=== PATIENT | male | born 1980 | race Caucasian/White ===

== ENCOUNTER 2018-04-10 05:46 | Emergency (ER) | payer OTHER ==
[~2018-04-10] VITALS: Ht 188 cm; Wt 108.9 kg
[~2018-04-10 05:46] MED LIST: ALBU18HF IH; DULO30CA2 PO; ESCI10TA10 PO; FLUT1DIS3 IH; HYDR1TAB14 PO; MAGN400C PO; OMEP40CA6 PO
[2018-04-10 05:50] VITALS: BP 142/86
--- NOTE | 2018-04-10 05:53 | NUR ---
URINE CLEAN CATCH URINE OBTAINED AND SENT TO LAB
[2018-04-10 06:07] LABS: BILIRUBIN,URINE NEGATIVE (NEGATIVE); UROBILINOGEN,URINE NORMAL (NEGATIVE)
[2018-04-10 06:13] LABS: APPEARANCE,URINE CLEAR (CLEAR); UA COLOR YELLOW (YELLOW)
[2018-04-10] MEDS ORDERED: TORADOL ONE ×2 (06:16→06:18)
[2018-04-10] MEDS ORDERED: TORADOL IM STA (06:16)
--- NOTE | 2018-04-10 06:20 | NUR ---
TORADOL PATIENT RESTING IN BED, EYES OPEN, WATCHING T.V. NO SIGNS OF DISTRESS. RESPIRATIONS EVEN AND NONLABORED. TORADOL ADMINISTERED PER ORDERS. PT OFFERED WARM BLANKET, REFUSED, THOUGH REQUESTED LIGHTS BE OFF IN ROOM.
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
[2018-04-10 06:55] VITALS: BP 100/59
== END 2018-04-10 06:50 | disposition home or self-care (01) ==
LOC: ER 05:46
DX: M54.5 Low back pain (principal); R10.30 Lower abdominal pain, unspecified; J45.909 Unspecified asthma, uncomplicated; Z85.47 Personal history of malignant neoplasm of testis; Z88.0 Allergy status to penicillin; Z88.6 Allergy status to analgesic agent; Z88.8 Allergy status to other drugs, medicaments and biological substances; Z79.899 Other long term (current) drug therapy
CPT/HCPCS: 81002; 96372; 99283; J1885 ×2

== ENCOUNTER 2018-08-10 18:27 | Emergency (ER) | payer OTHER ==
[~2018-08-10] VITALS: Ht 188 cm; Wt 108.9 kg
[2018-08-10 18:50] VITALS: BP 114/71
--- NOTE | 2018-08-10 19:07 | NUR ---
Home Medications Pt does not have current medication list, states takes Symbicort, Albuterol Rescue Inhaler, Lexapro, Metoprolol. Does not recall dosages.
[2018-08-10 19:42] LABS: BILIRUBIN,URINE NEGATIVE (NEGATIVE); UROBILINOGEN,URINE NORMAL (NEGATIVE)
[2018-08-10 19:45] LABS: BASOPHIL % 0.7 % (0.0-0.2); EOSINOPHIL # 0.3 10^3/uL (0.0-0.2); EOSINOPHIL % 4.2 % (0.0-5.0); HEMOGLOBIN 14.9 g/dL (13.9-16.3); LYMPHOCYTES # 1.3 10^3/uL (1.0-4.8); LYMPHOCYTES % 21.7 % (24.0-44.0); MEAN CELL HGB 27.7 pg (26-34); MEAN CELL HGB CONCENTRATION 32.7 g/dL (33-37); MEAN CORP VOLUME 84.6 fL (78-100); MEAN PLATELET VOLUME 10.6 fL (7.8-11.0); MONOCYTES # 0.7 10^3/uL (0.3-0.8); MONOCYTES % 11.7 % (5.0-12.0); NEUTROPHIL # 3.6 10^3/uL (1.8-7.7); NEUTROPHILS % 61.5 % (41.0-85.0); RED CELL DISTRIBUTION WIDTH 15.2 % (11.5-14.5); WHITE BLOOD CELL 5.9 10^3/uL (4.5-11.0)
[2018-08-10 19:50] LABS: APPEARANCE,URINE CLEAR (CLEAR); UA COLOR YELLOW (YELLOW)
--- NOTE | 2018-08-10 20:05 | ER.PDOC ---
General Chief Complaint: Male Stated Complaint: MALE / L TESTICULAR PAIN Time seen by MD: 19:55 Source: patient Exam Limitations: no limitations History of Present Illness Timing/Duration: this morning Severity/Quality: moderate Allergies: Coded Allergies: Penicillins (Verified Allergy, Unknown, 12/14/16) aspirin (Verified Allergy, Unknown, 12/14/16) promethazine HCl (Verified Allergy, Unknown, 12/14/16) Home Meds Reported Medications Escitalopram Oxalate (LEXAPRO) 10 Mg Tablet, 1 TAB PO DAILY, #90 TAB 3 Refills 06/25/14 Albuterol Sulfate (VENTOLIN HFA) 18 Gm Hfa.aer.ad, 18 GM IH Q4 PRN for COUGH 11/23/13 Fluticasone/Salmeterol (ADVAIR 250-50 DISKUS) 1 Each Disk.w.dev, 1 EACH IH DAILY 11/23/13 Past Medical History Medical History: arrhythmia, asthma, cancer, hypertension, other Surgical History: cancer surgery Social History Smoking: non-smoker Alcohol Use: occassionally Drug Use: none Reviewed Nursing Reviewed: Vital Signs, Abn. Noted Review of Systems All Other Systems: Reviewed and Negative Physical Exam General Appearance: No Apparent Distress EENT: eyes nml inspection, nml ENT inspection, pharynx nml Neck: nml inspection, non-tender Cardiovascular/Respiratory: Regular Rate, Rhythm, No M/R/G, Normal Peripheral Pulses, No JVD, Normal Breath Sounds, No Respiratory Distress Abdomen: Normal Bowel Sounds, Non Tender, Soft, No Organomegaly, No Pulsatile Mass Male Genitals: Testicular Tenderness (L), Scrotal Swelling Back: nml inspection Extremities: Normal Range of Motion, Non-Tender, Normal Inspection, No Pedal Edema, No Calf Tenderness, Normal Capillary Refill 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 (08/10/18 19:34) Urinalysis (08/10/18 19:34) Us Scrotal (08/10/18 19:35) Vital Signs Date Time Temp Pulse Resp B/P (MAP) Pulse Ox O2 Delivery O2 Flow Rate FiO2 08/10/18 18:50 98.1 63 18 98.1 08/10/18 18:50 98.1 63 18 114/71 (85) 96 Room Air 98.1 08/10/18 18:50 98.1 63 18 96 Room Air 98.1 07/11/18 16:30 66 Laboratory Tests Test 08/10/18 19:34 08/10/18 19:40 Urine Collection Type VOID Urine Color YELLOW (YELLOW) Urine Appearance CLEAR (CLEAR) Urine Bilirubin NEGATIVE MG/DL (NEGATIVE) Urine Ketones NEGATIVE (NEGATIVE) Urine Specific [place] 1.015 (1.005-1.035) Urine pH 6 (5.0-6.0) Urine Protein NEGATIVE (NEGATIVE) Urine Urobilinogen NORMAL (NEGATIVE) Urine Nitrate NEGATIVE (NEGATAIVE) Urine Leukocyte Esterase NEGATIVE (NEGATIVE) Urine Blood NEGATIVE (NEGATIVE) Urine Glucose 50 (NEGATIVE) H White Blood Count 5.9 10^3/uL (4.5-11.0) Red Blood Count 5.38 10^6/uL (4.50-5.90) Hemoglobin 14.9 g/dL (13.9-16.3) Hematocrit 45.5 % (37.0-53.0) Mean Corpuscular Volume 84.6 fL (78-100) Mean Corpuscular Hemoglobin 27.7 pg (26-34) Mean Corpuscular Hemoglobin Concent 32.7 g/dL (33-37) L Red Cell Distribution Width 15.2 % (11.5-14.5) H Platelet Count 289 10^3/uL (150-400) Mean Platelet Volume 10.6 fL (7.8-11.0) Neutrophils (%) (Auto) 61.5 % (41.0-85.0) Lymphocytes (%) (Auto) 21.7 % (24.0-44.0) L Monocytes (%) (Auto) 11.7 % (5.0-12.0) Neutrophils # (Auto) 3.6 10^3/uL (1.8-7.7) Lymphocytes # (Auto) 1.3 10^3/uL (1.0-4.8) Monocytes # (Auto) 0.7 10^3/uL (0.3-0.8) Absolute Immature Granulocyte (auto 0.01 10^3 u/L (0-2) Eosinophils % 4.2 % (0.0-5.0) Basophils % 0.7 % (0.0-0.2) H Basophils # 0.0 10^3/uL (0.0-0.1) Eosinophil Count 0.3 10^3/uL (0.0-0.2) H Prothrombin Time 12.2 SEC (9.8-11.9) H Prothrombin Time INR (Non-Therap) 1.2 PTT 29.4 SEC (24.67-30.72) Sodium Level 141 mmol/L (132-145) Potassium Level 4.1 mmol/L (3.6-5.2) Chloride Level 104.0 mmol/L (96-109) Carbon Dioxide Level 26.0 mmol/L (20.0-32) Anion Gap 15.1 Blood Urea Nitrogen 15 mg/dL (7-18) Creatinine 0.99 mg/dL (0.59-1.40) Estimated GFR () 101.3 (>/=60) BUN/Creatinine Ratio 15.0 Glucose Level 114 mg/dL (70-110) H Calcium Level 9.1 mg/dL (8.4-10.5) Total Bilirubin 0.6 mg/dL (0.2-1.0) Aspartate Amino Transferase (AST) 30 U/L (0-35) Alanine Aminotransferase (ALT) 71 U/L (12-78) Alkaline Phosphatase 76 U/L (50-136) Total Protein 7.6 g/dL (6.4-8.2) Albumin 4.3 g/dL (3.4-5.0) Globulin 3.3 Amylase Level 49 U/L (25-115) Lipase 89 U/L (114-286) L Percent Immature Gran (Cell Imm) 0.20 % (0.00-0.50) Helicobacter pylori Screen NEGATIVE (NEGATIVE) EKG/XRAY/CT/US Utrasound Comments: varicocele, no torsion Departure Time of Disposition: 21:00 Disposition: 01 HOME, SELF-CARE Impression: Primary Impression: Varicocele Condition: Improved Referrals: IDANIA THORPE FINAL ASSEMBLY INSPECTOR (PCP) PRIMARY CARE PROVIDER Duration or Time Spent with Pa: 1 hr LUIS MIGUEL WALLIS MD Aug 10, 2018 20:05
[2018-08-10 20:09] LABS: CALCIUM 9.1 mg/dL (8.4-10.5)
--- NOTE | 2018-08-10 20:45 | NUR ---
Update Dr. Guerrero in with patient at this time
--- NOTE | 2018-08-10 20:46 | DIREP ---
This report includes an Addendum and supersedes previous reports for this exam. This report includes an Addendum and supersedes previous reports for this exam. PROCEDURE:US TESTICULAR COMPARISON:[facility], US, US TESTICULAR, 07/08/2018, 00:39 AM. INDICATIONS:TESTICULAR PAIN TECHNIQUE:The scrotum was evaluated with izquierdo scale, spectral analysis, and color duplex doppler sonography. FINDINGS: RIGHT TESTICLE: Right testicle surgically absent LEFT TESTICLE: Left testicle measures 5.4 x 4.1 x 2.5 cm, spectral Doppler flow evaluation somewhat suboptimal, diastolic flow suggested on provided images. EPIDIDYMIS:Left epididymis measures 1.4 cm with small epididymal cysts. Incidental note made of varicocele. OTHER:Negative. CONCLUSION: 1. Spectral evaluation somewhat limited, diastolic flow suggested on provided images but appears diminished which may be technical. If there is high clinical concern for portion, urology consultation recommended. 2. Small epididymal cysts. 3. Right testicle surgically absent. This report was called by telephone at 8:45 pm on August 10, [address] Clyde Guerrero. Dictated by: Chirag Khalil M.D. on 08/10/2018 at 08:38 PM NDUM: Additional consideration would be to repeat ultrasound with machine performed on prior exam from July 08, 2018 which would allow more direct comparison. This option was discussed with Dr. Guerrero. Dictated by: Chirag Khalil M.D. on 08/10/2018 at 08:48 PM NDUM: Upon further investigation it is noted that the previous ultrasound was performed at an outside facility accounting for differences in ultrasound platform. Conclusion remains unchanged from original report above. This addendum was discussed with Dr. Guerrero. Dictated by: Chirag Khalil M.D. on 08/10/2018 at 09:00 PM
--- NOTE | 2018-08-10 20:51 | NUR ---
US Gosia Pierce RN on phone with US
--- NOTE | 2018-08-10 20:57 | NUR ---
Dr. Remi Guerrero on phone with Dr. Khalil
[2018-08-10 21:00] VITALS: BP 116/74
--- NOTE | 2018-08-10 21:00 | NUR ---
Tanner uGerrero on phone with Dr. Hart
[2018-08-11 00:23] VITALS: BP 116/74
== END 2018-08-10 21:05 | disposition home or self-care (01) ==
LOC: ER 18:27
DX: I86.1 Scrotal varices (principal); I10 Essential (primary) hypertension; R79.1 Abnormal coagulation profile; J45.909 Unspecified asthma, uncomplicated; Z79.899 Other long term (current) drug therapy; Z88.6 Allergy status to analgesic agent; Z88.0 Allergy status to penicillin
CPT/HCPCS: 36415; 76870; 80053; 81002; 82150; 83690; 85025; 85610; 85730; 86677; 99284

== ENCOUNTER 2018-08-22 09:57 | Emergency (ER) | payer OTHER ==
[~2018-08-22] VITALS: Ht 188 cm; Wt 113.4 kg
[2018-08-22 10:16] VITALS: BP 161/106
--- NOTE | 2018-08-22 10:16 | NUR ---
ARRIVAL PATIENT ARRIVED TO [facility] AMBULATORY, C/O OF HEADACHE FOR THE PAST WEEK, DID GOT TO THE [place] ER ON WEDNESDAY AND SENT HOME, TODAY HEADACHE NO BETTER. CAME TO THE ED FOR SHENG.
[2018-08-22] MEDS ORDERED: STADOL IM STA (10:18)
[2018-08-22] MEDS ORDERED: ZOFRAN ODT SL STA (10:18)
[2018-08-22] MEDS ORDERED: ZOFRAN ODT ONE (10:21)
[2018-08-22] MEDS ORDERED: STADOL ONE (10:22)
--- NOTE | 2018-08-22 10:24 | ER.PDOC ---
General Chief Complaint: Headache Stated Complaint: MIGRAINE Time seen by MD: 10:33 Source: patient Exam Limitations: no limitations History of Present Illness Timing/Duration: 1 week Severity/Quality: moderate Prior Headaches/Recent Trauma: frequent headaches, chronic headaches Associated Symptoms: nausea/vomiting, sensitivity to light Modifying Factors: improves with exposure to light, improves with immobilization, improves with medication, improves with rest Prior symptoms/Treatment: Similar symptoms previous, Recenly Seen, Treated by Doctor Allergies: Coded Allergies: Penicillins (Verified Allergy, Unknown, 12/14/16) aspirin (Verified Allergy, Unknown, 12/14/16) promethazine HCl (Verified Allergy, Unknown, 12/14/16) Home Meds Reported Medications Escitalopram Oxalate (LEXAPRO) 10 Mg Tablet, 1 TAB PO DAILY, #90 TAB 3 Refills 06/25/14 Albuterol Sulfate (VENTOLIN HFA) 18 Gm Hfa.aer.ad, 18 GM IH Q4 PRN for COUGH 11/23/13 Fluticasone/Salmeterol (ADVAIR 250-50 DISKUS) 1 Each Disk.w.dev, 1 EACH IH DAILY 11/23/13 Past Medical History Medical History: cancer, other (migraine) Surgical History: cancer surgery Family History Significant Family History: no pertinent family hx Social History Smoking: non-smoker Alcohol Use: none Drug Use: none Reviewed Nursing Reviewed: Vital Signs, Abn. Noted Review of Systems All Other Systems: Reviewed and Negative Physical Exam General Appearance: No Apparent Distress, WD/WN Head/Eyes: eyes nml inspection, no facial swelling, no nystagmus, PERRL ENT: nml ENT inspection, pharynx nml Neck: nml inspection, Supple Cardiovascular: Normal Peripheral Pulses, Regular Rate, Rhythm, No Edema, No Gallop, No JVD, No Murmur Respiratory: chest non-tender, lungs clear, normal breath sounds, no respiratory distress, no accessory muscle use Gastrointestinal: Normal Bowel Sounds, No Organomegaly, No Pulsatile Mass, Non Tender, Soft Back: Normal Inspection, No CVA Tenderness, No Vertebral Tenderness Extremities: Normal Range of Motion, Non-Tender, Normal Inspection, No Pedal Edema, No Calf Tenderness, Normal Capillary Refill Psychiatric: Alert, Oriented x 3 Cranial Nerves: Normal Hearing, Normal Speech, PERRL Coordination/Gait: Normal Finger to Nose, Normal Gait Motor/Sensory: No Motor Deficit, No Sensory Deficit, No Pronator Drift, Negative Babinski's Sign Skin: Warm/Dry, Normal Color Lymphatic: No Adenopathy Results/Orders Results/Orders Orders - LUIS MIGUEL WALLIS MD Butorphanol Tartrate (Stadol) (08/22/18 10:18) Ondansetron (Zofran Odt) (08/22/18 10:18) Vital Signs Date Time Temp Pulse Resp B/P (MAP) Pulse Ox O2 Delivery O2 Flow Rate FiO2 08/22/18 10:16 98.2 63 18 161/106 (124) 97 Room Air 98.2 08/22/18 10:14 98.2 63 18 97 Room Air 98.2 08/22/18 10:13 98.2 63 18 98.2 08/11/18 00:23 72 Departure Time of Disposition: 11:11 Disposition: 01 HOME, SELF-CARE Impression: Primary Impression: Migraine Condition: Improved Referrals: IDANIA THORPE VICE PRESIDENT BUSINESS & CORPORATE DEVELOPMENT (PCP) PRIMARY CARE PROVIDER Duration or Time Spent with Pa: 1 hr LUIS MIGUEL WALLIS MD Aug 22, 2018 10:24
[2018-08-22 10:33] VITALS: BP_SYST 161; BP_SYST 162; BP_DIAS 106; BP_DIAS 99
[2018-08-22 10:34] VITALS: BP 161/106
== END 2018-08-22 10:41 | disposition home or self-care (01) ==
LOC: ER 09:57
DX: G43.909 Migraine, unspecified, not intractable, without status migrainosus (principal); Z79.899 Other long term (current) drug therapy; Z88.0 Allergy status to penicillin; Z88.6 Allergy status to analgesic agent
CPT/HCPCS: 96372; 99283; Q0162; J0585

== ENCOUNTER 2018-09-02 15:15 | Emergency (ER) | payer OTHER ==
[~2018-09-02] VITALS: Ht 188 cm; Wt 113.4 kg
[2018-09-02 15:32] VITALS: BP 143/66
[2018-09-02] MEDS ORDERED: ZOFRAN ODT SL STA (15:40)
[2018-09-02] MEDS ORDERED: STADOL IM STA (15:40)
--- NOTE | 2018-09-02 15:43 | ER.PDOC ---
General Chief Complaint: Headache Stated Complaint: MIGRAINE Time seen by MD: 16:00 Source: patient Exam Limitations: no limitations History of Present Illness Timing/Duration: 24 hours Severity/Quality: moderate Prior Headaches/Recent Trauma: frequent headaches, chronic headaches Associated Symptoms: nausea/vomiting, sensitivity to light Prior symptoms/Treatment: Similar symptoms previous, Recenly Seen, Treated by Doctor Allergies: Coded Allergies: Penicillins (Verified Allergy, Unknown, 12/14/16) aspirin (Verified Allergy, Unknown, 12/14/16) promethazine HCl (Verified Allergy, Unknown, 12/14/16) Home Meds Reported Medications Escitalopram Oxalate (LEXAPRO) 10 Mg Tablet, 1 TAB PO DAILY, #90 TAB 3 Refills 06/25/14 Albuterol Sulfate (VENTOLIN HFA) 18 Gm Hfa.aer.ad, 18 GM IH Q4 PRN for COUGH 11/23/13 Fluticasone/Salmeterol (ADVAIR 250-50 DISKUS) 1 Each Disk.w.dev, 1 EACH IH DAILY 11/23/13 Past Medical History Medical History: arrhythmia, asthma, cancer Surgical History: cancer surgery Social History Smoking: chew Alcohol Use: none Drug Use: none Reviewed Nursing Reviewed: Vital Signs, Abn. Noted Review of Systems All Other Systems: Reviewed and Negative Physical Exam General Appearance: No Apparent Distress, WD/WN Head/Eyes: eyes nml inspection, no facial swelling, no nystagmus, PERRL ENT: nml ENT inspection, pharynx nml Neck: nml inspection, Supple Cardiovascular: Normal Peripheral Pulses, Regular Rate, Rhythm, No Edema, No Gallop, No JVD, No Murmur Respiratory: chest non-tender, lungs clear, normal breath sounds, no respiratory distress, no accessory muscle use Gastrointestinal: Normal Bowel Sounds, No Organomegaly, No Pulsatile Mass, Non Tender, Soft Back: Normal Inspection, No CVA Tenderness, No Vertebral Tenderness Extremities: Normal Range of Motion, Non-Tender, Normal Inspection, No Pedal Edema, No Calf Tenderness, Normal Capillary Refill Psychiatric: Alert, Oriented x 3 Cranial Nerves: Normal Hearing, Normal Speech, PERRL Coordination/Gait: Normal Finger to Nose, Normal Gait Motor/Sensory: No Motor Deficit, No Sensory Deficit, No Pronator Drift, Negative Babinski's Sign Skin: Warm/Dry, Normal Color Lymphatic: No Adenopathy Results/Orders Results/Orders Vital Signs Date Time Temp Pulse Resp B/P (MAP) Pulse Ox O2 Delivery O2 Flow Rate FiO2 09/02/18 15:32 98.0 71 14 143/66 (91) 98 Room Air 98.0 09/02/18 15:28 98.0 71 14 98 Room Air 98.0 09/02/18 15:28 98.0 71 14 98.0 08/22/18 10:34 63 Course DATE SEEN BY PHYSICIAN: Apr 10, 2018 TIME SEEN BY PROVIDER: 0635 Duration or Total Time Spent w: 1 hr Vitals & review Data Vital Sign - Last 24 Hours 08/22/18 09/02/18 09/02/18 09/02/18 10:34 15:28 15:28 15:32 Temp 98.0 98.0 98.0 98.0 98.0 98.0 Pulse 63 71 71 71 Resp 14 14 14 B/P (MAP) 143/66 (91) Pulse Ox 98 98 O2 Delivery Room Air Room Air Sepsis Infection Criteria Pres: None O2 Sat by Pulse Oximetry: 98 Departure Time of Disposition: 16:00 Disposition: 01 HOME, SELF-CARE Impression: Primary Impression: Migraine Condition: Improved Referrals: IDANIA THORPE COAL PICKER (PCP) PRIMARY CARE PROVIDER Duration or Time Spent with Pa: 30 MIN LUIS MIGUEL WALLIS MD Sep 02, 2018 15:43
[2018-09-02] MEDS ORDERED: ZOFRAN ODT ONE (16:00)
[2018-09-02] MEDS ORDERED: STADOL ONE (16:00)
--- NOTE | 2018-09-02 16:30 | NUR ---
AMA PT LEFT AMA.
== END 2018-09-02 16:30 | disposition home or self-care (01) ==
LOC: ER 15:15
DX: G43.909 Migraine, unspecified, not intractable, without status migrainosus (principal); F17.220 Nicotine dependence, chewing tobacco, uncomplicated; J45.909 Unspecified asthma, uncomplicated; Z79.899 Other long term (current) drug therapy; Z88.0 Allergy status to penicillin; Z88.6 Allergy status to analgesic agent
CPT/HCPCS: 96372; 99283; Q0162; 99284; J0585

== ENCOUNTER 2018-09-03 12:09 | Emergency (ER) | payer OTHER ==
[~2018-09-03] VITALS: Ht 188 cm; Wt 113.4 kg
--- NOTE | 2018-09-03 12:36 | NUR ---
ARRIVAL PT ARRIVED AMBULATORY TO ER 7 C/O MIGRAINE X 3 DAYS. PT STATES WAS SEEN IN [place] ER YESTERDAY AM, THIS ER YESTERDAY AFTERNOON AND [place] ER AGAIN THIS AM FOR SAME COMPLAINT. PT HAS HISTORY OF MIGRAINE. NO ACUTE DISTRESS NOTED. EDP NOTIFIED OF PT ARRIVAL.
[2018-09-03 12:45] VITALS: BP 143/87
--- NOTE | 2018-09-03 13:17 | ER.PDOC ---
General Chief Complaint: Headache Stated Complaint: MIGRAINE Time seen by MD: 13:12 Source: patient Exam Limitations: no limitations History of Present Illness Initial Comments Migraine headache for past few days, seen in the ED yesterday and received Stadol without improvement. Has been to [place] ED twice and here twice since yesterday for same. Nothing seem to be helping he says. Severity/Quality: moderate Prior Headaches/Recent Trauma: frequent headaches, chronic headaches Associated Symptoms: sensitivity to light Prior symptoms/Treatment: Similar symptoms previous, Recenly Seen, Treated by Doctor Allergies: Coded Allergies: Penicillins (Verified Allergy, Unknown, UNK, 09/02/18) aspirin (Verified Allergy, Unknown, 12/14/16) promethazine HCl (Verified Allergy, Unknown, 12/14/16) Home Meds Reported Medications Escitalopram Oxalate (LEXAPRO) 10 Mg Tablet, 1 TAB PO DAILY, #90 TAB 3 Refills 06/25/14 Albuterol Sulfate (VENTOLIN HFA) 18 Gm Hfa.aer.ad, 18 GM IH Q4 PRN for COUGH 11/23/13 Fluticasone/Salmeterol (ADVAIR 250-50 DISKUS) 1 Each Disk.w.dev, 1 EACH IH DAILY 11/23/13 Past Medical History Medical History: asthma Surgical History: other Social History Smoking: non-smoker Alcohol Use: none Drug Use: none Review of Systems Constitutional: no symptoms reported Respiratory: no symptoms reported Cardiovascular: no symptoms reported Gastrointestinal: no symptoms reported Genitourinary: no symptoms reported All Other Systems: Reviewed and Negative Physical Exam General Appearance: No Apparent Distress, WD/WN Head/Eyes: eyes nml inspection, no facial swelling, no nystagmus, PERRL ENT: nml ENT inspection, pharynx nml Neck: nml inspection, Supple Cardiovascular: Normal Peripheral Pulses, Regular Rate, Rhythm, No Edema, No Gallop, No JVD, No Murmur Respiratory: chest non-tender, lungs clear, normal breath sounds, no respiratory distress, no accessory muscle use Gastrointestinal: Normal Bowel Sounds, No Organomegaly, No Pulsatile Mass, Non Tender, Soft Back: Normal Inspection, No CVA Tenderness, No Vertebral Tenderness Extremities: Normal Range of Motion, Non-Tender, Normal Inspection, No Pedal Edema, No Calf Tenderness, Normal Capillary Refill Cranial Nerves: Normal Hearing, Normal Speech, PERRL Motor/Sensory: No Motor Deficit, No Sensory Deficit, No Pronator Drift, Negative Babinski's Sign Results/Orders Results/Orders Vital Signs Date Time Temp Pulse Resp B/P (MAP) Pulse Ox O2 Delivery O2 Flow Rate FiO2 09/03/18 12:45 97.6 77 17 143/87 (105) 98 Room Air 97.6 09/03/18 12:36 97.6 77 17 98 Room Air 97.6 09/03/18 12:36 97.6 77 17 97.6 09/02/18 15:32 71 Progress Progress Patient recently had CT head about 4 Months ago so no need for one at this time. He has a drug seeking behavior and I had a long discussion with him. He will follow up with a Neurologist in [place]. Course DATE SEEN BY PHYSICIAN: Apr 10, 2018 TIME SEEN BY PROVIDER: 0635 Duration or Total Time Spent w: 30 MIN Vitals & review Data Vital Sign - Last 24 Hours 09/02/18 09/03/18 09/03/18 09/03/18 15:32 12:36 12:36 12:45 Temp 97.6 97.6 97.6 97.6 97.6 97.6 Pulse 71 77 77 77 Resp 17 17 17 B/P (MAP) 143/87 (105) Pulse Ox 98 98 O2 Delivery Room Air Room Air Sepsis Infection Criteria Pres: None O2 Sat by Pulse Oximetry: 98 Departure Time of Disposition: 13:16 Disposition: 01 HOME, SELF-CARE Impression: Primary Impression: Migraine Condition: Stable Referrals: IDANIA THORPE IT PROGRAM MANAGER (PCP) PRIMARY CARE PROVIDER Additional Instructions: F/U with a Neurologist in [facility]. 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
[2018-09-03 13:27] VITALS: BP 143/87
== END 2018-09-03 13:21 | disposition home or self-care (01) ==
LOC: ER 12:09
DX: G43.411 Hemiplegic migraine, intractable, with status migrainosus (principal); J45.909 Unspecified asthma, uncomplicated; Z79.899 Other long term (current) drug therapy; Z88.0 Allergy status to penicillin; Z88.6 Allergy status to analgesic agent
CPT/HCPCS: 99281

== ENCOUNTER 2018-09-27 10:48 | Emergency (ER) | payer OTHER ==
[~2018-09-27] VITALS: Ht 188 cm; Wt 113.4 kg
[2018-09-27 11:07] VITALS: BP 127/97
[2018-09-27] MEDS ORDERED: TORADOL IM STA (11:49)
[2018-09-27] MEDS ORDERED: PHENERGAN IM STA (11:49)
[2018-09-27] MEDS ORDERED: TORADOL ONE (11:55)
[2018-09-27] MEDS ORDERED: PHENERGAN ONE (11:55)
--- NOTE | 2018-09-27 12:07 | ER.PDOC ---
General Chief Complaint: Headache Stated Complaint: MIGRAINE Time seen by MD: 12:04 Source: patient Exam Limitations: no limitations History of Present Illness Initial Comments Migraine headache for past few days. He has been to numerous EDs in the past 1 Month for Migraine. Severity/Quality: moderate Prior Headaches/Recent Trauma: frequent headaches, chronic headaches Associated Symptoms: nausea/vomiting, sensitivity to light Prior symptoms/Treatment: Similar symptoms previous, Recenly Seen, Treated by Doctor Allergies: Coded Allergies: Penicillins (Verified Allergy, Unknown, UNK, 09/02/18) aspirin (Verified Allergy, Unknown, 12/14/16) Home Meds Reported Medications Escitalopram Oxalate (LEXAPRO) 10 Mg Tablet, 1 TAB PO DAILY, #90 TAB 3 Refills 06/25/14 Albuterol Sulfate (VENTOLIN HFA) 18 Gm Hfa.aer.ad, 18 GM IH Q4 PRN for COUGH 11/23/13 Fluticasone/Salmeterol (ADVAIR 250-50 DISKUS) 1 Each Disk.w.dev, 1 EACH IH DAILY 11/23/13 Past Medical History Medical History: arrhythmia, asthma Surgical History: other Social History Smoking: chew Alcohol Use: none Drug Use: none Review of Systems Constitutional: no symptoms reported Respiratory: no symptoms reported Cardiovascular: no symptoms reported Gastrointestinal: see HPI Genitourinary: no symptoms reported Musculoskeletal: no symptoms reported All Other Systems: Reviewed and Negative Physical Exam General Appearance: No Apparent Distress, WD/WN Head/Eyes: eyes nml inspection, no facial swelling, no nystagmus, PERRL Neck: nml inspection, Supple Cardiovascular: Normal Peripheral Pulses, Regular Rate, Rhythm, No Edema, No Gallop, No JVD, No Murmur Respiratory: chest non-tender, lungs clear, normal breath sounds, no respiratory distress, no accessory muscle use Gastrointestinal: Normal Bowel Sounds, No Organomegaly, No Pulsatile Mass, Non Tender, Soft Back: Normal Inspection, No CVA Tenderness, No Vertebral Tenderness Extremities: Normal Range of Motion, Non-Tender, Normal Inspection, No Pedal Edema, No Calf Tenderness, Normal Capillary Refill Psychiatric: Alert, Oriented x 3 Cranial Nerves: Normal Hearing, Normal Speech, PERRL Motor/Sensory: No Motor Deficit, No Sensory Deficit, No Pronator Drift, Negative Babinski's Sign Skin: Warm/Dry, Normal Color Results/Orders Results/Orders Orders - BERNABE LEY MD Ketorolac Tromethamine (Toradol) (09/27/18 11:49) Promethazine Hcl (Phenergan) (09/27/18 11:49) Ketorolac Tromethamine (Toradol) (09/27/18 11:55) Promethazine Hcl (Phenergan) (09/27/18 11:55) Vital Signs Date Time Temp Pulse Resp B/P (MAP) Pulse Ox O2 Delivery O2 Flow Rate FiO2 09/27/18 11:07 98.1 82 14 127/97 (107) 97 Room Air 98.1 09/27/18 11:03 98.1 82 14 98.1 09/27/18 11:03 98.1 82 14 97 Room Air 98.1 09/03/18 13:27 77 Departure Time of Disposition: 12:06 Disposition: 01 HOME, SELF-CARE Impression: Primary Impression: Migraine Qualified Codes: G43.911 - Migraine, unspecified, intractable, with status migrainosus Condition: Improved Referrals: IDANIA THORPE REMITTANCE CLERK (PCP) PRIMARY CARE PROVIDER Additional Instructions: F/U with your PCP in 2-3 days Duration or Time Spent with Pa: 30 mins BERNABE LEY MD September 27, 2018 12:07
[2018-09-27 12:20] VITALS: BP 124/83
--- NOTE | 2018-09-27 12:20 | NUR ---
DISMISSAL PT DC'D STABLE, STATES PAIN A 3 ON SCALE.
[2018-09-27 12:26] VITALS: BP 127/97
== END 2018-09-27 12:20 | disposition home or self-care (01) ==
LOC: ER 10:48
DX: G43.909 Migraine, unspecified, not intractable, without status migrainosus (principal); J45.909 Unspecified asthma, uncomplicated; F17.220 Nicotine dependence, chewing tobacco, uncomplicated; Z79.899 Other long term (current) drug therapy; Z88.0 Allergy status to penicillin; Z88.6 Allergy status to analgesic agent
CPT/HCPCS: 96372; 99284; J1885; J2550

== ENCOUNTER 2018-10-31 20:21 | Emergency (ER) | payer OTHER ==
[~2018-10-31] VITALS: Ht 188 cm; Wt 108.9 kg
[2018-10-31 20:44] VITALS: BP 124/92
[2018-10-31] MEDS ORDERED: PHENERGAN IM STA (20:57)
[2018-10-31] MEDS ORDERED: TORADOL IM ONE (21:00)
--- NOTE | 2018-10-31 21:05 | ER.PDOC ---
General Chief Complaint: Headache Stated Complaint: MIGRAINE Time seen by MD: 21:04 Source: patient Exam Limitations: no limitations History of Present Illness Initial Comments Migraine headache for past few days. Severity/Quality: moderate Prior Headaches/Recent Trauma: frequent headaches, chronic headaches Associated Symptoms: nausea/vomiting, sensitivity to light Prior symptoms/Treatment: Similar symptoms previous, Recenly Seen, Treated by Doctor Allergies: Coded Allergies: Penicillins (Verified Allergy, Unknown, UNK, 10/31/18) aspirin (Verified Allergy, Unknown, 10/31/18) Home Meds Reported Medications Escitalopram Oxalate (LEXAPRO) 10 Mg Tablet, 1 TAB PO DAILY, #90 TAB 3 Refills 06/25/14 Albuterol Sulfate (VENTOLIN HFA) 18 Gm Hfa.aer.ad, 18 GM IH Q4 PRN for COUGH 11/23/13 Fluticasone/Salmeterol (ADVAIR 250-50 DISKUS) 1 Each Disk.w.dev, 1 EACH IH DAILY 11/23/13 Past Medical History Medical History: asthma, cancer Surgical History: other Social History Smoking: non-smoker Alcohol Use: none Drug Use: none Review of Systems Constitutional: no symptoms reported Eyes: see HPI Respiratory: no symptoms reported Cardiovascular: no symptoms reported Gastrointestinal: see HPI All Other Systems: Reviewed and Negative Physical Exam General Appearance: No Apparent Distress, WD/WN Head/Eyes: eyes nml inspection, no facial swelling, no nystagmus, PERRL Neck: nml inspection, Supple Cardiovascular: Normal Peripheral Pulses, Regular Rate, Rhythm, No Edema, No Gallop, No JVD, No Murmur Respiratory: chest non-tender, lungs clear, normal breath sounds, no respiratory distress, no accessory muscle use Gastrointestinal: Normal Bowel Sounds, No Organomegaly, No Pulsatile Mass, Non Tender, Soft Back: Normal Inspection, No CVA Tenderness, No Vertebral Tenderness Extremities: Normal Range of Motion, Non-Tender, Normal Inspection, No Pedal Edema, No Calf Tenderness, Normal Capillary Refill Psychiatric: Alert, Oriented x 3 Cranial Nerves: Normal Hearing, Normal Speech, PERRL Motor/Sensory: No Motor Deficit, No Sensory Deficit, No Pronator Drift, Negative Babinski's Sign Skin: Warm/Dry, Normal Color Results/Orders Results/Orders Orders - BERNABE LEY MD Ketorolac Tromethamine (Toradol) (10/31/18 21:00) Promethazine Hcl (Phenergan) (10/31/18 20:57) Vital Signs Date Time Temp Pulse Resp B/P (MAP) Pulse Ox O2 Delivery O2 Flow Rate FiO2 10/31/18 20:44 98.3 81 16 124/92 (103) 97 Room Air 98.3 10/31/18 20:38 98.3 81 16 97 Room Air 98.3 09/27/18 12:26 82 Course DATE SEEN BY PHYSICIAN: Apr 10, 2018 TIME SEEN BY PROVIDER: 0635 Duration or Total Time Spent w: 30 mins Vitals & review Data Vital Sign - Last 24 Hours 09/27/18 10/31/18 10/31/18 12:26 20:38 20:44 Temp 98.3 98.3 98.3 98.3 Pulse 82 81 81 Resp 16 16 B/P (MAP) 124/92 (103) Pulse Ox 97 97 O2 Delivery Room Air Room Air Sepsis Infection Criteria Pres: None O2 Sat by Pulse Oximetry: 97 Departure Time of Disposition: 21:05 Disposition: 01 HOME, SELF-CARE Impression: Primary Impression: Migraine Condition: Improved Referrals: PCP,UNKNOWN (PCP) PRIMARY CARE PROVIDER Additional Instructions: F/U with your PCP. Duration or Time Spent with Pa: 30 mins Problem Qualifiers Primary Impression: Migraine Migraine type: unspecified Status migrainosus presence: with status migrainosus Intractability: intractable Qualified Codes: G43.911 - Migraine, unspecified, intractable, with status migrainosus BERNABE LEY MD Oct 31, 2018 21:05
[2018-10-31] MEDS ORDERED: TORADOL ONE (21:14)
[2018-10-31] MEDS ORDERED: PHENERGAN ONE (21:15)
[2018-10-31 21:40] VITALS: BP 113/73
[2018-10-31 21:49] VITALS: BP 113/73
== END 2018-10-31 21:43 | disposition home or self-care (01) ==
LOC: ER 20:21
DX: G43.911 Migraine, unspecified, intractable, with status migrainosus (principal); J45.909 Unspecified asthma, uncomplicated; Z79.899 Other long term (current) drug therapy; Z88.0 Allergy status to penicillin; Z88.6 Allergy status to analgesic agent
CPT/HCPCS: 96372; 99284; J1885; J2550

== ENCOUNTER 2018-11-15 12:15 | Emergency (ER) | payer OTHER ==
[~2018-11-15] VITALS: Ht 188 cm; Wt 108.9 kg
[2018-11-15] MEDS ORDERED: ZOFRAN ODT SL STA (12:36)
[2018-11-15] MEDS ORDERED: DILAUDID IM STA (12:36)
[2018-11-15 12:37] VITALS: BP 138/101
[2018-11-15] MEDS ORDERED: DILAUDID ONE (12:37)
[2018-11-15] MEDS ORDERED: ZOFRAN ODT ONE (12:37)
[2018-11-15] MEDS ORDERED: PHENERGAN ONE (13:07)
[2018-11-15] MEDS ORDERED: PHENERGAN IM STA (13:07)
--- NOTE | 2018-11-15 13:20 | ER.PDOC ---
General Chief Complaint: Headache Stated Complaint: MIGRAIBE Time seen by MD: 13:22 Source: patient History of Present Illness Timing/Duration: 24 hours Severity/Quality: moderate Prior Headaches/Recent Trauma: frequent headaches, chronic headaches Associated Symptoms: nausea/vomiting, sensitivity to light Modifying Factors: improves with medication, improves with rest Prior symptoms/Treatment: Similar symptoms previous Allergies: Coded Allergies: Penicillins (Verified Allergy, Unknown, UNK, 10/31/18) aspirin (Verified Allergy, Unknown, 10/31/18) Home Meds Reported Medications Escitalopram Oxalate (LEXAPRO) 10 Mg Tablet, 1 TAB PO DAILY, #90 TAB 3 Refills 06/25/14 Albuterol Sulfate (VENTOLIN HFA) 18 Gm Hfa.aer.ad, 18 GM IH Q4 PRN for COUGH 11/23/13 Fluticasone/Salmeterol (ADVAIR 250-50 DISKUS) 1 Each Disk.w.dev, 1 EACH IH DAILY 11/23/13 Past Medical History Medical History: other Surgical History: other Social History Smoking: non-smoker Alcohol Use: none Drug Use: none Reviewed Nursing Reviewed: Vital Signs, Abn. Noted Review of Systems All Other Systems: Reviewed and Negative Physical Exam General Appearance: No Apparent Distress, WD/WN Head/Eyes: eyes nml inspection, no facial swelling, no nystagmus, PERRL ENT: nml ENT inspection, pharynx nml Neck: nml inspection, Supple Cardiovascular: Normal Peripheral Pulses, Regular Rate, Rhythm, No Edema, No Gallop, No JVD, No Murmur Respiratory: chest non-tender, lungs clear, normal breath sounds, no respiratory distress, no accessory muscle use Gastrointestinal: Normal Bowel Sounds, No Organomegaly, No Pulsatile Mass, Non Tender, Soft Back: Normal Inspection, No CVA Tenderness, No Vertebral Tenderness Extremities: Normal Range of Motion, Non-Tender, Normal Inspection, No Pedal Edema, No Calf Tenderness, Normal Capillary Refill Psychiatric: Alert, Oriented x 3 Cranial Nerves: Normal Hearing, Normal Speech, PERRL Coordination/Gait: Normal Finger to Nose, Normal Gait Motor/Sensory: No Motor Deficit, No Sensory Deficit, No Pronator Drift, Negative Babinski's Sign Skin: Warm/Dry, Normal Color Lymphatic: No Adenopathy Results/Orders Results/Orders Orders - LUIS MIGUEL WALLIS MD Hydromorphone Inj (Dilaudid) (11/15/18 12:36) Ondansetron (Zofran Odt) (11/15/18 12:36) Promethazine Hcl (Phenergan) (11/15/18 13:07) Promethazine Hcl (Phenergan) (11/15/18 13:07) Vital Signs Date Time Temp Pulse Resp B/P (MAP) Pulse Ox O2 Delivery O2 Flow Rate FiO2 11/15/18 12:37 98.0 76 18 138/101 (113) 99 Room Air 98.0 11/15/18 12:35 98.0 76 18 98.0 11/15/18 12:35 98.0 76 18 99 Room Air 98.0 10/31/18 21:49 73 Administered Medications Medications (Trade) Dose Ordered Sig/Jennifer Route PRN Reason Start Time Stop Time Status Last Admin Dose Admin Hydromorphone HCl (Dilaudid) 2 mg STAT STAT IM 11/15/18 12:36 11/15/18 12:37 UNV 11/15/18 12:42 2 MG Ondansetron HCl (Zofran Odt) 4 mg STAT STAT SL 11/15/18 12:36 11/15/18 12:37 UNV 11/15/18 12:42 4 MG Promethazine HCl (Phenergan) 25 mg STAT STAT IM 11/15/18 13:07 11/15/18 13:08 DC 11/15/18 13:11 25 MG Departure Time of Disposition: 14:00 Disposition: 01 HOME, SELF-CARE Impression: Primary Impression: Migraine Condition: Stable Referrals: PCP,UNKNOWN (PCP) PRIMARY CARE PROVIDER Duration or Time Spent with Pa: 15 MIN LUIS MIGUEL WALLIS MD Nov 15, 2018 13:20
[2018-11-15 13:30] VITALS: BP 138/101
== END 2018-11-15 13:25 | disposition home or self-care (01) ==
LOC: ER 12:15
DX: G43.909 Migraine, unspecified, not intractable, without status migrainosus (principal); Z79.899 Other long term (current) drug therapy; Z88.0 Allergy status to penicillin; Z88.6 Allergy status to analgesic agent
CPT/HCPCS: 96372; 99284; J1170; J2550; Q0162

== ENCOUNTER 2018-11-18 14:42 | Emergency (ER) | payer OTHER ==
[~2018-11-18] VITALS: Ht 188 cm; Wt 108.9 kg
[2018-11-18 14:58] VITALS: BP 138/91
--- NOTE | 2018-11-18 14:59 | NUR ---
ARRIVAL PATIENT ARRIVED TO ED6 AMBULATORY, C/O OF HEADACHE TODAY, HAS BEEN SEEN IN THE PAST 2 DAYS IN THE ED FOR SAME SYMPTOMS AND WAS GIVEN DILAUDID,ZOFRAN AND PHENERGAN, COMES BACK TO TODAY DUE TO HEADACHE HAS RETURNED.
--- NOTE | 2018-11-18 15:02 | ER.PDOC ---
General Chief Complaint: Headache Stated Complaint: MIGRAINE Time seen by MD: 15:00 Source: patient History of Present Illness Timing/Duration: 24 hours Severity/Quality: moderate Prior Headaches/Recent Trauma: frequent headaches, chronic headaches Associated Symptoms: nausea/vomiting, sensitivity to light Modifying Factors: improves with medication, improves with rest Prior symptoms/Treatment: Similar symptoms previous Allergies: Coded Allergies: Penicillins (Verified Allergy, Unknown, UNK, 10/31/18) aspirin (Verified Allergy, Unknown, 10/31/18) Home Meds Reported Medications Escitalopram Oxalate (LEXAPRO) 10 Mg Tablet, 1 TAB PO DAILY, #90 TAB 3 Refills 06/25/14 Albuterol Sulfate (VENTOLIN HFA) 18 Gm Hfa.aer.ad, 18 GM IH Q4 PRN for COUGH 11/23/13 Fluticasone/Salmeterol (ADVAIR 250-50 DISKUS) 1 Each Disk.w.dev, 1 EACH IH DAILY 11/23/13 Past Medical History Medical History: cancer, other Surgical History: other Social History Smoking: non-smoker Alcohol Use: none Drug Use: none Reviewed Nursing Reviewed: Vital Signs, Abn. Noted Review of Systems All Other Systems: Reviewed and Negative Physical Exam General Appearance: No Apparent Distress, WD/WN Head/Eyes: eyes nml inspection, no facial swelling, no nystagmus, PERRL ENT: nml ENT inspection, pharynx nml Neck: nml inspection, Supple Cardiovascular: Normal Peripheral Pulses, Regular Rate, Rhythm, No Edema, No Gallop, No JVD, No Murmur Respiratory: chest non-tender, lungs clear, normal breath sounds, no respiratory distress, no accessory muscle use Gastrointestinal: Normal Bowel Sounds, No Organomegaly, No Pulsatile Mass, Non Tender, Soft Back: Normal Inspection, No CVA Tenderness, No Vertebral Tenderness Extremities: Normal Range of Motion, Non-Tender, Normal Inspection, No Pedal Edema, No Calf Tenderness, Normal Capillary Refill Psychiatric: Alert, Oriented x 3 Cranial Nerves: Normal Hearing, Normal Speech, PERRL Coordination/Gait: Normal Finger to Nose, Normal Gait Skin: Warm/Dry, Normal Color Lymphatic: No Adenopathy Results/Orders Results/Orders Vital Signs Date Time Temp Pulse Resp B/P (MAP) Pulse Ox O2 Delivery O2 Flow Rate FiO2 11/18/18 14:58 98.0 50 18 138/91 (107) 97 Room Air 98.0 11/18/18 14:57 98.0 50 18 97 Room Air 98.0 11/18/18 14:56 98.0 50 18 98.0 11/15/18 13:30 76 Departure Time of Disposition: 15:22 Disposition: 01 HOME, SELF-CARE Impression: Primary Impression: Headache Condition: Improved Referrals: PCP,UNKNOWN (PCP) PRIMARY CARE PROVIDER Duration or Time Spent with Pa: LUIS MIGUEL Hidalgo MD Nov 18, 2018 15:02
[2018-11-18] MEDS ORDERED: STADOL IM STA (15:20)
[2018-11-18] MEDS ORDERED: ZOFRAN ODT SL STA (15:21)
[2018-11-18] MEDS ORDERED: ZOFRAN ODT ONE (15:27)
[2018-11-18 15:32] VITALS: BP 138/91
== END 2018-11-18 15:50 | disposition home or self-care (01) ==
LOC: ER 14:42
DX: R51 Headache (principal); R11.2 Nausea with vomiting, unspecified; H53.149 Visual discomfort, unspecified; Z79.899 Other long term (current) drug therapy; Z88.0 Allergy status to penicillin; Z88.6 Allergy status to analgesic agent
CPT/HCPCS: 96372; 99283; Q0162; 99282

== ENCOUNTER 2018-11-26 18:43 | Emergency (ER) | payer OTHER ==
[~2018-11-26] VITALS: Ht 188 cm; Wt 108.9 kg
[2018-11-26 18:55] VITALS: BP 109/64
[2018-11-26] MEDS ORDERED: PHENERGAN IM STA (19:05)
[2018-11-26] MEDS ORDERED: TORADOL IM STA (19:05)
[2018-11-26] MEDS ORDERED: TORADOL ONE (19:06)
[2018-11-26] MEDS ORDERED: PHENERGAN ONE (19:06)
--- NOTE | 2018-11-26 19:08 | ER.PDOC ---
General Chief Complaint: Headache Stated Complaint: MIGRAINE Time seen by MD: 19:06 Source: patient Exam Limitations: no limitations History of Present Illness Initial Comments Migraine headache for past few days. Severity/Quality: moderate Prior Headaches/Recent Trauma: frequent headaches, chronic headaches Associated Symptoms: nausea/vomiting, sensitivity to light Prior symptoms/Treatment: Similar symptoms previous, Recenly Seen, Treated by Doctor Allergies: Coded Allergies: Penicillins (Verified Allergy, Unknown, UNK, 10/31/18) aspirin (Verified Allergy, Unknown, 10/31/18) Home Meds Reported Medications Escitalopram Oxalate (LEXAPRO) 10 Mg Tablet, 1 TAB PO DAILY, #90 TAB 3 Refills 06/25/14 Albuterol Sulfate (VENTOLIN HFA) 18 Gm Hfa.aer.ad, 18 GM IH Q4 PRN for COUGH 11/23/13 Fluticasone/Salmeterol (ADVAIR 250-50 DISKUS) 1 Each Disk.w.dev, 1 EACH IH DAILY 11/23/13 Past Medical History Medical History: asthma, other Surgical History: cancer surgery Social History Smoking: non-smoker Alcohol Use: rarely Drug Use: none Review of Systems Constitutional: no symptoms reported Eyes: see HPI Respiratory: no symptoms reported Cardiovascular: no symptoms reported Gastrointestinal: see HPI All Other Systems: Reviewed and Negative Physical Exam General Appearance: No Apparent Distress, WD/WN Neck: nml inspection, Supple Cardiovascular: Normal Peripheral Pulses, Regular Rate, Rhythm, No Edema, No Gallop, No JVD, No Murmur Respiratory: chest non-tender, lungs clear, normal breath sounds, no respiratory distress, no accessory muscle use Gastrointestinal: Normal Bowel Sounds, No Organomegaly, No Pulsatile Mass, Non Tender, Soft Back: Normal Inspection, No CVA Tenderness, No Vertebral Tenderness Extremities: Normal Range of Motion, Non-Tender, Normal Inspection, No Pedal Edema, No Calf Tenderness, Normal Capillary Refill Psychiatric: Alert, Oriented x 3 Cranial Nerves: Normal Hearing, Normal Speech, PERRL Motor/Sensory: No Motor Deficit, No Sensory Deficit, No Pronator Drift, Negative Babinski's Sign Skin: Warm/Dry, Normal Color Results/Orders Results/Orders Orders - BERNABE LEY MD Ketorolac Tromethamine (Toradol) (11/26/18 19:05) Promethazine Hcl (Phenergan) (11/26/18 19:05) Vital Signs Date Time Temp Pulse Resp B/P (MAP) Pulse Ox O2 Delivery O2 Flow Rate FiO2 11/26/18 18:55 97.7 105 18 97.7 11/26/18 18:55 97.7 105 18 98 Room Air 97.7 11/26/18 18:55 97.7 105 18 109/64 (79) 98 Room Air 97.7 11/18/18 15:32 208.4 50 11/18/18 14:58 98.0 Departure Time of Disposition: 19:07 Disposition: 01 HOME, SELF-CARE Impression: Primary Impression: Migraine Qualified Codes: G43.911 - Migraine, unspecified, intractable, with status migrainosus Condition: Stable Referrals: PCP,UNKNOWN (PCP) PRIMARY CARE PROVIDER Additional Instructions: F/U with your PCP and Neurologist Duration or Time Spent with Pa: 20 mins BERNABE LEY MD Nov 26, 2018 19:08
[2018-11-26 19:35] VITALS: BP 119/71
== END 2018-11-26 19:34 | disposition home or self-care (01) ==
LOC: ER 18:43
DX: G43.909 Migraine, unspecified, not intractable, without status migrainosus (principal); J45.909 Unspecified asthma, uncomplicated; Z88.0 Allergy status to penicillin; Z88.6 Allergy status to analgesic agent; Z79.899 Other long term (current) drug therapy; Z98.890 Other specified postprocedural states
CPT/HCPCS: 96372 ×2; 99284; J1885; J2550

== ENCOUNTER 2018-11-27 19:00 | Emergency (ER) | payer OTHER ==
[~2018-11-27] VITALS: Ht 188 cm; Wt 113.4 kg
[2018-11-27 19:20] VITALS: BP 136/81
[2018-11-27] MEDS ORDERED: DECADRON IM STA (19:31)
[2018-11-27] MEDS ORDERED: TORADOL IM STA (19:31)
[2018-11-27] MEDS ORDERED: TORADOL ONE (19:57)
[2018-11-27] MEDS ORDERED: DECADRON ONE (19:57)
--- NOTE | 2018-11-27 20:26 | ER.PDOC ---
General Chief Complaint: Requesting Medical Care Stated Complaint: MIGRAINE Time seen by MD: 20:00 Source: patient Exam Limitations: no limitations History of Present Illness Initial Comments pt has a h/o Chronic migraine and multiple visits to the ER for pain control, pt was here yesterday for the same problem and states the meds did not help . Timing/Duration: 24 hours Severity/Quality: moderate Prior Headaches/Recent Trauma: frequent headaches, chronic headaches Associated Symptoms: dizziness Modifying Factors: improves with exposure to light Prior symptoms/Treatment: Recenly Seen Allergies: Coded Allergies: Penicillins (Verified Allergy, Unknown, UNK, 10/31/18) aspirin (Verified Allergy, Unknown, 10/31/18) Home Meds Reported Medications Escitalopram Oxalate (LEXAPRO) 10 Mg Tablet, 1 TAB PO DAILY, #90 TAB 3 Refills 06/25/14 Albuterol Sulfate (VENTOLIN HFA) 18 Gm Hfa.aer.ad, 18 GM IH Q4 PRN for COUGH 11/23/13 Fluticasone/Salmeterol (ADVAIR 250-50 DISKUS) 1 Each Disk.w.dev, 1 EACH IH DAILY 11/23/13 Past Medical History Medical History: other (Migraines ) Surgical History: cancer surgery Social History Drug Use: none Review of Systems Constitutional: no symptoms reported Eyes: no symptoms reported Respiratory: no symptoms reported Cardiovascular: no symptoms reported Gastrointestinal: no symptoms reported Genitourinary: no symptoms reported Musculoskeletal: no symptoms reported Skin: no symptoms reported Psychiatric/Neurological: see HPI, headache All Other Systems: Reviewed and Negative Physical Exam General Appearance: No Apparent Distress, WD/WN ENT: nml ENT inspection Neck: nml inspection, Supple Cardiovascular: Normal Peripheral Pulses, Regular Rate, Rhythm, No Edema Respiratory: chest non-tender, lungs clear, normal breath sounds, no respiratory distress Gastrointestinal: Normal Bowel Sounds, No Organomegaly, Non Tender Extremities: Normal Range of Motion, Non-Tender, Normal Inspection, No Pedal Edema Psychiatric: Oriented x 3 Cranial Nerves: Normal Hearing, Normal Speech, PERRL Motor/Sensory: No Motor Deficit, No Sensory Deficit Skin: Warm/Dry, Normal Color Lymphatic: No Adenopathy Results/Orders Results/Orders Orders - CALLY BURGOS MD Ketorolac Tromethamine (Toradol) (11/27/18 19:31) Dexamethasone Sod Phosphate (Decadron) (11/27/18 19:31) Ketorolac Tromethamine (Toradol) (11/27/18 19:57) Dexamethasone Sod Phosphate (Decadron) (11/27/18 19:57) Vital Signs Date Time Temp Pulse Resp B/P (MAP) Pulse Ox O2 Delivery O2 Flow Rate FiO2 11/26/18 19:35 207.9 99 11/26/18 18:55 97.7 Administered Medications Medications (Trade) Dose Ordered Sig/Jennifer Route PRN Reason Start Time Stop Time Status Last Admin Dose Admin Dexamethasone Sodium Phosphate (Decadron) 10 mg STAT STAT IM 11/27/18 19:31 11/27/18 19:34 DC 11/27/18 20:06 10 MG Ketorolac Tromethamine (Toradol) 60 mg STAT STAT IM 11/27/18 19:31 11/27/18 19:34 DC 11/27/18 20:06 60 MG Progress Progress pt is stable , advised f/u with neurology Departure Time of Disposition: 20:24 Disposition: 01 HOME, SELF-CARE Impression: Primary Impression: Headache Qualified Codes: G44.89 - Other headache syndrome Condition: Stable Referrals: PCP,UNKNOWN (PCP) PRIMARY CARE PROVIDER Additional Instructions: pt is advised to f/u with Neurology Duration or Time Spent with Pa: 20 mins CALLY BURGOS MD Nov 27, 2018 20:26
[2018-11-27 21:03] VITALS: BP 133/49
== END 2018-11-27 20:45 | disposition home or self-care (01) ==
LOC: ER 19:00
DX: G43.909 Migraine, unspecified, not intractable, without status migrainosus (principal); Z88.0 Allergy status to penicillin; Z88.6 Allergy status to analgesic agent; Z79.899 Other long term (current) drug therapy; Z98.890 Other specified postprocedural states
CPT/HCPCS: 96372 ×2; 99284; J1100; J1885

== ENCOUNTER 2018-12-09 20:00 | Emergency (ER) | payer OTHER ==
[~2018-12-09] VITALS: Ht 188 cm; Wt 99.8 kg
[2018-12-09 20:05] VITALS: BP 141/73
--- NOTE | 2018-12-09 20:15 | NUR ---
Triaged LWBS Patient states that the medication that he took earlier today just kicked in and he is feeling must better and he believes that he will just go home since he is feeling better. Patient is alert oriented and symptoms have improved.
== END 2018-12-09 20:15 | disposition left against medical advice (07) ==
LOC: ER 20:00
DX: G43.909 Migraine, unspecified, not intractable, without status migrainosus (principal); Z53.21 Procedure and treatment not carried out due to patient leaving prior to being seen by health care provider
CPT/HCPCS: 99281

== ENCOUNTER 2018-12-12 20:37 | Emergency (ER) | payer OTHER ==
[~2018-12-12] VITALS: Ht 188 cm; Wt 108.9 kg
[2018-12-12 20:40] VITALS: BP 146/92
[2018-12-12] MEDS ORDERED: TORADOL ONE (20:52)
[2018-12-12] MEDS ORDERED: TORADOL IM STA (20:52)
--- NOTE | 2018-12-12 20:59 | ER.PDOC ---
General Chief Complaint: Requesting Medical Care Stated Complaint: MIGRAINE Time seen by MD: 20:56 Source: patient Exam Limitations: no limitations History of Present Illness Initial Comments Headache for 4 days, seen in the ED recurrently for same. Severity/Quality: moderate Prior Headaches/Recent Trauma: frequent headaches, chronic headaches Associated Symptoms: sensitivity to light Prior symptoms/Treatment: Similar symptoms previous, Recenly Seen, Treated by Doctor Allergies: Coded Allergies: Penicillins (Verified Allergy, Unknown, UNK, 10/31/18) aspirin (Verified Allergy, Unknown, 10/31/18) Home Meds Reported Medications Escitalopram Oxalate (LEXAPRO) 10 Mg Tablet, 1 TAB PO DAILY, #90 TAB 3 Refills 06/25/14 Albuterol Sulfate (VENTOLIN HFA) 18 Gm Hfa.aer.ad, 18 GM IH Q4 PRN for COUGH 11/23/13 Fluticasone/Salmeterol (ADVAIR 250-50 DISKUS) 1 Each Disk.w.dev, 1 EACH IH DAILY 11/23/13 Past Medical History Surgical History: cancer surgery Social History Drug Use: none Review of Systems Constitutional: no symptoms reported Eyes: photophobia Respiratory: no symptoms reported Cardiovascular: no symptoms reported Gastrointestinal: no symptoms reported Genitourinary: no symptoms reported All Other Systems: Reviewed and Negative Physical Exam General Appearance: No Apparent Distress, WD/WN Neck: nml inspection, Supple Cardiovascular: Normal Peripheral Pulses, Regular Rate, Rhythm, No Edema, No Gallop, No JVD, No Murmur Respiratory: chest non-tender, lungs clear, normal breath sounds, no respiratory distress, no accessory muscle use Gastrointestinal: Normal Bowel Sounds, No Organomegaly, No Pulsatile Mass, Non Tender, Soft Back: Normal Inspection, No CVA Tenderness, No Vertebral Tenderness Extremities: Normal Range of Motion, Non-Tender, Normal Inspection, No Pedal Edema, No Calf Tenderness, Normal Capillary Refill Psychiatric: Alert, Oriented x 3 Cranial Nerves: Normal Hearing, Normal Speech, PERRL Motor/Sensory: No Motor Deficit, No Sensory Deficit, No Pronator Drift, Negative Babinski's Sign Skin: Warm/Dry, Normal Color Results/Orders Results/Orders Orders - BERNABE LEY MD Ketorolac Tromethamine (Toradol) (12/12/18 20:52) Ketorolac Tromethamine (Toradol) (12/12/18 20:52) Vital Signs Date Time Temp Pulse Resp B/P (MAP) Pulse Ox O2 Delivery O2 Flow Rate FiO2 12/09/18 20:05 209.3 84 Course Sepsis Screening Results: Posi: POSITIVE SEPSIS RISK DATE SEEN BY PHYSICIAN: Apr 10, 2018 TIME SEEN BY PROVIDER: 0635 Duration or Total Time Spent w: 20 mins Vitals & review Data Vital Sign - Last 24 Hours 12/09/18 20:05 Temp 209.3 Pulse 84 Sepsis Infection Criteria Pres: None Departure Time of Disposition: 20:57 Disposition: 01 HOME, SELF-CARE Impression: Primary Impression: Migraine Condition: Stable Referrals: PCP,UNKNOWN (PCP) PRIMARY CARE PROVIDER Additional Instructions: Toradol F/U with your Neurologist Duration or Time Spent with Pa: 20 mins Problem Qualifiers Primary Impression: Migraine Migraine type: unspecified Status migrainosus presence: with status migrainosus Intractability: intractable Qualified Codes: G43.911 - Migraine, unspecified, intractable, with status migrainosus BERNABE LEY MD Dec 12, 2018 20:59
[2018-12-12 21:39] VITALS: BP 146/92
== END 2018-12-12 21:13 | disposition home or self-care (01) ==
LOC: ER 20:37
DX: G43.911 Migraine, unspecified, intractable, with status migrainosus (principal); Z79.899 Other long term (current) drug therapy; Z88.0 Allergy status to penicillin; Z88.6 Allergy status to analgesic agent
CPT/HCPCS: 96372; 99283; J1885

== ENCOUNTER 2018-12-13 17:54 | Emergency (ER) | payer OTHER ==
[~2018-12-13] VITALS: Ht 188 cm; Wt 108.9 kg
--- NOTE | 2018-12-13 17:59 | ER.PDOC ---
General Chief Complaint: Requesting Medical Care Stated Complaint: MIGRAINE Time seen by MD: 17:59 Source: patient Exam Limitations: no limitations History of Present Illness Initial Comments Migraine since yesterday, seen yesterday, given toradol, no improvement Timing/Duration: 24 hours Severity/Quality: severe Prior Headaches/Recent Trauma: no recent headache/trauma, chronic headaches Associated Symptoms: denies symptoms Allergies: Coded Allergies: Penicillins (Verified Allergy, Unknown, UNK, 10/31/18) aspirin (Verified Allergy, Unknown, 10/31/18) Home Meds Reported Medications Escitalopram Oxalate (LEXAPRO) 10 Mg Tablet, 1 TAB PO DAILY, #90 TAB 3 Refills 06/25/14 Albuterol Sulfate (VENTOLIN HFA) 18 Gm Hfa.aer.ad, 18 GM IH Q4 PRN for COUGH 11/23/13 Fluticasone/Salmeterol (ADVAIR 250-50 DISKUS) 1 Each Disk.w.dev, 1 EACH IH DAILY 11/23/13 Past Medical History Surgical History: cancer surgery Social History Drug Use: none Review of Systems Psychiatric/Neurological: headache All Other Systems: Reviewed and Negative Physical Exam General Appearance: No Apparent Distress, WD/WN Head/Eyes: eyes nml inspection, no facial swelling, no nystagmus, PERRL ENT: nml ENT inspection, pharynx nml Neck: nml inspection, Supple Cardiovascular: Normal Peripheral Pulses, Regular Rate, Rhythm, No Edema, No Gallop, No JVD, No Murmur Respiratory: chest non-tender, lungs clear, normal breath sounds, no respiratory distress, no accessory muscle use Gastrointestinal: Normal Bowel Sounds, No Organomegaly, No Pulsatile Mass, Non Tender, Soft Back: Normal Inspection, No CVA Tenderness, No Vertebral Tenderness Extremities: Normal Range of Motion, Non-Tender, Normal Inspection, No Pedal Edema, No Calf Tenderness, Normal Capillary Refill Psychiatric: Alert, Oriented x 3 Cranial Nerves: Normal Hearing, Normal Speech, PERRL Coordination/Gait: Normal Finger to Nose, Normal Gait Motor/Sensory: No Motor Deficit, No Sensory Deficit, No Pronator Drift, Ne gative Babinski's Sign Results/Orders Results/Orders Orders - DESTINI CHRIS MD Promethazine Hcl (Phenergan) (12/13/18 18:16) Ketorolac Tromethamine (Toradol) (12/13/18 18:30) Vital Signs Date Time Temp Pulse Resp B/P (MAP) Pulse Ox O2 Delivery O2 Flow Rate FiO2 12/12/18 21:39 209.7 73 Course Sepsis Screening Results: Posi: POSITIVE SEPSIS RISK DATE SEEN BY PHYSICIAN: Apr 10, 2018 TIME SEEN BY PROVIDER: 0635 Duration or Total Time Spent w: 20 mins Vitals & review Data Vital Sign - Last 24 Hours 12/12/18 21:39 Temp 209.7 Pulse 73 Current Medications Medications (Trade) Dose Ordered Sig/Jennifer PRN Reason Start Time Stop Time Status Last Admin Promethazine HCl (Phenergan) 25 mg STAT STAT 12/13/18 18:16 12/13/18 18:17 Sepsis Infection Criteria Pres: None Departure Time of Disposition: 18:19 Disposition: 01 HOME, SELF-CARE Impression: Primary Impression: Migraine Condition: Stable Patient Instructions: Migraine Headache, [id number] Referrals: PCP,UNKNOWN (PCP) PRIMARY CARE PROVIDER Duration or Time Spent with Pa: DESTINI HUBER MD Dec 13, 2018 17:59
[2018-12-13 18:13] VITALS: BP 154/89
[2018-12-13] MEDS ORDERED: PHENERGAN IM STA (18:16)
[2018-12-13] MEDS ORDERED: TORADOL ONE (18:29)
[2018-12-13] MEDS ORDERED: PHENERGAN ONE (18:29)
[2018-12-13] MEDS ORDERED: TORADOL IM ONE (18:30)
[2018-12-13 18:40] VITALS: BP 133/94
== END 2018-12-13 18:50 | disposition home or self-care (01) ==
LOC: ER 17:54
DX: G43.909 Migraine, unspecified, not intractable, without status migrainosus (principal); Z79.899 Other long term (current) drug therapy; Z88.0 Allergy status to penicillin; Z88.6 Allergy status to analgesic agent
CPT/HCPCS: 96372; 99284; J1885; J2550

== ENCOUNTER 2018-12-27 10:57 | Emergency (ER) | payer OTHER ==
[~2018-12-27] VITALS: Ht 188 cm; Wt 108.9 kg
[2018-12-27 11:12] VITALS: BP 146/97
[2018-12-27] MEDS ORDERED: TORADOL IM STA (11:41)
[2018-12-27] MEDS ORDERED: PHENERGAN IM STA (11:41)
--- NOTE | 2018-12-27 11:51 | ER.PDOC ---
General Chief Complaint: Headache Stated Complaint: MIGRAINE Time seen by MD: 11:48 Source: patient Exam Limitations: no limitations History of Present Illness Initial Comments Migraine headache for past few days. Severity/Quality: moderate Prior Headaches/Recent Trauma: frequent headaches, chronic headaches Associated Symptoms: nausea/vomiting, sensitivity to light Prior symptoms/Treatment: Similar symptoms previous, Recenly Seen, Treated by Doctor Allergies: Coded Allergies: Penicillins (Verified Allergy, Unknown, UNK, 10/31/18) aspirin (Verified Allergy, Unknown, 10/31/18) Home Meds Reported Medications Escitalopram Oxalate (LEXAPRO) 10 Mg Tablet, 1 TAB PO DAILY, #90 TAB 3 Refills 06/25/14 Albuterol Sulfate (VENTOLIN HFA) 18 Gm Hfa.aer.ad, 18 GM IH Q4 PRN for COUGH 11/23/13 Fluticasone/Salmeterol (ADVAIR 250-50 DISKUS) 1 Each Disk.w.dev, 1 EACH IH DAILY 11/23/13 Past Medical History Medical History: no pertinent history Surgical History: knee Social History Smoking: non-smoker Alcohol Use: none Drug Use: none Review of Systems Constitutional: no symptoms reported Eyes: see HPI Ears, Nose, Mouth, Throat: no symptoms reported Respiratory: no symptoms reported Cardiovascular: no symptoms reported Gastrointestinal: see HPI Musculoskeletal: no symptoms reported All Other Systems: Reviewed and Negative Physical Exam General Appearance: No Apparent Distress, WD/WN Head/Eyes: eyes nml inspection ENT: nml ENT inspection, pharynx nml Neck: nml inspection, Supple Cardiovascular: Normal Peripheral Pulses, Regular Rate, Rhythm, No Edema, No Gallop, No JVD, No Murmur Respiratory: chest non-tender, lungs clear, normal breath sounds, no respiratory distress, no accessory muscle use Gastrointestinal: Normal Bowel Sounds, No Organomegaly, No Pulsatile Mass, Non Tender, Soft Back: Normal Inspection, No CVA Tenderness, No Vertebral Tenderness Extremities: Normal Range of Motion, Non-Tender, Normal Inspection, No Pedal Edema, No Calf Tenderness, Normal Capillary Refill Psychiatric: Alert, Oriented x 3 Cranial Nerves: Normal Hearing, Normal Speech, PERRL Motor/Sensory: No Motor Deficit, No Sensory Deficit, No Pronator Drift Skin: Warm/Dry, Normal Color Results/Orders Results/Orders Orders - BERNABE LEY MD Ketorolac Tromethamine (Toradol) (8/6/19 11:41) Promethazine Hcl (Phenergan) (12/27/18 11:41) Vital Signs Date Time Temp Pulse Resp B/P (MAP) Pulse Ox O2 Delivery O2 Flow Rate FiO2 12/27/18 11:12 97.6 76 16 12/27/18 11:12 97.6 76 16 146/97 (113) 98 Room Air 12/27/18 11:12 97.6 76 16 98 Room Air 12/13/18 18:40 208.9 80 Departure Time of Disposition: 11:50 Disposition: 01 HOME, SELF-CARE Impression: Primary Impression: Migraine Qualified Codes: G43.911 - Migraine, unspecified, intractable, with status migrainosus Condition: Improved Referrals: PCP,UNKNOWN (PCP) PRIMARY CARE PROVIDER Additional Instructions: F/U with a Neurologist. Duration or Time Spent with Pa: 30 mins BERNABE LEY MD Dec 27, 2018 11:51
[2018-12-27] MEDS ORDERED: TORADOL ONE (11:58)
[2018-12-27] MEDS ORDERED: PHENERGAN ONE (11:58)
== END 2018-12-27 12:25 | disposition home or self-care (01) ==
LOC: ER 10:57
DX: G43.909 Migraine, unspecified, not intractable, without status migrainosus (principal); Z98.890 Other specified postprocedural states; Z79.899 Other long term (current) drug therapy; Z88.0 Allergy status to penicillin; Z88.6 Allergy status to analgesic agent
CPT/HCPCS: 96372 ×2; 99284; J1885; J2550

== ENCOUNTER 2019-01-06 21:25 | Emergency (ER) | payer OTHER ==
[~2019-01-06] VITALS: Ht 188 cm; Wt 108.9 kg
[2019-01-06 21:30] VITALS: BP 151/99
--- NOTE | 2019-01-06 21:37 | NUR ---
LWBS After patient was triaged, patient states that he is feeling better. Patient states that he is going to go home and take some tylenol because he is feeling so much better all of the sudden. Patient is ambulatory at discharge. Patient is in stable condtion
[2019-01-06 21:52] VITALS: BP 151/99
== END 2019-01-06 21:37 | disposition left against medical advice (07) ==
LOC: ER 21:25
DX: G43.909 Migraine, unspecified, not intractable, without status migrainosus (principal); Z53.21 Procedure and treatment not carried out due to patient leaving prior to being seen by health care provider
CPT/HCPCS: 99281

== ENCOUNTER 2019-01-08 12:41 | Emergency (ER) | payer OTHER ==
[~2019-01-08] VITALS: Ht 188 cm; Wt 108.9 kg
[2019-01-08 12:58] VITALS: BP 151/84
[2019-01-08] MEDS ORDERED: TORADOL IM STA (13:17)
[2019-01-08] MEDS ORDERED: PHENERGAN IM STA (13:17)
--- NOTE | 2019-01-08 13:20 | ER.PDOC ---
General Chief Complaint: Headache Stated Complaint: MIGRANIE Time seen by MD: 13:18 Source: patient Exam Limitations: no limitations History of Present Illness Initial Comments Migraine headache for 3 days. Severity/Quality: moderate Prior Headaches/Recent Trauma: frequent headaches, chronic headaches Associated Symptoms: nausea/vomiting, sensitivity to light Prior symptoms/Treatment: Similar symptoms previous, Recenly Seen, Treated by Doctor Allergies: Coded Allergies: Penicillins (Verified Allergy, Unknown, UNK, 10/31/18) aspirin (Verified Allergy, Unknown, 10/31/18) Home Meds Reported Medications Escitalopram Oxalate (LEXAPRO) 10 Mg Tablet, 1 TAB PO DAILY, #90 TAB 3 Refills 06/25/14 Albuterol Sulfate (VENTOLIN HFA) 18 Gm Hfa.aer.ad, 18 GM IH Q4 PRN for COUGH 11/23/13 Fluticasone/Salmeterol (ADVAIR 250-50 DISKUS) 1 Each Disk.w.dev, 1 EACH IH DAILY 11/23/13 Past Medical History Medical History: asthma Surgical History: other Social History Smoking: cigarettes Alcohol Use: rarely Drug Use: none Review of Systems Constitutional: no symptoms reported Eyes: see HPI Respiratory: no symptoms reported Cardiovascular: no symptoms reported Gastrointestinal: see HPI All Other Systems: Reviewed and Negative Physical Exam General Appearance: No Apparent Distress, WD/WN ENT: nml ENT inspection, pharynx nml Neck: nml inspection, Supple Cardiovascular: Normal Peripheral Pulses, Regular Rate, Rhythm, No Edema, No Gallop, No JVD, No Murmur Respiratory: chest non-tender, lungs clear, normal breath sounds, no respir atory distress, no accessory muscle use Gastrointestinal: Normal Bowel Sounds, No Organomegaly, No Pulsatile Mass, Non Tender, Soft Back: Normal Inspection, No CVA Tenderness, No Vertebral Tenderness Extremities: Normal Range of Motion, Non-Tender, Normal Inspection, No Pedal Edema, No Calf Tenderness, Normal Capillary Refill Psychiatric: Alert, Oriented x 3 Cranial Nerves: Normal Hearing, Normal Speech, PERRL Motor/Sensory: No Motor Deficit, No Sensory Deficit, No Pronator Drift, Negative Babinski's Sign Results/Orders Results/Orders Orders - BERNABE LEY MD Ketorolac Tromethamine (Toradol) (01/08/19 13:17) Promethazine Hcl (Phenergan) (01/08/19 13:17) Vital Signs Date Time Temp Pulse Resp B/P (MAP) Pulse Ox O2 Delivery O2 Flow Rate FiO2 01/08/19 12:58 97.9 91 20 151/84 (106) 93 01/08/19 12:54 97.9 91 20 01/08/19 12:54 97.9 91 20 93 Room Air 01/06/19 21:52 175.8 98 Course Sepsis Screening Results: Posi: POSITIVE SEPSIS RISK DATE SEEN BY PHYSICIAN: Apr 10, 2018 TIME SEEN BY PROVIDER: 0635 Duration or Total Time Spent w: 30 mins Vitals & review Data Vital Sign - Last 24 Hours 01/06/19 01/08/19 01/08/19 01/08/19 21:52 12:54 12:54 12:58 Temp 175.8 97.9 97.9 97.9 Pulse 98 91 91 91 Resp 20 20 20 B/P (MAP) 151/84 (106) Pulse Ox 93 93 O2 Delivery Room Air Sepsis Infection Criteria Pres: None O2 Sat by Pulse Oximetry: 93 Departure Time of Disposition: 13:19 Disposition: 01 HOME, SELF-CARE Impression: Primary Impression: Migraine Condition: Improved Referrals: PCP,UNKNOWN (PCP) PRIMARY CARE PROVIDER Additional Instructions: F/U with your PCP Duration or Time Spent with Pa: 20 mins Problem Qualifiers Primary Impression: Migraine Migraine type: unspecified Status migrainosus presence: with status migrainosus Intractability: intractable Qualified Codes: G43.911 - Migraine, unspecified, intractable, with status migrainosus BERNABE LEY MD Jan 08, 2019 13:20
[2019-01-08] MEDS ORDERED: PHENERGAN ONE (13:23)
[2019-01-08] MEDS ORDERED: TORADOL ONE (13:23)
--- NOTE | 2019-01-08 13:43 | NUR ---
DISMISSAL PT DISCHARGED IN STABLE CONDITION.
[2019-01-08 14:22] VITALS: BP 151/84
== END 2019-01-08 13:43 | disposition home or self-care (01) ==
LOC: ER 12:41
DX: G43.911 Migraine, unspecified, intractable, with status migrainosus (principal); F17.210 Nicotine dependence, cigarettes, uncomplicated; J45.909 Unspecified asthma, uncomplicated; Z79.899 Other long term (current) drug therapy; Z88.0 Allergy status to penicillin; Z88.6 Allergy status to analgesic agent
CPT/HCPCS: 96372; 99284; J1885; J2550

== ENCOUNTER 2019-01-23 15:12 | Emergency (ER) | payer OTHER ==
[~2019-01-23] VITALS: Ht 188 cm; Wt 108.9 kg
[2019-01-23] MEDS ORDERED: TORADOL IM STA (15:27)
[2019-01-23] MEDS ORDERED: PHENERGAN IM STA (15:27)
[2019-01-23 15:29] VITALS: BP 134/89
--- NOTE | 2019-01-23 15:30 | ER.PDOC ---
General Chief Complaint: Requesting Medical Care Stated Complaint: HEADACHE Time seen by MD: 15:29 Source: patient Exam Limitations: no limitations History of Present Illness Initial Comments Headache for 2 days. Severity/Quality: moderate Prior Headaches/Recent Trauma: frequent headaches, chronic headaches Associated Symptoms: nausea/vomiting, sensitivity to light Prior symptoms/Treatment: Similar symptoms previous, Recenly Seen, Treated by Doctor Allergies: Coded Allergies: Penicillins (Verified Allergy, Unknown, UNK, 10/31/18) aspirin (Verified Allergy, Unknown, 10/31/18) Home Meds Reported Medications Escitalopram Oxalate (LEXAPRO) 10 Mg Tablet, 1 TAB PO DAILY, #90 TAB 3 Refills 06/25/14 Albuterol Sulfate (VENTOLIN HFA) 18 Gm Hfa.aer.ad, 18 GM IH Q4 PRN for COUGH 11/23/13 Fluticasone/Salmeterol (ADVAIR 250-50 DISKUS) 1 Each Disk.w.dev, 1 EACH IH DAILY 11/23/13 Past Medical History Surgical History: other Social History Drug Use: none Review of Systems Constitutional: no symptoms reported Eyes: see HPI Respiratory: no symptoms reported Cardiovascular: no symptoms reported Gastrointestinal: see HPI All Other Systems: Reviewed and Negative Physical Exam General Appearance: No Apparent Distress, WD/WN ENT: nml ENT inspection, pharynx nml Neck: nml inspection, Supple Cardiovascular: Normal Peripheral Pulses, Regular Rate, Rhythm, No Edema, No Gallop, No JVD, No Murmur Respiratory: chest non-tender, lungs clear, normal breath sounds, no re spiratory distress, no accessory muscle use Gastrointestinal: Normal Bowel Sounds, No Organomegaly, No Pulsatile Mass, Non Tender, Soft Back: Normal Inspection, No CVA Tenderness, No Vertebral Tenderness Extremities: Normal Range of Motion, Non-Tender, Normal Inspection, No Pedal Edema, No Calf Tenderness, Normal Capillary Refill Psychiatric: Alert, Oriented x 3 Cranial Nerves: Normal Hearing, Normal Speech, PERRL Motor/Sensory: No Motor Deficit, No Sensory Deficit, No Pronator Drift, Negative Babinski's Sign Skin: Warm/Dry, Normal Color Results/Orders Results/Orders Vital Signs Date Time Temp Pulse Resp B/P (MAP) Pulse Ox O2 Delivery O2 Flow Rate FiO2 01/08/19 14:22 91 Course Sepsis Screening Results: Posi: POSITIVE SEPSIS RISK DATE SEEN BY PHYSICIAN: Apr 10, 2018 TIME SEEN BY PROVIDER: 0635 Duration or Total Time Spent w: 20 mins Vitals & review Data Vital Sign - Last 24 Hours 01/08/19 14:22 Pulse 91 Sepsis Infection Criteria Pres: None Departure Time of Disposition: 15:30 Disposition: 01 HOME, SELF-CARE Impression: Primary Impression: Migraine Condition: Stable Referrals: PCP,UNKNOWN (PCP) PRIMARY CARE PROVIDER Additional Instructions: F/U with your PCP Duration or Time Spent with Pa: 20 mins Problem Qualifiers Primary Impression: Migraine Migraine type: unspecified Status migrainosus presence: with status migrainosus Intractability: intractable Qualified Codes: G43.911 - Migraine, unspecified, intractable, with status migrainosus BERNABE LEY MD Jan 23, 2019 15:30
--- NOTE | 2019-01-23 15:30 | NUR ---
ARRIVAL PT ARRIVED TO ED C/O HEADACHE THAT IS SIMILAR TO OTHERS. PT HAS HX OF HEADACHES. PT ALERT, ORIENTED, AMBULATED TO ROOM INDEPENDENTLY UPON ARRIVAL. CONNECTED TO BEDSIDE MONITORING.
[2019-01-23] MEDS ORDERED: TORADOL ONE (15:31)
[2019-01-23] MEDS ORDERED: PHENERGAN ONE (15:31)
[2019-01-23 15:49] VITALS: BP 134/89
== END 2019-01-23 15:45 | disposition home or self-care (01) ==
LOC: ER 15:12
DX: G43.911 Migraine, unspecified, intractable, with status migrainosus (principal); Z88.6 Allergy status to analgesic agent; Z88.0 Allergy status to penicillin; Z79.899 Other long term (current) drug therapy
CPT/HCPCS: 96372 ×2; 99284; J1885; J2550

== ENCOUNTER 2019-02-01 06:59 | Emergency (ER) | payer OTHER ==
[~2019-02-01] VITALS: Ht 188 cm; Wt 108.9 kg
[~2019-02-01 06:59] MED LIST changes: -HYDR1TAB14 PO; +HYDR1TAB15 PO
[2019-02-01 07:12] VITALS: BP 161/107
--- NOTE | 2019-02-01 07:13 | NUR ---
ARRIVAL PATIENT ARRIVED TO ED4 AMBULATORY, C/O OF HEADACHE SINCE YESTERDAY, DOES HAVE A HISTORY OF MIGRAINES, DID TAKE TYLENOL AND MOTRIN WITH NO RELIEF. CAME TO THE ED FOR EVAL.
--- NOTE | 2019-02-01 07:23 | ER.PDOC ---
General Chief Complaint: Headache Stated Complaint: KAHLIL Time seen by MD: 07:14 Source: patient History of Present Illness Initial Comments Pt c/o migraine ARTEAGA, frontal, similar to numerous other episodes. Prior Headaches/Recent Trauma: frequent headaches, chronic headaches Associated Symptoms: sensitivity to light Modifying Factors: improves with exposure to light Prior symptoms/Treatment: Similar symptoms previous Allergies: Coded Allergies: Penicillins (Verified Allergy, Unknown, UNK, 10/31/18) aspirin (Verified Allergy, Unknown, 10/31/18) Home Meds Reported Medications Escitalopram Oxalate (LEXAPRO) 10 Mg Tablet, 1 TAB PO DAILY, #90 TAB 3 Refills 06/25/14 Albuterol Sulfate (VENTOLIN HFA) 18 Gm Hfa.aer.ad, 18 GM IH Q4 PRN for COUGH 11/23/13 Fluticasone/Salmeterol (ADVAIR 250-50 DISKUS) 1 Each Disk.w.dev, 1 EACH IH DAILY 11/23/13 Past Medical History Medical History: cancer, other Surgical History: other Family History Significant Family History: no pertinent family hx Social History Smoking: non-smoker Alcohol Use: none Drug Use: none Review of Systems Constitutional: no symptoms reported Eyes: photophobia Ears, Nose, Mouth, Throat: no symptoms reported Respiratory: no symptoms reported Cardiovascular: no symptoms reported Gastrointestinal: no symptoms reported Genitourinary: no symptoms reported Musculoskeletal: no symptoms reported Skin: no symptoms reported All Other Systems: Reviewed and Negative Physical Exam General Appearance: No Apparent Distress Head/Eyes: no facial swelling, no nystagmus, PERRL ENT: nml ENT inspection, pharynx nml Neck: nml inspection, Supple Cardiovascular: Normal Peripheral Pulses, Regular Rate, Rhythm, No Edema, No Gallop, No JVD, No Murmur Respiratory: chest non-tender, lungs clear, normal breath sounds, no respirat ory distress, no accessory muscle use Gastrointestinal: Normal Bowel Sounds, No Organomegaly, No Pulsatile Mass, Non Tender, Soft Back: Normal Inspection, No CVA Tenderness, No Vertebral Tenderness Extremities: Normal Range of Motion, Non-Tender, Normal Inspection, No Pedal Edema, No Calf Tenderness, Normal Capillary Refill Psychiatric: Alert, Oriented x 3 Cranial Nerves: Normal Hearing, Normal Speech, PERRL Motor/Sensory: No Motor Deficit, No Sensory Deficit Skin: Warm/Dry, Normal Color Lymphatic: No Adenopathy Results/Orders Results/Orders Vital Signs Date Time Temp Pulse Resp B/P (MAP) Pulse Ox O2 Delivery O2 Flow Rate FiO2 02/01/19 07:12 97.8 76 18 02/01/19 07:12 97.8 76 18 161/107 (125) 97 Room Air 02/01/19 07:09 97.8 76 18 97 Room Air 01/23/19 15:49 91 Progress Progress Pt with numerous visits for similar complaints, nml neuro exam, does not appear significantly uncomfortable. Given Toradol, will d/c home Course Sepsis Screening Results: Posi: POSITIVE SEPSIS RISK DATE SEEN BY PHYSICIAN: Apr 10, 2018 TIME SEEN BY PROVIDER: 0635 Duration or Total Time Spent w: 20 mins Vitals & review Data Vital Sign - Last 24 Hours 01/23/19 02/01/19 02/01/19 02/01/19 15:49 07:09 07:12 07:12 Temp 97.8 97.8 97.8 Pulse 91 76 76 76 Resp 18 18 18 B/P (MAP) 161/107 (125) Pulse Ox 97 97 O2 Delivery Room Air Room Air Sepsis Infection Criteria Pres: None O2 Sat by Pulse Oximetry: 97 Departure Time of Disposition: 07:25 Disposition: 01 HOME, SELF-CARE Impression: Primary Impression: Migraine Condition: Stable Referrals: PCP,UNKNOWN (PCP) PRIMARY CARE PROVIDER Duration or Time Spent with Pa: 10 Problem Qualifiers Primary Impression: Migraine Migraine type: without aura Status migrainosus presence: without status migrainosus Intractability: not intractable Qualified Codes: G43.009 - Migraine without aura, not intractable, without status migrainosus TESSIE BRADFORD DO Feb 01, 2019 07:23
[2019-02-01] MEDS ORDERED: TORADOL ONE (07:35)
[2019-02-01] MEDS: TORADOL IM ONE (07:38)
== END 2019-02-01 08:10 | disposition home or self-care (01) ==
LOC: ER 06:59
DX: G43.009 Migraine without aura, not intractable, without status migrainosus (principal); Z79.899 Other long term (current) drug therapy; Z88.0 Allergy status to penicillin; Z88.6 Allergy status to analgesic agent
CPT/HCPCS: 96372; 99283; J1885

== ENCOUNTER 2019-02-04 17:56 | Emergency (ER) | payer OTHER ==
[~2019-02-04] VITALS: Ht 188 cm; Wt 108.9 kg
[2019-02-04 18:15] VITALS: BP 146/96
--- NOTE | 2019-02-04 19:13 | ER.PDOC ---
General Chief Complaint: Toothache Stated Complaint: TOOTHACHE Time seen by MD: 19:10 Source: patient Exam Limitations: no limitations History of Present Illness Initial Comments Toothache for 2 weeks Timing/Duration: gradual Associated Symptoms: toothache Severity: moderate Prior symptoms/Treatment: Similar symptoms previous, Recenly Seen, Treated by Doctor Allergies: Coded Allergies: Penicillins (Verified Allergy, Unknown, UNK, 10/31/18) aspirin (Verified Allergy, Unknown, 10/31/18) Home Meds Reported Medications Escitalopram Oxalate (LEXAPRO) 10 Mg Tablet, 1 TAB PO DAILY, #90 TAB 3 Refills 06/25/14 Albuterol Sulfate (VENTOLIN HFA) 18 Gm Hfa.aer.ad, 18 GM IH Q4 PRN for COUGH 11/23/13 Fluticasone/Salmeterol (ADVAIR 250-50 DISKUS) 1 Each Disk.w.dev, 1 EACH IH DAILY 11/23/13 Past Medical History Medical History: asthma, cancer Surgical History: other Social History Smoking: non-smoker Alcohol Use: none Drug Use: none Constitutional: no symptoms reported Mouth: see HPI Throat: no symptoms reported Respiratory: no symptoms reported Cardiovascular: no symptoms reported Gastrointestinal: no symptoms reported All Other Systems: Reviewed and Negative Physical Exam General Appearance: alert, no distress Mouth: dental tenderness Throat: pharynx nml, voice nml, no airway problems Ears/Nose: nml inspection Respiratory: no resp. distress, lungs clear CVS: reg. rate & rhythm, heart sounds nml Abdomen: non-tender, no organomegaly Extremities: non-tender, ROM nml Skin Exam: Normal Color, Warm/Dry NEURO/PSYCH: oriented X3, mood/effect nml Results/Orders Results/Orders Vital Signs Date Time Temp Pulse Resp B/P (MAP) Pulse Ox O2 Delivery O2 Flow Rate FiO2 02/04/19 18:15 98.2 84 17 02/04/19 18:15 98.2 84 17 146/96 (113) 98 Room Air 02/04/19 18:06 98.2 84 17 98 Room Air 02/01/19 07:12 76 Departure Time of Disposition: 19:11 Disposition: 01 HOME, SELF-CARE Impression: Primary Impression: Pain, dental Condition: Stable Referrals: PCP,UNKNOWN (PCP) PRIMARY CARE PROVIDER Additional Instructions: Amoxil Ibuprofen F/U with your Dentist next week Duration or Time Spent with Pa: 20 mins BERNABE LEY MD Feb 04, 2019 19:13
== END 2019-02-04 19:22 | disposition home or self-care (01) ==
LOC: ER 17:56
DX: K08.89 Other specified disorders of teeth and supporting structures (principal); J45.909 Unspecified asthma, uncomplicated; Z85.9 Personal history of malignant neoplasm, unspecified; Z79.899 Other long term (current) drug therapy; Z88.0 Allergy status to penicillin; Z88.6 Allergy status to analgesic agent
CPT/HCPCS: 99283

== ENCOUNTER 2019-02-14 16:04 | Emergency (ER) | payer OTHER ==
[~2019-02-14] VITALS: Ht 188 cm; Wt 108.9 kg
[2019-02-14 16:04] VITALS: BP 113/60
--- NOTE | 2019-02-14 16:04 | NUR ---
ARRIVAL PT TO ED7, BSM ON, REPORT GIVEN TO EDP. RT NOTIFIED FOR STAT EKG.
[2019-02-14] MEDS ORDERED: NS 1000ML 1,000 ML ONE (16:18)
[2019-02-14] MEDS ORDERED: ADENOSCAN IV ONE (16:19)
[2019-02-14] MEDS ORDERED: LOPRESSER ONE (16:32)
[2019-02-14] MEDS ORDERED: ADENOSCAN IV STA (16:36)
[2019-02-14] MEDS ORDERED: NS 1000ML 1,000 ML IV STA (16:36)
--- NOTE | 2019-02-14 16:36 | NUR ---
ADENOSINE ONCE IV LINE ESTABLISHED, DEFIBRILLATOR PADS ON, 6MG ADENOSINE GIVEN FOLLOWED BY PUSH, SINUS TACHYCARDIA NOTED ON EKG. PT TOLERATED PROCEDURE WELL.
--- NOTE | 2019-02-14 16:39 | PCM.EKG ---
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
--- NOTE | 2019-02-14 16:41 | ER.PDOC ---
General Chief Complaint: Requesting Medical Care Stated Complaint: GENERAL Time seen by MD: 16:40 Source: patient Exam Limitations: no limitations History of Present Illness Initial Comments Palpitations Timing/Duration: 1-3 hours Quality: fast Activities at Onset: activity/exertion Associated Symptoms: dizziness Prior symptoms/Treatment: Similar symptoms previous Allergies: Coded Allergies: Penicillins (Verified Allergy, Unknown, UNK, 10/31/18) aspirin (Verified Allergy, Unknown, 10/31/18) Home Meds Reported Medications Escitalopram Oxalate (LEXAPRO) 10 Mg Tablet, 1 TAB PO DAILY, #90 TAB 3 Refills 06/25/14 Albuterol Sulfate (VENTOLIN HFA) 18 Gm Hfa.aer.ad, 18 GM IH Q4 PRN for COUGH 11/23/13 Fluticasone/Salmeterol (ADVAIR 250-50 DISKUS) 1 Each Disk.w.dev, 1 EACH IH DAILY 11/23/13 Past Medical History Medical History: asthma, cancer Surgical History: other Social History Drug Use: none Constitutional: no symptoms reported Respiratory: no symptoms reported Cardiovascular: see HPI Gastrointestinal: no symptoms reported Genitourinary: no symptoms reported All Other Systems: Reviewed and Negative Physical Exam General Appearance: No Apparent Distress, WD/WN Neck: Non-Tender, Full Range of Motion, Supple, Normal Inspection Respiratory: chest non-tender, lungs clear, normal breath sounds, no respiratory distress, no accessory muscle use Cardiovascular: Normal Peripheral Pulses, Regular Rate, Rhythm, No Edema, No Gallop, No JVD, No Murmur, Tachycardia Gastrointestinal: Normal Bowel Sounds, No Organomegaly, No Pulsatile Mass, Non Tender, Soft Extremities: Normal Range of Motion, Non-Tender, Normal Inspection, No Pedal Edema, No Calf Tenderness, Normal Capillary Refill 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 as Tested, No Motor/Sensory Deficits, Alert, Normal Mood/Affect, Oriented x 3 Skin: Normal Color, Warm/Dry Results/Orders Results/Orders Orders - BERNABE LEY MD 0.9 % Sodium Chloride (Ns 1000ml) (02/14/19 16:18) Adenosine (Adenoscan) (02/14/19 16:19) Metoprolol Tartrate (Lopresser) (02/14/19 16:32) Cbc With Auto Diff (02/14/19 16:36) Comprehensive Metabolic Panel (02/14/19 16:36) Troponin I (02/14/19 16:36) Xr Chest 1v (02/14/19 16:36) Ekg-Routine (02/14/19 16:36) Ekg-Routine (02/14/19 16:36) Adenosine (Adenoscan) (02/14/19 16:36) 0.9 % Sodium Chloride (Ns 1000ml) (02/14/19 16:36) Progress Progress Patient feeling better and symptoms resolved. EKG/XRAY/CT/US EKG Comments: SVT XRAY: chest (No active disease) EKG Comments: Sinus tachycardia Departure Time of Disposition: 17:44 Disposition: 01 HOME, SELF-CARE Impression: Primary Impression: SVT (supraventricular tachycardia) Condition: Improved Referrals: PCP,UNKNOWN (PCP) PRIMARY CARE PROVIDER Additional Instructions: Metoprolol F/U with your Stem Processing Machine Operator in 1-2 days F/U with your PCP tomorrow Duration or Time Spent with Pa: 60 mins Critical Care Note Total Time (mins): 60 BERNABE LEY MD Feb 14, 2019 16:41
--- NOTE | 2019-02-14 16:45 | PCM.EKG ---
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
[2019-02-14 17:00] VITALS: BP 124/71
[2019-02-14 17:01] LABS: BASOPHIL % 0.6 % (0.0-0.2); EOSINOPHIL # 0.4 10^3/uL (0.0-0.2); EOSINOPHIL % 7.7 % (0.0-5.0); HEMOGLOBIN 14.7 g/dL (13.9-16.3); LYMPHOCYTES # 0.8 10^3/uL (1.0-4.8); LYMPHOCYTES % 17.2 % (24.0-44.0); MEAN CELL HGB 29.4 pg (26-34); MEAN CELL HGB CONCENTRATION 33.3 g/dL (33-37); MEAN CORP VOLUME 88.4 fL (78-100); MEAN PLATELET VOLUME 10.2 fL (7.8-11.0); MONOCYTES # 0.6 10^3/uL (0.3-0.8); MONOCYTES % 12.8 % (5.0-12.0); NEUTROPHILS % 61.7 % (41.0-85.0); RED CELL DISTRIBUTION WIDTH 13.8 % (11.5-14.5); WHITE BLOOD CELL 4.8 10^3/uL (4.5-11.0)
[2019-02-14 17:22] LABS: ALANINE AMINOTRANSFERASE(ML) 51 U/L (12-78); ALKALINE PHOSPHATASE 69 U/L (50-136); ASPARTATE AMINO TRANSFERASE 28 U/L (0-35); CALCIUM 8.5 mg/dL (8.4-10.5); CARBON DIOXIDE 19.9 mmol/L (20.0-32); GLUCOSE 116 mg/dL (70-110)
--- NOTE | 2019-02-14 17:23 | DIREP ---
PROCEDURE:CHEST 1 VIEW COMPARISON:[facility], CR, XRAY CHEST SINGLE VW, 10/04/2016, 07:44 PM. [facility], CR, XRAY CHEST 2 VWS, 07/29/2016, 02:07 PM. INDICATIONS:SVT FINDINGS: LUNGS/PLEURA:No confluent pulmonary infiltrate. No effusions. No pneumothorax. VASCULATURE:Unremarkable pulmonary vasculature. CARDIAC:No cardiac silhouette abnormality or cardiomegaly. MEDIASTINUM:No visible mass or adenopathy. BONES:No fracture or visible bony lesion. OTHER:Negative. CONCLUSION: 1. Unremarkable chest radiograph. Dictated by: Soco Anderson MD on 02/14/2019 at 05:21 PM
[2019-02-14 18:00] VITALS: BP 115/40
[2019-02-14 18:05] VITALS: BP 113/60
[2019-02-14 18:10] VITALS: BP 113/60
[2019-02-14] MEDS ORDERED: LOPRESSER IVP STA (18:27)
== END 2019-02-14 18:20 | disposition home or self-care (01) ==
LOC: ER 16:04
DX: I47.1 Supraventricular tachycardia (principal); J45.909 Unspecified asthma, uncomplicated; Z79.899 Other long term (current) drug therapy; Z88.0 Allergy status to penicillin; Z88.6 Allergy status to analgesic agent
CPT/HCPCS: 36415; 71045; 80053; 84484; 85025; 93005 ×2; 96361; 96374; 99291; J0153; J3490; J7030; 99285

== ENCOUNTER 2019-02-27 12:17 | Emergency (ER) | payer OTHER ==
[~2019-02-27] VITALS: Ht 188 cm; Wt 113.4 kg
[~2019-02-27 12:17] MED LIST changes: +OMEP40CA41 PO; -OMEP40CA6 PO
[2019-02-27 12:30] VITALS: BP 141/105
[2019-02-27] MEDS ORDERED: ZOFRAN ODT ONE (13:52)
[2019-02-27] MEDS: ZOFRAN ODT SL STA (13:56)
[2019-02-27] MEDS: STADOL IM STA (13:56)
[2019-02-27 14:04] VITALS: BP 158/107
--- NOTE | 2019-02-27 14:04 | ER.PDOC ---
General Chief Complaint: Head Injury Stated Complaint: MIGRAINE Time seen by MD: 14:00 Exam Limitations: no limitations History of Present Illness Timing/Duration: 24 hours Severity/Quality: moderate Prior Headaches/Recent Trauma: frequent headaches, chronic headaches Associated Symptoms: nausea/vomiting Modifying Factors: improves with medication, improves with noise Prior symptoms/Treatment: Similar symptoms previous Allergies: Coded Allergies: Penicillins (Verified Allergy, Unknown, UNK, 10/31/18) aspirin (Verified Allergy, Unknown, 10/31/18) Home Meds Reported Medications Escitalopram Oxalate (LEXAPRO) 10 Mg Tablet, 1 TAB PO DAILY, #90 TAB 3 Refills 06/25/14 Albuterol Sulfate (VENTOLIN HFA) 18 Gm Hfa.aer.ad, 18 GM IH Q4 PRN for COUGH 11/23/13 Fluticasone/Salmeterol (ADVAIR 250-50 DISKUS) 1 Each Disk.w.dev, 1 EACH IH DAILY 11/23/13 Past Medical History Medical History: arrhythmia Surgical History: other Social History Smoking: non-smoker Alcohol Use: none Drug Use: none Reviewed Nursing Reviewed: Vital Signs, Abn. Noted Review of Systems All Other Systems: Reviewed and Negative Physical Exam General Appearance: No Apparent Distress, WD/WN Head/Eyes: eyes nml inspection, no facial swelling, no nystagmus, PERRL ENT: nml ENT inspection, pharynx nml Neck: nml inspection, Supple Cardiovascular: Normal Peripheral Pulses, Regular Rate, Rhythm, No Edema, No Gallop, No JVD, No Murmur Respiratory: chest non-tender, lungs clear, normal breath sounds, no respiratory distress, no accessory muscle use Gastrointestinal: Normal Bowel Sounds, No Organomegaly, No Pulsatile Mass, Non Tender, Soft Back: Normal Inspection, No CVA Tenderness, No Vertebral Tenderness Extremities: Normal Range of Motion, Non-Tender, Normal Inspection, No Pedal Edema, No Calf Tenderness, Normal Capillary Refill Psychiatric: Alert, Oriented x 3 Cranial Nerves: Normal Hearing, Normal Speech, PERRL Coordination/Gait: Normal Finger to Nose, Normal Gait Motor/Sensory: No Motor Deficit, No Sensory Deficit, No Pronator Drift, Negative Babinski's Sign Skin: Warm/Dry, Normal Color Lymphatic: No Adenopathy Results/Orders Results/Orders Orders - LUIS MIGUEL WALLIS MD Butorphanol Tartrate (Stadol) (02/27/19 13:13) Ondansetron (Zofran Odt) (02/27/19 13:13) Ondansetron (Zofran Odt) (02/27/19 13:52) Vital Signs Date Time Temp Pulse Resp B/P (MAP) Pulse Ox O2 Delivery O2 Flow Rate FiO2 02/27/19 12:30 98.3 90 18 141/105 (117) 98 Room Air 02/27/19 12:30 98.3 90 18 02/27/19 12:30 98.3 90 18 98 Room Air Administered Medications Medications (Trade) Dose Ordered Sig/Jennifer Route PRN Reason Start Time Stop Time Status Last Admin Dose Admin Butorphanol Tartrate (Stadol) 2 mg STAT STAT IM 02/27/19 13:13 02/27/19 13:15 DC 02/27/19 13:56 2 MG Ondansetron HCl (Zofran Odt) 4 mg STAT STAT SL 02/27/19 13:13 02/27/19 13:15 DC 02/27/19 13:56 4 MG Course Sepsis Screening Results: Posi: POSITIVE SEPSIS RISK DATE SEEN BY PHYSICIAN: Apr 10, 2018 TIME SEEN BY PROVIDER: 0635 Duration or Total Time Spent w: 60 mins Vitals & review Data Vital Sign - Last 24 Hours 02/27/19 02/27/19 02/27/19 12:30 12:30 12:30 Temp 98.3 98.3 98.3 Pulse 90 90 90 Resp 18 18 18 B/P (MAP) 141/105 (117) Pulse Ox 98 98 O2 Delivery Room Air Room Air Sepsis Infection Criteria Pres: None O2 Sat by Pulse Oximetry: 98 Departure Time of Disposition: 14:22 Disposition: 01 HOME, SELF-CARE Impression: Primary Impression: Migraine Condition: Improved Patient Instructions: Migraine Headache, [id number] Referrals: PCP,UNKNOWN (PCP) PRIMARY CARE PROVIDER Additional Instructions: IN ER YOU WERE SEEN BY DR WALLIS: STADOL, ZOFRAN AT HOME: FOLLOW UP WITH PCP WITHIN 2-3 DAYS Duration or Time Spent with Pa: 15 MIN LUIS MIGUEL WALLIS MD Feb 27, 2019 14:04
== END 2019-02-27 14:14 | disposition home or self-care (01) ==
LOC: ER 12:17
DX: G43.909 Migraine, unspecified, not intractable, without status migrainosus (principal); Z79.899 Other long term (current) drug therapy; Z88.0 Allergy status to penicillin; Z88.6 Allergy status to analgesic agent
CPT/HCPCS: 96372; 99283; Q0162

== ENCOUNTER 2019-03-04 19:54 | Emergency (ER) | payer OTHER ==
[~2019-03-04] VITALS: Ht 188 cm; Wt 113.4 kg
[2019-03-04 20:48] VITALS: BP 163/95
--- NOTE | 2019-03-04 20:48 | NUR ---
ARRIVAL PATIENT PRESENTS WITH COMPLAINTS OF A MIGRAINE SINCE WEDNESDAY. ALSO REPORTS NAUSEA, SENSITIVITY TO LIGHT. STATES THAT HE HAS BEEN TAKING TYLENOL, IBUPROFEN, EXCEDRIN, BENADRYL AND FIORICET. LAST TOOK IBUPROFEN 800MG AT 5PM. STATES THAT PAIN IS 10/10 AT THIS TIME. AMBULATORY WITH STEADY GAIT. PERRLA. NO SIGNS OF DISTRESS NOTED. VSS. MICHELLE MD NOTIFIED.
[2019-03-04 21:30] VITALS: BP 159/93
[2019-03-04] MEDS ORDERED: PHENERGAN IM STA (22:25)
[2019-03-04 22:30] VITALS: BP 153/89
[2019-03-04] MEDS ORDERED: TORADOL IM ONE (22:30)
[2019-03-04] MEDS ORDERED: PHENERGAN ONE (22:38)
[2019-03-04] MEDS ORDERED: TORADOL ONE (22:38)
--- NOTE | 2019-03-04 22:40 | ER.PDOC ---
General Chief Complaint: Headache Stated Complaint: MIGRAINE Time seen by MD: 20:33 Source: patient Exam Limitations: no limitations History of Present Illness Timing/Duration: other (2 days) Prior Headaches/Recent Trauma: frequent headaches, chronic headaches Associated Symptoms: typical of prior aura Modifying Factors: improves with medication Prior symptoms/Treatment: Similar symptoms previous Allergies: Coded Allergies: Penicillins (Verified Allergy, Unknown, UNK, 10/31/18) aspirin (Verified Allergy, Unknown, 10/31/18) Home Meds Reported Medications Escitalopram Oxalate (LEXAPRO) 10 Mg Tablet, 1 TAB PO DAILY, #90 TAB 3 Refills 06/25/14 Albuterol Sulfate (VENTOLIN HFA) 18 Gm Hfa.aer.ad, 18 GM IH Q4 PRN for COUGH 11/23/13 Fluticasone/Salmeterol (ADVAIR 250-50 DISKUS) 1 Each Disk.w.dev, 1 EACH IH DAILY 11/23/13 Past Medical History Medical History: arrhythmia, asthma, cancer, other (Migraines) Surgical History: other LMP (females 10-50): N/A Not applicalbe Family History Significant Family History: no pertinent family hx Social History Smoking: non-smoker Alcohol Use: none Drug Use: none Reviewed Nursing Reviewed: Vital Signs, Abn. Noted, Nursing Assessment Review of Systems Constitutional: no symptoms reported Eyes: no symptoms reported, other (headache) Ears, Nose, Mouth, Throat: mouth pain Respiratory: no symptoms reported Cardiovascular: no symptoms reported Gastrointestinal: no symptoms reported Genitourinary: no symptoms reported Musculoskeletal: no symptoms reported Skin: no symptoms reported Psychiatric/Neurological: no symptoms reported All Other Systems: Reviewed and Negative Physical Exam General Appearance: No Apparent Distress, WD/WN Head/Eyes: eyes nml inspection, no facial swelling, PERRL ENT: nml ENT inspection, pharynx nml Neck: nml inspection, Supple Cardiovascular: Normal Peripheral Pulses, Regular Rate, Rhythm, No Edema Respiratory: chest non-tender, lungs clear, normal breath sounds, no respiratory distress Gastrointestinal: Normal Bowel Sounds, Non Tender Back: Normal Inspection Extremities: Normal Range of Motion, Non-Tender, Normal Inspection, No Pedal Edema Psychiatric: Alert, Oriented x 3 Cranial Nerves: Normal Hearing, Normal Speech, PERRL Coordination/Gait: Normal Gait Motor/Sensory: No Motor Deficit, No Sensory Deficit Skin: Warm/Dry, Normal Color Results/Orders Results/Orders Orders - IVETH MARTINEZ MD Ketorolac Tromethamine (Toradol) (03/04/19 22:30) Promethazine Hcl (Phenergan) (03/04/19 22:25) Vital Signs Date Time Temp Pulse Resp B/P (MAP) Pulse Ox O2 Delivery O2 Flow Rate FiO2 03/04/19 20:48 98.4 74 18 03/04/19 20:48 98.4 74 18 97 Room Air 03/04/19 20:48 98.4 74 18 163/95 (117) 97 Room Air Course Sepsis Screening Results: Posi: POSITIVE SEPSIS RISK DATE SEEN BY PHYSICIAN: Apr 10, 2018 TIME SEEN BY PROVIDER: 0635 Duration or Total Time Spent w: 15 MIN Vitals & review Data Vital Sign - Last 24 Hours 03/04/19 03/04/19 03/04/19 20:48 20:48 20:48 Temp 98.4 98.4 98.4 Pulse 74 74 74 Resp 18 18 18 B/P (MAP) 163/95 (117) Pulse Ox 97 97 O2 Delivery Room Air Room Air Current Medications Medications (Trade) Dose Ordered Sig/Jennifer PRN Reason Start Time Stop Time Status Last Admin Promethazine HCl (Phenergan) 25 mg STAT STAT 03/04/19 22:25 03/04/19 22:26 Sepsis Infection Criteria Pres: None O2 Sat by Pulse Oximetry: 97 Departure Time of Disposition: 22:40 Disposition: 01 HOME, SELF-CARE Impression: Primary Impression: Migraine Condition: Stable Referrals: PCP,UNKNOWN (PCP) PRIMARY CARE PROVIDER Additional Instructions: Patient having typical chronic migraine. No neuro deficits. Patient IM antiemetic and IM NSAID with improvement of symptoms. F/U with PCP consider Neurology referral outpatient. Return to care for worsening/concerning symptoms. Duration or Time Spent with Pa: 20 minutes Problem Qualifiers Primary Impression: Migraine Migraine type: with aura Status migrainosus presence: without status migrainosus Intractability: not intractable Qualified Codes: G43.109 - Migraine with aura, not intractable, without status migrainosus IVETH MARTINEZ MD Mar 04, 2019 22:40
== END 2019-03-04 23:00 | disposition home or self-care (01) ==
LOC: ER 19:54
DX: G43.109 Migraine with aura, not intractable, without status migrainosus (principal); J45.909 Unspecified asthma, uncomplicated; Z88.0 Allergy status to penicillin; Z88.6 Allergy status to analgesic agent; Z79.899 Other long term (current) drug therapy
CPT/HCPCS: 96372; 99284; J1885; J2550

== ENCOUNTER 2019-03-13 13:08 | Emergency (ER) | payer OTHER ==
[~2019-03-13] VITALS: Ht 188 cm; Wt 108.9 kg
[2019-03-13 13:33] VITALS: BP 141/88
[2019-03-13] MEDS ORDERED: STADOL IM STA (14:08)
[2019-03-13] MEDS ORDERED: PHENERGAN IM STA (14:08)
--- NOTE | 2019-03-13 14:12 | ER.PDOC ---
General Chief Complaint: Headache Stated Complaint: MIGRAINE Time seen by MD: 14:00 Source: patient Exam Limitations: no limitations History of Present Illness Timing/Duration: 24 hours Severity/Quality: moderate Prior Headaches/Recent Trauma: frequent headaches, chronic headaches Modifying Factors: improves with medication Prior symptoms/Treatment: Similar symptoms previous, Recenly Seen, Treated by Doctor Allergies: Coded Allergies: Penicillins (Verified Allergy, Unknown, UNK, 10/31/18) aspirin (Verified Allergy, Unknown, 10/31/18) Home Meds Reported Medications Escitalopram Oxalate (LEXAPRO) 10 Mg Tablet, 1 TAB PO DAILY, #90 TAB 3 Refills 06/25/14 Albuterol Sulfate (VENTOLIN HFA) 18 Gm Hfa.aer.ad, 18 GM IH Q4 PRN for COUGH 11/23/13 Fluticasone/Salmeterol (ADVAIR 250-50 DISKUS) 1 Each Disk.w.dev, 1 EACH IH DAILY 11/23/13 Past Medical History Medical History: arrhythmia, asthma, cancer, other Surgical History: other Social History Smoking: non-smoker Alcohol Use: occassionally Drug Use: none Reviewed Nursing Reviewed: Vital Signs, Abn. Noted Review of Systems All Other Systems: Reviewed and Negative Physical Exam General Appearance: No Apparent Distress, WD/WN Head/Eyes: eyes nml inspection, no facial swelling, no nystagmus, PERRL ENT: nml ENT inspection, pharynx nml Neck: nml inspection, Supple Cardiovascular: Normal Peripheral Pulses, Regular Rate, Rhythm, No Edema, No Gallop, No JVD, No Murmur Respiratory: chest non-tender, lungs clear, normal breath sounds, no respiratory distress, no accessory muscle use Gastrointestinal: Normal Bowel Sounds, No Organomegaly, No Pulsatile Mass, Non Tender, Soft Back: Normal Inspection, No CVA Tenderness, No Vertebral Tenderness Extremities: Normal Range of Motion, Non-Tender, Normal Inspection, No Pedal Edema, No Calf Tenderness, Normal Capillary Refill Psychiatric: Alert, Oriented x 3 Cranial Nerves: Normal Hearing, Normal Speech, PERRL Coordination/Gait: Normal Finger to Nose, Normal Gait Motor/Sensory: No Motor Deficit, No Sensory Deficit, No Pronator Drift, Negative Babinski's Sign Skin: Warm/Dry, Normal Color Lymphatic: No Adenopathy Results/Orders Results/Orders Vital Signs Date Time Temp Pulse Resp B/P (MAP) Pulse Ox O2 Delivery O2 Flow Rate FiO2 03/13/19 13:33 97.9 79 16 141/88 (105) 97 Room Air 03/13/19 13:33 97.9 79 16 03/13/19 13:24 97.9 79 16 97 Room Air Course Sepsis Screening Results: Posi: POSITIVE SEPSIS RISK DATE SEEN BY PHYSICIAN: Apr 10, 2018 TIME SEEN BY PROVIDER: 0635 Duration or Total Time Spent w: 20 minutes Vitals & review Data Vital Sign - Last 24 Hours 03/13/19 03/13/19 03/13/19 13:24 13:33 13:33 Temp 97.9 97.9 97.9 Pulse 79 79 79 Resp 16 16 16 B/P (MAP) 141/88 (105) Pulse Ox 97 97 O2 Delivery Room Air Room Air Sepsis Infection Criteria Pres: None O2 Sat by Pulse Oximetry: 97 Departure Time of Disposition: 14:22 Disposition: 01 HOME, SELF-CARE Impression: Primary Impression: Migraine Condition: Improved Referrals: PCP,UNKNOWN (PCP) PRIMARY CARE PROVIDER Duration or Time Spent with Pa: 20 MIN LUIS MIGUEL WALLIS MD Mar 13, 2019 14:12
[2019-03-13] MEDS ORDERED: PHENERGAN ONE (14:24)
== END 2019-03-13 14:46 | disposition home or self-care (01) ==
LOC: ER 13:08
DX: G43.909 Migraine, unspecified, not intractable, without status migrainosus (principal); J45.909 Unspecified asthma, uncomplicated; Z79.899 Other long term (current) drug therapy; Z88.0 Allergy status to penicillin; Z88.6 Allergy status to analgesic agent
CPT/HCPCS: 96372; 99284; J2550

== ENCOUNTER 2019-03-19 01:00 | Emergency (ER) | payer OTHER ==
[~2019-03-19] VITALS: Ht 188 cm; Wt 108.9 kg
[2019-03-19 01:08] VITALS: BP 172/83
--- NOTE | 2019-03-19 01:11 | ER.PDOC ---
General Chief Complaint: Requesting Medical Care Stated Complaint: MIGRAINE Time seen by MD: 01:11 Source: patient Exam Limitations: no limitations History of Present Illness Initial Comments 38 Y/O MALE PATIENT TO ED WITH TYPICAL MIGRAINE ARTEAGA, SAME ARTEAGA PAST, NOT WORSE ARTEAGA OF LIFE, NO FEVER, REQUESTS PHENERGAN AND STADOL, INITIALLY REFUSED ANY OTHER TREATMENT, STATES COMPAZINE, REGLAN, TORADOL, AND IMITREX DOES NOT WORK. NO OTHER COMPLAINTS. Timing/Duration: 24 hours Severity/Quality: moderate Prior Headaches/Recent Trauma: frequent headaches, chronic headaches Associated Symptoms: denies symptoms Allergies: Coded Allergies: Penicillins (Verified Allergy, Unknown, UNK, 10/31/18) aspirin (Verified Allergy, Unknown, 10/31/18) Home Meds Reported Medications Escitalopram Oxalate (LEXAPRO) 10 Mg Tablet, 1 TAB PO DAILY, #90 TAB 3 Refills 06/25/14 Albuterol Sulfate (VENTOLIN HFA) 18 Gm Hfa.aer.ad, 18 GM IH Q4 PRN for COUGH 11/23/13 Fluticasone/Salmeterol (ADVAIR 250-50 DISKUS) 1 Each Disk.w.dev, 1 EACH IH DAILY 11/23/13 Past Medical History Medical History: arrhythmia, asthma, cancer Surgical History: other Family History Significant Family History: no pertinent family hx Social History Alcohol Use: none Drug Use: none Reviewed Nursing Reviewed: Vital Signs, Abn. Noted, Nursing Assessment Review of Systems Constitutional: no symptoms reported Eyes: no symptoms reported Ears, Nose, Mouth, Throat: no symptoms reported Respiratory: no symptoms reported Cardiovascular: no symptoms reported Gastrointestinal: no symptoms reported Genitourinary: no symptoms reported Musculoskeletal: no symptoms reported Skin: no symptoms reported Psychiatric/Neurological: headache Physical Exam General Appearance: WD/WN, Mild Distress Head/Eyes: eyes nml inspection, no facial swelling, no nystagmus, PERRL ENT: nml ENT inspection, pharynx nml Neck: nml inspection, Supple Cardiovascular: Normal Peripheral Pulses, Regular Rate, Rhythm, No Edema, No Gallop, No JVD, No Murmur Respiratory: chest non-tender, lungs clear, normal breath sounds, no respiratory distress, no accessory muscle use Back: Normal Inspection, No CVA Tenderness, No Vertebral Tenderness Extremities: Normal Range of Motion, Non-Tender, Normal Inspection, No Pedal Edema, No Calf Tenderness, Normal Capillary Refill Psychiatric: Alert, Oriented x 3 Cranial Nerves: Normal Hearing, Normal Speech, PERRL Coordination/Gait: Normal Finger to Nose, Normal Gait Motor/Sensory: No Motor Deficit, No Sensory Deficit, No Pronator Drift, Negative Babinski's Sign Skin: Warm/Dry, Normal Color Lymphatic: No Adenopathy Comments NON FOCAL EXAM, NO RASH, NO HX OF INSECT EXP. Results/Orders Results/Orders Orders - PHILIP KOTHARI DO Ketorolac Tromethamine (Toradol) (03/19/19 01:30) Promethazine Hcl (Phenergan) (03/19/19 01:19) Vital Signs Date Time Temp Pulse Resp B/P (MAP) Pulse Ox O2 Delivery O2 Flow Rate FiO2 03/19/19 01:47 97.9 75 16 147/98 (114) 97 Room Air 03/19/19 01:08 97.9 75 16 97 Room Air 03/19/19 01:08 97.9 79 16 172/83 (112) 97 Room Air 03/19/19 01:08 97.9 79 16 Administered Medications Medications (Trade) Dose Ordered Sig/Jennifer Route PRN Reason Start Time Stop Time Status Last Admin Dose Admin Ketorolac Tromethamine (Toradol) 60 mg STAT ONCE IM 03/19/19 01:30 03/19/19 01:31 DC 03/19/19 01:33 60 MG Promethazine HCl (Phenergan) 25 mg STAT STAT IM 03/19/19 01:19 03/19/19 01:22 DC 03/19/19 01:33 25 MG Progress Progress DIFF DX IN DETAIL, STRESSED TO PATIENT NEEDS FOLLOW UP WITH NEUROLOGIST HE IS SUPPOSED TO SEE., REVIEWED CHART PATIENT SEEN MULTIPLE TIMES, SEEN 9,03/04/19, 03/13/19--FOR ARTEAGA'S. AT 0140 ARTEAGA MIN BETTER--WANTS TO GO HOME. Course Sepsis Screening Results: Posi: POSITIVE SEPSIS RISK DATE SEEN BY PHYSICIAN: Apr 10, 2018 TIME SEEN BY PROVIDER: 0635 Duration or Total Time Spent w: 20 MIN Vitals & review Data Vital Sign - Last 24 Hours 03/19/19 03/19/19 03/19/19 03/19/19 01:08 01:08 01:08 01:47 Temp 97.9 97.9 97.9 97.9 Pulse 79 79 75 75 Resp 16 16 16 16 B/P (MAP) 172/83 (112) 147/98 (114) Pulse Ox 97 97 97 O2 Delivery Room Air Room Air Room Air Sepsis Infection Criteria Pres: None Departure Time of Disposition: 01:36 Disposition: 01 HOME, SELF-CARE Impression: Primary Impression: Migraine Additional Impression: Headache Condition: Stable Patient Instructions: Migraine Headache Referrals: PCP,UNKNOWN (PCP) PRIMARY CARE PROVIDER Additional Instructions: TO ED NEEDED, FOLLOW UP WITH YOUR DR'S FOR FURTHER CARE, DRINK PLENTY FLUIDS. Duration or Time Spent with Pa: 10 MIN Problem Qualifiers PHILIP KOTHARI DO Mar 19, 2019 01:11
[2019-03-19] MEDS ORDERED: PHENERGAN IM STA (01:19)
[2019-03-19] MEDS ORDERED: PHENERGAN ONE (01:20)
[2019-03-19] MEDS ORDERED: TORADOL ONE (01:20)
[2019-03-19] MEDS ORDERED: TORADOL IM ONE (01:30)
[2019-03-19 01:47] VITALS: BP 147/98
== END 2019-03-19 01:47 | disposition home or self-care (01) ==
LOC: ER 01:00
DX: G43.909 Migraine, unspecified, not intractable, without status migrainosus (principal); J45.909 Unspecified asthma, uncomplicated; Z79.899 Other long term (current) drug therapy; Z88.0 Allergy status to penicillin; Z88.6 Allergy status to analgesic agent
CPT/HCPCS: 96372; 99284; J1885; J2550

== ENCOUNTER 2019-04-06 13:17 | Emergency (ER) | payer OTHER ==
[~2019-04-06] VITALS: Ht 188 cm; Wt 108.9 kg
[2019-04-06 14:22] VITALS: BP 150/100
[2019-04-06] MEDS ORDERED: PHENERGAN IM STA (14:33)
[2019-04-06] MEDS ORDERED: STADOL IM STA (14:33)
[2019-04-06] MEDS ORDERED: PHENERGAN ONE (14:45)
[2019-04-06 15:40] VITALS: BP 134/75
--- NOTE | 2019-04-06 15:52 | ER.PDOC ---
General Chief Complaint: Headache Stated Complaint: RICHELLE Time seen by MD: 16:00 Source: patient Exam Limitations: no limitations History of Present Illness Timing/Duration: 24 hours Severity/Quality: moderate Prior Headaches/Recent Trauma: frequent headaches, chronic headaches Associated Symptoms: sensitivity to light Modifying Factors: improves with medication Prior symptoms/Treatment: Similar symptoms previous, Recenly Seen Allergies: Coded Allergies: Penicillins (Verified Allergy, Unknown, UNK, 10/31/18) aspirin (Verified Allergy, Unknown, 10/31/18) Home Meds Reported Medications Escitalopram Oxalate (LEXAPRO) 10 Mg Tablet, 1 TAB PO DAILY, #90 TAB 3 Refills 06/25/14 Albuterol Sulfate (VENTOLIN HFA) 18 Gm Hfa.aer.ad, 18 GM IH Q4 PRN for COUGH 11/23/13 Fluticasone/Salmeterol (ADVAIR 250-50 DISKUS) 1 Each Disk.w.dev, 1 EACH IH DAILY 11/23/13 Past Medical History Medical History: arrhythmia, asthma Surgical History: no surgical history Social History Smoking: non-smoker Alcohol Use: none Drug Use: none Reviewed Nursing Reviewed: Vital Signs, Abn. Noted Review of Systems All Other Systems: Reviewed and Negative Physical Exam General Appearance: No Apparent Distress, WD/WN Head/Eyes: eyes nml inspection, no facial swelling, no nystagmus, PERRL ENT: nml ENT inspection, pharynx nml Neck: nml inspection, Supple Cardiovascular: Normal Peripheral Pulses, Regular Rate, Rhythm, No Edema, No Gallop, No JVD, No Murmur Respiratory: chest non-tender, lungs clear, normal breath sounds, no respiratory distress, no accessory muscle use Gastrointestinal: Normal Bowel Sounds, No Organomegaly, No Pulsatile Mass, Non Tender, Soft Back: Normal Inspection, No CVA Tenderness, No Vertebral Tenderness Extremities: Normal Range of Motion, Non-Tender, Normal Inspection, No Pedal Edema, No Calf Tenderness, Normal Capillary Refill Psychiatric: Alert, Oriented x 3 Cranial Nerves: Normal Hearing, Normal Speech, PERRL Coordination/Gait: Normal Finger to Nose, Normal Gait Motor/Sensory: No Motor Deficit, No Sensory Deficit, No Pronator Drift, Negative Babinski's Sign Skin: Warm/Dry, Normal Color Lymphatic: No Adenopathy Results/Orders Results/Orders Orders - LUIS MIGUEL WALLIS MD Butorphanol Tartrate (Stadol) (04/06/19 14:33) Promethazine Hcl (Phenergan) (04/06/19 14:33) Promethazine Hcl (Phenergan) (04/06/19 14:45) Vital Signs Date Time Temp Pulse Resp B/P (MAP) Pulse Ox O2 Delivery O2 Flow Rate FiO2 04/06/19 15:40 77 18 134/75 (94) 97 Room Air 04/06/19 14:22 97.9 72 17 97 Room Air 04/06/19 14:22 97.9 72 17 04/06/19 14:22 97.9 72 17 150/100 (117) 97 Room Air Administered Medications Medications (Trade) Dose Ordered Sig/Jennifer Route PRN Reason Start Time Stop Time Status Last Admin Dose Admin Butorphanol Tartrate (Stadol) 2 mg STAT STAT IM 04/06/19 14:33 04/06/19 14:35 DC 04/06/19 14:52 2 MG Promethazine HCl (Phenergan) 25 mg STAT STAT IM 04/06/19 14:33 04/06/19 14:35 DC 04/06/19 14:52 25 MG Course Sepsis Screening Results: Posi: POSITIVE SEPSIS RISK DATE SEEN BY PHYSICIAN: Apr 10, 2018 TIME SEEN BY PROVIDER: 0635 Duration or Total Time Spent w: 10 MIN Vitals & review Data Vital Sign - Last 24 Hours 04/06/19 04/06/19 04/06/19 04/06/19 14:22 14:22 14:22 15:40 Temp 97.9 97.9 97.9 Pulse 72 72 72 77 Resp 17 17 17 18 B/P (MAP) 150/100 (117) 134/75 (94) Pulse Ox 97 97 97 O2 Delivery Room Air Room Air Room Air Sepsis Infection Criteria Pres: None O2 Sat by Pulse Oximetry: 97 Departure Time of Disposition: 16:11 Disposition: 01 HOME, SELF-CARE Impression: Primary Impression: Migraine Condition: Improved Referrals: PCP,UNKNOWN (PCP) PRIMARY CARE PROVIDER Additional Instructions: IN ED: EXAM BY DR. NASSAR AND BARBARA IM. AT HOME: ACTIVITY TOLERATED. FOLLOW UP WITH PRIMARY CARE DOCTOR IN 2-3 DAYS. RETURN TO ED IF SYMPTOMS WORSEN. Duration or Time Spent with Pa: 20 M LUIS MIGUEL WALLIS MD Apr 06, 2019 15:52
== END 2019-04-06 16:00 | disposition home or self-care (01) ==
LOC: ER 13:17
DX: G43.909 Migraine, unspecified, not intractable, without status migrainosus (principal); J45.909 Unspecified asthma, uncomplicated; Z79.899 Other long term (current) drug therapy; Z88.0 Allergy status to penicillin; Z88.6 Allergy status to analgesic agent
CPT/HCPCS: 96372 ×2; 99284; J2550; 99283; J0585

== ENCOUNTER 2019-04-11 03:08 | Emergency (ER) | payer OTHER ==
[~2019-04-11] VITALS: Ht 188 cm; Wt 108.9 kg
[2019-04-11 03:23] VITALS: BP 147/95
[2019-04-11] MEDS ORDERED: TORADOL ONE (03:31)
[2019-04-11] MEDS ORDERED: CLEOCIN ONE (03:32)
--- NOTE | 2019-04-11 03:43 | ER.PDOC ---
General Chief Complaint: Toothache Stated Complaint: TOOTHACHE Time seen by MD: 03:22 Source: patient Exam Limitations: no limitations History of Present Illness Initial Comments 38 YO MALE PRESENTS WITH RIGHT UPPER TOOTHACHE X 3 DAYS. MODERATELY SEVERE PAIN. THE AFFECTED AREA IS THE RIGHT UPPER JAW, POSTERIOR AREA. ASSOCIATED SUBJECTIVE FEVER. NO TRAUMA, SORE THROAT, EAR PAIN. HE HAS HAD DENTAL CARIES/ ABSCESS. HE TOOK TYLENOL AND ALEVE WITH LITTLE RELIEF. HE HAS HAD TOOTH EXTRACTION A MONTH AGO. Timing/Duration: abrupt, other (3 DAYS AGO) Associated Symptoms: fever/chills, toothache Severity: moderate Prior symptoms/Treatment: Similar symptoms previous Allergies: Coded Allergies: Penicillins (Verified Allergy, Unknown, UNK, 10/31/18) aspirin (Verified Allergy, Unknown, 10/31/18) Home Meds Reported Medications Escitalopram Oxalate (LEXAPRO) 10 Mg Tablet, 1 TAB PO DAILY, #90 TAB 3 Refills 06/25/14 Albuterol Sulfate (VENTOLIN HFA) 18 Gm Hfa.aer.ad, 18 GM IH Q4 PRN for COUGH 11/23/13 Fluticasone/Salmeterol (ADVAIR 250-50 DISKUS) 1 Each Disk.w.dev, 1 EACH IH DAILY 11/23/13 Past Medical History Medical History: asthma, cancer, other (SVT) Surgical History: no surgical history Family History Significant Family History: no pertinent family hx Social History Drug Use: none Reviewed Nursing Reviewed: Vital Signs, Abn. Noted Constitutional: see HPI Eyes: see HPI Ears: see HPI Nose: see HPI Mouth: see HPI Throat: see HPI Respiratory: see HPI Cardiovascular: see HPI Gastrointestinal: see HPI Musculoskeletal: see HPI Skin: see HPI Neurological: see HPI Physical Exam General Appearance: alert, mild distress Head/Neck: swelling (RIGHT UPPER MOLAR GUM), pain on palpation (RIGHT UPPER MOLAR) Eyes: eyes nml inspection Mouth: lips, gums nml, no drooling Throat: pharynx nml Ears/Nose: nml inspection Respiratory: no resp. distress CVS: reg. rate & rhythm Skin Exam: Normal Color NEURO/PSYCH: oriented X3 Results/Orders Results/Orders Orders - GORDON BEYER MD Ketorolac Tromethamine (Toradol) (04/11/19 03:31) Clindamycin Hcl (Cleocin) (04/11/19 03:32) Vital Signs Date Time Temp Pulse Resp B/P (MAP) Pulse Ox O2 Delivery O2 Flow Rate FiO2 04/11/19 03:23 97.7 94 16 Room Air 04/11/19 03:23 97.7 94 Progress Progress WILL COMMENCE ANTIBIOTICS AND ANALGESIC FOR DENTAL ABSCESS. FOLLOW UP WITH YOUR DENTIST Departure Time of Disposition: 03:47 Disposition: 01 HOME, SELF-CARE Impression: Primary Impression: Dental abscess Additional Impression: Toothache Condition: Stable Referrals: DENTIST OTHER FOLLOW UP WITH YOUR DENTIST IN 1-2 DAYS FOR FURTHER EVALUATION AND TREATMENT JERI WEST (PCP) PRIMARY CARE PROVIDER Additional Instructions: RETURN TO THE ER IF YOUR CONDITION WORSEN Comments CLINDAMYCIN, NAPROSYN, TYLENOL Duration or Time Spent with Pa: 20 MIN Return to Work/School Can a patient return to work?: No (RETURN TO WORK 04/12/2019) GORDON BEYER MD Apr 11, 2019 03:43
== END 2019-04-11 04:00 | disposition home or self-care (01) ==
LOC: ER 03:08
DX: K04.7 Periapical abscess without sinus (principal); J45.909 Unspecified asthma, uncomplicated; Z88.1 Allergy status to other antibiotic agents; Z88.0 Allergy status to penicillin; Z88.6 Allergy status to analgesic agent
CPT/HCPCS: 99281; J1885

== ENCOUNTER 2019-04-11 11:46 | Emergency (ER) | payer OTHER ==
[~2019-04-11] VITALS: Ht 188 cm; Wt 108.9 kg
[2019-04-11 12:32] VITALS: BP 133/96
[2019-04-11 13:13] VITALS: BP 133/96
[2019-04-11] MEDS ORDERED: TORADOL ONE (13:25)
[2019-04-11] MEDS: TORADOL IM STA (13:40)
--- NOTE | 2019-04-11 13:45 | ER.PDOC ---
General Chief Complaint: Toothache Stated Complaint: TOOTHACHE Time seen by MD: 13:40 Source: patient Exam Limitations: no limitations History of Present Illness Initial Comments Toothache for 4 days. Seen in the ED last night for same and given a prescription for Clindamycin. He returns requesting for pain medication. Timing/Duration: gradual Associated Symptoms: toothache, jaw pain (R) Severity: moderate Prior symptoms/Treatment: Similar symptoms previous, Recenly Seen, Treated by Doctor Allergies: Coded Allergies: Penicillins (Verified Allergy, Unknown, UNK, 10/31/18) aspirin (Verified Allergy, Unknown, 10/31/18) Home Meds Reported Medications Escitalopram Oxalate (LEXAPRO) 10 Mg Tablet, 1 TAB PO DAILY, #90 TAB 3 Refills 06/25/14 Albuterol Sulfate (VENTOLIN HFA) 18 Gm Hfa.aer.ad, 18 GM IH Q4 PRN for COUGH 11/23/13 Fluticasone/Salmeterol (ADVAIR 250-50 DISKUS) 1 Each Disk.w.dev, 1 EACH IH DAILY 11/23/13 Past Medical History Medical History: arrhythmia, asthma, cancer Surgical History: cancer surgery Social History Smoking: non-smoker Alcohol Use: none Drug Use: none Constitutional: no symptoms reported Mouth: see HPI Throat: no symptoms reported Respiratory: no symptoms reported Cardiovascular: no symptoms reported Gastrointestinal: no symptoms reported All Other Systems: Reviewed and Negative Physical Exam General Appearance: alert, no distress Eyes: eyes nml inspection, PERRL, no nystagmus Mouth: dental tenderness (right upper molar), widespread dental decay Throat: pharynx nml, voice nml, no airway problems Respiratory: no resp. distress, lungs clear CVS: reg. rate & rhythm, heart sounds nml Abdomen: non-tender, no organomegaly Extremities: non-tender, ROM nml Skin Exam: Normal Color, Warm/Dry NEURO/PSYCH: oriented X3, mood/effect nml Results/Orders Results/Orders Orders - BERNABE LEY MD Ketorolac Tromethamine (Toradol) (04/11/19 13:15) Ketorolac Tromethamine (Toradol) (04/11/19 13:25) Vital Signs Date Time Temp Pulse Resp B/P (MAP) Pulse Ox O2 Delivery O2 Flow Rate FiO2 04/11/19 13:13 98.1 74 16 133/96 (108) 96 Room Air 04/11/19 12:32 98.1 74 16 96 Room Air 04/11/19 12:32 98.1 74 16 Departure Time of Disposition: 13:42 Disposition: 01 HOME, SELF-CARE Impression: Primary Impression: Dental infection Condition: Stable Referrals: JERI WEST (PCP) PRIMARY CARE PROVIDER Additional Instructions: Continue Clindamycin as prescribed Diclofenac F/U with your Dentist in 1-2 days Return to ED if worsening symptoms or concerns. Duration or Time Spent with Pa: 20 mins AV,BERNABE Blevins MD Apr 11, 2019 13:45
== END 2019-04-11 13:55 | disposition home or self-care (01) ==
LOC: ER 11:46
DX: K04.7 Periapical abscess without sinus (principal); J45.909 Unspecified asthma, uncomplicated; Z88.0 Allergy status to penicillin; Z88.6 Allergy status to analgesic agent
CPT/HCPCS: 96372; 99283; J1885

== ENCOUNTER 2019-04-12 05:46 | Emergency (ER) | payer OTHER ==
[~2019-04-12] VITALS: Ht 188 cm; Wt 108.9 kg
[2019-04-12] MEDS ORDERED: ASPIRIN ONE (05:52)
[2019-04-12] MEDS: NITROSTAT SL PRN ×2 (05:55→06:12)
[2019-04-12 05:57] VITALS: BP 135/93
--- NOTE | 2019-04-12 06:05 | PCM.EKG ---
[facility] Test Date: 2019-04-12 Test Time: 05:52:06 Pat Name: NAWAF MARTINEZ Department: Room: Gender: M Skirt Maker: [email or web address] : 1980 Requested By: GORDON BEYER Order Number: [id number] Reading MD: Measurements Intervals [place] Rate: 74 P: 18 PA: 180 QRS: 61 QRSD: 93 T: 74 QT: 411 QTc: 456 Interpretive Statements Sinus rhythm Abnormal R-wave progression, early transition Baseline wander in lead(s) V2,V3 Compared to ECG 02/14/2019 16:36:13 Sinus tachycardia no longer present ST (T wave) deviation no longer present Please click the below link to view image of tracing.
[2019-04-12 06:12] LABS: BASOPHIL % 0.7 % (0.0-0.2); EOSINOPHIL # 0.6 10^3/uL (0.0-0.2); EOSINOPHIL % 14.4 % (0.0-5.0); HEMOGLOBIN 14.2 g/dL (13.9-16.3); LYMPHOCYTES % 22.3 % (24.0-44.0); MEAN CELL HGB 28.1 pg (26-34); MEAN CELL HGB CONCENTRATION 32.1 g/dL (33-37); MEAN CORP VOLUME 87.4 fL (78-100); MEAN PLATELET VOLUME 10.6 fL (7.8-11.0); MONOCYTES # 0.5 10^3/uL (0.3-0.8); MONOCYTES % 12.3 % (5.0-12.0); NEUTROPHIL # 2.2 10^3/uL (1.8-7.7); NEUTROPHILS % 50.1 % (41.0-85.0); RED CELL DISTRIBUTION WIDTH 13.1 % (11.5-14.5); WHITE BLOOD CELL 4.3 10^3/uL (4.5-11.0)
[2019-04-12 06:13] VITALS: BP 124/86
--- NOTE | 2019-04-12 06:14 | ER.PDOC ---
General Chief Complaint: Chest Pain-Cardiac Nature Stated Complaint: CHEST PAIN Time seen by MD: 05:55 Source: patient Exam Limitations: no limitations History of Present Illness Initial Comments 38 YO MALE PRESENTS WITH SUDDEN DULL/SHARP SUBSTERNAL PAIN X 1 HR AGO PRIOR TO ARRIVAL. THE PAIN RADIATES TO LEFT ARM. SEVERE, 9/10, MADE WORSE BY MOVEMENT. HE HAS NOT TAKEN ANY MEDICATION FOR THE PAIN. ASSOCIATED SHORTNESS OF BREATH. NO NAUSEA, FEVER, COUGH OR DIAPHORESIS. HE DENIES ILLICIT DRUG USE. Severity/Quality: severe Radiation: arms (LEFT) Activities at Onset: rest Prior CP/Workup: No Prior Cardiac Workup Modifying Factors: movement Nitro Today/Relief: No Nitro Taken Today Aspirin Today: No Aspirin Today Associated Symptoms: shortness of breath Allergies: Coded Allergies: Penicillins (Verified Allergy, Unknown, UNK, 10/31/18) aspirin (Verified Allergy, Unknown, 10/31/18) Home Meds Reported Medications Escitalopram Oxalate (LEXAPRO) 10 Mg Tablet, 1 TAB PO DAILY, #90 TAB 3 Refills 06/25/14 Albuterol Sulfate (VENTOLIN HFA) 18 Gm Hfa.aer.ad, 18 GM IH Q4 PRN for COUGH 11/23/13 Fluticasone/Salmeterol (ADVAIR 250-50 DISKUS) 1 Each Disk.w.dev, 1 EACH IH DAILY 11/23/13 Past Medical History Medical History: arrhythmia (SVT), asthma Surgical History: cancer surgery Family History Significant Family History: hypertension (DAD) Social History Smoking: non-smoker Alcohol Use: none Drug Use: none Reviewed Nursing Reviewed: Vital Signs, Abn. Noted Constitutional: see HPI EENTM: see HPI Respiratory: see HPI Cardiovascular: see HPI Gastrointestinal: see HPI Genitourinary: see HPI Musculoskeletal: see HPI Skin: see HPI Psychiatric/Neurological: see HPI Hematologic/Lymphatic: see HPI Physical Exam General Appearance: Anxious, Mild Distress HEENT: PERRL/EOMI, Normal ENT Inspection Neck: Supple Respiratory: lungs clear, normal breath sounds, no respiratory distress, other (TENDER LOWER STERNUM) Cardiovascular: Normal Peripheral Pulses, Regular Rate, Rhythm, No Edema, JVD Gastrointestinal: Normal Bowel Sounds, No Organomegaly, Non Tender, Soft Extremities: Normal Range of Motion, Normal Inspection, No Pedal Edema Neurologic/Psychiatric: Alert, Normal Mood/Affect, Oriented x 3 Skin: Normal Color, Warm/Dry Results/Orders Results/Orders Orders - GORDON BEYER MD Aspirin (Aspirin) (04/12/19 05:52) Cbc With Auto Diff (04/12/19 06:01) Comprehensive Metabolic Panel (04/12/19 06:01) Creatine Kinase (04/12/19 06:01) Creatine Kinase Mb (04/12/19 06:01) Troponin I (04/12/19 06:01) PT (04/12/19 06:01) D-Dimer (04/12/19 06:01) Xr Chest 1v (04/12/19 06:01) Ekg-Routine (04/12/19 06:01) Nitroglycerin (Nitrostat) (04/12/19 06:30) Saline Lock (04/12/19 06:01) Cardiac Monitoring (04/12/19 06:04) Vital Signs Date Time Temp Pulse Resp B/P (MAP) Pulse Ox O2 Delivery O2 Flow Rate FiO2 04/12/19 05:57 98.6 04/12/19 05:57 98.6 76 12 95 Room Air Progress Progress 0700- TRANSITION CARE TO DR. WALLIS. ANTICIPATE DISCHARGE PENDING IMAGING. normal heart cath 21 year ago EKG/XRAY/CT/US EKG: NSR (74 BEATS/MIN), no ST T wave changes Departure Time of Disposition: 08:33 Disposition: 01 HOME, SELF-CARE Impression: Primary Impression: Chest pain Condition: Improved Referrals: JERI WEST (PCP) PRIMARY CARE PROVIDER Duration or Time Spent with Pa: 20 m GORDON BEYER MD Apr 12, 2019 06:14 LUIS MIGUEL WALLIS MD Apr 12, 2019 07:18
[2019-04-12 06:23] VITALS: BP 118/69
[2019-04-12 06:36] LABS: ALANINE AMINOTRANSFERASE(ML) 61 U/L (12-78); ALKALINE PHOSPHATASE 90 U/L (50-136); ASPARTATE AMINO TRANSFERASE 33 U/L (0-35); CALCIUM 8.9 mg/dL (8.4-10.5); CARBON DIOXIDE 27.5 mmol/L (20.0-32); GLUCOSE 148 mg/dL (70-110)
[2019-04-12] MEDS ORDERED: MORPHINE SULFATE IV STA (06:52)
--- NOTE | 2019-04-12 07:08 | DIREP ---
PROCEDURE:CHEST 1 VIEW COMPARISON:[facility], CR, XRAY CHEST SINGLE VW, 02/14/2019, 04:49 PM. INDICATIONS:chest pain FINDINGS: LUNGS/PLEURA:Faint linear densities are noted in the left lung base consistent with subsegmental atelectasis. No confluent alveolar opacity is seen. VASCULATURE:Normal. Unremarkable pulmonary vasculature. CARDIAC:Normal. No cardiac silhouette abnormality or cardiomegaly. MEDIASTINUM:Normal. No visible mass or adenopathy. BONES:Normal. No fracture or visible bony lesion. OTHER:Negative. CONCLUSION: 1. Minimal subsegmental atelectasis in the left lung base. Dictated by: Sarbjit Curtis M.D. on 04/12/2019 at 07:06 AM
[2019-04-12] MEDS ORDERED: TORADOL IV STA (07:09)
[2019-04-12] MEDS ORDERED: PREDNISONE PO STA (07:09)
[2019-04-12] MEDS ORDERED: PREDNISONE ONE (07:17)
[2019-04-12] MEDS ORDERED: TORADOL ONE (07:17)
[2019-04-12 07:27] VITALS: BP 128/69
[2019-04-12] MEDS ORDERED: DUO 0.5-3(2.5) MG/3 ML IH ONE (08:05)
[2019-04-12] MEDS ORDERED: DECADRON ONE (08:05)
[2019-04-12 08:24] VITALS: BP 130/83
[2019-04-16 11:13] LABS: OPIATES Negative (Cutoff=200)
== END 2019-04-12 08:45 | disposition home or self-care (01) ==
LOC: ER 05:46
DX: R07.2 Precordial pain (principal); R06.02 Shortness of breath; J45.909 Unspecified asthma, uncomplicated; I10 Essential (primary) hypertension; Z88.0 Allergy status to penicillin; Z88.6 Allergy status to analgesic agent; Z79.899 Other long term (current) drug therapy
CPT/HCPCS: 36415; 71045; 80053; 80307; 82550 ×2; 82553 ×2; 84484 ×2; 85025; 85379; 85610; 93005; 96374; 99285; J1100; J1885; J7512; J7620

== ENCOUNTER 2019-04-15 15:25 | Emergency (ER) | payer OTHER ==
[~2019-04-15] VITALS: Ht 188 cm; Wt 113.4 kg
[2019-04-15 15:46] VITALS: BP 155/103
[2019-04-15 15:54] VITALS: BP 155/103
[2019-04-15] MEDS ORDERED: STADOL IM STA (16:01)
[2019-04-15] MEDS ORDERED: PHENERGAN IM STA (16:01)
--- NOTE | 2019-04-15 16:02 | ER.PDOC ---
General Chief Complaint: Headache Stated Complaint: MIGRAINE Time seen by MD: 15:55 Source: patient Exam Limitations: no limitations History of Present Illness Timing/Duration: 24 hours Severity/Quality: severe Prior Headaches/Recent Trauma: frequent headaches, chronic headaches Associated Symptoms: sensitivity to light Modifying Factors: improves with exposure to light Prior symptoms/Treatment: Similar symptoms previous, Recenly Seen Allergies: Coded Allergies: Penicillins (Verified Allergy, Unknown, UNK, 10/31/18) aspirin (Verified Allergy, Unknown, 10/31/18) Home Meds Reported Medications Escitalopram Oxalate (LEXAPRO) 10 Mg Tablet, 1 TAB PO DAILY, #90 TAB 3 Refills 06/25/14 Albuterol Sulfate (VENTOLIN HFA) 18 Gm Hfa.aer.ad, 18 GM IH Q4 PRN for COUGH 11/23/13 Fluticasone/Salmeterol (ADVAIR 250-50 DISKUS) 1 Each Disk.w.dev, 1 EACH IH DAILY 11/23/13 Past Medical History Medical History: arrhythmia, cancer, other (chronic, recurrent migraine headaches) Surgical History: cancer surgery Social History Smoking: non-smoker Alcohol Use: none Drug Use: none Review of Systems Constitutional: no symptoms reported Eyes: photophobia Ears, Nose, Mouth, Throat: no symptoms reported Respiratory: no symptoms reported Cardiovascular: no symptoms reported Gastrointestinal: no symptoms reported Musculoskeletal: no symptoms reported Skin: no symptoms reported Physical Exam General Appearance: No Apparent Distress Head/Eyes: eyes nml inspection, PERRL ENT: nml ENT inspection Neck: nml inspection, Supple Cardiovascular: Regular Rate, Rhythm, No Edema, No Murmur Respiratory: lungs clear, normal breath sounds, no respiratory distress, no accessory muscle use Extremities: Non-Tender, Normal Inspection Motor/Sensory: No Motor Deficit Skin: Warm/Dry, Normal Color Results/Orders Results/Orders Vital Signs Date Time Temp Pulse Resp B/P (MAP) Pulse Ox O2 Delivery O2 Flow Rate FiO2 04/15/19 15:46 98.0 104 16 04/15/19 15:46 97.8 104 16 98 Room Air Course Sepsis Screening Results: Posi: POSITIVE SEPSIS RISK DATE SEEN BY PHYSICIAN: Apr 10, 2018 TIME SEEN BY PROVIDER: 0635 Duration or Total Time Spent w: 20 m Vitals & review Data Vital Sign - Last 24 Hours 04/15/19 04/15/19 15:46 15:46 Temp 97.8 98.0 Pulse 104 104 Resp 16 16 Pulse Ox 98 O2 Delivery Room Air Sepsis Infection Criteria Pres: None O2 Sat by Pulse Oximetry: 98 Departure Time of Disposition: 16:05 Disposition: 01 HOME, SELF-CARE Impression: Primary Impression: Migraine Condition: Stable Patient Instructions: Migraine Headache Referrals: JERI WEST (PCP) PRIMARY CARE PROVIDER Additional Instructions: Return to ER if you develop fever >101.4, severe/worsening/changing headache, visual change or for any other concerns. Duration or Time Spent with Pa: 15 minutes Return to Work/School Can a patient return to work?: Yes Problem Qualifiers Primary Impression: Migraine Migraine type: without aura Status migrainosus presence: without status migrainosus Intractability: not intractable Qualified Codes: G43.009 - Migraine without aura, not intractable, without status migrainosus GLADYS BLEVINS DO Apr 15, 2019 16:02
[2019-04-15] MEDS ORDERED: PHENERGAN ONE (16:18)
== END 2019-04-15 16:32 | disposition home or self-care (01) ==
LOC: ER 15:25
DX: G43.009 Migraine without aura, not intractable, without status migrainosus (principal); Z79.899 Other long term (current) drug therapy; Z88.0 Allergy status to penicillin; Z88.6 Allergy status to analgesic agent
CPT/HCPCS: 96372; 99284; J2550; J0585

== ENCOUNTER 2019-04-16 01:38 | Emergency (ER) | payer OTHER ==
[~2019-04-16] VITALS: Ht 188 cm; Wt 113.4 kg
[2019-04-16 01:45] VITALS: BP 132/93
--- NOTE | 2019-04-16 01:45 | NUR ---
ARRIVAL PATIENT PRESENTS WITH COMPLAINTS OF MIGRAINE SINCE YESTERDAY. PATIENT REPORTS THAT HE WAS HERE YESTERDAY AFTERNOON FOR SAME COMPLAINT; GIVEN STADOL AND PHENERGAN AND STILL HAS MIGRAINE. VSS. MD AV NOTIFIED.
[2019-04-16] MEDS ORDERED: PHENERGAN ONE (02:13)
[2019-04-16] MEDS ORDERED: TORADOL ONE (02:13)
[2019-04-16] MEDS ORDERED: TORADOL IM STA (02:16)
[2019-04-16] MEDS ORDERED: PHENERGAN IM STA (02:16)
--- NOTE | 2019-04-16 02:17 | ER.PDOC ---
General Chief Complaint: Headache Stated Complaint: MIGRAINE Time seen by MD: 02:17 Source: patient Exam Limitations: no limitations History of Present Illness Initial Comments Migraine headache since yesterday. He was seen yesterday and treated in the ED. He returns because he is not feeling better. Severity/Quality: moderate Prior Headaches/Recent Trauma: frequent headaches, chronic headaches Associated Symptoms: nausea/vomiting, sensitivity to light Prior symptoms/Treatment: Similar symptoms previous, Recenly Seen, Treated by Doctor Allergies: Coded Allergies: Penicillins (Verified Allergy, Unknown, UNK, 10/31/18) aspirin (Verified Allergy, Unknown, 10/31/18) Home Meds Reported Medications Escitalopram Oxalate (LEXAPRO) 10 Mg Tablet, 1 TAB PO DAILY, #90 TAB 3 Refills 06/25/14 Albuterol Sulfate (VENTOLIN HFA) 18 Gm Hfa.aer.ad, 18 GM IH Q4 PRN for COUGH 11/23/13 Fluticasone/Salmeterol (ADVAIR 250-50 DISKUS) 1 Each Disk.w.dev, 1 EACH IH DAILY 11/23/13 Past Medical History Medical History: asthma Surgical History: cancer surgery LMP (females 10-50): N/A Not applicalbe Social History Smoking: non-smoker Alcohol Use: none Drug Use: none Review of Systems Constitutional: no symptoms reported Eyes: see HPI Respiratory: no symptoms reported Cardiovascular: no symptoms reported Gastrointestinal: see HPI All Other Systems: Reviewed and Negative Physical Exam General Appearance: No Apparent Distress, WD/WN Neck: nml inspection, Supple Cardiovascular: Normal Peripheral Pulses, Regular Rate, Rhythm, No Edema, No Gallop, No JVD, No Murmur Respiratory: chest non-tender, lungs clear, normal breath sounds, no respiratory distress, no accessory muscle use Gastrointestinal: Normal Bowel Sounds, No Organomegaly, No Pulsatile Mass, Non Tender, Soft Back: Normal Inspection, No CVA Tenderness, No Vertebral Tenderness Extremities: Normal Range of Motion, Non-Tender, Normal Inspection, No Pedal Edema, No Calf Tenderness, Normal Capillary Refill Psychiatric: Alert, Oriented x 3 Cranial Nerves: Normal Hearing, Normal Speech, PERRL Motor/Sensory: No Motor Deficit, No Sensory Deficit, No Pronator Drift, Negative Babinski's Sign Skin: Warm/Dry, Normal Color Results/Orders Results/Orders Orders - BERNABE LEY MD Ketorolac Tromethamine (Toradol) (04/16/19 02:13) Promethazine Hcl (Phenergan) (04/16/19 02:13) Ketorolac Tromethamine (Toradol) (04/16/19 02:16) Promethazine Hcl (Phenergan) (04/16/19 02:16) Ct Head Wo Contrast (04/16/19 02:18) Vital Signs Date Time Temp Pulse Resp B/P (MAP) Pulse Ox O2 Delivery O2 Flow Rate FiO2 04/16/19 01:45 97.9 85 18 04/16/19 01:45 97.9 85 18 97 Room Air 04/16/19 01:45 97.9 85 18 132/93 (106) 97 Room Air Administered Medications Medications (Trade) Dose Ordered Sig/Jennifer Route PRN Reason Start Time Stop Time Status Last Admin Dose Admin Ketorolac Tromethamine (Toradol) 60 mg STAT STAT IM 04/16/19 02:16 04/16/19 02:17 DC 04/16/19 02:19 60 MG Promethazine HCl (Phenergan) 25 mg STAT STAT IM 04/16/19 02:16 04/16/19 02:17 DC 04/16/19 02:19 25 MG EKG/XRAY/CT/US CT Comments: Nothing acute intracranially Course Sepsis Screening Results: Posi: POSITIVE SEPSIS RISK DATE SEEN BY PHYSICIAN: Apr 10, 2018 TIME SEEN BY PROVIDER: 0635 Duration or Total Time Spent w: 15 minutes Vitals & review Data Vital Sign - Last 24 Hours 04/16/19 04/16/19 04/16/19 01:45 01:45 01:45 Temp 97.9 97.9 97.9 Pulse 85 85 85 Resp 18 18 18 B/P (MAP) 132/93 (106) Pulse Ox 97 97 O2 Delivery Room Air Room Air Sepsis Infection Criteria Pres: None O2 Sat by Pulse Oximetry: 97 Departure Time of Disposition: 03:00 Disposition: 01 HOME, SELF-CARE Impression: Primary Impression: Migraine Condition: Stable Referrals: JERI WEST (PCP) PRIMARY CARE PROVIDER Additional Instructions: F/U with your PCP tomorrow F/U with Neurologist this week Return to ED if worsening or concerns Duration or Time Spent with Pa: 30 mins Problem Qualifiers Primary Impression: Migraine Migraine type: unspecified Status migrainosus presence: with status migrainosus Intractability: intractable Qualified Codes: G43.911 - Migraine, unspecified, intractable, with status migrainosus BERNABE LEY MD Apr 16, 2019 02:17
--- NOTE | 2019-04-16 02:57 | DIREP ---
PROCEDURE:CT HEAD OR BRAIN W/O CONTRAST COMPARISON:[facility], CT, CT HEAD BRAIN W/O CONTRAST, 05/04/2018, 07:01 AM. INDICATIONS:Headache TECHNIQUE:CT images were created without intravenous contrast. FINDINGS: VENTRICLES:The ventricles are normal in size and configuration. CEREBRUM:Normal cerebral morphology with appropriate izquierdo white matter differentiation. CEREBELLUM:Negative. BRAINSTEM:Negative. BASAL CISTERNS:Negative. HEMORRHAGE:No MASS LESION:No ACUTE INFARCT:No SKULL:Normal. SINUSES:Normal. OTHER:None CONCLUSION:No acute intracranial process demonstrated. No significant interval change Dictated by: Sarah Donis M.D. on 04/16/2019 at 02:55 AM
== END 2019-04-16 03:07 | disposition home or self-care (01) ==
LOC: ER 01:38
DX: G43.911 Migraine, unspecified, intractable, with status migrainosus (principal); J45.909 Unspecified asthma, uncomplicated; Z79.1 Long term (current) use of non-steroidal anti-inflammatories (NSAID); Z79.899 Other long term (current) drug therapy; Z88.0 Allergy status to penicillin; Z88.6 Allergy status to analgesic agent
CPT/HCPCS: 70450; 96372; 99284; J1885; J2550

== ENCOUNTER 2019-04-17 02:16 | Emergency (ER) | payer OTHER ==
[~2019-04-17] VITALS: Ht 188 cm; Wt 113.4 kg
[2019-04-17 02:28] VITALS: BP 148/96
[2019-04-17] MEDS ORDERED: TORADOL ONE (02:40)
--- NOTE | 2019-04-17 02:45 | ER.PDOC ---
General Chief Complaint: Headache Stated Complaint: MIGRAINE Time seen by MD: 02:34 Source: patient Exam Limitations: no limitations History of Present Illness Timing/Duration: 1 week (ongoing headache x 5 days), constant Severity/Quality: severe Prior Headaches/Recent Trauma: frequent headaches (seen here multiple times this weekend for same) Associated Symptoms: sensitivity to light Prior symptoms/Treatment: Similar symptoms previous, Recenly Seen, Treated by Doctor (see by me (given Stadol and phenergan) + Dr. Cleveland (toradol and phenergan) and Iza Lynch this weekend) Allergies: Coded Allergies: Penicillins (Verified Allergy, Unknown, UNK, 10/31/18) aspirin (Verified Allergy, Unknown, 10/31/18) Home Meds Reported Medications Escitalopram Oxalate (LEXAPRO) 10 Mg Tablet, 1 TAB PO DAILY, #90 TAB 3 Refills 06/25/14 Albuterol Sulfate (VENTOLIN HFA) 18 Gm Hfa.aer.ad, 18 GM IH Q4 PRN for COUGH 11/23/13 Fluticasone/Salmeterol (ADVAIR 250-50 DISKUS) 1 Each Disk.w.dev, 1 EACH IH DAILY 11/23/13 Past Medical History Medical History: GERD, other (chronic migraine headaches) Surgical History: cancer surgery Family History Significant Family History: no pertinent family hx Social History Smoking: non-smoker Alcohol Use: none Drug Use: none Review of Systems Constitutional: no symptoms reported Eyes: photophobia Ears, Nose, Mouth, Throat: no symptoms reported Respiratory: no symptoms reported Cardiovascular: no symptoms reported Gastrointestinal: no symptoms reported Musculoskeletal: no symptoms reported Skin: no symptoms reported Physical Exam General Appearance: No Apparent Distress (sitting in well-lighted room in no apparent distress) Head/Eyes: eyes nml inspection, no facial swelling, no nystagmus, PERRL ENT: nml ENT inspection, pharynx nml Neck: nml inspection, Supple (no nuchal rigidity) Cardiovascular: Normal Peripheral Pulses, Regular Rate, Rhythm Respiratory: chest non-tender, lungs clear, normal breath sounds, no respiratory distress, no accessory muscle use Gastrointestinal: Normal Bowel Sounds Back: Normal Inspection, No CVA Tenderness, No Vertebral Tenderness Extremities: Normal Range of Motion, Non-Tender, Normal Inspection Psychiatric: Alert, Oriented x 3 Cranial Nerves: Normal Hearing, Normal Speech, PERRL Motor/Sensory: No Motor Deficit Skin: Warm/Dry Results/Orders Results/Orders Vital Signs Date Time Temp Pulse Resp B/P (MAP) Pulse Ox O2 Delivery O2 Flow Rate FiO2 04/17/19 02:28 97.9 106 16 95 Room Air Progress Progress When patient saw Dr. Cleveland, he was instructed to f/u with neurology--that the ER is not the appropriate place for treatment of chronic recurrent headaches. Patient states he tried to see a neurologist via ER in [place] but was unable to do so. I informed patient the most we would be able to offer him would be Toradol and he must use internet/phone book to make an appointment with a neurologist--that he would not be able to see a neurologist through the ER. Course Sepsis Screening Results: Posi: POSITIVE SEPSIS RISK DATE SEEN BY PHYSICIAN: Apr 10, 2018 TIME SEEN BY PROVIDER: 0635 Duration or Total Time Spent w: 30 mins Vitals & review Data Vital Sign - Last 24 Hours 04/17/19 02:28 Temp 97.9 Pulse 106 Resp 16 Pulse Ox 95 O2 Delivery Room Air Sepsis Infection Criteria Pres: None O2 Sat by Pulse Oximetry: 96 Departure Time of Disposition: 02:45 Disposition: 01 HOME, SELF-CARE Impression: Primary Impression: Migraine Condition: Stable Patient Instructions: Migraine Headache Referrals: JERI WEST (PCP) PRIMARY CARE PROVIDER Additional Instructions: You must see a neurologist for care of migraine headaches. Find one via the internet and make an appointment. Return to ER if you develop fever, visual change, or other concerns. Duration or Time Spent with Pa: 15 minutes Return to Work/School Can a patient return to work?: Yes Problem Qualifiers Primary Impression: Migraine Migraine type: without aura Status migrainosus presence: without status migrainosus Intractability: not intractable Qualified Codes: G43.009 - Migraine without aura, not intractable, without status migrainosus GLADYS BLEVINS DO Apr 17, 2019 02:45
[2019-04-17 02:55] VITALS: BP 132/90
[2019-04-17] MEDS ORDERED: TORADOL IM ONE (03:00)
== END 2019-04-17 02:55 | disposition home or self-care (01) ==
LOC: ER 02:16
DX: G43.009 Migraine without aura, not intractable, without status migrainosus (principal); K21.9 Gastro-esophageal reflux disease without esophagitis; Z79.899 Other long term (current) drug therapy; Z88.0 Allergy status to penicillin; Z88.6 Allergy status to analgesic agent
CPT/HCPCS: 96372; 99283; J1885

== ENCOUNTER 2019-04-25 12:33 | Emergency (ER) | payer OTHER ==
[~2019-04-25] VITALS: Ht 188 cm; Wt 108.9 kg
[2019-04-25] MEDS ORDERED: HALDOL IM STA (13:04)
[2019-04-25] MEDS ORDERED: BENADRYL IM STA (13:04)
--- NOTE | 2019-04-25 13:11 | ER.PDOC ---
General Chief Complaint: Requesting Medical Care Stated Complaint: HEADACHE Time seen by MD: 13:07 Source: patient Exam Limitations: no limitations History of Present Illness Initial Comments Pt c/o migraine ARTEAGA x 5 days, gets multiple migraines each month, has been seen multiple times for similar condition. ARTEAGA not any different from prior ARTEAGA's. Severity/Quality: moderate Prior Headaches/Recent Trauma: frequent headaches, chronic headaches Associated Symptoms: sensitivity to light Modifying Factors: worse with exposure to light, worse with noise Prior symptoms/Treatment: Similar symptoms previous, Recenly Seen Allergies: Coded Allergies: Penicillins (Verified Allergy, Unknown, UNK, 10/31/18) aspirin (Verified Allergy, Unknown, 10/31/18) Home Meds Reported Medications Escitalopram Oxalate (LEXAPRO) 10 Mg Tablet, 1 TAB PO DAILY, #90 TAB 3 Refills 06/25/14 Albuterol Sulfate (VENTOLIN HFA) 18 Gm Hfa.aer.ad, 18 GM IH Q4 PRN for COUGH 11/23/13 Fluticasone/Salmeterol (ADVAIR 250-50 DISKUS) 1 Each Disk.w.dev, 1 EACH IH DAILY 11/23/13 Past Medical History Medical History: GERD, other Surgical History: cancer surgery Social History Drug Use: none Review of Systems Constitutional: no symptoms reported; denies chills, denies diaphoresis, denies fever Eyes: other (photophobia) Ears, Nose, Mouth, Throat: no symptoms reported Respiratory: no symptoms reported Cardiovascular: no symptoms reported Gastrointestinal: no symptoms reported Genitourinary: no symptoms reported Musculoskeletal: no symptoms reported Psychiatric/Neurological: see HPI; denies anxiety, denies depressed; headache; denies numbness, denies pre-existing deficit, denies seizure, denies tingling, denies weakness All Other Systems: Reviewed and Negative Physical Exam General Appearance: Other (sunglasses in place, uncomfortable) Head/Eyes: no facial swelling, no nystagmus, PERRL ENT: nml ENT inspection Neck: nml inspection Cardiovascular: Normal Peripheral Pulses Respiratory: chest non-tender, lungs clear, normal breath sounds, no respiratory distress, no accessory muscle use Gastrointestinal: Normal Bowel Sounds, No Organomegaly, No Pulsatile Mass, Non Tender, Soft Back: Normal Inspection, No CVA Tenderness, No Vertebral Tenderness Extremities: Normal Range of Motion, Non-Tender, Normal Inspection, No Pedal Edema, No Calf Tenderness, Normal Capillary Refill Psychiatric: Alert, Oriented x 3 Cranial Nerves: Normal Hearing, Normal Speech, PERRL Motor/Sensory: No Motor Deficit, No Sensory Deficit Skin: Warm/Dry Lymphatic: No Adenopathy Comments photophobia b/l, mild Results/Orders Results/Orders Orders - TESSIE BRADFORD DO Haloperidol Lactate (Haldol) (04/25/19 13:04) Diphenhydramine Hcl (Benadryl) (04/25/19 13:04) Ketorolac Tromethamine (Toradol) (04/25/19 13:30) Course Sepsis Screening Results: Posi: POSITIVE SEPSIS RISK DATE SEEN BY PHYSICIAN: Apr 10, 2018 TIME SEEN BY PROVIDER: 0635 Duration or Total Time Spent w: 15 minutes Vitals & review Data Current Medications Medications (Trade) Dose Ordered Sig/Jennifer PRN Reason Start Time Stop Time Status Last Admin Diphenhydramine HCl (Benadryl) 50 mg STAT STAT 04/25/19 13:04 04/25/19 13:05 Haloperidol Lactate (Haldol) 5 mg STAT STAT 04/25/19 13:04 04/25/19 13:05 Sepsis Infection Criteria Pres: None Departure Time of Disposition: 13:10 Disposition: 01 HOME, SELF-CARE Impression: Primary Impression: Migraine Condition: Stable Referrals: JERI WEST (PCP) PRIMARY CARE PROVIDER Duration or Time Spent with Pa: 15 Problem Qualifiers Primary Impression: Migraine Migraine type: unspecified Status migrainosus presence: with status migrainosus Intractability: not intractable Qualified Codes: G43.901 - Migraine, unspecified, not intractable, with status migrainosus TESSIE BRADFORD DO Apr 25, 2019 13:11
[2019-04-25 13:15] VITALS: BP 119/77
[2019-04-25] MEDS ORDERED: BENADRYL ONE (13:26)
[2019-04-25] MEDS ORDERED: TORADOL ONE (13:26)
[2019-04-25] MEDS ORDERED: HALDOL ONE (13:27)
[2019-04-25] MEDS ORDERED: TORADOL IM ONE (13:30)
[2019-04-25 13:35] VITALS: BP 117/77
== END 2019-04-25 13:50 | disposition home or self-care (01) ==
LOC: ER 12:33
DX: G43.901 Migraine, unspecified, not intractable, with status migrainosus (principal); K21.9 Gastro-esophageal reflux disease without esophagitis; Z79.899 Other long term (current) drug therapy; Z88.0 Allergy status to penicillin; Z88.6 Allergy status to analgesic agent
CPT/HCPCS: 96372 ×2; 99284; J1200; J1885; J1630

== ENCOUNTER 2019-05-10 16:48 | Emergency (ER) | payer OTHER, SELFPAY ==
[~2019-05-10] VITALS: Ht 188 cm; Wt 108.9 kg
[2019-05-10 17:28] VITALS: BP 143/96
--- NOTE | 2019-05-10 17:32 | NUR ---
ARRIVAL PT ARRIVED TO FAST PAST AMBULATORY WITH C/O MIGRAINE. PT STATES LONG HISTORY OF MIGRAINES. PT HAS TRIED ALL HOME RX AND OTC MEDICATIONS WITH NO RELIEF.
--- NOTE | 2019-05-10 17:46 | ER.PDOC ---
General Chief Complaint: Headache Stated Complaint: MIRGRAINE Time seen by MD: 17:39 Source: patient History of Present Illness Initial Comments Migraine ARTEAGA started 4 days ago. He has taken Excedin Migraine, Fioracet, Tylenol #3, IBP, Aleve and tried ice and hot shower without relief. He reports some blurred vision in the left eye on the first day of the headache, none today. He has had some nausea, denies any vomiting. He is under the care of Dr. West for PCP, does not see a NEURO for financial reasons. Today he has taken 800mg of IBP about 4 hours ago without relief. He was seen 3.5 week ago in the ER for the same complaints and a CT of the head was completed and normal, he reports today that his s/s are the same and declines another CT of the head. Prior Headaches/Recent Trauma: no recent headache/trauma Allergies: Coded Allergies: Penicillins (Verified Allergy, Unknown, UNK, 10/31/18) aspirin (Verified Allergy, Unknown, 10/31/18) Home Meds Reported Medications Escitalopram Oxalate (LEXAPRO) 10 Mg Tablet, 1 TAB PO DAILY, #90 TAB 3 Refills 06/25/14 Albuterol Sulfate (VENTOLIN HFA) 18 Gm Hfa.aer.ad, 18 GM IH Q4 PRN for COUGH 11/23/13 Fluticasone/Salmeterol (ADVAIR 250-50 DISKUS) 1 Each Disk.w.dev, 1 EACH IH DAILY 11/23/13 Past Medical History Medical History: asthma, cardiac problems (SVT about 3 months ago-managed by Cardio in [place]) Surgical History: cancer surgery (testicular), other (W chest) Family History Significant Family History: asthma, hypertension Social History Smoking: non-smoker Alcohol Use: none Drug Use: none Reviewed Nursing Reviewed: Vital Signs, Abn. Noted, Nursing Assessment Review of Systems Constitutional: denies chills, denies fever, denies malaise, denies weakness Eyes: blurred vision (first few days of headache) Ears, Nose, Mouth, Throat: denies ear pain Respiratory: denies cough, denies shortness of breath Cardiovascular: denies chest pain, denies palpitations Gastrointestinal: denies abdominal pain Musculoskeletal: denies back pain, denies neck pain All Other Systems: Reviewed and Negative Physical Exam General Appearance: No Apparent Distress (Sitting comfortable in a chair playing on phone during exam, no appearant photophobia) Head/Eyes: PERRL (mild photophobi on exam) ENT: nml ENT inspection Neck: nml inspection, Supple Cardiovascular: Normal Peripheral Pulses, Regular Rate, Rhythm, No Edema, No Gallop, No JVD, No Murmur Respiratory: chest non-tender, lungs clear, normal breath sounds, no respiratory distress, no accessory muscle use Back: Normal Inspection, No Vertebral Tenderness Extremities: Normal Range of Motion, Non-Tender, Normal Inspection, No Pedal Edema, No Calf Tenderness, Normal Capillary Refill Psychiatric: Alert, Oriented x 3 Cranial Nerves: Normal Hearing, Normal Speech Motor/Sensory: No Motor Deficit, No Sensory Deficit Skin: Warm/Dry, Normal Color Results/Orders Results/Orders Orders - SULEMAN ALBERTS NP Ketorolac Tromethamine (Toradol) (05/10/19 18:30) Promethazine Hcl (Phenergan) (05/10/19 18:30) Vital Signs Date Time Temp Pulse Resp B/P (MAP) Pulse Ox O2 Delivery O2 Flow Rate FiO2 05/10/19 17:28 98.1 85 16 05/10/19 17:28 98.1 85 16 143/96 (112) 97 Room Air 05/10/19 17:23 98.1 85 16 97 Course Sepsis Screening Results: Posi: POSITIVE SEPSIS RISK DATE SEEN BY PHYSICIAN: Apr 10, 2018 TIME SEEN BY PROVIDER: 0635 Duration or Total Time Spent w: 60 Vitals & review Data Vital Sign - Last 24 Hours 05/10/19 05/10/19 05/10/19 17:23 17:28 17:28 Temp 98.1 98.1 98.1 Pulse 85 85 85 Resp 16 16 16 B/P (MAP) 143/96 (112) Pulse Ox 97 97 O2 Delivery Room Air Sepsis Infection Criteria Pres: None O2 Sat by Pulse Oximetry: 97 Departure Time of Disposition: 18:09 Disposition: 01 HOME, SELF-CARE Impression: Primary Impression: Headache Condition: Stable Patient Instructions: General Headache Without Cause Referrals: JERI WEST (PCP) PRIMARY CARE PROVIDER Additional Instructions: Follow up with PCP and/or NEURO as soon as possible. Duration or Time Spent with Pa: 30 Return to Work/School Can a patient return to work?: Yes (After 8 hours due to injections) SULEMAN ALBERTS NP May 10, 2019 17:46
[2019-05-10] MEDS ORDERED: PHENERGAN IM ONE (18:30)
[2019-05-10] MEDS ORDERED: TORADOL IM ONE (18:30)
== END 2019-05-10 18:32 | disposition home or self-care (01) ==
LOC: ER 16:48
DX: G43.909 Migraine, unspecified, not intractable, without status migrainosus (principal); J45.909 Unspecified asthma, uncomplicated; Z79.899 Other long term (current) drug therapy; Z82.49 Family history of ischemic heart disease and other diseases of the circulatory system; Z88.6 Allergy status to analgesic agent; Z88.0 Allergy status to penicillin
CPT/HCPCS: 96372; 99284

== ENCOUNTER 2019-05-16 21:33 | Emergency (ER) | payer SELFPAY ==
[~2019-05-16] VITALS: Ht 188 cm; Wt 108.9 kg
[2019-05-16 22:21] VITALS: BP 143/102
[2019-05-16] MEDS ORDERED: PHENERGAN IM STA (22:33)
[2019-05-16] MEDS ORDERED: BENADRYL IM STA (22:33)
--- NOTE | 2019-05-16 22:42 | ER.PDOC ---
General Chief Complaint: Requesting Medical Care Stated Complaint: MIGRAINE Time seen by MD: 22:35 Source: patient Exam Limitations: no limitations History of Present Illness Initial Comments migraine headache similar to prior headaches x 3 days; unrelieved with fioricet and benadryl Severity/Quality: severe Prior Headaches/Recent Trauma: no recent headache/trauma, frequent headaches, chronic headaches Associated Symptoms: nausea/vomiting (nausea without emesis) Allergies: Coded Allergies: Penicillins (Verified Allergy, Unknown, UNK, 10/31/18) aspirin (Verified Allergy, Unknown, 10/31/18) Home Meds Reported Medications Escitalopram Oxalate (LEXAPRO) 10 Mg Tablet, 1 TAB PO DAILY, #90 TAB 3 Refills 06/25/14 Albuterol Sulfate (VENTOLIN HFA) 18 Gm Hfa.aer.ad, 18 GM IH Q4 PRN for COUGH 11/23/13 Fluticasone/Salmeterol (ADVAIR 250-50 DISKUS) 1 Each Disk.w.dev, 1 EACH IH DAILY 11/23/13 Past Medical History Medical History: asthma, cardiac problems, other (chronic migraine headaches) Surgical History: cancer surgery, other Social History Drug Use: none Review of Systems Constitutional: no symptoms reported Eyes: photophobia Ears, Nose, Mouth, Throat: no symptoms reported Respiratory: no symptoms reported Cardiovascular: no symptoms reported Gastrointestinal: nausea Musculoskeletal: no symptoms reported Skin: no symptoms reported Physical Exam General Appearance: No Apparent Distress, WD/WN Head/Eyes: eyes nml inspection, no facial swelling, no nystagmus, PERRL ENT: nml ENT inspection, pharynx nml Neck: nml inspection, Supple Cardiovascular: Normal Peripheral Pulses, Regular Rate, Rhythm Respiratory: chest non-tender, lungs clear, normal breath sounds, no respiratory distress Gastrointestinal: Normal Bowel Sounds Psychiatric: Alert, Oriented x 3 Cranial Nerves: Normal Hearing, Normal Speech, PERRL Motor/Sensory: No Motor Deficit Skin: Warm/Dry, Normal Color Lymphatic: No Adenopathy Results/Orders Results/Orders Orders - GLADYS BLEVINS DO Promethazine Hcl (Phenergan) (05/16/19 22:33) Diphenhydramine Hcl (Benadryl) (05/16/19 22:33) Ketorolac Tromethamine (Toradol) (12/24/19 23:00) Progress Progress given toradol, benadryl and phenergan IM; patient stated toradol normally does not work to which I explained narcotics are no longer an option here to treat his chronic recurrent migraine headaches Course Sepsis Screening Results: Posi: POSITIVE SEPSIS RISK DATE SEEN BY PHYSICIAN: Apr 10, 2018 TIME SEEN BY PROVIDER: 0635 Duration or Total Time Spent w: 30 Sepsis Infection Criteria Pres: None Departure Time of Disposition: 22:40 Disposition: 01 HOME, SELF-CARE Impression: Primary Impression: Migraine Condition: Stable Patient Instructions: Migraine Headache Referrals: JERI WEST (PCP) PRIMARY CARE PROVIDER Additional Instructions: Follow up with your physician. If you develop fever >101 with headache, return to ER Duration or Time Spent with Pa: 15 minutes Return to Work/School Can a patient return to work?: Yes Problem Qualifiers Primary Impression: Migraine Migraine type: without aura Status migrainosus presence: without status migrainosus Intractability: not intractable Qualified Codes: G43.009 - Migraine without aura, not intractable, without status migrainosus GLADYS BLEVINS DO May 16, 2019 22:42
[2019-05-16] MEDS ORDERED: BENADRYL ONE (22:54)
[2019-05-16] MEDS ORDERED: TORADOL ONE (22:54)
[2019-05-16] MEDS ORDERED: PHENERGAN ONE (22:54)
[2019-05-16] MEDS ORDERED: TORADOL IM ONE (23:00)
== END 2019-05-16 23:17 | disposition home or self-care (01) ==
LOC: ER 21:33
DX: G43.009 Migraine without aura, not intractable, without status migrainosus (principal); J45.909 Unspecified asthma, uncomplicated; Z79.899 Other long term (current) drug therapy; Z88.0 Allergy status to penicillin; Z88.6 Allergy status to analgesic agent
CPT/HCPCS: 96372; 99284; J1200; J1885; J2550

== ENCOUNTER 2019-05-25 12:21 | Emergency (ER) | payer SELFPAY ==
[~2019-05-25] VITALS: Ht 188 cm; Wt 108.9 kg
[2019-05-25 13:26] VITALS: BP 141/96
[2019-05-25 13:29] VITALS: BP 142/94
[2019-05-25] MEDS ORDERED: PHENERGAN IM STA (13:52)
[2019-05-25] MEDS ORDERED: BENADRYL IM STA (13:52)
[2019-05-25] MEDS ORDERED: TORADOL IM STA (13:52)
[2019-05-25] MEDS ORDERED: BENADRYL ONE (14:02)
--- NOTE | 2019-05-25 14:11 | ER.PDOC ---
General Chief Complaint: Headache Stated Complaint: MIGRAINE Time seen by MD: 14:08 Source: patient Exam Limitations: no limitations History of Present Illness Timing/Duration: 24 hours Severity/Quality: moderate Prior Headaches/Recent Trauma: no recent headache/trauma, chronic headaches Associated Symptoms: denies symptoms Modifying Factors: improves with exposure to light, improves with rest, improves with noise Allergies: Coded Allergies: Penicillins (Verified Allergy, Unknown, UNK, 10/31/18) aspirin (Verified Allergy, Unknown, 10/31/18) Home Meds Reported Medications Escitalopram Oxalate (LEXAPRO) 10 Mg Tablet, 1 TAB PO DAILY, #90 TAB 3 Refills 06/25/14 Albuterol Sulfate (VENTOLIN HFA) 18 Gm Hfa.aer.ad, 18 GM IH Q4 PRN for COUGH 11/23/13 Fluticasone/Salmeterol (ADVAIR 250-50 DISKUS) 1 Each Disk.w.dev, 1 EACH IH DAILY 11/23/13 Past Medical History Medical History: asthma, cardiac problems, other Surgical History: cancer surgery, other Social History Alcohol Use: none Drug Use: none Review of Systems Constitutional: no symptoms reported Eyes: photophobia Ears, Nose, Mouth, Throat: no symptoms reported Respiratory: no symptoms reported Cardiovascular: no symptoms reported Physical Exam General Appearance: No Apparent Distress Head/Eyes: PERRL ENT: nml ENT inspection Neck: nml inspection Cardiovascular: Normal Peripheral Pulses Respiratory: lungs clear Gastrointestinal: Normal Bowel Sounds Extremities: Normal Range of Motion Psychiatric: Alert Motor/Sensory: No Motor Deficit Results/Orders Results/Orders Orders - LORENA ALSTON Diphenhydramine Hcl (Benadryl) (05/25/19 13:52) Ketorolac Tromethamine (Toradol) (05/25/19 13:52) Promethazine Hcl (Phenergan) (05/25/19 13:52) Diphenhydramine Hcl (Benadryl) (05/25/19 14:02) Vital Signs Date Time Temp Pulse Resp B/P (MAP) Pulse Ox O2 Delivery O2 Flow Rate FiO2 05/25/19 13:29 98.6 85 18 05/25/19 13:26 98.6 85 18 141/96 (111) Room Air 05/25/19 12:30 98.6 85 18 Administered Medications Medications (Trade) Dose Ordered Sig/Jennifer Route PRN Reason Start Time Stop Time Status Last Admin Dose Admin Diphenhydramine HCl (Benadryl) 50 mg STAT STAT IM 05/25/19 13:52 05/25/19 13:55 DC 05/25/19 14:13 50 MG Ketorolac Tromethamine (Toradol) 60 mg OT STAT IM 05/25/19 13:52 05/25/19 13:55 DC 05/25/19 14:14 60 MG Promethazine HCl (Phenergan) 50 mg STAT STAT IM 05/25/19 13:52 05/25/19 13:55 DC 05/25/19 14:12 50 MG Course Sepsis Screening Results: Posi: POSITIVE SEPSIS RISK DATE SEEN BY PHYSICIAN: Apr 10, 2018 TIME SEEN BY PROVIDER: 0635 Duration or Total Time Spent w: 15 minutes Vitals & review Data Vital Sign - Last 24 Hours 05/25/19 05/25/19 05/25/19 12:30 13:26 13:29 Temp 98.6 98.6 98.6 Pulse 85 85 85 Resp 18 18 18 B/P (MAP) 141/96 (111) O2 Delivery Room Air Sepsis Infection Criteria Pres: None Departure Time of Disposition: 14:42 Disposition: 01 HOME, SELF-CARE Impression: Primary Impression: Migraine Condition: Stable Patient Instructions: Migraine Headache Referrals: JERI WEST (PCP) PRIMARY CARE PROVIDER Additional Instructions: Please return to ER if not doing any better or symptoms worsen. Duration or Time Spent with Pa: 20 Minutes LORENA ALSTON May 25, 2019 14:11
== END 2019-05-25 14:46 | disposition home or self-care (01) ==
LOC: ER 12:21
DX: G43.909 Migraine, unspecified, not intractable, without status migrainosus (principal); J45.909 Unspecified asthma, uncomplicated; Z79.1 Long term (current) use of non-steroidal anti-inflammatories (NSAID); Z88.0 Allergy status to penicillin; Z79.899 Other long term (current) drug therapy; Z88.6 Allergy status to analgesic agent
CPT/HCPCS: 96372; 99284; J1200

== ENCOUNTER 2019-05-31 18:52 | Emergency (ER) | payer SELFPAY ==
--- NOTE | 2019-05-31 18:52 | NUR ---
CODE STROKE CODE STROKE CALLED AT THIS TIME
[2019-05-31 19:06] VITALS: BP 151/85
[2019-05-31] MEDS ORDERED: PHENERGAN IV STA (19:18)
[2019-05-31] MEDS ORDERED: TORADOL IV STA (19:18)
[2019-05-31] MEDS ORDERED: ATIVAN IV STA (19:18)
--- NOTE | 2019-05-31 19:23 | ER.PDOC ---
General Chief Complaint: Requesting Medical Care Stated Complaint: STROKE Time seen by MD: 21:10 Source: patient Exam Limitations: no limitations History of Present Illness Initial Comments Pt c/o headache onset 24 hrs ago. Describes as biparietal, assoc with nausea and confusion. Pt states "I've been out of it all day" but is able to answer questions about prior events of the day. EMS reported mild RUE weakness but pt demonstrates no evidence of that upon arrival. Timing/Duration: 24 hours Severity/Quality: moderate Prior Headaches/Recent Trauma: frequent headaches, chronic headaches Associated Symptoms: confusion, nausea/vomiting, sensitivity to light Modifying Factors: worse with exposure to light, worse with movement, worse with noise Prior symptoms/Treatment: Similar symptoms previous; No Recenly Seen, No Treated by Doctor, No Recently Hospitalized Allergies: Coded Allergies: Penicillins (Verified Allergy, Unknown, UNK, 10/31/18) aspirin (Verified Allergy, Unknown, 10/31/18) Home Meds Reported Medications Escitalopram Oxalate (LEXAPRO) 10 Mg Tablet, 1 TAB PO DAILY, #90 TAB 3 Refills 06/25/14 Albuterol Sulfate (VENTOLIN HFA) 18 Gm Hfa.aer.ad, 18 GM IH Q4 PRN for COUGH 11/23/13 Fluticasone/Salmeterol (ADVAIR 250-50 DISKUS) 1 Each Disk.w.dev, 1 EACH IH DAILY 11/23/13 Past Medical History Medical History: asthma, other (Recurrent headaches, multiple ER visits for same) Surgical History: other Social History Drug Use: none Review of Systems Constitutional: no symptoms reported Eyes: photophobia Ears, Nose, Mouth, Throat: no symptoms reported Respiratory: no symptoms reported Cardiovascular: no symptoms reported Gastrointestinal: nausea Genitourinary: no symptoms reported Musculoskeletal: no symptoms reported Skin: no symptoms reported Psychiatric/Neurological: see HPI, headache Physical Exam General Appearance: No Apparent Distress, WD/WN Head/Eyes: eyes nml inspection, no facial swelling, no nystagmus, PERRL ENT: nml ENT inspection, pharynx nml Neck: nml inspection, Supple Cardiovascular: Normal Peripheral Pulses, Regular Rate, Rhythm, No Edema, No Gallop, No JVD, No Murmur Respiratory: chest non-tender, lungs clear, normal breath sounds, no respiratory distress, no accessory muscle use Gastrointestinal: Normal Bowel Sounds, No Organomegaly, No Pulsatile Mass, Non Tender, Soft Back: Normal Inspection, No CVA Tenderness, No Vertebral Tenderness Extremities: Normal Range of Motion, Non-Tender, Normal Inspection, No Pedal Edema, No Calf Tenderness, Normal Capillary Refill Psychiatric: Alert, Oriented x 3 Cranial Nerves: Normal Hearing, Normal Speech, PERRL Coordination/Gait: Normal Finger to Nose, Normal Gait Motor/Sensory: No Motor Deficit, No Sensory Deficit, No Pronator Drift, Negative Babinski's Sign Skin: Warm/Dry, Normal Color Lymphatic: No Adenopathy Results/Orders Results/Orders Orders - KENIA WHALEN MD Ct Head Wo Contrast (05/31/19 18:57) Saline Lock (05/31/19 19:18) Ketorolac Tromethamine (Toradol) (05/31/19 19:18) Promethazine Hcl (Phenergan) (05/31/19 19:18) Lorazepam (Ativan) (05/31/19 19:18) Ketorolac Tromethamine (Toradol) (05/31/19 19:31) Vital Signs Date Time Temp Pulse Resp B/P (MAP) Pulse Ox O2 Delivery O2 Flow Rate FiO2 05/31/19 20:08 89 17 136/66 (89) 97 Room Air 05/31/19 19:06 98.0 82 17 151/85 (107) 98 Room Air 05/31/19 19:06 98.0 82 17 98 05/31/19 19:06 98.0 82 17 Administered Medications Medications (Trade) Dose Ordered Sig/Jennifer Route PRN Reason Start Time Stop Time Status Last Admin Dose Admin Ketorolac Tromethamine (Toradol) 30 mg NOCTE STAT IV 05/31/19 19:18 05/31/19 19:19 UNV 05/31/19 19:38 30 MG Lorazepam (Ativan) 1 mg STAT STAT IV 05/31/19 19:18 05/31/19 19:19 UNV 05/31/19 19:38 1 MG Promethazine HCl (Phenergan) 25 mg STAT STAT IV 05/31/19 19:18 05/31/19 19:19 UNV 05/31/19 19:38 25 MG Course Sepsis Screening Results: Posi: POSITIVE SEPSIS RISK DATE SEEN BY PHYSICIAN: Apr 10, 2018 TIME SEEN BY PROVIDER: 0635 Duration or Total Time Spent w: 20 Minutes Vitals & review Data Vital Sign - Last 24 Hours 05/31/19 05/31/19 05/31/19 05/31/19 19:06 19:06 19:06 20:08 Temp 98.0 98.0 98.0 Pulse 82 82 82 89 Resp 17 17 17 17 B/P (MAP) 151/85 (107) 136/66 (89) Pulse Ox 98 98 97 O2 Delivery Room Air Room Air Current Medications Medications (Trade) Dose Ordered Sig/Jennifer PRN Reason Start Time Stop Time Status Last Admin Ketorolac Tromethamine (Toradol) 30 mg NOCTE STAT 05/31/19 19:18 05/31/19 19:19 UNV 05/31/19 19:38 Lorazepam (Ativan) 1 mg STAT STAT 05/31/19 19:18 05/31/19 19:19 UNV 05/31/19 19:38 Promethazine HCl (Phenergan) 25 mg STAT STAT 05/31/19 19:18 05/31/19 19:19 UNV 05/31/19 19:38 Vital Sign - Last 24 Hours 05/31/19 05/31/19 05/31/19 19:06 19:06 19:06 Temp 98.0 98.0 98.0 Pulse 82 82 82 Resp 17 17 17 B/P (MAP) 151/85 (107) Pulse Ox 98 98 O2 Delivery Room Air Current Medications Medications (Trade) Dose Ordered Sig/Jennifer PRN Reason Start Time Stop Time Status Last Admin Ketorolac Tromethamine (Toradol) 30 mg NOCTE STAT 05/31/19 19:18 05/31/19 19:19 UNV 05/31/19 19:38 Lorazepam (Ativan) 1 mg STAT STAT 05/31/19 19:18 05/31/19 19:19 UNV 05/31/19 19:38 Promethazine HCl (Phenergan) 25 mg STAT STAT 05/31/19 19:18 05/31/19 19:19 UNV 05/31/19 19:38 Sepsis Infection Criteria Pres: None Departure Time of Disposition: 21:00 Disposition: 01 HOME, SELF-CARE Impression: Primary Impression: Headache Condition: Stable Referrals: JERI WEST (PCP) PRIMARY CARE PROVIDER Duration or Time Spent with Pa: 20 Problem Qualifiers Primary Impression: Headache Headache type: tension-type Headache chronicity pattern: acute headache Intractability: not intractable Qualified Codes: G44.209 - Tension-type headache, unspecified, not intractable KENIA WHALEN MD May 31, 2019 19:23
[2019-05-31] MEDS ORDERED: TORADOL ONE (19:31)
[2019-05-31] MEDS ORDERED: PHENERGAN ONE (19:31)
[2019-05-31] MEDS ORDERED: ATIVAN ONE (19:32)
[2019-05-31 20:08] VITALS: BP 136/66
[2019-05-31 21:05] VITALS: BP 148/98
--- NOTE | 2019-06-01 09:09 | DIREP ---
PROCEDURE: CT HEAD OR BRAIN W/O CONTRAST COMPARISON: [facility], CT, CT HEAD BRAIN W/O CONTRAST, 04/16/2019, 02:29 AM. INDICATIONS: HEADACHE AND RIGHT ARM NUMBNESS TECHNIQUE: CT images were created without intravenous contrast. FINDINGS: VENTRICLES: The ventricles are normal in size and configuration. CEREBRUM: Normal cerebral morphology with appropriate izquierdo white matter differentiation. CEREBELLUM: Negative. BRAINSTEM: Negative. BASAL CISTERNS: Negative. HEMORRHAGE: No MASS LESION: No ACUTE INFARCT: No SKULL: Normal. SINUSES: Normal. OTHER: None CONCLUSION: No acute intracranial process. Consider MRI follow-up if clinical symptoms persist. Dictated by: Jl Rios DO on 05/31/2019 at 07:11 PM [facility]Andrew
== END 2019-05-31 21:15 | disposition home or self-care (01) ==
LOC: ER 18:52 → EDBD 18:52 → ER 21:15
DX: R51 Headache (principal); R11.2 Nausea with vomiting, unspecified; R41.0 Disorientation, unspecified; J45.909 Unspecified asthma, uncomplicated; Z88.6 Allergy status to analgesic agent; Z88.0 Allergy status to penicillin; Z79.899 Other long term (current) drug therapy
CPT/HCPCS: 70450; 96374; 96375; 99284; J1885; J2060; J2550

== ENCOUNTER 2019-06-01 04:21 | Emergency (ER) | payer SELFPAY ==
[~2019-06-01] VITALS: Ht 188 cm; Wt 108.9 kg
[2019-06-01 04:44] VITALS: BP 149/100
[2019-06-01] MEDS ORDERED: TORADOL ONE (04:47)
[2019-06-01] MEDS ORDERED: PHENERGAN ONE (04:47)
[2019-06-01] MEDS ORDERED: PHENERGAN IM STA (04:47)
[2019-06-01] MEDS ORDERED: TORADOL IM STA (04:47)
--- NOTE | 2019-06-01 04:49 | ER.PDOC ---
General Chief Complaint: Headache Stated Complaint: MIGRAINE Time seen by MD: 04:35 Source: patient Exam Limitations: no limitations History of Present Illness Initial Comments Pt eval earlier today for headache. Returns stating that his headache has returned. Pt has been seen approx 40 times in past 1 year at this ER, primarily for headaches. Neg CT earlier today. Timing/Duration: 1-3 hours Severity/Quality: severe Prior Headaches/Recent Trauma: frequent headaches, chronic headaches Associated Symptoms: denies symptoms Modifying Factors: worse with exposure to light; improves with medication; worse with noise, worse with position Prior symptoms/Treatment: Similar symptoms previous, Recenly Seen, Treated by Doctor Allergies: Coded Allergies: Penicillins (Verified Allergy, Unknown, UNK, 10/31/18) aspirin (Verified Allergy, Unknown, 10/31/18) Home Meds Reported Medications Escitalopram Oxalate (LEXAPRO) 10 Mg Tablet, 1 TAB PO DAILY, #90 TAB 3 Refills 06/25/14 Albuterol Sulfate (VENTOLIN HFA) 18 Gm Hfa.aer.ad, 18 GM IH Q4 PRN for COUGH 11/23/13 Fluticasone/Salmeterol (ADVAIR 250-50 DISKUS) 1 Each Disk.w.dev, 1 EACH IH DAILY 11/23/13 Past Medical History Medical History: asthma, other (Chronic recurrent headaches) Surgical History: no surgical history Social History Drug Use: none Review of Systems Constitutional: no symptoms reported Eyes: no symptoms reported Ears, Nose, Mouth, Throat: no symptoms reported Respiratory: no symptoms reported Cardiovascular: no symptoms reported Gastrointestinal: no symptoms reported Genitourinary: no symptoms reported Musculoskeletal: no symptoms reported Skin: no symptoms reported Psychiatric/Neurological: headache Physical Exam General Appearance: No Apparent Distress, WD/WN Head/Eyes: eyes nml inspection, no facial swelling, no nystagmus, PERRL ENT: nml ENT inspection, pharynx nml Neck: nml inspection, Supple Cardiovascular: Normal Peripheral Pulses, Regular Rate, Rhythm, No Edema, No Gallop, No JVD, No Murmur Respiratory: chest non-tender, lungs clear, normal breath sounds, no respiratory distress, no accessory muscle use Gastrointestinal: Normal Bowel Sounds, No Organomegaly, No Pulsatile Mass, Non Tender, Soft Back: Normal Inspection, No CVA Tenderness, No Vertebral Tenderness Extremities: Normal Range of Motion, Non-Tender, Normal Inspection, No Pedal Edema, No Calf Tenderness, Normal Capillary Refill Psychiatric: Alert, Oriented x 3 Cranial Nerves: Normal Hearing, Normal Speech, PERRL Coordination/Gait: Normal Finger to Nose, Normal Gait Motor/Sensory: No Motor Deficit, No Sensory Deficit, No Pronator Drift, Negative Babinski's Sign Skin: Warm/Dry, Normal Color Lymphatic: No Adenopathy Course Sepsis Screening Results: Posi: POSITIVE SEPSIS RISK DATE SEEN BY PHYSICIAN: Apr 10, 2018 TIME SEEN BY PROVIDER: 0635 Duration or Total Time Spent w: 20 Sepsis Infection Criteria Pres: None Departure Time of Disposition: 04:50 Disposition: 01 HOME, SELF-CARE Impression: Primary Impression: Headache Condition: Stable Referrals: JERI WEST (PCP) PRIMARY CARE PROVIDER Duration or Time Spent with Pa: 10 Problem Qualifiers Primary Impression: Headache Headache type: tension-type Headache chronicity pattern: acute headache Intractability: not intractable Qualified Codes: G44.209 - Tension-type headache, unspecified, not intractable KENIA WHALEN MD Jun 01, 2019 04:49
== END 2019-06-01 05:20 | disposition home or self-care (01) ==
LOC: ER 04:21
DX: R51 Headache (principal); J45.909 Unspecified asthma, uncomplicated; Z79.899 Other long term (current) drug therapy; Z88.0 Allergy status to penicillin; Z88.6 Allergy status to analgesic agent
CPT/HCPCS: 96372; 99284; J1885; J2550

== ENCOUNTER 2019-06-03 23:52 | Emergency (ER) | payer SELFPAY ==
[~2019-06-03] VITALS: Ht 188 cm; Wt 108.9 kg
[2019-06-03 23:52] VITALS: BP 149/97
--- NOTE | 2019-06-04 00:07 | PCM.EKG ---
[facility] Test Date: 2019-06-03 Test Time: 23:55:46 Pat Name: NAWAF MARTINEZ Department: Room: Gender: M Serologist: KRUNAL : 1980 Requested By: BERNABE LEY Order Number: [id number] Reading MD: Measurements Intervals [place] Rate: 85 P: 70 ND: 162 QRS: 41 QRSD: 97 T: 58 QT: 421 QTc: 501 Interpretive Statements Sinus rhythm Abnormal R-wave progression, early transition Prolonged QT interval Compared to ECG 04/12/2019 05:52:06 Prolonged QT interval now present Please click the below link to view image of tracing.
[2019-06-04 00:12] LABS: BASOPHIL % 0.6 % (0.0-0.2); EOSINOPHIL # 0.5 10^3/uL (0.0-0.2); EOSINOPHIL % 10.3 % (0.0-5.0); LYMPHOCYTES % 21.4 % (24.0-44.0); MEAN CORP HGB 27.1 pg (26-34); MONOCYTES # 0.5 10^3/uL (0.3-0.8); MONOCYTES % 10.5 % (5.0-12.0); NEUTROPHIL # 2.8 10^3/uL (1.8-7.7); RED CELL DISTRIBUTION WIDTH 14.1 % (11.5-14.5)
[2019-06-04] MEDS ORDERED: TORADOL IM STA (00:12)
--- NOTE | 2019-06-04 00:18 | ER.PDOC ---
General Chief Complaint: Requesting Medical Care Stated Complaint: CHEST PAIN Time seen by MD: 00:14 Source: patient Exam Limitations: no limitations History of Present Illness Initial Comments Chest pain that started 2 hours ago worse with movement. Pain is located to lower chest and does not radiate. No cough or SOB. Severity/Quality: moderate Radiation: no radiation Activities at Onset: none Nitro Today/Relief: No Nitro Taken Today Aspirin Today: No Aspirin Today Associated Symptoms: denies symptoms Allergies: Coded Allergies: Penicillins (Verified Allergy, Unknown, UNK, 10/31/18) aspirin (Verified Allergy, Unknown, 10/31/18) Home Meds Reported Medications Escitalopram Oxalate (LEXAPRO) 10 Mg Tablet, 1 TAB PO DAILY, #90 TAB 3 Refills 06/25/14 Albuterol Sulfate (VENTOLIN HFA) 18 Gm Hfa.aer.ad, 18 GM IH Q4 PRN for COUGH 11/23/13 Fluticasone/Salmeterol (ADVAIR 250-50 DISKUS) 1 Each Disk.w.dev, 1 EACH IH DAILY 11/23/13 Past Medical History Medical History: asthma, other Surgical History: no surgical history Social History Drug Use: none Constitutional: no symptoms reported EENTM: no symptoms reported Respiratory: no symptoms reported Cardiovascular: see HPI Gastrointestinal: no symptoms reported Genitourinary: no symptoms reported All Other Systems: Reviewed and Negative Physical Exam General Appearance: No Apparent Distress, WD/WN Neck: Non-Tender, Full Range of Motion, Supple, Normal Inspection Respiratory: chest non-tender, lungs clear, normal breath sounds, no respiratory distress, no accessory muscle use Cardiovascular: Normal Peripheral Pulses, Regular Rate, Rhythm, No Edema, No Gallop, No JVD, No Murmur Gastrointestinal: Normal Bowel Sounds, No Organomegaly, No Pulsatile Mass, Non Tender, Soft Extremities: Normal Range of Motion, Non-Tender, Normal Inspection, No Pedal Edema, No Calf Tenderness, Normal Capillary Refill Neurologic/Psychiatric: 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 NML as Tested, No Motor/Sensory Deficits, Alert, Normal Mood/Affect, Oriented x 3 Skin: Normal Color, Warm/Dry Results/Orders Results/Orders Orders - BERNABE LEY MD Cbc With Auto Diff (06/04/19 00:02) Comprehensive Metabolic Panel (06/04/19 00:02) Creatine Kinase (06/04/19 00:02) Creatine Kinase Mb (06/04/19 00:02) Troponin I (06/04/19 00:02) Probnp B-Type Chief Hydroelectric Station Operator (06/04/19 00:02) D-Dimer (06/04/19 00:02) Xr Chest 1v (06/04/19 00:02) Ekg-Routine (06/04/19 00:02) Ketorolac Tromethamine (Toradol) (06/04/19 00:12) Vital Signs Date Time Temp Pulse Resp B/P (MAP) Pulse Ox O2 Delivery O2 Flow Rate FiO2 06/03/19 23:52 98.6 52 16 06/03/19 23:52 98.6 52 16 97 06/03/19 23:52 98.6 52 16 149/97 (114) 97 Room Air Administered Medications Medications (Trade) Dose Ordered Sig/Jennifer Route PRN Reason Start Time Stop Time Status Last Admin Dose Admin Ketorolac Tromethamine (Toradol) 60 mg STAT STAT IM 06/04/19 00:12 06/04/19 00:13 UNV 06/04/19 01:05 60 MG Laboratory Tests Test 06/04/19 00:08 White Blood Count 4.9 10^3/uL (4.5-11.0) Red Blood Count 5.01 10^6/uL (4.50-5.90) Hemoglobin 13.6 g/dL (13.9-16.3) L Hematocrit 42.0 % (37.0-53.0) Mean Corpuscular Volume 83.8 fL (78-100) Mean Corpuscular Hemoglobin 27.1 pg (26-34) Mean Corpuscular Hemoglobin Concent 32.4 g/dL (33-37) L Red Cell Distribution Width 14.1 % (11.5-14.5) Platelet Count 268 10^3/uL (150-400) Mean Platelet Volume 10.3 fL (7.8-11.0) Neutrophils (%) (Auto) 57.0 % (41.0-85.0) Lymphocytes (%) (Auto) 21.4 % (24.0-44.0) L Monocytes (%) (Auto) 10.5 % (5.0-12.0) Neutrophils # (Auto) 2.8 10^3/uL (1.8-7.7) Lymphocytes # (Auto) 1.0 10^3/uL (1.0-4.8) Monocytes # (Auto) 0.5 10^3/uL (0.3-0.8) Absolute Immature Granulocyte (auto 0.01 10^3 u/L (0-2) Absolute Eosinophils (auto) 0.5 10^3/uL (0.0-0.2) H Immature Granulocytes % 0.20 % (0.00-0.50) Eosinophils % 10.3 % (0.0-5.0) H Basophils % 0.6 % (0.0-0.2) H Basophils # 0.0 10^3/uL (0.0-0.1) D-Dimer 0.19 mg/L (0.19-0.49) Sodium Level 142 mmol/L (132-145) Potassium Level 4.1 mmol/L (3.6-5.2) Chloride Level 106.0 mmol/L (96-109) Carbon Dioxide Level 27.8 mmol/L (20.0-32) Anion Gap 12.3 Blood Urea Nitrogen 11 mg/dL (7-18) Creatinine 1.00 mg/dL (0.59-1.40) Estimated GFR () 100.1 (>/=60) Est GFR (CKD-EPI)(Non-Afr Iraqi) 82.8 (>/=60) BUN/Creatinine Ratio 11.0 Glucose Level 150 mg/dL (70-110) H Calcium Level 9.0 mg/dL (8.4-10.5) Total Bilirubin 0.3 mg/dL (0.2-1.0) Aspartate Amino Transferase (AST) 38 U/L (0-35) H Alanine Aminotransferase (ALT) 73 U/L (12-78) Alkaline Phosphatase 85 U/L (50-136) Total Creatine Kinase 158 U/L (39-308) Creatine Kinase MB 1.0 ng/mL (0.5-3.6) Troponin I < 0.02 ng/mL (0.00-0.05) Pro-B-Type Natriuretic Peptide 28 pg/mL (0-125) Total Protein 6.8 g/dL (6.4-8.2) Albumin 3.9 g/dL (3.4-5.0) Globulin 2.9 Progress Progress Patient refused to wait for a second set of cardiac enzymes, he signed and left against medical advice. He understands that leaving against medical advice may result in worsening condition, cardiopulmonary arrest and . EKG/XRAY/CT/US EKG: NSR Course Sepsis Screening Results: Posi: POSITIVE SEPSIS RISK DATE SEEN BY PHYSICIAN: Apr 10, 2018 TIME SEEN BY PROVIDER: 0635 Duration or Total Time Spent w: 10 Vitals & review Data Vital Sign - Last 24 Hours 06/03/19 06/03/19 06/03/19 23:52 23:52 23:52 Temp 98.6 98.6 98.6 Pulse 52 52 52 Resp 16 16 16 B/P (MAP) 149/97 (114) Pulse Ox 97 97 O2 Delivery Room Air Laboratory Tests Test 06/04/19 00:08 White Blood Count 4.9 10^3/uL Red Blood Count 5.01 10^6/uL Hemoglobin 13.6 g/dL Hematocrit 42.0 % Mean Corpuscular Volume 83.8 fL Mean Corpuscular Hemoglobin 27.1 pg Mean Corpuscular Hemoglobin Concent 32.4 g/dL Red Cell Distribution Width 14.1 % Platelet Count 268 10^3/uL Mean Platelet Volume 10.3 fL Neutrophils (%) (Auto) 57.0 % Lymphocytes (%) (Auto) 21.4 % Monocytes (%) (Auto) 10.5 % Neutrophils # (Auto) 2.8 10^3/uL Lymphocytes # (Auto) 1.0 10^3/uL Monocytes # (Auto) 0.5 10^3/uL Absolute Immature Granulocyte (auto 0.01 10^3 u/L Absolute Eosinophils (auto) 0.5 10^3/uL Immature Granulocytes % 0.20 % Eosinophils % 10.3 % Basophils % 0.6 % Basophils # 0.0 10^3/uL D-Dimer 0.19 mg/L Sodium Level 142 mmol/L Potassium Level 4.1 mmol/L Chloride Level 106.0 mmol/L Carbon Dioxide Level 27.8 mmol/L Anion Gap 12.3 Blood Urea Nitrogen 11 mg/dL Creatinine 1.00 mg/dL Estimated GFR () 100.1 Est GFR (CKD-EPI)(Non-Afr Iraqi) 82.8 BUN/Creatinine Ratio 11.0 Glucose Level 150 mg/dL Calcium Level 9.0 mg/dL Total Bilirubin 0.3 mg/dL Aspartate Amino Transf (AST/SGOT) 38 U/L Alanine Aminotransferase (ALT/SGPT) 73 U/L Alkaline Phosphatase 85 U/L Total Creatine Kinase 158 U/L Creatine Kinase MB 1.0 ng/mL Troponin I < 0.02 ng/mL Pro-B-Type Natriuretic Peptide 28 pg/mL Total Protein 6.8 g/dL Albumin 3.9 g/dL Globulin 2.9 Current Medications Medications (Trade) Dose Ordered Sig/Jennifer PRN Reason Start Time Stop Time Status Last Admin Ketorolac Tromethamine (Toradol) 60 mg STAT STAT 06/04/19 00:12 06/04/19 00:13 UNV 06/04/19 01:05 Sepsis Infection Criteria Pres: None Departure Time of Disposition: 02:21 Disposition: 09 ADMITTED INPATIENT Impression: Primary Impression: Chest pain Condition: Against Medical Advice Referrals: JERI WSET (PCP) PRIMARY CARE PROVIDER Comments Patient told to return to ED if pain gets worse. Duration or Time Spent with Pa: 45 min Problem Qualifiers Primary Impression: Chest pain Chest pain type: unspecified Qualified Codes: R07.9 - Chest pain, unspecified BERNABE LEY MD Jun 04, 2019 00:18
--- NOTE | 2019-06-04 00:25 | DIREP ---
PROCEDURE:CHEST 1 VIEW COMPARISON:[facility], CR, XRAY CHEST SINGLE VW, 04/12/2019, 06:46 AM. INDICATIONS:Chest pain FINDINGS: LUNGS/PLEURA:Lungs are clear of focal consolidation. No evidence of pleural effusion. VASCULATURE:Unremarkable pulmonary vasculature. CARDIAC:No cardiac silhouette abnormality or cardiomegaly. JUSTICE/MEDIASTINUM:No visible mass or adenopathy. BONES:No acute fracture. OTHER:No additional findings. CONCLUSION: 1. No acute cardiopulmonary changes. Dictated by: Jethro Hinds M.D. on 06/04/2019 at 00:23 AM
[2019-06-04 00:43] LABS: ALANINE AMINOTRANSFERASE(ML) 73 U/L (12-78); ALKALINE PHOSPHATASE 85 U/L (50-136); ASPARTATE AMINO TRANSFERASE 38 U/L (0-35); CARBON DIOXIDE 27.8 mmol/L (20.0-32)
[2019-06-04] MEDS ORDERED: TORADOL ONE (01:01)
[2019-06-04 01:26] LABS: GLUCOSE 150 mg/dL (70-110)
--- NOTE | 2019-06-04 02:17 | NUR ---
PT DOES NOT WANT TO STAY TO REPEAT TROPONIN. PT WISHES TO LEAVE AMA. BENEFITS AND RISKS EXPLAINED TO PT
== END 2019-06-04 02:19 | disposition left against medical advice (07) ==
LOC: ER 23:52
DX: R07.89 Other chest pain (principal); J45.909 Unspecified asthma, uncomplicated; Z79.1 Long term (current) use of non-steroidal anti-inflammatories (NSAID); Z88.0 Allergy status to penicillin; Z79.899 Other long term (current) drug therapy; Z88.6 Allergy status to analgesic agent
CPT/HCPCS: 36415; 71045; 80053; 82550; 82553; 83880; 84484; 85025; 85379; 93005; 96372; 99285; J1885

== ENCOUNTER 2019-06-10 12:30 | Emergency (ER) | payer SELFPAY ==
--- NOTE | 2019-06-10 12:43 | NUR ---
PT LEFT WITHOUT BEING SEEN BY NURSE OR MD.
== END 2019-06-10 13:05 | disposition left against medical advice (07) ==
LOC: ER 13:04
DX: R51 Headache (principal); Z53.21 Procedure and treatment not carried out due to patient leaving prior to being seen by health care provider

== ENCOUNTER 2019-06-11 16:56 | Emergency (ER) | payer SELFPAY ==
[~2019-06-11] VITALS: Ht 188 cm; Wt 108.9 kg
--- NOTE | 2019-06-11 17:17 | NUR ---
PT REFUSED TO BE SEEN IN [facility]. MARY PERES TALKED WITH PT. HE INSISTED TO GO TO THE ER. PT PLACED IN ER 5. HE STATES "OVER THERE ([facility]) THEY DON'T HAVE THE ACCESS TO THE MEDICINES TO TREAT MY HEADACHE, THE WAY THEY DO OVER HERE (ER). AND PLUS I LIKE DR WALLIS BETTER."
[2019-06-11 17:19] VITALS: BP 131/98
[2019-06-11] MEDS ORDERED: STADOL IM STA (18:13)
[2019-06-11] MEDS ORDERED: PHENERGAN IM STA (18:13)
[2019-06-11] MEDS ORDERED: PHENERGAN ONE (18:23)
--- NOTE | 2019-06-11 18:34 | ER.PDOC ---
General Chief Complaint: Headache Stated Complaint: MIGRAINE Time seen by MD: 18:33 Source: patient Exam Limitations: no limitations History of Present Illness Timing/Duration: 1 week Severity/Quality: moderate Prior Headaches/Recent Trauma: no recent headache/trauma, frequent headaches, chronic headaches Associated Symptoms: sensitivity to light Prior symptoms/Treatment: Similar symptoms previous, Recenly Seen, Treated by Doctor Allergies: Coded Allergies: Penicillins (Verified Allergy, Unknown, UNK, 10/31/18) aspirin (Verified Allergy, Unknown, 10/31/18) Home Meds Reported Medications Escitalopram Oxalate (LEXAPRO) 10 Mg Tablet, 1 TAB PO DAILY, #90 TAB 3 Refills 06/25/14 Albuterol Sulfate (VENTOLIN HFA) 18 Gm Hfa.aer.ad, 18 GM IH Q4 PRN for COUGH 11/23/13 Fluticasone/Salmeterol (ADVAIR 250-50 DISKUS) 1 Each Disk.w.dev, 1 EACH IH DAILY 11/23/13 Past Medical History Medical History: arrhythmia, asthma, cancer, hypertension Surgical History: no surgical history Social History Alcohol Use: occassionally Drug Use: none Reviewed Nursing Reviewed: Vital Signs, Abn. Noted Review of Systems All Other Systems: Reviewed and Negative Physical Exam General Appearance: No Apparent Distress, WD/WN Head/Eyes: eyes nml inspection, no facial swelling, no nystagmus, PERRL ENT: nml ENT inspection, pharynx nml Neck: nml inspection, Supple Cardiovascular: Normal Peripheral Pulses, Regular Rate, Rhythm, No Edema, No Gallop, No JVD, No Murmur Respiratory: chest non-tender, lungs clear, normal breath sounds, no respiratory distress, no accessory muscle use Gastrointestinal: Normal Bowel Sounds, No Organomegaly, No Pulsatile Mass, Non Tender, Soft Extremities: Normal Range of Motion, Non-Tender, Normal Inspection, No Pedal Edema, No Calf Tenderness, Normal Capillary Refill Psychiatric: Alert, Oriented x 3 Cranial Nerves: Normal Hearing, Normal Speech, PERRL Coordination/Gait: Normal Finger to Nose, Normal Gait Motor/Sensory: No Motor Deficit, No Sensory Deficit, No Pronator Drift, Negative Babinski's Sign Skin: Warm/Dry, Normal Color Lymphatic: No Adenopathy Results/Orders Results/Orders Orders - LUIS MIGUEL WALLIS MD Butorphanol Tartrate (Stadol) (06/11/19 18:13) Promethazine Hcl (Phenergan) (06/11/19 18:13) Vital Signs Date Time Temp Pulse Resp B/P (MAP) Pulse Ox O2 Delivery O2 Flow Rate FiO2 06/11/19 17:19 97.9 86 20 131/98 (109) 97 Room Air 06/11/19 17:04 97.9 86 20 97 Administered Medications Medications (Trade) Dose Ordered Sig/Jennifer Route PRN Reason Start Time Stop Time Status Last Admin Dose Admin Butorphanol Tartrate (Stadol) 2 mg STAT STAT IM 06/11/19 18:13 06/11/19 18:15 DC 06/11/19 18:29 2 MG Promethazine HCl (Phenergan) 25 mg STAT STAT IM 06/11/19 18:13 06/11/19 18:15 DC 06/11/19 18:30 25 MG Course Sepsis Screening Results: Posi: POSITIVE SEPSIS RISK DATE SEEN BY PHYSICIAN: Apr 10, 2018 TIME SEEN BY PROVIDER: 0635 Duration or Total Time Spent w: 45 min Vitals & review Data Vital Sign - Last 24 Hours 06/11/19 06/11/19 17:04 17:19 Temp 97.9 97.9 Pulse 86 86 Resp 20 20 B/P (MAP) 131/98 (109) Pulse Ox 97 97 O2 Delivery Room Air Sepsis Infection Criteria Pres: None O2 Sat by Pulse Oximetry: 97 Departure Time of Disposition: 19:00 Disposition: 01 HOME, SELF-CARE Impression: Primary Impression: Migraine Condition: Improved Referrals: JERI WEST (PCP) PRIMARY CARE PROVIDER Duration or Time Spent with Pa: 20 LUIS MIGUEL Dickey MD Jun 11, 2019 18:34
[2019-06-11 18:39] VITALS: BP 142/92
== END 2019-06-11 18:38 | disposition home or self-care (01) ==
LOC: ER 16:56
DX: G43.909 Migraine, unspecified, not intractable, without status migrainosus (principal); I10 Essential (primary) hypertension; J45.909 Unspecified asthma, uncomplicated; Z79.899 Other long term (current) drug therapy; Z88.0 Allergy status to penicillin; Z88.6 Allergy status to analgesic agent
CPT/HCPCS: 96372; 99284; J2550; J0585

== ENCOUNTER 2019-06-13 07:47 | Emergency (ER) | payer SELFPAY ==
[~2019-06-13] VITALS: Ht 188 cm; Wt 108.9 kg
[2019-06-13 08:06] VITALS: BP 141/58
[2019-06-13] MEDS ORDERED: PHENERGAN PO STA (08:11)
[2019-06-13] MEDS ORDERED: TORADOL IM STA (08:11)
--- NOTE | 2019-06-13 08:21 | ER.PDOC ---
General Chief Complaint: Requesting Medical Care Stated Complaint: MIGRAINE Time seen by MD: 08:17 Source: patient Exam Limitations: no limitations History of Present Illness Initial Comments Migraine headache for 3 days, seen here 3 days ago for same. Patient has chronic migraine with frequent visits to the ED. Severity/Quality: moderate Prior Headaches/Recent Trauma: frequent headaches, chronic headaches Associated Symptoms: nausea/vomiting, sensitivity to light Prior symptoms/Treatment: Similar symptoms previous, Recenly Seen, Treated by Doctor Allergies: Coded Allergies: Penicillins (Verified Allergy, Unknown, UNK, 10/31/18) aspirin (Verified Allergy, Unknown, 10/31/18) Home Meds Reported Medications Escitalopram Oxalate (LEXAPRO) 10 Mg Tablet, 1 TAB PO DAILY, #90 TAB 3 Refills 06/25/14 Albuterol Sulfate (VENTOLIN HFA) 18 Gm Hfa.aer.ad, 18 GM IH Q4 PRN for COUGH 11/23/13 Fluticasone/Salmeterol (ADVAIR 250-50 DISKUS) 1 Each Disk.w.dev, 1 EACH IH DAILY 11/23/13 Past Medical History Medical History: arrhythmia, asthma, other Surgical History: no surgical history Social History Alcohol Use: none Drug Use: none Review of Systems Constitutional: no symptoms reported Eyes: see HPI Respiratory: no symptoms reported Cardiovascular: no symptoms reported Gastrointestinal: no symptoms reported Musculoskeletal: no symptoms reported All Other Systems: Reviewed and Negative Physical Exam General Appearance: No Apparent Distress, WD/WN ENT: nml ENT inspection Neck: nml inspection, Supple Cardiovascular: Normal Peripheral Pulses, Regular Rate, Rhythm, No Edema, No Gallop, No JVD, No Murmur Respiratory: chest non-tender, lungs clear, normal breath sounds, no respiratory distress, no accessory muscle use Gastrointestinal: Normal Bowel Sounds, No Organomegaly, No Pulsatile Mass, Non Tender, Soft Back: Normal Inspection, No CVA Tenderness, No Vertebral Tenderness Extremities: Normal Range of Motion, Non-Tender, Normal Inspection, No Pedal Edema, No Calf Tenderness, Normal Capillary Refill Psychiatric: Alert, Oriented x 3 Cranial Nerves: Normal Hearing, Normal Speech Motor/Sensory: No Motor Deficit, No Sensory Deficit, No Pronator Drift Skin: Warm/Dry, Normal Color Results/Orders Results/Orders Orders - BERNABE LEY MD Ketorolac Tromethamine (Toradol) (06/13/19 08:11) Promethazine Hcl (Phenergan) (06/13/19 08:11) Vital Signs Date Time Temp Pulse Resp B/P (MAP) Pulse Ox O2 Delivery O2 Flow Rate FiO2 06/13/19 08:06 97.7 104 16 95 06/13/19 08:06 97.7 104 16 141/58 (85) 95 Room Air Course Sepsis Screening Results: Posi: POSITIVE SEPSIS RISK Duration or Total Time Spent w: 20 m Vitals & review Data Vital Sign - Last 24 Hours 06/13/19 06/13/19 08:06 08:06 Temp 97.7 97.7 Pulse 104 104 Resp 16 16 B/P (MAP) 141/58 (85) Pulse Ox 95 95 O2 Delivery Room Air Sepsis Infection Criteria Pres: None O2 Sat by Pulse Oximetry: 95 Departure Time of Disposition: 08:19 Disposition: 01 HOME, SELF-CARE Impression: Primary Impression: Migraine Condition: Improved Referrals: JERI WEST (PCP) PRIMARY CARE PROVIDER Additional Instructions: Fioricet F/U with your PCP in 1-2 days Return to ED if worsening symptoms or concerns. Duration or Time Spent with Pa: 20 mins Problem Qualifiers Primary Impression: Migraine Migraine type: unspecified Status migrainosus presence: with status migrainosus Intractability: intractable Qualified Codes: G43.911 - Migraine, unspecified, intractable, with status migrainosus BERNABE LEY MD Jun 13, 2019 08:20
[2019-06-13] MEDS ORDERED: PHENERGAN ONE (08:25)
[2019-06-13] MEDS ORDERED: TORADOL ONE (08:25)
== END 2019-06-13 08:34 | disposition home or self-care (01) ==
LOC: ER 07:47
DX: G43.909 Migraine, unspecified, not intractable, without status migrainosus (principal); R11.2 Nausea with vomiting, unspecified; Z88.0 Allergy status to penicillin; Z88.6 Allergy status to analgesic agent
CPT/HCPCS: 96372; 99283; J1885

== ENCOUNTER 2019-06-20 16:51 | Emergency (ER) | payer SELFPAY ==
[~2019-06-20] VITALS: Ht 188 cm; Wt 113.4 kg
[2019-06-20 17:06] VITALS: BP 131/88
[2019-06-20 17:07] VITALS: BP 131/88
--- NOTE | 2019-06-20 17:20 | NUR ---
UPDATE: PT PLACED IN RM 5 FROM [facility] D/T COMLAINTS OF CHEST PAIN. RESPIRATORY NOTIFIED OF EKG ORDER.
[2019-06-20] MEDS ORDERED: MYLANTA PO STA (17:45)
[2019-06-20] MEDS ORDERED: TORADOL IM STA (17:45)
[2019-06-20] MEDS ORDERED: PHENERGAN IM STA (17:45)
[2019-06-20] MEDS ORDERED: LIDOCAINE VISCOUS MM STA (17:45)
--- NOTE | 2019-06-20 17:50 | NUR ---
UPDATE PATIENT REPORTS THAT HIS PAIN IN HIS CHEST IS MORE EPIGASTRIC PAIN. HE TOLD DR. LEY THIS. HE REQUESTS TO LEAVE A BUT IS WILLING TO TAKE THE MEDICATIONS FOR MIGRAINE AND INDIGESTION.
[2019-06-20] MEDS ORDERED: MYLANTA ONE (17:57)
[2019-06-20] MEDS ORDERED: TORADOL ONE (17:57)
[2019-06-20] MEDS ORDERED: LIDOCAINE VISCOUS ONE (17:57)
[2019-06-20] MEDS ORDERED: PHENERGAN ONE (17:57)
--- NOTE | 2019-06-20 17:58 | ER.PDOC ---
General Chief Complaint: Headache Stated Complaint: CHILLS,MIRGRAINE Time seen by MD: 17:48 Source: patient Exam Limitations: no limitations History of Present Illness Initial Comments Patient complaining of Migraine headache and chills since this morning. No fever, cough or bodyaches. [place] [facility] and [place], he told the VIRTUAL RECRUITER that he was having heart burn so he was brought here for chest pain. He denies chest pain to me but rather complaining of epigastric pain and heart burn. No nausea, vomiting or diarrhea and pain does not radiate. Severity/Quality: moderate Prior Headaches/Recent Trauma: frequent headaches, chronic headaches Associated Symptoms: nausea/vomiting, sensitivity to light Prior symptoms/Treatment: Similar symptoms previous, Recenly Seen, Treated by Doctor Allergies: Coded Allergies: Penicillins (Verified Allergy, Unknown, UNK, 10/31/18) aspirin (Verified Allergy, Unknown, 10/31/18) Home Meds Reported Medications Escitalopram Oxalate (LEXAPRO) 10 Mg Tablet, 1 TAB PO DAILY, #90 TAB 3 Refills 06/25/14 Albuterol Sulfate (VENTOLIN HFA) 18 Gm Hfa.aer.ad, 18 GM IH Q4 PRN for COUGH 11/23/13 Fluticasone/Salmeterol (ADVAIR 250-50 DISKUS) 1 Each Disk.w.dev, 1 EACH IH DAILY 11/23/13 Past Medical History Medical History: asthma, other Surgical History: no surgical history Social History Alcohol Use: none Drug Use: none Review of Systems Constitutional: chills Eyes: see HPI Respiratory: no symptoms reported Cardiovascular: no symptoms reported Gastrointestinal: see HPI All Other Systems: Reviewed and Negative Physical Exam General Appearance: No Apparent Distress, WD/WN ENT: nml ENT inspection, pharynx nml Neck: nml inspection, Supple Cardiovascular: Normal Peripheral Pulses, Regular Rate, Rhythm, No Edema, No Gallop, No JVD, No Murmur Respiratory: chest non-tender, lungs clear, normal breath sounds, no respiratory distress, no accessory muscle use Gastrointestinal: Normal Bowel Sounds, No Organomegaly, No Pulsatile Mass, Tenderness (epigastric area) Extremities: Normal Range of Motion, Non-Tender, Normal Inspection, No Pedal Edema, No Calf Tenderness, Normal Capillary Refill Psychiatric: Alert, Oriented x 3 Cranial Nerves: Normal Hearing, Normal Speech, PERRL Motor/Sensory: No Motor Deficit, No Sensory Deficit, No Pronator Drift, Negative Babinski's Sign Skin: Warm/Dry, Normal Color Results/Orders Results/Orders Orders - BERNABE LEY MD Ketorolac Tromethamine (Toradol) (06/20/19 17:45) Promethazine Hcl (Phenergan) (06/20/19 17:45) Mag Hydrox/Aluminum Hyd/Simeth (Mylanta) (06/20/19 17:45) Lidocaine Hcl (Lidocaine Viscous) (06/20/19 17:45) Vital Signs Date Time Temp Pulse Resp B/P (MAP) Pulse Ox O2 Delivery O2 Flow Rate FiO2 06/20/19 17:07 99.3 86 20 06/20/19 17:06 99.3 86 20 131/88 (102) 97 06/20/19 16:57 99.3 86 20 97 Progress Progress I was going to order labs and CT abdomen/pelvis but patient refused. He told me he wanted medications only. He signed and left against medical advice. He understands that leaving against medical advise may result in worsening condition and . He also knows that he can always return to ED at any time he is feeling worse. EKG/XRAY/CT/US EKG: NSR Course Sepsis Screening Results: Posi: POSITIVE SEPSIS RISK Duration or Total Time Spent w: 20 mins Vitals & review Data Vital Sign - Last 24 Hours 06/20/19 06/20/19 06/20/19 16:57 17:06 17:07 Temp 99.3 99.3 99.3 Pulse 86 86 86 Resp 20 20 20 B/P (MAP) 131/88 (102) Pulse Ox 97 97 Sepsis Infection Criteria Pres: None O2 Sat by Pulse Oximetry: 97 Departure Time of Disposition: 17:58 Disposition: 07 AGAINST MEDICAL ADVICE Impression: Primary Impression: Migraine Additional Impression: Abdominal pain Condition: Against Medical Advice Referrals: JERI WEST (PCP) PRIMARY CARE PROVIDER Duration or Time Spent with Pa: 20 mins Problem Qualifiers Primary Impression: Migraine Migraine type: unspecified Status migrainosus presence: with status migrainosus Intractability: intractable Qualified Codes: G43.911 - Migraine, unspecified, intractable, with status migrainosus Additional Impression: Abdominal pain Abdominal location: epigastric Qualified Codes: R10.13 - Epigastric pain AV,BERNABE Blevins MD Jun 20, 2019 17:58
--- NOTE | 2019-06-20 19:21 | PCM.EKG ---
[facility] Test Date: 2019-06-20 Test Time: 17:30:15 Pat Name: NAWAF MARTINEZ Department: Room: Gender: M Grouter Helper: : [id number] Requested By: BERNABE LEY Order Number: [id number] Reading MD: Bernabe LEY Measurements Intervals [place] Rate: 97 P: 21 NE: 167 QRS: 27 QRSD: 100 T: 53 QT: 373 QTc: 474 Interpretive Statements Sinus rhythm Abnormal R-wave progression, early transition Compared to ECG 06/03/2019 23:55:46 Prolonged QT interval no longer present Electronically Signed On 06-23-2019 9:37:47 [employer]ILL [employer]UTTER by Bernabe LEY Please click the below link to view image of tracing.
== END 2019-06-20 17:43 | disposition left against medical advice (07) ==
LOC: ER 16:51
DX: G43.911 Migraine, unspecified, intractable, with status migrainosus (principal); J45.909 Unspecified asthma, uncomplicated; Z79.899 Other long term (current) drug therapy; Z88.0 Allergy status to penicillin; Z88.6 Allergy status to analgesic agent
CPT/HCPCS: 93005; 96372; 99284; J1885; J2550; J3490

== ENCOUNTER 2019-06-22 08:09 | Emergency (ER) | payer SELFPAY ==
[~2019-06-22] VITALS: Ht 188 cm; Wt 113.4 kg
[2019-06-22 08:21] VITALS: BP 141/85
[2019-06-22 08:26] VITALS: BP 141/85
[2019-06-22] MEDS ORDERED: BENADRYL ONE (08:40)
[2019-06-22] MEDS ORDERED: TORADOL ONE (08:40)
[2019-06-22] MEDS ORDERED: COMPAZINE ONE (08:40)
--- NOTE | 2019-06-22 08:43 | ER.PDOC ---
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 headache is throbbing and right sided, no neck stiffness or fever, similar to previous migraines. Severity/Quality: moderate Associated Symptoms: denies symptoms Allergies: Coded Allergies: Penicillins (Verified Allergy, Unknown, UNK, 10/31/18) aspirin (Verified Allergy, Unknown, 10/31/18) Home Meds Reported Medications Escitalopram Oxalate (LEXAPRO) 10 Mg Tablet, 1 TAB PO DAILY, #90 TAB 3 Refills 06/25/14 Albuterol Sulfate (VENTOLIN HFA) 18 Gm Hfa.aer.ad, 18 GM IH Q4 PRN for COUGH 11/23/13 Fluticasone/Salmeterol (ADVAIR 250-50 DISKUS) 1 Each Disk.w.dev, 1 EACH IH DAILY 11/23/13 Past Medical History Medical History: arrhythmia, cancer, other Surgical History: no surgical history Social History Alcohol Use: occassionally Drug Use: none Review of Systems Constitutional: denies chills, denies fever Eyes: denies blindness Ears, Nose, Mouth, Throat: denies ear pain, denies nose pain, denies nose discharge Respiratory: denies cough, denies shortness of breath Cardiovascular: denies chest pain Gastrointestinal: denies abdominal pain, denies vomiting Genitourinary: denies pain Musculoskeletal: denies neck pain Skin: denies rash Psychiatric/Neurological: headache; denies numbness, denies paresthesia Physical Exam General Appearance: No Apparent Distress Head/Eyes: eyes nml inspection, no facial swelling, no nystagmus, PERRL ENT: nml ENT inspection Neck: nml inspection Cardiovascular: Regular Rate, Rhythm Respiratory: chest non-tender, lungs clear, normal breath sounds Gastrointestinal: Normal Bowel Sounds Back: Normal Inspection Extremities: Normal Range of Motion, Non-Tender, Normal Inspection Psychiatric: Alert, Oriented x 3 Cranial Nerves: Normal Hearing, Normal Speech, PERRL Coordination/Gait: Normal Finger to Nose Motor/Sensory: No Motor Deficit, No Sensory Deficit, No Pronator Drift Skin: Warm/Dry Lymphatic: No Adenopathy Comments non toxic no meningismus, funduscopic grossly negative. Results/Orders Results/Orders Orders - DALIA MARRERO MD Ketorolac Tromethamine (Toradol) (06/22/19 09:00) Diphenhydramine Hcl (Benadryl) (06/22/19 08:36) Prochlorperazine Edisylate (Compazine) (06/22/19 08:36) Ketorolac Tromethamine (Toradol) (06/22/19 08:40) Vital Signs Date Time Temp Pulse Resp B/P (MAP) Pulse Ox O2 Delivery O2 Flow Rate FiO2 06/22/19 08:26 97.6 83 16 141/85 (103) 96 Room Air 06/22/19 08:21 97.6 83 16 96 06/22/19 08:21 97.6 83 16 Progress Progress patient had 130 tylenol number 3 from end of march to early in 4 different prescriptions, so will not write for fioricet for pain, recommend primary care doctor write for any continued prescriptions., Course Sepsis Screening Results: Posi: POSITIVE SEPSIS RISK Duration or Total Time Spent w: 20 mins Vitals & review Data Vital Sign - Last 24 Hours 06/22/19 06/22/19 06/22/19 08:21 08:21 08:26 Temp 97.6 97.6 97.6 Pulse 83 83 83 Resp 16 16 16 B/P (MAP) 141/85 (103) Pulse Ox 96 96 O2 Delivery Room Air Current Medications Medications (Trade) Dose Ordered Sig/Jennifer PRN Reason Start Time Stop Time Status Last Admin Diphenhydramine HCl (Benadryl) 50 mg STAT STAT 06/22/19 08:36 06/22/19 08:37 UNV Prochlorperazine Edisylate (Compazine) 10 mg STAT STAT 06/22/19 08:36 06/22/19 08:37 UNV Sepsis Infection Criteria Pres: None O2 Sat by Pulse Oximetry: 96 Departure Time of Disposition: 09:02 Disposition: 01 HOME, SELF-CARE Impression: Primary Impression: Migraine Condition: Stable Patient Instructions: Migraine Headache Referrals: JREI WEST (PCP) PRIMARY CARE PROVIDER Additional Instructions: return for any worsening symptoms, see your doctor for further treatment and changing of your medication Duration or Time Spent with Pa: 15 DALIA MARRERO MD Jun 22, 2019 08:43
--- NOTE | 2019-06-22 08:56 | NUR ---
STATUS PT HAS CALLED FOR HIS RIDE SO THEY CAN DRIVE UPON DISCHARGE. AWAITING ARRIVAL BEFORE MEDS GIVEN.
[2019-06-22] MEDS: BENADRYL IM STA (09:27)
[2019-06-22] MEDS: COMPAZINE IM STA (09:27)
[2019-06-22] MEDS: TORADOL IM ONE (09:28)
[2019-06-22 09:31] VITALS: BP 136/91
== END 2019-06-22 09:31 | disposition home or self-care (01) ==
LOC: ER 08:09
DX: G43.909 Migraine, unspecified, not intractable, without status migrainosus (principal); Z88.0 Allergy status to penicillin; Z88.6 Allergy status to analgesic agent; Z79.899 Other long term (current) drug therapy
CPT/HCPCS: 96372; 99284; J0780; J1200; J1885

== ENCOUNTER 2019-06-26 04:20 | Emergency (ER) | payer SELFPAY ==
[~2019-06-26] VITALS: Ht 188 cm; Wt 113.4 kg
[2019-06-26 04:39] VITALS: BP 162/105
[2019-06-26] MEDS ORDERED: LIDOCAINE 1% VIAL ONE (04:44)
[2019-06-26] MEDS ORDERED: DECADRON ONE (04:44)
[2019-06-26] MEDS ORDERED: SENSORCAINE 0.5% VIAL ONE (04:44)
--- NOTE | 2019-06-26 04:46 | ER.PDOC ---
General Chief Complaint: Headache Stated Complaint: MIGRAINE Time seen by MD: 04:35 Source: patient Exam Limitations: no limitations History of Present Illness Initial Comments Pt c/o 2 days severe occipital headache, unable to sleep, mild nausea. Hx "migraines" but describes tension headaches. States this headache different in location and character. Occipital region tender to any pressure. Timing/Duration: other Severity/Quality: severe Prior Headaches/Recent Trauma: frequent headaches Associated Symptoms: nausea/vomiting Modifying Factors: improves with movement, improves with other (pressure to occipital) Prior symptoms/Treatment: Similar symptoms previous; No Recenly Seen, No Rigoberto ated by Doctor, No Recently Hospitalized Allergies: Coded Allergies: Penicillins (Verified Allergy, Unknown, UNK, 10/31/18) aspirin (Verified Allergy, Unknown, 10/31/18) Home Meds Reported Medications Escitalopram Oxalate (LEXAPRO) 10 Mg Tablet, 1 TAB PO DAILY, #90 TAB 3 Refills 06/25/14 Albuterol Sulfate (VENTOLIN HFA) 18 Gm Hfa.aer.ad, 18 GM IH Q4 PRN for COUGH 11/23/13 Fluticasone/Salmeterol (ADVAIR 250-50 DISKUS) 1 Each Disk.w.dev, 1 EACH IH DAILY 11/23/13 Past Medical History Medical History: arrhythmia, cancer, other (Recurrent headaches) Surgical History: no surgical history Social History Drug Use: none Review of Systems Constitutional: no symptoms reported Eyes: no symptoms reported Ears, Nose, Mouth, Throat: no symptoms reported Respiratory: no symptoms reported Cardiovascular: no symptoms reported Gastrointestinal: no symptoms reported Genitourinary: no symptoms reported Musculoskeletal: no symptoms reported Skin: no symptoms reported Psychiatric/Neurological: headache Physical Exam General Appearance: No Apparent Distress, WD/WN Head/Eyes: eyes nml inspection, no facial swelling, no nystagmus, PERRL ENT: nml ENT inspection, pharynx nml Neck: nml inspection, Supple Cardiovascular: Normal Peripheral Pulses, Regular Rate, Rhythm, No Edema, No Gallop, No JVD, No Murmur Respiratory: chest non-tender, lungs clear, normal breath sounds, no respiratory distress, no accessory muscle use Gastrointestinal: Normal Bowel Sounds, No Organomegaly, No Pulsatile Mass, Non Tender, Soft Back: Normal Inspection, No CVA Tenderness, No Vertebral Tenderness Extremities: Normal Range of Motion, Non-Tender, Normal Inspection, No Pedal Edema, No Calf Tenderness, Normal Capillary Refill Psychiatric: Alert, Oriented x 3 Cranial Nerves: Normal Hearing, Normal Speech, PERRL Coordination/Gait: Normal Finger to Nose, Normal Gait Motor/Sensory: No Motor Deficit, No Sensory Deficit, No Pronator Drift, Neg ative Babinski's Sign Skin: Warm/Dry, Normal Color Lymphatic: No Adenopathy Comments tender to palpation B occipital tuberosities with skin sensitivity extending toward parietal scalp Additional Procedures Progress Regional anesthesia: 1% lidocaine, 0.5% Marcaine, Decadron 10 mg injected B occipital grooves. Headache relieved. Results/Orders Results/Orders Orders - KENIA WHALEN MD Lidocaine Hcl (Lidocaine 1% Vial) (06/26/19 04:44) Bupivacaine Hcl/Pf (Sensorcaine 0.5% Via (06/26/19 04:44) Dexamethasone Sodium Phosphate (Decadron (06/26/19 04:44) Vital Signs Date Time Temp Pulse Resp B/P (MAP) Pulse Ox O2 Delivery O2 Flow Rate FiO2 06/26/19 04:47 98.0 82 20 162/105 (124) 97 06/26/19 04:39 98.0 82 20 97 06/26/19 04:39 98.0 82 20 Course Sepsis Screening Results: Posi: POSITIVE SEPSIS RISK Duration or Total Time Spent w: 15 Vitals & review Data Vital Sign - Last 24 Hours 06/26/19 06/26/19 06/26/19 04:39 04:39 04:47 Temp 98.0 98.0 98.0 Pulse 82 82 82 Resp 20 20 20 B/P (MAP) 162/105 (124) Pulse Ox 97 97 Sepsis Infection Criteria Pres: None Departure Time of Disposition: 05:01 Disposition: 01 HOME, SELF-CARE Impression: Primary Impression: Occipital neuralgia Condition: Stable Referrals: JERI WEST (PCP) PRIMARY CARE PROVIDER Duration or Time Spent with Pa: 15 Problem Qualifiers Primary Impression: Occipital neuralgia Laterality: bilateral Qualified Codes: M54.81 - Occipital neuralgia KENIA WHALEN MD Jun 26, 2019 04:46
[2019-06-26 04:47] VITALS: BP 162/105
== END 2019-06-26 05:18 | disposition home or self-care (01) ==
LOC: ER 04:20
DX: M54.81 Occipital neuralgia (principal); G43.909 Migraine, unspecified, not intractable, without status migrainosus; Z88.0 Allergy status to penicillin; Z88.6 Allergy status to analgesic agent; Z79.899 Other long term (current) drug therapy
CPT/HCPCS: 64405; 99284; J1100; J2001; J3490

== ENCOUNTER 2019-06-27 08:31 | Emergency (ER) | payer SELFPAY ==
[~2019-06-27] VITALS: Ht 188 cm; Wt 113.4 kg
[2019-06-27 08:42] VITALS: BP 153/104
[2019-06-27] MEDS ORDERED: TORADOL ONE (08:51)
[2019-06-27] MEDS ORDERED: PHENERGAN ONE (08:51)
[2019-06-27] MEDS ORDERED: PHENERGAN IM STA (08:55)
[2019-06-27] MEDS ORDERED: TORADOL IM STA (08:55)
--- NOTE | 2019-06-27 09:02 | ER.PDOC ---
General Chief Complaint: Headache Stated Complaint: MIGRAINE Time seen by MD: 08:56 Source: patient Exam Limitations: no limitations History of Present Illness Initial Comments Migraine headache since yesterday, he was seen here for same yesterday. He is a frequent flyer to the ED for same complaint. He has been here about 10 ot 11 times within the last 1 Month. Severity/Quality: moderate Prior Headaches/Recent Trauma: frequent headaches, chronic headaches Associated Symptoms: nausea/vomiting, sensitivity to light Prior symptoms/Treatment: Similar symptoms previous, Recenly Seen, Treated by Doctor Allergies: Coded Allergies: Penicillins (Verified Allergy, Unknown, UNK, 10/31/18) aspirin (Verified Allergy, Unknown, 10/31/18) Home Meds Reported Medications Escitalopram Oxalate (LEXAPRO) 10 Mg Tablet, 1 TAB PO DAILY, #90 TAB 3 Refills 06/25/14 Albuterol Sulfate (VENTOLIN HFA) 18 Gm Hfa.aer.ad, 18 GM IH Q4 PRN for COUGH 11/23/13 Fluticasone/Salmeterol (ADVAIR 250-50 DISKUS) 1 Each Disk.w.dev, 1 EACH IH DAILY 11/23/13 Past Medical History Medical History: hypertension Surgical History: cancer surgery Social History Alcohol Use: none Drug Use: none Review of Systems Constitutional: no symptoms reported Eyes: see HPI Respiratory: no symptoms reported Cardiovascular: no symptoms reported Gastrointestinal: see HPI Genitourinary: no symptoms reported All Other Systems: Reviewed and Negative Physical Exam General Appearance: No Apparent Distress, WD/WN Neck: nml inspection, Supple Cardiovascular: Normal Peripheral Pulses, Regular Rate, Rhythm, No Edema, No Gallop, No JVD, No Murmur Respiratory: chest non-tender, lungs clear, normal breath sounds, no respiratory distress, no accessory muscle use Gastrointestinal: Normal Bowel Sounds, No Organomegaly, No Pulsatile Mass, Non Tender, Soft Back: Normal Inspection, No CVA Tenderness, No Vertebral Tenderness Extremities: Normal Range of Motion, Non-Tender, Normal Inspection, No Pedal Edema, No Calf Tenderness, Normal Capillary Refill Psychiatric: Alert, Oriented x 3 Motor/Sensory: No Motor Deficit, No Sensory Deficit, No Pronator Drift, Negative Babinski's Sign Skin: Warm/Dry, Normal Color Results/Orders Results/Orders Orders - BERNABE LEY MD Ketorolac Tromethamine (Toradol) (06/27/19 08:51) Promethazine Hcl (Phenergan) (06/27/19 08:51) Ketorolac Tromethamine (Toradol) (06/27/19 08:55) Promethazine Hcl (Phenergan) (06/27/19 08:55) Vital Signs Date Time Temp Pulse Resp B/P (MAP) Pulse Ox O2 Delivery O2 Flow Rate FiO2 06/27/19 08:42 97.4 84 18 99 06/27/19 08:42 97.4 84 18 153/104 (120) 99 Room Air Course Sepsis Screening Results: Posi: POSITIVE SEPSIS RISK Duration or Total Time Spent w: 15 Vitals & review Data Vital Sign - Last 24 Hours 06/27/19 06/27/19 08:42 08:42 Temp 97.4 97.4 Pulse 84 84 Resp 18 18 B/P (MAP) 153/104 (120) Pulse Ox 99 99 O2 Delivery Room Air Sepsis Infection Criteria Pres: None O2 Sat by Pulse Oximetry: 99 Departure Time of Disposition: 09:00 Disposition: 01 HOME, SELF-CARE Impression: Primary Impression: Migraine Condition: Improved Referrals: JERI WEST (PCP) PRIMARY CARE PROVIDER Additional Instructions: F/U with your PCP in i-2 days Return to ED if worsening symptoms or concerns. Duration or Time Spent with Pa: 10 mins Problem Qualifiers Primary Impression: Migraine Migraine type: unspecified Status migrainosus presence: with status migrainosus Intractability: intractable Qualified Codes: G43.911 - Migraine, unspecified, intractable, with status migrainosus BERNABE LEY MD Jun 27, 2019 09:02
== END 2019-06-27 09:07 | disposition home or self-care (01) ==
LOC: ER 08:31
DX: G43.911 Migraine, unspecified, intractable, with status migrainosus (principal); R11.2 Nausea with vomiting, unspecified; I10 Essential (primary) hypertension; Z88.0 Allergy status to penicillin; Z88.6 Allergy status to analgesic agent; Z79.899 Other long term (current) drug therapy
CPT/HCPCS: 96372 ×2; 99284; J1885; J2550

== ENCOUNTER 2019-07-09 20:04 | Emergency (ER) | payer SELFPAY ==
[~2019-07-09] VITALS: Ht 188 cm; Wt 108.9 kg
[2019-07-09 20:31] VITALS: BP 132/99
[2019-07-09 20:38] VITALS: BP 132/99
== END 2019-07-09 20:40 | disposition left against medical advice (07) ==
LOC: ER 20:04
DX: G43.909 Migraine, unspecified, not intractable, without status migrainosus (principal); Z53.21 Procedure and treatment not carried out due to patient leaving prior to being seen by health care provider
CPT/HCPCS: 99281

== ENCOUNTER 2019-07-10 20:01 | Emergency (ER) | payer OTHER, SELFPAY ==
[~2019-07-10] VITALS: Ht 185.4 cm; Wt 113.4 kg
--- NOTE | 2019-07-10 20:20 | ER.PDOC ---
General Chief Complaint: Requesting Medical Care Stated Complaint: POSS OVER DOSE Time seen by MD: 20:13 Source: patient Exam Limitations: clinical condition History of Present Illness Initial Comments girlfriend states his speech was garbled when she spoke with him shortly after 6pm; when she got to his home she found 6 ten mg valium missing from the bottle and unknown amitriptyline 100 mg also missing; patient states he was trying to get rid of his ongoing/chronic headache--not trying to kill himself Intent: Accidental (trying to treat pain, not trying to end his life) Severity: moderate Allergies: Coded Allergies: Penicillins (Verified Allergy, Unknown, UNK, 10/31/18) aspirin (Verified Allergy, Unknown, 10/31/18) Home Meds Reported Medications Escitalopram Oxalate (LEXAPRO) 10 Mg Tablet, 1 TAB PO DAILY, #90 TAB 3 Refills 06/25/14 Albuterol Sulfate (VENTOLIN HFA) 18 Gm Hfa.aer.ad, 18 GM IH Q4 PRN for COUGH 11/23/13 Fluticasone/Salmeterol (ADVAIR 250-50 DISKUS) 1 Each Disk.w.dev, 1 EACH IH DAILY 11/23/13 Past Medical History Medical History: hypertension Surgical History: hysterectomy Social History Drug Use: none Review of Systems Constitutional: no symptoms reported EENTM: no symptoms reported Respiratory: no symptoms reported Cardiovascular: no symptoms reported Gastrointestinal: no symptoms reported Genitourinary: no symptoms reported Musculoskeletal: no symptoms reported Skin: no symptoms reported Psychiatric/Neurological: see HPI Physical Exam General Appearance: Alert, Mild distress EENT: No nystagmus, PERRLA, EOM's intact, Pharynx nml, NML gag reflex, Head atraumatic Respiratory: lungs clear, normal breath sounds, no respiratory distress, no accessory muscle use Cardiovascular: Regular Rate, Rhythm Gastrointestinal: Normal Bowel Sounds, Non Tender Extremities: Normal Range of Motion, No Evidence of Trauma, No Edema Neurological/Psychiatric: Alert, Normal Mood/Affect, Calm, Oriented x 3, Other (speech is garbled and slurred) Appearance/Memory/Insight: Appropriate Appearance, No Memory Impairment Behavior/Eye Contact/Speech: Cooperative, Good Eye Contact Skin: Normal Color, Warm/Dry Results/Orders Results/Orders Orders - GLADYS BLEVINS DO Cbc With Auto Diff (07/10/19 20:24) Comprehensive Metabolic Panel (07/10/19 20:24) Creatine Kinase (07/10/19 20:24) Creatine Kinase Mb (07/10/19 20:24) Troponin I (07/10/19 20:24) Urinalysis (07/10/19 20:24) Salicylate(Ml) (07/10/19 20:24) Acetaminophen(Ml) (07/10/19 20:24) Alcohol(Ml) (07/10/19 20:24) Ekg-Routine (07/10/19 20:24) Charcoal/Sorbitol Solution (Actidose 50 (07/10/19 20:27) Drug Scrn Med W Confirmation (07/10/19 20:24) Saline Lock (07/10/19 20:24) Ketorolac Tromethamine (Toradol) (07/10/19 20:24) 0.9 % Sodium Chloride (Ns 1000ml) (07/10/19 20:24) Ketorolac Tromethamine (Toradol) (07/10/19 20:39) Activated Charcoal (Actidose-Aqua) (07/10/19 20:39) Opiate Confirmation Ur (07/10/19 20:45) Vital Signs Date Time Temp Pulse Resp B/P (MAP) Pulse Ox O2 Delivery O2 Flow Rate FiO2 07/10/19 21:09 98.6 92 22 134/73 (93) 94 Room Air 07/10/19 21:07 98.6 92 22 07/10/19 20:23 98.6 92 22 94 Administered Medications Medications (Trade) Dose Ordered Sig/Jennifer Route PRN Reason Start Time Stop Time Status Last Admin Dose Admin Charcoal/Sorbitol (Actidose 50 Gm Liquid) 100 gm STAT ONCE PO 07/10/19 20:27 07/10/19 20:28 UNV 07/10/19 20:45 100 GM Ketorolac Tromethamine (Toradol) 30 mg STAT STAT IV 07/10/19 20:24 07/10/19 20:25 UNV 07/10/19 20:55 30 MG Sodium Chloride 1,000 ml @ 0 mls/hr Q0M STAT IV 07/10/19 20:24 07/10/19 20:25 UNV 07/10/19 20:55 1,200 MLS/HR Laboratory Tests Test 07/10/19 20:34 07/10/19 20:45 White Blood Count 4.2 10^3/uL (4.5-11.0) L Red Blood Count 5.02 10^6/uL (4.50-5.90) Hemoglobin 13.4 g/dL (13.9-16.3) L Hematocrit 41.8 % (37.0-53.0) Mean Corpuscular Volume 83.3 fL (78-100) Mean Corpuscular Hemoglobin 26.7 pg (26-34) Mean Corpuscular Hemoglobin Concent 32.1 g/dL (33-36.5) L Red Cell Distribution Width 14.6 % (11.5-14.5) H Platelet Count 310 10^3/uL (150-400) Mean Platelet Volume 9.8 fL (7.8-11.0) Neutrophils (%) (Auto) 57.5 % (41.0-85.0) Lymphocytes (%) (Auto) 22.9 % (24.0-44.0) L Monocytes (%) (Auto) 10.5 % (5.0-12.0) Neutrophils # (Auto) 2.4 10^3/uL (1.8-7.7) Lymphocytes # (Auto) 0.96 10^3/uL1 (1.0-4.8) L Monocytes # (Auto) 0.4 10^3/uL (0.3-0.8) Absolute Immature Granulocyte (auto 0 10^3 u/L (0-2) Absolute Eosinophils (auto) 0.3 10^3/uL (0.0-0.2) H Immature Granulocytes % 0.00 % (0.00-0.50) Eosinophils % 8.1 % (0.0-5.0) H Basophils % 1.0 % (0.0-0.2) H Basophils # 0.0 10^3/uL (0.0-0.1) Sodium Level 140 mmol/L (132-145) Potassium Level 3.9 mmol/L (3.6-5.2) Chloride Level 105.0 mmol/L (96-109) Carbon Dioxide Level 31.4 mmol/L (20.0-32) Anion Gap 7.5 Blood Urea Nitrogen 9 mg/dL (7-18) Creatinine 1.06 mg/dL (0.59-1.40) Estimated GFR () 93.2 (>/=60) Est GFR (CKD-EPI)(Non-Afr Japanese) 77.0 (>/=60) BUN/Creatinine Ratio 8.0 Glucose Level 109 mg/dL (70-110) Calcium Level 9.3 mg/dL (8.4-10.5) Total Bilirubin 0.5 mg/dL (0.2-1.0) Aspartate Amino Transferase (AST) 30 U/L (0-35) Alanine Aminotransferase (ALT) 57 U/L (12-78) Alkaline Phosphatase 86 U/L (50-136) Total Creatine Kinase 52 U/L (39-308) Creatine Kinase MB < 0.5 ng/mL (0.5-3.6) L Troponin I < 0.02 ng/mL (0.00-0.05) Total Protein 7.4 g/dL (6.4-8.2) Albumin 3.8 g/dL (3.4-5.0) Globulin 3.6 Salicylates Level < 2.8 mg/dL (2.8-20.0) L Acetaminophen Level < 2 ug/mL (10-30) L Serum Alcohol < 3 mg/dL (0-50) Urine Collection Type VOID Urine Color YELLOW (YELLOW) Urine Appearance CLEAR (CLEAR) Urine Bilirubin NEGATIVE MG/DL (NEGATIVE) Urine Ketones NEGATIVE (NEGATIVE) Urine Specific Jackson 1.020 (1.005-1.035) Urine pH 6 (5.0-6.0) Urine Protein NEGATIVE (NEGATIVE) Urine Urobilinogen NORMAL (NEGATIVE) Urine Nitrate NEGATIVE (NEGATAIVE) Urine Leukocyte Esterase NEGATIVE (NEGATIVE) Urine Blood NEGATIVE (NEGATIVE) Urine Glucose 50 (NEGATIVE) H Urine Opiates Screen PRESUMPTIVE POSITIVE Urine Methadone Screen NEGATIVE (c/o300ng/mL) Urine Barbiturates Screen NEGATIVE (c/o200ng/mL) Urine Phencyclidine Screen NEGATIVE (c/o 25ng/mL) Ur Amphetamine/Methamphetamine NEGATIVE (kw0271sd/mL) Urine MDMA Screen (Ecstasy) NEGATIVE (c/o300ng/mL) Urine Benzodiazepines Screen PRESUMPTIVE POSITIVE Urine Cocaine Metabolite Screen NEGATIVE (c/o300ng/mL) Ur Tetrahydrocannabinol (THC) Scrn NEGATIVE (c/o 50ng/mL) Progress Progress after 4 hours of observation per poison control, patient is resting quietly with normal vital signs and arouses without difficulty EKG/XRAY/CT/US EKG: NSR, no ST T wave changes Departure Time of Disposition: 00:27 Disposition: 01 HOME, SELF-CARE Impression: Primary Impression: Benzodiazepine overdose Additional Impression: Headache Condition: Improved Referrals: JERI WEST (PCP) PRIMARY CARE PROVIDER Duration or Time Spent with Pa: 30 min Problem Qualifiers Primary Impression: Benzodiazepine overdose Encounter type: initial encounter Injury intent: accidental or unintentional Qualified Codes: T42.4X1A - Poisoning by benzodiazepines, accidental (unintentional), initial encounter Additional Impression: Headache Headache type: unspecified Headache chronicity pattern: chronic headache Intractability: not intractable Qualified Codes: R51 - Headache GLADYS BLEVINS DO Jul 10, 2019 20:20
--- NOTE | 2019-07-10 20:21 | NUR ---
Pt's significant other brings pt in and states he took 6 10 mg diazepam tablets so she brought him in. Asked pt if was trying to kill himself and he stated "no, just trying to get rid of this headache." Pt is slow, speech is slightly garbled.
[2019-07-10 20:23] VITALS: BP 134/73
--- NOTE | 2019-07-10 20:23 | NUR ---
POISON CONTROL TALKED WITH JYOTI FROM [facility] POISON CONTROL, WATCH FOR DROWSINESS, GIVE IV FLUIDS, AND 6 HOUR OBS. SUPPORTIVE CARE. EDP NOTIFIED
[2019-07-10] MEDS ORDERED: TORADOL IV STA (20:24)
[2019-07-10] MEDS ORDERED: NS 1000ML 1,000 ML STA (20:24)
[2019-07-10] MEDS ORDERED: ACTIDOSE 50 GM LIQUID PO ONE (20:27)
--- NOTE | 2019-07-10 20:29 | PCM.EKG ---
[facility] Test Date: 2019-07-10 Test Time: 20:10:00 Pat Name: NAWAF MARTINEZ Department: Room: Gender: M [employer]r: ACACIA : 1980 Requested By: GLADYS BLEVINS Order Number: [id number] Reading MD: Measurements Intervals [place] Rate: 89 P: UT: QRS: -17 QRSD: 96 T: 50 QT: 403 QTc: 491 Interpretive Statements Atrial fibrillation Borderline left axis deviation Abnormal R-wave progression, early transition Borderline prolonged QT interval Compared to ECG 06/20/2019 17:30:15 Sinus rhythm no longer present Please click the below link to view image of tracing.
[2019-07-10] MEDS ORDERED: NS 1000ML 1,000 ML ONE (20:39)
[2019-07-10] MEDS ORDERED: ACTIDOSE-AQUA ONE (20:39)
[2019-07-10] MEDS ORDERED: TORADOL ONE (20:39)
[2019-07-10 20:40] LABS: EOSINOPHIL # 0.3 10^3/uL (0.0-0.2); EOSINOPHIL % 8.1 % (0.0-5.0); LYMPHOCYTES # 0.96 10^3/uL1 (1.0-4.8); LYMPHOCYTES % 22.9 % (24.0-44.0); MEAN CORP HGB 26.7 pg (26-34); MONOCYTES # 0.4 10^3/uL (0.3-0.8); MONOCYTES % 10.5 % (5.0-12.0); NEUTROPHIL # 2.4 10^3/uL (1.8-7.7); NEUTROPHILS % 57.5 % (41.0-85.0); PLATELET COUNT 310 10^3/uL (150-400); RED CELL DISTRIBUTION WIDTH 14.6 % (11.5-14.5)
--- NOTE | 2019-07-10 20:45 | NUR ---
Activated charcoal 50 gm placed in styrofoam cup and pt drank all of it without difficulty. SO @ bedside and assisted pt.
--- NOTE | 2019-07-10 21:05 | NUR ---
#20 gauge IV to right hand x one attempt. NS 1000 ml's started @ 1200 cc/hr. Toradol 30 mg IVP as ordered.
[2019-07-10 21:07] VITALS: BP 134/73
[2019-07-10 21:09] VITALS: BP 134/73
[2019-07-10 21:10] LABS: ALANINE AMINOTRANSFERASE(ML) 57 U/L (12-78); ALKALINE PHOSPHATASE 86 U/L (50-136); ASPARTATE AMINO TRANSFERASE 30 U/L (0-35); CALCIUM 9.3 mg/dL (8.4-10.5); CARBON DIOXIDE 31.4 mmol/L (20.0-32); GLUCOSE 109 mg/dL (70-110)
[2019-07-10 21:25] LABS: APPEARANCE,URINE CLEAR (CLEAR); BILIRUBIN,URINE NEGATIVE (NEGATIVE); UA COLOR YELLOW (YELLOW); UROBILINOGEN,URINE NORMAL (NEGATIVE)
--- NOTE | 2019-07-10 22:00 | NUR ---
Sleeping soundly. SO @ bedside.
--- NOTE | 2019-07-10 22:54 | NUR ---
Pt on phone raising her voice.
--- NOTE | 2019-07-10 23:36 | NUR ---
To bathroom with standby assist of and this RN. Drowsy and wobbly.
[2019-07-13 17:10] LABS: OPIATES Positive (.)
[2019-07-14 07:21] LABS: NORDIAZEPAM POSITIVE; NORDIAZEPAM GC/MS CONF 1308; OH-ALPRAZOLAM NEGATIVE; OXAZEPAM POSITIVE
[2019-07-14 07:22] LABS: CODEINE POSITIVE; CODEINE GC/MS CONF >2000 ng/mL; MORPHINE GC/MS CONF 1186 ng/mL
== END 2019-07-11 00:48 | disposition home or self-care (01) ==
LOC: ER 20:01
DX: T42.4X1A Poisoning by benzodiazepines, accidental (unintentional), initial encounter (principal); R51 Headache; I10 Essential (primary) hypertension; Z79.1 Long term (current) use of non-steroidal anti-inflammatories (NSAID); Z79.899 Other long term (current) drug therapy; Z88.0 Allergy status to penicillin; Z88.6 Allergy status to analgesic agent; Y92.89 Other specified places as the place of occurrence of the external cause
CPT/HCPCS: 36415; 80053; 80299 ×2; 80307; 80320; 80346; 81002; 82550; 82553; 84484; 85025; 93005; 96374; 99284; G0480; J1885; J7030

== ENCOUNTER 2019-07-12 01:12 | Emergency (ER) | payer SELFPAY ==
[~2019-07-12] VITALS: Ht 188 cm; Wt 108.9 kg
[2019-07-12 01:25] VITALS: BP 153/114
[2019-07-12] MEDS ORDERED: BENADRYL ONE (01:33)
[2019-07-12] MEDS ORDERED: TORADOL ONE (01:33)
[2019-07-12] MEDS ORDERED: HALDOL ONE (01:33)
[2019-07-12] MEDS ORDERED: BENADRYL IM STA (01:34)
[2019-07-12] MEDS ORDERED: HALDOL IM STA (01:34)
--- NOTE | 2019-07-12 01:41 | ER.PDOC ---
General Chief Complaint: Headache Stated Complaint: MIGRAINE Time seen by MD: 01:25 Source: patient Exam Limitations: no limitations History of Present Illness Initial Comments Pt c/o migraine ARTEAGA, similar to numerous other times. Started this evening, has cont'd tonight. Not different fromhis other ARTEAGA's in the past. no numbness, weakness, altered thought patterns or confusion, no neck pain or fevers. Severity/Quality: moderate Prior Headaches/Recent Trauma: frequent headaches, chronic headaches Associated Symptoms: denies symptoms Prior symptoms/Treatment: Similar symptoms previous (numerous times) Allergies: Coded Allergies: Penicillins (Verified Allergy, Unknown, UNK, 10/31/18) aspirin (Verified Allergy, Unknown, 10/31/18) Home Meds Reported Medications Escitalopram Oxalate (LEXAPRO) 10 Mg Tablet, 1 TAB PO DAILY, #90 TAB 3 Refills 06/25/14 Albuterol Sulfate (VENTOLIN HFA) 18 Gm Hfa.aer.ad, 18 GM IH Q4 PRN for COUGH 11/23/13 Fluticasone/Salmeterol (ADVAIR 250-50 DISKUS) 1 Each Disk.w.dev, 1 EACH IH DAILY 11/23/13 Past Medical History Medical History: GERD, hypertension Surgical History: no surgical history Social History Alcohol Use: none Drug Use: none Review of Systems Constitutional: no symptoms reported; denies fever, denies malaise, denies weakness Eyes: denies blindness, denies blurred vision; photophobia (b/l); denies vision change Ears, Nose, Mouth, Throat: no symptoms reported Respiratory: no symptoms reported Cardiovascular: no symptoms reported Gastrointestinal: no symptoms reported Musculoskeletal: no symptoms reported Skin: no symptoms reported Psychiatric/Neurological: see HPI, headache; denies numbness, denies pre- existing deficit, denies seizure, denies tingling, denies tremors, denies weakness All Other Systems: Reviewed and Negative Physical Exam General Appearance: No Apparent Distress, WD/WN ENT: nml ENT inspection, pharynx nml Neck: nml inspection, Supple Cardiovascular: Normal Peripheral Pulses, Regular Rate, Rhythm, No Edema, No Gallop, No Murmur Respiratory: chest non-tender, lungs clear, normal breath sounds, no respiratory distress Gastrointestinal: Normal Bowel Sounds Back: No Vertebral Tenderness Extremities: Normal Range of Motion, Normal Inspection, No Pedal Edema Psychiatric: Alert, Oriented x 3 Cranial Nerves: Normal Hearing, Normal Speech, PERRL Coordination/Gait: Normal Gait Motor/Sensory: No Motor Deficit, No Sensory Deficit Skin: Warm/Dry, Normal Color Lymphatic: No Adenopathy Results/Orders Results/Orders Orders - TESSIE BRADFORD DO Haloperidol Lactate (Haldol) (07/12/19 01:34) Diphenhydramine Hcl (Benadryl) (07/12/19 01:34) Ketorolac Tromethamine (Toradol) (07/12/19 02:00) Vital Signs Date Time Temp Pulse Resp B/P (MAP) Pulse Ox O2 Delivery O2 Flow Rate FiO2 07/12/19 01:25 97.9 95 16 07/12/19 01:25 97.9 95 16 95 07/12/19 01:25 97.9 95 16 153/114 (127) 95 Room Air Progress Progress Pt seen here last night fo benzo overdose after leaving ER because he was not given Dilaudid for his pain (per nursing). Will not give narcotics for chronic ARTEAGA's, will d/c home and have him f/u with PMD. Course Sepsis Screening Results: Posi: POSITIVE SEPSIS RISK Duration or Total Time Spent w: 30 min Vitals & review Data Vital Sign - Last 24 Hours 07/12/19 07/12/19 07/12/19 01:25 01:25 01:25 Temp 97.9 97.9 97.9 Pulse 95 95 95 Resp 16 16 16 B/P (MAP) 153/114 (127) Pulse Ox 95 95 O2 Delivery Room Air Sepsis Infection Criteria Pres: None O2 Sat by Pulse Oximetry: 95 Departure Time of Disposition: 01:41 Disposition: 01 HOME, SELF-CARE Impression: Primary Impression: Migraine Condition: Stable Referrals: JERI WEST (PCP) PRIMARY CARE PROVIDER Duration or Time Spent with Pa: 15 Problem Qualifiers Primary Impression: Migraine Migraine type: without aura Status migrainosus presence: without status migrainosus Intractability: not intractable Qualified Codes: G43.009 - Migraine without aura, not intractable, without status migrainosus TESSIE BRADFORD DO Jul 12, 2019 01:41
[2019-07-12 01:55] VITALS: BP 148/87
[2019-07-12] MEDS ORDERED: TORADOL IM ONE (02:00)
== END 2019-07-12 01:55 | disposition home or self-care (01) ==
LOC: ER 01:12
DX: G43.009 Migraine without aura, not intractable, without status migrainosus (principal); I10 Essential (primary) hypertension; K21.9 Gastro-esophageal reflux disease without esophagitis; Z79.899 Other long term (current) drug therapy; Z88.0 Allergy status to penicillin; Z88.6 Allergy status to analgesic agent
CPT/HCPCS: 96372; 99284; J1200; J1885; J1630

== ENCOUNTER 2019-07-17 00:17 | Emergency (ER) | payer SELFPAY ==
[~2019-07-17] VITALS: Ht 188 cm; Wt 113.4 kg
[2019-07-17 00:24] VITALS: BP 149/115
[2019-07-17 00:30] VITALS: BP 149/115
--- NOTE | 2019-07-17 00:32 | ER.PDOC ---
General Chief Complaint: Requesting Medical Care Stated Complaint: MIGRAINE Time seen by MD: 00:26 Source: patient Exam Limitations: no limitations History of Present Illness Initial Comments pt c/o headache c/w his "usual" headache, onset 1 week ago Timing/Duration: constant Severity/Quality: severe Prior Headaches/Recent Trauma: no recent headache/trauma Associated Symptoms: denies symptoms Prior symptoms/Treatment: Similar symptoms previous (pt has longstanding history of chronic/recurrent migraine headaches) Allergies: Coded Allergies: Penicillins (Verified Allergy, Unknown, UNK, 10/31/18) aspirin (Verified Allergy, Unknown, 10/31/18) Home Meds Reported Medications Escitalopram Oxalate (LEXAPRO) 10 Mg Tablet, 1 TAB PO DAILY, #90 TAB 3 Refills 06/25/14 Albuterol Sulfate (VENTOLIN HFA) 18 Gm Hfa.aer.ad, 18 GM IH Q4 PRN for COUGH 11/23/13 Fluticasone/Salmeterol (ADVAIR 250-50 DISKUS) 1 Each Disk.w.dev, 1 EACH IH DAILY 11/23/13 Past Medical History Medical History: GERD, hypertension, other (chronic migraine headaches) Surgical History: no surgical history Social History Drug Use: none Review of Systems Constitutional: no symptoms reported Eyes: no symptoms reported Ears, Nose, Mouth, Throat: no symptoms reported Respiratory: no symptoms reported Cardiovascular: no symptoms reported Gastrointestinal: no symptoms reported Musculoskeletal: no symptoms reported Skin: no symptoms reported Psychiatric/Neurological: headache Physical Exam General Appearance: No Apparent Distress (patient exhibits no evidence of di stress), WD/WN Head/Eyes: eyes nml inspection, no facial swelling, no nystagmus, PERRL Neck: nml inspection, Supple Cardiovascular: Regular Rate, Rhythm, No Murmur Respiratory: lungs clear, normal breath sounds, no respiratory distress, no accessory muscle use Gastrointestinal: Normal Bowel Sounds Psychiatric: Alert, Oriented x 3 Cranial Nerves: Normal Hearing, Normal Speech, PERRL Motor/Sensory: No Motor Deficit Skin: Warm/Dry, Normal Color Lymphatic: No Adenopathy Course Sepsis Screening Results: Posi: POSITIVE SEPSIS RISK Duration or Total Time Spent w: 15 Sepsis Infection Criteria Pres: None Departure Time of Disposition: 00:36 Disposition: 01 HOME, SELF-CARE Impression: Primary Impression: Migraine Condition: Stable Patient Instructions: Migraine Headache Referrals: JERI WEST (PCP) PRIMARY CARE PROVIDER Additional Instructions: Home to rest in a dark, quiet place. Follow up with your doctor. Return to ER for fever with headache, acute visual change or any other concerns. Duration or Time Spent with Pa: 5 minutes Problem Qualifiers Primary Impression: Migraine Migraine type: chronic without aura Status migrainosus presence: without status migrainosus Intractability: not intractable Qualified Codes: G43.709 - Chronic migraine without aura, not intractable, without status migrainosus GLADYS BLEVINS DO Jul 17, 2019 00:32
[2019-07-17] MEDS ORDERED: BENADRYL IM STA (00:33)
[2019-07-17] MEDS ORDERED: TORADOL IM STA (00:33)
[2019-07-17] MEDS ORDERED: PHENERGAN IM STA (00:33)
[2019-07-17] MEDS ORDERED: PHENERGAN ONE (00:38)
[2019-07-17] MEDS ORDERED: BENADRYL ONE (00:38)
[2019-07-17] MEDS ORDERED: TORADOL ONE (00:38)
[2019-07-17 00:54] VITALS: BP 122/47
--- NOTE | 2019-07-17 01:06 | NUR ---
PT REQUEST TO TALK TO BEFORE BEING DISCHARGED HOME. DR. BLEVINS IN PT ROOM AT THIS TIME.
== END 2019-07-17 01:12 | disposition home or self-care (01) ==
LOC: ER 00:17
DX: G43.709 Chronic migraine without aura, not intractable, without status migrainosus (principal); I10 Essential (primary) hypertension; K21.9 Gastro-esophageal reflux disease without esophagitis; Z79.899 Other long term (current) drug therapy; Z88.0 Allergy status to penicillin; Z88.6 Allergy status to analgesic agent
CPT/HCPCS: 96372; 99284; J1200; J1885; J2550

== ENCOUNTER 2019-07-18 18:59 | Emergency (ER) | payer SELFPAY ==
[~2019-07-18] VITALS: Ht 188 cm; Wt 113.4 kg
[2019-07-18 19:12] VITALS: BP 174/112
[2019-07-18 19:15] VITALS: BP 177/112
[2019-07-18 19:33] VITALS: BP 177/112
[2019-07-18] MEDS ORDERED: PHENERGAN IM STA (19:50)
--- NOTE | 2019-07-18 19:51 | ER.PDOC ---
General Chief Complaint: Headache Stated Complaint: MIGRAINE Time seen by MD: 19:48 Source: patient History of Present Illness Initial Comments Pt states he has had a migraine x 3 days, pt states it is the same migraine he always gets. Pt states he also has nausea and vomiting x 3 today Severity/Quality: moderate, constant, pressure Prior Headaches/Recent Trauma: no recent headache/trauma, frequent headaches Associated Symptoms: nausea/vomiting Allergies: Coded Allergies: Penicillins (Verified Allergy, Unknown, UNK, 10/31/18) aspirin (Verified Allergy, Unknown, 10/31/18) Home Meds Reported Medications Escitalopram Oxalate (LEXAPRO) 10 Mg Tablet, 1 TAB PO DAILY, #90 TAB 3 Refills 06/25/14 Albuterol Sulfate (VENTOLIN HFA) 18 Gm Hfa.aer.ad, 18 GM IH Q4 PRN for COUGH 11/23/13 Fluticasone/Salmeterol (ADVAIR 250-50 DISKUS) 1 Each Disk.w.dev, 1 EACH IH DAILY 11/23/13 Past Medical History Medical History: asthma, cancer, other Surgical History: cancer surgery Social History Smoking: cigarettes Alcohol Use: occassionally Drug Use: none Review of Systems Constitutional: no symptoms reported Eyes: no symptoms reported Ears, Nose, Mouth, Throat: no symptoms reported Respiratory: no symptoms reported Cardiovascular: no symptoms reported Gastrointestinal: see HPI Genitourinary: no symptoms reported Musculoskeletal: no symptoms reported Skin: no symptoms reported Psychiatric/Neurological: see HPI All Other Systems: Reviewed and Negative Physical Exam General Appearance: Mild Distress Head/Eyes: eyes nml inspection, no facial swelling, no nystagmus ENT: nml ENT inspection, pharynx nml Neck: nml inspection, Supple Cardiovascular: Normal Peripheral Pulses, Regular Rate, Rhythm, No Edema, No Gallop, No JVD, No Murmur Respiratory: chest non-tender, lungs clear, normal breath sounds, no respiratory distress, no accessory muscle use Gastrointestinal: Normal Bowel Sounds, No Organomegaly, No Pulsatile Mass, Non Tender Back: Normal Inspection, No CVA Tenderness Extremities: Normal Range of Motion, Non-Tender, Normal Inspection Psychiatric: Alert, Oriented x 3 Cranial Nerves: Normal Hearing, Normal Speech Coordination/Gait: Normal Finger to Nose, Normal Gait Motor/Sensory: No Motor Deficit, No Sensory Deficit Skin: Warm/Dry, Normal Color Results/Orders Results/Orders Orders - TRIMMIER,MARY A RECREATION SUPERINTENDENT Promethazine Hcl (Phenergan) (07/18/19 19:50) Ketorolac Tromethamine (Toradol) (07/18/19 19:55) Vital Signs Date Time Temp Pulse Resp B/P (MAP) Pulse Ox O2 Delivery O2 Flow Rate FiO2 07/18/19 20:04 170/100 (123) 07/18/19 19:33 97.7 88 20 07/18/19 19:15 97.7 88 20 177/112 (133) 96 Room Air 07/18/19 19:12 97.7 88 20 96 Course Sepsis Screening Results: Posi: POSITIVE SEPSIS RISK Duration or Total Time Spent w: 5 minutes Vitals & review Data Vital Sign - Last 24 Hours 07/18/19 07/18/19 07/18/19 07/18/19 19:12 19:15 19:33 20:04 Temp 97.7 97.7 97.7 Pulse 88 88 88 Resp 20 20 20 B/P (MAP) 177/112 (133) 170/100 (123) Pulse Ox 96 96 O2 Delivery Room Air Sepsis Infection Criteria Pres: None O2 Sat by Pulse Oximetry: 96 Departure Time of Disposition: 19:49 Disposition: 01 HOME, SELF-CARE Impression: Primary Impression: Migraine Condition: Stable Patient Instructions: Migraine Headache Referrals: JERI WEST (PCP) PRIMARY CARE PROVIDER Additional Instructions: Return if symptoms worsen. See PCP as needed. Duration or Time Spent with Pa: 15 minutes Return to Work/School Can a patient return to work?: No Can a patient return to school: No Problem Qualifiers Primary Impression: Migraine Migraine type: without aura Status migrainosus presence: with status migrainosus Intractability: intractable Qualified Codes: G43.011 - Migraine without aura, intractable, with status migrainosus MARY MORENO NP Jul 18, 2019 19:51
[2019-07-18] MEDS ORDERED: TORADOL IM STA (19:55)
[2019-07-18 20:04] VITALS: BP 170/100
== END 2019-07-18 20:03 | disposition home or self-care (01) ==
LOC: ER 18:59
DX: G43.011 Migraine without aura, intractable, with status migrainosus (principal); J45.909 Unspecified asthma, uncomplicated; Z88.0 Allergy status to penicillin; Z88.6 Allergy status to analgesic agent; Z79.899 Other long term (current) drug therapy
CPT/HCPCS: 96372; 99284; J1885; J2550

== ENCOUNTER 2019-07-19 10:09 | Emergency (ER) | payer SELFPAY ==
[~2019-07-19] VITALS: Ht 188 cm; Wt 113.4 kg
[2019-07-19 10:17] VITALS: BP 146/102
[2019-07-19 10:32] VITALS: BP 146/102
[2019-07-19] MEDS ORDERED: BENADRYL IM STA (10:39)
[2019-07-19] MEDS ORDERED: PHENERGAN IM STA (10:39)
[2019-07-19] MEDS ORDERED: TORADOL IM STA (10:39)
[2019-07-19] MEDS ORDERED: BENADRYL ONE (10:48)
--- NOTE | 2019-07-19 10:52 | ER.PDOC ---
General Chief Complaint: Headache Stated Complaint: MIGRAINE Time seen by MD: 10:20 Source: patient Exam Limitations: no limitations History of Present Illness Initial Comments Patient is still having migraine symptoms states things given here just don't work as well. He states he is having photophobia with aura that has been pretty intense for the last 3 days. He just wants to get some sleep. Severity/Quality: moderate Prior Headaches/Recent Trauma: no recent headache/trauma, frequent headaches, chronic headaches Associated Symptoms: sensitivity to light Modifying Factors: improves with exposure to light, improves with medication, improves with movement Prior symptoms/Treatment: Similar symptoms previous Allergies: Coded Allergies: Penicillins (Verified Allergy, Unknown, UNK, 10/31/18) aspirin (Verified Allergy, Unknown, 10/31/18) Home Meds Reported Medications Escitalopram Oxalate (LEXAPRO) 10 Mg Tablet, 1 TAB PO DAILY, #90 TAB 3 Refills 06/25/14 Albuterol Sulfate (VENTOLIN HFA) 18 Gm Hfa.aer.ad, 18 GM IH Q4 PRN for COUGH 11/23/13 Fluticasone/Salmeterol (ADVAIR 250-50 DISKUS) 1 Each Disk.w.dev, 1 EACH IH DAILY 11/23/13 Past Medical History Medical History: asthma Surgical History: other Social History Alcohol Use: none Drug Use: none Review of Systems Constitutional: weakness Eyes: photophobia Ears, Nose, Mouth, Throat: no symptoms reported Respiratory: no symptoms reported Cardiovascular: no symptoms reported Gastrointestinal: no symptoms reported Genitourinary: no symptoms reported Musculoskeletal: no symptoms reported Skin: no symptoms reported Psychiatric/Neurological: headache (migraine headache has hx of these) All Other Systems: Reviewed and Negative Physical Exam General Appearance: Mild Distress Head/Eyes: eyes nml inspection, no nystagmus, PERRL ENT: nml ENT inspection, pharynx nml Neck: nml inspection, Supple Cardiovascular: Regular Rate, Rhythm, No Edema, No Gallop, No JVD, No Murmur Respiratory: chest non-tender, lungs clear, normal breath sounds, no respiratory distress, no accessory muscle use Back: Normal Inspection, No CVA Tenderness Extremities: Normal Range of Motion Psychiatric: Alert, Oriented x 3 Cranial Nerves: Normal Hearing, Normal Speech, PERRL Coordination/Gait: Normal Finger to Nose, Normal Gait Skin: Warm/Dry, Normal Color Lymphatic: No Adenopathy Results/Orders Results/Orders Orders - LORENA ALSTON NP Ketorolac Tromethamine (Toradol) (07/19/19 10:39) Promethazine Hcl (Phenergan) (07/19/19 10:39) Diphenhydramine Hcl (Benadryl) (07/19/19 10:39) Diphenhydramine Hcl (Benadryl) (07/19/19 10:48) Vital Signs Date Time Temp Pulse Resp B/P (MAP) Pulse Ox O2 Delivery O2 Flow Rate FiO2 07/19/19 10:32 98.0 72 18 07/19/19 10:32 98.0 72 18 146/102 (117) 96 Room Air 07/19/19 10:17 98.0 72 18 96 Progress Progress Will administer Toradol 60mg, Benadryl 50mg and Compazine 50mg all IM for the Pt here today. Course Sepsis Screening Results: Posi: POSITIVE SEPSIS RISK Duration or Total Time Spent w: 15 minutes Vitals & review Data Vital Sign - Last 24 Hours 07/19/19 07/19/19 07/19/19 10:17 10:32 10:32 Temp 98.0 98.0 98.0 Pulse 72 72 72 Resp 18 18 18 B/P (MAP) 146/102 (117) Pulse Ox 96 96 O2 Delivery Room Air Sepsis Infection Criteria Pres: None O2 Sat by Pulse Oximetry: 96 Departure Time of Disposition: 11:06 Disposition: 01 HOME, SELF-CARE Impression: Primary Impression: Migraine aura, persistent, intractable, with status migrainosus Condition: Stable Patient Instructions: Migraine Headache, [id number] Referrals: JERI WEST (PCP) PRIMARY CARE PROVIDER Additional Instructions: Follow up with your Primary Care Provider in the next 1-2 days If symptoms become worse return to the ER Duration or Time Spent with Pa: 20min LORENA ALSTON NP Jul 19, 2019 10:52
== END 2019-07-19 11:10 | disposition home or self-care (01) ==
LOC: ER 10:09
DX: G43.511 Persistent migraine aura without cerebral infarction, intractable, with status migrainosus (principal); J45.909 Unspecified asthma, uncomplicated; Z79.899 Other long term (current) drug therapy; Z88.0 Allergy status to penicillin; Z88.6 Allergy status to analgesic agent
CPT/HCPCS: 96372; 99284; J1200

== ENCOUNTER 2019-07-20 13:33 | Emergency (ER) | payer SELFPAY ==
[~2019-07-20] VITALS: Ht 188 cm; Wt 113.4 kg
[2019-07-20 13:38] VITALS: BP 163/99
[2019-07-20 13:51] VITALS: BP 163/99
[2019-07-20] MEDS ORDERED: BENADRYL IM STA (14:07)
[2019-07-20] MEDS ORDERED: PHENERGAN IM STA ×3 (14:07→14:25)
[2019-07-20] MEDS ORDERED: BENADRYL ONE (14:20)
--- NOTE | 2019-07-20 14:40 | ER.PDOC ---
General Chief Complaint: Headache Stated Complaint: MIGRAINE Time seen by MD: 13:50 History of Present Illness Initial Comments Patient is in with complaint of migraine headache that is not better since yesterday he rates the pain at a ten. He is requesting Stadol for the pain, he states this has been given to him in the past. Discussed the treatment options with him with his input on what he feels works best. Instructed him to FU with PCP for further evaluation. Timing/Duration: 4-6 hours Severity/Quality: severe Prior Headaches/Recent Trauma: no recent headache/trauma Associated Symptoms: sensitivity to light, typical of prior aura Modifying Factors: improves with medication Allergies: Coded Allergies: Penicillins (Verified Allergy, Unknown, UNK, 10/31/18) aspirin (Verified Allergy, Unknown, 10/31/18) Home Meds Reported Medications Escitalopram Oxalate (LEXAPRO) 10 Mg Tablet, 1 TAB PO DAILY, #90 TAB 3 Refills 06/25/14 Albuterol Sulfate (VENTOLIN HFA) 18 Gm Hfa.aer.ad, 18 GM IH Q4 PRN for COUGH 11/23/13 Fluticasone/Salmeterol (ADVAIR 250-50 DISKUS) 1 Each Disk.w.dev, 1 EACH IH DAILY 11/23/13 Past Medical History Medical History: other Surgical History: other Social History Alcohol Use: none Drug Use: none Review of Systems Constitutional: no symptoms reported Eyes: no symptoms reported Ears, Nose, Mouth, Throat: no symptoms reported Respiratory: no symptoms reported Cardiovascular: no symptoms reported Gastrointestinal: no symptoms reported Genitourinary: no symptoms reported Musculoskeletal: no symptoms reported Skin: no symptoms reported Psychiatric/Neurological: see HPI, headache Physical Exam General Appearance: Mild Distress Head/Eyes: eyes nml inspection, no facial swelling, no nystagmus, PERRL ENT: nml ENT inspection, pharynx nml Neck: nml inspection, Supple Cardiovascular: Normal Peripheral Pulses, Regular Rate, Rhythm, No Edema, No Gallop, No JVD, No Murmur Respiratory: chest non-tender, lungs clear, normal breath sounds, no respiratory distress Gastrointestinal: Normal Bowel Sounds Psychiatric: Alert, Oriented x 3 Cranial Nerves: Normal Hearing, Normal Speech, PERRL Coordination/Gait: Normal Finger to Nose, Normal Gait Motor/Sensory: No Motor Deficit Skin: Warm/Dry, Normal Color Lymphatic: No Adenopathy Results/Orders Results/Orders Orders - LORENA ALSTON NP Diphenhydramine Hcl (Benadryl) (07/20/19 14:07) Diphenhydramine Hcl (Benadryl) (07/20/19 14:20) Promethazine Hcl (Phenergan) (07/20/19 14:25) Vital Signs Date Time Temp Pulse Resp B/P (MAP) Pulse Ox O2 Delivery O2 Flow Rate FiO2 07/20/19 13:51 98.5 90 18 07/20/19 13:51 98.5 90 18 163/99 (120) 98 07/20/19 13:38 98.5 90 18 98 Administered Medications Medications (Trade) Dose Ordered Sig/Jennifer Route PRN Reason Start Time Stop Time Status Last Admin Dose Admin Diphenhydramine HCl (Benadryl) 50 mg STAT STAT IM 07/20/19 14:07 07/20/19 14:11 DC 07/20/19 14:23 50 MG Promethazine HCl (Phenergan) 50 mg STAT STAT IM 07/20/19 14:25 07/20/19 14:27 DC 07/20/19 14:30 50 MG Progress Progress Pt given 50mg Benadryl IM and also Phenergan 50mg IM Course Sepsis Screening Results: Posi: POSITIVE SEPSIS RISK Duration or Total Time Spent w: 20min Vitals & review Data Vital Sign - Last 24 Hours 07/20/19 07/20/19 07/20/19 13:38 13:51 13:51 Temp 98.5 98.5 98.5 Pulse 90 90 90 Resp 18 18 18 B/P (MAP) 163/99 (120) Pulse Ox 98 98 Sepsis Infection Criteria Pres: None O2 Sat by Pulse Oximetry: 98 Departure Time of Disposition: 14:39 Disposition: 01 HOME, SELF-CARE Impression: Primary Impression: Headache Condition: Stable Patient Instructions: General Headache Without Cause, [id number] Referrals: JERI WEST (PCP) PRIMARY CARE PROVIDER Additional Instructions: Continue to alternate Tylenol and Motrin for fever and pain Follow up with your Primary Care Provider in the next 1-2 days If symptoms become worse return to the ER Duration or Time Spent with Pa: 20 min LORENA ALSTON NP Jul 20, 2019 14:40
== END 2019-07-20 14:43 | disposition home or self-care (01) ==
LOC: ER 13:33
DX: R51 Headache (principal); Z88.0 Allergy status to penicillin; Z88.6 Allergy status to analgesic agent; Z79.899 Other long term (current) drug therapy
CPT/HCPCS: 96372; 99284; J1200; J2550

== ENCOUNTER 2019-07-24 05:37 | Emergency (ER) | payer SELFPAY ==
[~2019-07-24] VITALS: Ht 188 cm; Wt 113.4 kg
[2019-07-24 05:42] VITALS: BP 137/114
--- NOTE | 2019-07-24 05:42 | NUR ---
ARRIVAL PATIENT PRESENTS WITH COMPLAINTS OF MIGRAINE FOR THE PAST TWO WEEKS. PATIENT STATES THAT HE WAS HERE 2-3 DAYS AGO FOR SAME AND WAS GIVEN MEDICATION AND PAIN EASED FOR A COUPLE OF HOURS. REPORTS THAT HE TOOK IBUPROFEN 800MG AT 0000. BP 137/114. DO FELICITY NOTIFIED.
[2019-07-24] MEDS ORDERED: TORADOL ONE (06:10)
[2019-07-24] MEDS ORDERED: TORADOL IM STA (06:11)
[2019-07-24 06:15] VITALS: BP 147/107
--- NOTE | 2019-07-24 06:15 | ER.PDOC ---
General Chief Complaint: Requesting Medical Care Stated Complaint: HEADACHE Time seen by MD: 06:08 Source: patient Exam Limitations: no limitations History of Present Illness Initial Comments pt c/o ongoing headache x 2 weeks; he has been seen multiple times without ever being relieved; he has no goat driver present Timing/Duration: constant, other (2 weeks) Severity/Quality: severe, constant Prior Headaches/Recent Trauma: chronic headaches Associated Symptoms: denies symptoms Prior symptoms/Treatment: Similar symptoms previous, Recenly Seen (here, multiple times) Allergies: Coded Allergies: Penicillins (Verified Allergy, Unknown, UNK, 10/31/18) aspirin (Verified Allergy, Unknown, 10/31/18) Home Meds Reported Medications Escitalopram Oxalate (LEXAPRO) 10 Mg Tablet, 1 TAB PO DAILY, #90 TAB 3 Refills 06/25/14 Albuterol Sulfate (VENTOLIN HFA) 18 Gm Hfa.aer.ad, 18 GM IH Q4 PRN for COUGH 11/23/13 Fluticasone/Salmeterol (ADVAIR 250-50 DISKUS) 1 Each Disk.w.dev, 1 EACH IH DAILY 11/23/13 Past Medical History Medical History: hypertension, other Surgical History: no surgical history Social History Alcohol Use: none Drug Use: none Review of Systems Constitutional: no symptoms reported Eyes: no symptoms reported Ears, Nose, Mouth, Throat: no symptoms reported Respiratory: no symptoms reported Cardiovascular: no symptoms reported Gastrointestinal: no symptoms reported Musculoskeletal: no symptoms reported Skin: no symptoms reported Psychiatric/Neurological: headache Physical Exam General Appearance: No Apparent Distress, WD/WN Head/Eyes: eyes nml inspection, no nystagmus, PERRL Neck: nml inspection, Supple Cardiovascular: Regular Rate, Rhythm Respiratory: lungs clear, normal breath sounds, no respiratory distress, no accessory muscle use Gastrointestinal: Normal Bowel Sounds Extremities: No Pedal Edema, No Calf Tenderness Cranial Nerves: Normal Hearing, Normal Speech, PERRL Skin: Warm/Dry, Normal Color Results/Orders Results/Orders Vital Signs Date Time Temp Pulse Resp B/P (MAP) Pulse Ox O2 Delivery O2 Flow Rate FiO2 07/24/19 05:42 97.7 90 18 Progress Progress Patient has no goat driver so we are limited to toradol only. Course Sepsis Screening Results: Posi: POSITIVE SEPSIS RISK Duration or Total Time Spent w: 20 min Vitals & review Data Vital Sign - Last 24 Hours 07/24/19 05:42 Temp 97.7 Pulse 90 Resp 18 Sepsis Infection Criteria Pres: None Departure Time of Disposition: 06:17 Disposition: 01 HOME, SELF-CARE Impression: Primary Impression: Headache Condition: Stable Patient Instructions: General Headache Without Cause Referrals: JERI WEST (PCP) PRIMARY CARE PROVIDER Additional Instructions: Follow up with your PCP for referral to neurologist. Duration or Time Spent with Pa: 5 min Problem Qualifiers Primary Impression: Headache Headache type: unspecified Headache chronicity pattern: chronic headache Intractability: intractable Qualified Codes: R51 - Headache GLADYS BLEVINS DO Jul 24, 2019 06:14
== END 2019-07-24 06:33 | disposition home or self-care (01) ==
LOC: ER 05:37
DX: R51 Headache (principal); I10 Essential (primary) hypertension; Z79.899 Other long term (current) drug therapy; Z88.0 Allergy status to penicillin; Z88.6 Allergy status to analgesic agent
CPT/HCPCS: 96372; 99284; J1885

== ENCOUNTER 2019-07-25 04:22 | Emergency (ER) | payer SELFPAY ==
[~2019-07-25] VITALS: Ht 188 cm; Wt 113.4 kg
[2019-07-25 04:32] VITALS: BP 165/105
--- NOTE | 2019-07-25 04:45 | NUR ---
DISCHARGE PATIENT DIDN'T WANT TO WAIT FOR DISCHARGE PAPERWORK
--- NOTE | 2019-07-25 04:53 | ER.PDOC ---
General Chief Complaint: Headache Stated Complaint: MIGRAINE Time seen by MD: 04:40 Source: patient Exam Limitations: no limitations History of Present Illness Initial Comments Pt c/o recurrent headache for years. States he has migraines. States his PCP is attempting to arrange followup with Neurologist. Pt has been seen in this ER 21 times in the past 2 months. Timing/Duration: other (2 weeks) Severity/Quality: severe Prior Headaches/Recent Trauma: frequent headaches, chronic headaches Associated Symptoms: sensitivity to light Modifying Factors: worse with exposure to light; improves with medication Prior symptoms/Treatment: Similar symptoms previous, Recenly Seen, Treated by Doctor Allergies: Coded Allergies: Penicillins (Verified Allergy, Unknown, UNK, 10/31/18) aspirin (Verified Allergy, Unknown, 10/31/18) Home Meds Reported Medications Escitalopram Oxalate (LEXAPRO) 10 Mg Tablet, 1 TAB PO DAILY, #90 TAB 3 Refills 06/25/14 Albuterol Sulfate (VENTOLIN HFA) 18 Gm Hfa.aer.ad, 18 GM IH Q4 PRN for COUGH 11/23/13 Fluticasone/Salmeterol (ADVAIR 250-50 DISKUS) 1 Each Disk.w.dev, 1 EACH IH DAILY 11/23/13 Past Medical History Medical History: hypertension, other (chronic recurrent headaches) Surgical History: no surgical history Social History Alcohol Use: none Drug Use: none Review of Systems Constitutional: no symptoms reported Eyes: no symptoms reported Ears, Nose, Mouth, Throat: no symptoms reported Respiratory: no symptoms reported Cardiovascular: no symptoms reported Gastrointestinal: no symptoms reported Genitourinary: no symptoms reported Musculoskeletal: no symptoms reported Skin: no symptoms reported Psychiatric/Neurological: headache Physical Exam General Appearance: No Apparent Distress, WD/WN Head/Eyes: eyes nml inspection, no facial swelling, no nystagmus, PERRL ENT: nml ENT inspection, pharynx nml Neck: nml inspection, Supple Cardiovascular: Normal Peripheral Pulses, Regular Rate, Rhythm, No Edema, No Gallop, No JVD, No Murmur Respiratory: chest non-tender, lungs clear, normal breath sounds, no respiratory distress, no accessory muscle use Gastrointestinal: Normal Bowel Sounds, No Organomegaly, No Pulsatile Mass, Non Tender, Soft Back: Normal Inspection, No CVA Tenderness, No Vertebral Tenderness Extremities: Normal Range of Motion, Non-Tender, Normal Inspection, No Pedal Edema, No Calf Tenderness, Normal Capillary Refill Psychiatric: Alert, Oriented x 3 Cranial Nerves: Normal Hearing, Normal Speech, PERRL Coordination/Gait: Normal Finger to Nose, Normal Gait Motor/Sensory: No Motor Deficit, No Sensory Deficit, No Pronator Drift, Negative Babinski's Sign Skin: Warm/Dry, Normal Color Lymphatic: No Adenopathy Results/Orders Results/Orders Vital Signs Date Time Temp Pulse Resp B/P (MAP) Pulse Ox O2 Delivery O2 Flow Rate FiO2 07/25/19 04:32 98.1 93 16 07/25/19 04:32 98.1 93 16 96 07/25/19 04:32 98.1 93 16 165/105 (125) 96 Room Air Progress Progress Explained to patient that his problem is chronic and not life-threatening. He is encouraged to follow up this AM with his PCP and discontinue seeking treatment at the ER several times per week. I will discharge the pt without treatment. Course Sepsis Screening Results: Posi: POSITIVE SEPSIS RISK Duration or Total Time Spent w: 5 min Vitals & review Data Vital Sign - Last 24 Hours 07/25/19 07/25/19 07/25/19 04:32 04:32 04:32 Temp 98.1 98.1 98.1 Pulse 93 93 93 Resp 16 16 16 B/P (MAP) 165/105 (125) Pulse Ox 96 96 O2 Delivery Room Air Sepsis Infection Criteria Pres: None O2 Sat by Pulse Oximetry: 96 Departure Time of Disposition: 04:50 Disposition: 01 HOME, SELF-CARE Impression: Primary Impression: Headache Additional Impression: Malingering Condition: Stable Referrals: JERI WEST (PCP) PRIMARY CARE PROVIDER Duration or Time Spent with Pa: 10 Problem Qualifiers Primary Impression: Headache Headache type: unspecified Headache chronicity pattern: chronic headache Intractability: not intractable Qualified Codes: R51 - Headache KENIA WHALEN MD Jul 25, 2019 04:53
== END 2019-07-25 04:45 | disposition home or self-care (01) ==
LOC: ER 04:22
DX: G43.909 Migraine, unspecified, not intractable, without status migrainosus (principal); I10 Essential (primary) hypertension; Z76.5 Malingerer [conscious simulation]; Z79.899 Other long term (current) drug therapy; Z88.0 Allergy status to penicillin; Z88.6 Allergy status to analgesic agent
CPT/HCPCS: 99281

== ENCOUNTER 2019-08-06 12:35 | Emergency (ER) | payer SELFPAY ==
[~2019-08-06] VITALS: Ht 188 cm; Wt 113.4 kg
[2019-08-06 12:42] VITALS: BP 156/99
--- NOTE | 2019-08-06 12:48 | NUR ---
[facility] PT TRIAGED AND TAKEN TO [facility].
[2019-08-06 12:51] VITALS: BP 156/99
--- NOTE | 2019-08-06 12:55 | ER.PDOC ---
General Chief Complaint: Headache Stated Complaint: HEAD ACHE Time seen by MD: 12:51 Source: patient Exam Limitations: no limitations History of Present Illness Initial Comments Pt states he has the usual migraine x 3 days. Pt states migraine pain is a 10 on a scale of 1-10. Pt states he is trying to follow up his PCP and a neurologist for follow up care for his chronic migraine, mild nausea, no vomiting Severity/Quality: severe, constant, stabbing Prior Headaches/Recent Trauma: chronic headaches Associated Symptoms: nausea/vomiting Allergies: Coded Allergies: Penicillins (Verified Allergy, Unknown, UNK, 10/31/18) aspirin (Verified Allergy, Unknown, 10/31/18) Home Meds Reported Medications Escitalopram Oxalate (LEXAPRO) 10 Mg Tablet, 1 TAB PO DAILY, #90 TAB 3 Refills 06/25/14 Albuterol Sulfate (VENTOLIN HFA) 18 Gm Hfa.aer.ad, 18 GM IH Q4 PRN for COUGH 11/23/13 Fluticasone/Salmeterol (ADVAIR 250-50 DISKUS) 1 Each Disk.w.dev, 1 EACH IH DAILY 11/23/13 Past Medical History Medical History: hypertension, other Surgical History: no surgical history Social History Drug Use: none Review of Systems Constitutional: no symptoms reported Eyes: no symptoms reported Ears, Nose, Mouth, Throat: no symptoms reported Respiratory: no symptoms reported Cardiovascular: no symptoms reported Gastrointestinal: no symptoms reported Genitourinary: no symptoms reported Musculoskeletal: no symptoms reported Skin: no symptoms reported Psychiatric/Neurological: see HPI All Other Systems: Reviewed and Negative Physical Exam General Appearance: Moderate Distress Head/Eyes: no facial swelling, no nystagmus, PERRL ENT: nml ENT inspection, pharynx nml Neck: nml inspection, Supple Cardiovascular: Normal Peripheral Pulses, Regular Rate, Rhythm, No Edema, No Gallop, No JVD, No Murmur Respiratory: chest non-tender, lungs clear, normal breath sounds, no respiratory distress, no accessory muscle use Gastrointestinal: Normal Bowel Sounds, No Organomegaly, No Pulsatile Mass, Non Tender Back: Normal Inspection, No CVA Tenderness Extremities: Normal Range of Motion, Non-Tender, Normal Inspection, No Pedal Edema, No Calf Tenderness, Normal Capillary Refill Psychiatric: Alert, Oriented x 3 Cranial Nerves: Normal Hearing, Normal Speech, PERRL Coordination/Gait: Normal Finger to Nose, Normal Gait, Negative Romberg's Sign Motor/Sensory: No Motor Deficit, No Sensory Deficit, No Pronator Drift Skin: Warm/Dry, Normal Color Lymphatic: No Adenopathy Results/Orders Results/Orders Orders - MARY MORENO NP Promethazine Hcl (Phenergan) (08/06/19 12:56) Ketorolac Tromethamine (Toradol) (08/06/19 12:56) Vital Signs Date Time Temp Pulse Resp B/P (MAP) Pulse Ox O2 Delivery O2 Flow Rate FiO2 08/06/19 12:51 98.0 71 18 08/06/19 12:51 98.0 71 18 156/99 (118) 97 Room Air 08/06/19 12:42 98.0 71 18 97 Course Sepsis Screening Results: Posi: POSITIVE SEPSIS RISK Duration or Total Time Spent w: 10 Vitals & review Data Vital Sign - Last 24 Hours 08/06/19 08/06/19 08/06/19 12:42 12:51 12:51 Temp 98.0 98.0 98.0 Pulse 71 71 71 Resp 18 18 18 B/P (MAP) 156/99 (118) Pulse Ox 97 97 O2 Delivery Room Air Sepsis Infection Criteria Pres: None O2 Sat by Pulse Oximetry: 97 Departure Time of Disposition: 13:30 Disposition: 01 HOME, SELF-CARE Impression: Primary Impression: Migraine Condition: Stable Patient Instructions: Recurrent Migraine Headache Referrals: JERI WEST (PCP) PRIMARY CARE PROVIDER Additional Instructions: Return if symptoms worsen. See PCP as needed, Liz at the bedside is driving the pt home Duration or Time Spent with Pa: 17 minutes Return to Work/School Can a patient return to work?: No Can a patient return to school: No Problem Qualifiers Primary Impression: Migraine Migraine type: without aura Status migrainosus presence: without status migrainosus Intractability: intractable Qualified Codes: G43.019 - He cassia without aura, intractable, without status migrainosus MARY MORENO NP Aug 06, 2019 12:55
[2019-08-06] MEDS ORDERED: PHENERGAN IM STA (12:56)
[2019-08-06] MEDS ORDERED: TORADOL IM STA (12:56)
[2019-08-06 13:20] VITALS: BP 138/98
== END 2019-08-06 13:20 | disposition home or self-care (01) ==
LOC: ER 12:35
DX: G43.019 Migraine without aura, intractable, without status migrainosus (principal); I10 Essential (primary) hypertension; Z79.899 Other long term (current) drug therapy; Z88.0 Allergy status to penicillin; Z88.6 Allergy status to analgesic agent
CPT/HCPCS: 96372; 99284; J1885; J2550

== ENCOUNTER 2019-09-04 14:48 | Emergency (ER) | payer SELFPAY ==
[~2019-09-04] VITALS: Ht 188 cm; Wt 113.4 kg
[2019-09-04 14:57] VITALS: BP 148/115
[2019-09-04] MEDS ORDERED: MAGNESIUM SULFATE 50 ML IV STA (14:59)
[2019-09-04] MEDS ORDERED: BENADRYL IV STA (14:59)
[2019-09-04] MEDS ORDERED: PHENERGAN IV STA (14:59)
[2019-09-04] MEDS ORDERED: PHENERGAN ONE (15:11)
[2019-09-04] MEDS ORDERED: MAGNESIUM SULFATE 50 ML IV ONE (15:11)
[2019-09-04] MEDS ORDERED: BENADRYL ONE (15:11)
[2019-09-04] MEDS ORDERED: NS 100ML 100 ML IV ONE (15:14)
[2019-09-04] MEDS ORDERED: TORADOL IV STA (15:31)
[2019-09-04] MEDS ORDERED: TORADOL ONE (15:33)
--- NOTE | 2019-09-04 15:38 | ER.PDOC ---
General Chief Complaint: Headache Stated Complaint: HEADACHE Time seen by MD: 16:15 Source: patient Exam Limitations: no limitations History of Present Illness Initial Comments Patient states he has had a migraine for several days and is not getting any relief. He has history of migraines. Timing/Duration: 1 week Severity/Quality: moderate Prior Headaches/Recent Trauma: chronic headaches Modifying Factors: improves with exposure to light, improves with medication, improves with movement Allergies: Coded Allergies: Penicillins (Verified Allergy, Unknown, UNK, 10/31/18) aspirin (Verified Allergy, Unknown, 10/31/18) Home Meds Reported Medications Escitalopram Oxalate (LEXAPRO) 10 Mg Tablet, 1 TAB PO DAILY, #90 TAB 3 Refills 06/25/14 Albuterol Sulfate (VENTOLIN HFA) 18 Gm Hfa.aer.ad, 18 GM IH Q4 PRN for COUGH 11/23/13 Fluticasone/Salmeterol (ADVAIR 250-50 DISKUS) 1 Each Disk.w.dev, 1 EACH IH DAILY 11/23/13 Past Medical History Medical History: asthma, cardiac problems Surgical History: other Social History Alcohol Use: none Drug Use: none Review of Systems Constitutional: no symptoms reported Eyes: no symptoms reported Ears, Nose, Mouth, Throat: no symptoms reported Respiratory: no symptoms reported Cardiovascular: no symptoms reported Gastrointestinal: no symptoms reported Genitourinary: no symptoms reported Musculoskeletal: no symptoms reported Skin: no symptoms reported Psychiatric/Neurological: headache Physical Exam General Appearance: WD/WN, Mild Distress Head/Eyes: eyes nml inspection ENT: nml ENT inspection Neck: nml inspection Cardiovascular: Regular Rate, Rhythm, No Edema, No Gallop, No JVD, No Murmur Respiratory: chest non-tender, lungs clear, normal breath sounds, no respiratory distress Gastrointestinal: Normal Bowel Sounds Extremities: Normal Range of Motion Psychiatric: Alert, Oriented x 3 Cranial Nerves: Normal Hearing, Normal Speech, PERRL Motor/Sensory: No Motor Deficit, No Sensory Deficit Skin: Warm/Dry, Normal Color Lymphatic: No Adenopathy Results/Orders Results/Orders Orders - LORENA ALSTON NP Magnesium 2 Gm/Water 50ml (Magnesium Sul (09/04/19 14:59) Diphenhydramine Hcl (Benadryl) (09/04/19 14:59) Promethazine Hcl (Phenergan) (09/04/19 14:59) Ketorolac Tromethamine (Toradol) (09/04/19 15:31) Vital Signs Date Time Temp Pulse Resp B/P (MAP) Pulse Ox O2 Delivery O2 Flow Rate FiO2 09/04/19 14:57 98.2 77 18 148/115 (126) 98 09/04/19 14:57 98.2 77 18 97 Administered Medications Medications (Trade) Dose Ordered Sig/Jennifer Route PRN Reason Start Time Stop Time Status Last Admin Dose Admin Diphenhydramine HCl (Benadryl) 25 mg STAT STAT IV 09/04/19 14:59 09/04/19 15:03 DC 09/04/19 15:28 25 MG Magnesium Sulfate 50 ml @ 50 mls/hr OT STAT IV 09/04/19 14:59 09/04/19 15:58 09/04/19 15:28 50 MLS/HR Promethazine HCl (Phenergan) 25 mg Q6H STAT IV 09/04/19 14:59 09/04/19 15:03 DC 09/04/19 15:29 25 MG Departure Disposition: 01 HOME, SELF-CARE Impression: Primary Impression: Migraine Condition: Stable Patient Instructions: Migraine Headache, [id number] Referrals: JERI WEST (PCP) PRIMARY CARE PROVIDER Additional Instructions: Follow up with your Primary Care Provider in the next 1-2 days May take Tylenol and Ibuprofen as directed for fever and pain Return to the ER with worsening symptoms Duration or Time Spent with Pa: 20 min LORENA ALSTON NP Sep 04, 2019 15:38
== END 2019-09-04 16:00 | disposition home or self-care (01) ==
LOC: ER 14:48
DX: G43.909 Migraine, unspecified, not intractable, without status migrainosus (principal)
CPT/HCPCS: 96365; 96375; 99284; J1200; J1885; J2550; J3475; J7050

== ENCOUNTER 2019-09-06 12:22 | Emergency (ER) | payer SELFPAY ==
[~2019-09-06] VITALS: Ht 188 cm; Wt 113.4 kg
[2019-09-06 12:35] VITALS: BP 146/89
--- NOTE | 2019-09-06 12:35 | NUR ---
Arrival Pt arrived to ED with complaint of migraine headache. Pt was seen on Wednesday for headache and treated for a migraine. Bedside monitor applied, call light in reach
[2019-09-06 12:45] VITALS: BP 146/89
[2019-09-06] MEDS ORDERED: BENADRYL IM STA (12:58)
[2019-09-06] MEDS ORDERED: PHENERGAN IM STA (12:58)
[2019-09-06] MEDS ORDERED: TORADOL IM STA (12:58)
--- NOTE | 2019-09-06 12:58 | ER.PDOC ---
General Chief Complaint: Headache Stated Complaint: HEADACHE Time seen by MD: 12:50 Source: patient History of Present Illness Initial Comments the usual migraine x 3 days, no nausea and vomiting, no vision problems, pt was seen in the ER 3 days ago for the same migraine Timing/Duration: other Severity/Quality: moderate Associated Symptoms: denies symptoms Allergies: Coded Allergies: Penicillins (Verified Allergy, Unknown, UNK, 10/31/18) aspirin (Verified Allergy, Unknown, 10/31/18) Home Meds Reported Medications Escitalopram Oxalate (LEXAPRO) 10 Mg Tablet, 1 TAB PO DAILY, #90 TAB 3 Refills 06/25/14 Albuterol Sulfate (VENTOLIN HFA) 18 Gm Hfa.aer.ad, 18 GM IH Q4 PRN for COUGH 11/23/13 Fluticasone/Salmeterol (ADVAIR 250-50 DISKUS) 1 Each Disk.w.dev, 1 EACH IH DAILY 11/23/13 Past Medical History Medical History: asthma, cardiac problems Surgical History: other Family History Significant Family History: other Social History Smoking: other Alcohol Use: none Drug Use: none Review of Systems Constitutional: no symptoms reported Eyes: no symptoms reported Ears, Nose, Mouth, Throat: no symptoms reported Respiratory: no symptoms reported Cardiovascular: no symptoms reported Gastrointestinal: no symptoms reported Genitourinary: no symptoms reported Musculoskeletal: no symptoms reported Skin: no symptoms reported Psychiatric/Neurological: see HPI All Other Systems: Reviewed and Negative Physical Exam General Appearance: Mild Distress Head/Eyes: no facial swelling ENT: nml ENT inspection, pharynx nml Neck: nml inspection, Supple Cardiovascular: Normal Peripheral Pulses, Regular Rate, Rhythm, No Edema, No Gallop, No JVD, No Murmur Respiratory: chest non-tender, lungs clear, normal breath sounds, no respiratory distress, no accessory muscle use Gastrointestinal: Normal Bowel Sounds, No Organomegaly, No Pulsatile Mass, Non Tender Back: Normal Inspection, No CVA Tenderness Extremities: Normal Range of Motion, Non-Tender, Normal Inspection, No Pedal Edema, No Calf Tenderness, Normal Capillary Refill Psychiatric: Alert, Oriented x 3 Cranial Nerves: Normal Hearing, Normal Speech Coordination/Gait: Normal Finger to Nose, Normal Gait Motor/Sensory: No Motor Deficit, No Sensory Deficit, No Pronator Drift Skin: Warm/Dry, Normal Color Lymphatic: No Adenopathy Comments Pt refused perrla exam Results/Orders Results/Orders Orders - MARY MORENO STRAIGHT KNIFE MACHINE CUTTER Ketorolac Tromethamine (Toradol) (09/06/19 12:58) Promethazine Hcl (Phenergan) (09/06/19 12:58) Diphenhydramine Hcl (Benadryl) (09/06/19 12:58) Diphenhydramine Hcl (Benadryl) (09/06/19 13:02) Ketorolac Tromethamine (Toradol) (09/06/19 13:02) Promethazine Hcl (Phenergan) (09/06/19 13:03) Vital Signs Date Time Temp Pulse Resp B/P (MAP) Pulse Ox O2 Delivery O2 Flow Rate FiO2 09/06/19 12:45 98.8 86 22 146/89 (108) 98 Room Air 09/06/19 12:35 98.8 86 22 98 09/06/19 12:35 98.8 86 22 Administered Medications Medications (Trade) Dose Ordered Sig/Jennifer Route PRN Reason Start Time Stop Time Status Last Admin Dose Admin Diphenhydramine HCl (Benadryl) 25 mg STAT STAT IM 09/06/19 12:58 09/06/19 13:01 DC 09/06/19 13:16 25 MG Ketorolac Tromethamine (Toradol) 60 mg OT STAT IM 09/06/19 12:58 09/06/19 13:01 DC 09/06/19 13:17 60 MG Promethazine HCl (Phenergan) 25 mg STAT STAT IM 09/06/19 12:58 09/06/19 13:01 DC 09/06/19 13:17 25 MG Progress Progress I discussed signs and symptoms, treatment and discharge with Dr Calix today Departure Time of Disposition: 13:25 Disposition: 01 HOME, SELF-CARE Impression: Primary Impression: Migraine Condition: Stable Patient Instructions: Recurrent Migraine Headache, [id number] Referrals: JERI WEST (PCP) PRIMARY CARE PROVIDER Duration or Time Spent with Pa: 16 monutes Return to Work/School Can a patient return to work?: No Can a patient return to school: No Problem Qualifiers Primary Impression: Migraine Migraine type: unspecified Status migrainosus presence: with status fatemeh rainosus Intractability: not intractable Qualified Codes: G43.901 - Migraine, unspecified, not intractable, with status migrainosus MARY MORENO NP Sep 06, 2019 12:58
[2019-09-06] MEDS ORDERED: BENADRYL ONE (13:02)
[2019-09-06] MEDS ORDERED: TORADOL ONE (13:02)
[2019-09-06] MEDS ORDERED: PHENERGAN ONE (13:03)
== END 2019-09-06 13:25 | disposition home or self-care (01) ==
LOC: ER 12:22
DX: G43.901 Migraine, unspecified, not intractable, with status migrainosus (principal); J45.909 Unspecified asthma, uncomplicated; Z79.1 Long term (current) use of non-steroidal anti-inflammatories (NSAID); Z79.899 Other long term (current) drug therapy; Z88.0 Allergy status to penicillin; Z88.6 Allergy status to analgesic agent
CPT/HCPCS: 96372; 99284; J1200; J1885; J2550

== ENCOUNTER 2019-09-11 13:20 | Emergency (ER) | payer SELFPAY ==
[~2019-09-11] VITALS: Ht 188 cm; Wt 113.4 kg
[2019-09-11 13:33] VITALS: BP 134/84
[2019-09-11] MEDS ORDERED: ZOFRAN ODT SL STA (13:34)
[2019-09-11] MEDS ORDERED: TORADOL IM STA (13:34)
--- NOTE | 2019-09-11 13:34 | ER.PDOC ---
General Chief Complaint: Requesting Medical Care Stated Complaint: MIGRAINE Time seen by MD: 13:35 Source: patient Exam Limitations: no limitations History of Present Illness Initial Comments Pt states he is having the usual migraine today with nausea, pt states he ate pop tarts this am Severity/Quality: moderate Prior Headaches/Recent Trauma: no recent headache/trauma, chronic headaches Associated Symptoms: nausea/vomiting Modifying Factors: improves with exposure to light Allergies: Coded Allergies: Penicillins (Verified Allergy, Unknown, UNK, 10/31/18) aspirin (Verified Allergy, Unknown, 10/31/18) Home Meds Reported Medications Escitalopram Oxalate (LEXAPRO) 10 Mg Tablet, 1 TAB PO DAILY, #90 TAB 3 Refills 06/25/14 Albuterol Sulfate (VENTOLIN HFA) 18 Gm Hfa.aer.ad, 18 GM IH Q4 PRN for COUGH 11/23/13 Fluticasone/Salmeterol (ADVAIR 250-50 DISKUS) 1 Each Disk.w.dev, 1 EACH IH DAILY 11/23/13 Past Medical History Medical History: asthma, cardiac problems, other Surgical History: other Social History Drug Use: none Review of Systems Constitutional: no symptoms reported Eyes: no symptoms reported Ears, Nose, Mouth, Throat: no symptoms reported Respiratory: no symptoms reported Cardiovascular: no symptoms reported Gastrointestinal: no symptoms reported Genitourinary: no symptoms reported Musculoskeletal: no symptoms reported Skin: no symptoms reported Psychiatric/Neurological: see HPI All Other Systems: Reviewed and Negative Physical Exam General Appearance: No Apparent Distress Head/Eyes: no facial swelling, no nystagmus ENT: nml ENT inspection, pharynx nml Neck: nml inspection, Supple Cardiovascular: Normal Peripheral Pulses, Regular Rate, Rhythm, No Edema, No Gallop, No JVD, No Murmur Respiratory: chest non-tender, lungs clear, normal breath sounds, no respiratory distress, no accessory muscle use Gastrointestinal: Normal Bowel Sounds, No Organomegaly, Non Tender Back: Normal Inspection, No CVA Tenderness Extremities: Normal Range of Motion, Non-Tender, Normal Inspection, No Pedal Edema, No Calf Tenderness, Normal Capillary Refill Psychiatric: Alert Cranial Nerves: Normal Hearing, Normal Speech, PERRL Coordination/Gait: Normal Finger to Nose, Normal Gait Motor/Sensory: No Motor Deficit, No Sensory Deficit Skin: Warm/Dry, Normal Color Lymphatic: No Adenopathy Results/Orders Results/Orders Orders - MARY MORENO SHEET MANAGER Ketorolac Tromethamine (Toradol) (09/11/19 13:34) Ondansetron (Zofran Odt) (09/11/19 13:34) Ondansetron (Zofran Odt) (09/11/19 13:41) Ketorolac Tromethamine (Toradol) (09/11/19 13:41) Vital Signs Date Time Temp Pulse Resp B/P (MAP) Pulse Ox O2 Delivery O2 Flow Rate FiO2 09/11/19 13:37 98.0 107 20 09/11/19 13:36 98.0 107 20 134/84 (101) Room Air 09/11/19 13:33 98.0 107 20 95 Administered Medications Medications (Trade) Dose Ordered Sig/Jennifer Route PRN Reason Start Time Stop Time Status Last Admin Dose Admin Ketorolac Tromethamine (Toradol) 30 mg OT STAT IM 09/11/19 13:34 09/11/19 13:35 DC 09/11/19 13:44 30 MG Ondansetron HCl (Zofran Odt) 4 mg OT STAT SL 09/11/19 13:34 09/11/19 13:35 DC 09/11/19 13:44 4 MG Departure Time of Disposition: 14:00 Disposition: 01 HOME, SELF-CARE Impression: Primary Impression: Migraine Condition: Stable Patient Instructions: Recurrent Migraine Headache Referrals: JERI WEST (PCP) PRIMARY CARE PROVIDER Additional Instructions: Return if symptoms worsen. See PCP as needed. Duration or Time Spent with Pa: 15 minutes Return to Work/School Can a patient return to work?: No Can a patient return to school: No Problem Qualifiers Primary Impression: Migraine Migraine type: unspecified Status migrainosus presence: without status migrainosus Intractability: not intractable Qualified Codes: G43.909 - Migraine, unspecified, not intractable, without status migrainosus MARY MORENO NP Sep 11, 2019 13:33
[2019-09-11 13:36] VITALS: BP 134/84
[2019-09-11 13:37] VITALS: BP 134/84
[2019-09-11] MEDS ORDERED: ZOFRAN ODT ONE (13:41)
[2019-09-11] MEDS ORDERED: TORADOL ONE (13:41)
== END 2019-09-11 14:00 | disposition home or self-care (01) ==
LOC: ER 13:20
DX: G43.909 Migraine, unspecified, not intractable, without status migrainosus (principal); J45.909 Unspecified asthma, uncomplicated; Z79.1 Long term (current) use of non-steroidal anti-inflammatories (NSAID); Z79.899 Other long term (current) drug therapy; Z88.0 Allergy status to penicillin; Z88.6 Allergy status to analgesic agent
CPT/HCPCS: 96372; 99283; J1885; Q0162

== ENCOUNTER 2019-09-19 20:47 | Emergency (ER) | payer SELFPAY ==
[~2019-09-19] VITALS: Ht 177.8 cm; Wt 81.6 kg
[2019-09-19] MEDS ORDERED: PHENERGAN IM STA (21:20)
[2019-09-19] MEDS ORDERED: BENADRYL IM STA (21:20)
[2019-09-19] MEDS ORDERED: TORADOL IM STA (21:20)
[2019-09-19] MEDS ORDERED: TORADOL ONE (21:23)
[2019-09-19] MEDS ORDERED: BENADRYL ONE (21:24)
[2019-09-19] MEDS ORDERED: PHENERGAN ONE (21:25)
[2019-09-19 21:43] VITALS: BP 156/96
[2019-09-19 21:47] VITALS: BP 156/96
--- NOTE | 2019-09-19 21:48 | ER.PDOC ---
General Chief Complaint: Requesting Medical Care Stated Complaint: MIGRAINE Time seen by MD: 21:40 Source: patient Exam Limitations: no limitations History of Present Illness Initial Comments Patient is in today with migraine headache he is unable to sleep and rates his pain 10 out of 10. No injury patient states he has a history of headache. Prior Headaches/Recent Trauma: no recent headache/trauma, chronic headaches Associated Symptoms: denies symptoms Allergies: Coded Allergies: Penicillins (Verified Allergy, Unknown, UNK, 10/31/18) aspirin (Verified Allergy, Unknown, 10/31/18) Home Meds Reported Medications Escitalopram Oxalate (LEXAPRO) 10 Mg Tablet, 1 TAB PO DAILY, #90 TAB 3 Refills 06/25/14 Albuterol Sulfate (VENTOLIN HFA) 18 Gm Hfa.aer.ad, 18 GM IH Q4 PRN for COUGH 11/23/13 Fluticasone/Salmeterol (ADVAIR 250-50 DISKUS) 1 Each Disk.w.dev, 1 EACH IH DAILY 11/23/13 Past Medical History Medical History: asthma, cardiac problems, other Surgical History: other Social History Drug Use: none Review of Systems Constitutional: no symptoms reported Eyes: photophobia Ears, Nose, Mouth, Throat: no symptoms reported Respiratory: no symptoms reported Cardiovascular: no symptoms reported Gastrointestinal: no symptoms reported Genitourinary: no symptoms reported Musculoskeletal: no symptoms reported Skin: no symptoms reported Psychiatric/Neurological: no symptoms reported Physical Exam General Appearance: Mild Distress Head/Eyes: eyes nml inspection, no facial swelling, no nystagmus, PERRL ENT: nml ENT inspection, pharynx nml Neck: nml inspection, Supple Cardiovascular: Normal Peripheral Pulses, Regular Rate, Rhythm, No Edema, No Gallop, No JVD, No Murmur Respiratory: chest non-tender, lungs clear, normal breath sounds, no respiratory distress, no accessory muscle use Gastrointestinal: Normal Bowel Sounds Back: Normal Inspection, No CVA Tenderness Extremities: Normal Range of Motion, Non-Tender, Normal Inspection, No Pedal Edema Psychiatric: Alert, Oriented x 3 Cranial Nerves: Normal Hearing, Normal Speech, PERRL Coordination/Gait: Normal Finger to Nose, Normal Gait Motor/Sensory: No Motor Deficit, No Sensory Deficit Skin: Warm/Dry, Normal Color Lymphatic: No Adenopathy Results/Orders Results/Orders Orders - LORENA ALSTON NP Ketorolac Tromethamine (Toradol) (09/19/19 21:20) Diphenhydramine Hcl (Benadryl) (09/19/19 21:20) Promethazine Hcl (Phenergan) (09/19/19 21:20) Departure Time of Disposition: 21:47 Disposition: 01 HOME, SELF-CARE Impression: Primary Impression: FH: migraine headache Condition: Stable Patient Instructions: Migraine Headache, [id number] Referrals: JERI WEST (PCP) PRIMARY CARE PROVIDER Additional Instructions: Follow up with your primary care provider in the next 1-2 days. Return to ER if symptoms worsen May use Tylenol for fever and pain as directed Duration or Time Spent with Pa: 20 min LORENA ALSTON NP Sep 19, 2019 21:48
== END 2019-09-19 21:50 | disposition home or self-care (01) ==
LOC: ER 20:47
DX: G43.909 Migraine, unspecified, not intractable, without status migrainosus (principal); H53.149 Visual discomfort, unspecified; Z88.0 Allergy status to penicillin; Z88.6 Allergy status to analgesic agent; Z79.899 Other long term (current) drug therapy
CPT/HCPCS: 99281; J1200; J1885; J2550

== ENCOUNTER 2019-09-22 22:58 | Emergency (ER) | payer SELFPAY ==
[~2019-09-22] VITALS: Ht 188 cm; Wt 113.4 kg
[2019-09-22 23:22] VITALS: BP 156/96
[2019-09-22] MEDS ORDERED: TORADOL ONE (23:43)
[2019-09-22] MEDS ORDERED: PHENERGAN ONE (23:44)
[2019-09-22] MEDS ORDERED: PHENERGAN IM STA (23:46)
--- NOTE | 2019-09-22 23:49 | ER.PDOC ---
General Chief Complaint: Headache Stated Complaint: MIGRAINE Time seen by MD: 23:40 Source: patient Exam Limitations: no limitations History of Present Illness Initial Comments Pt states headache located at caput x 1 week. Has had 26 previous er visits this year for same Timing/Duration: 1 week Severity/Quality: moderate Prior Headaches/Recent Trauma: frequent headaches, chronic headaches Associated Symptoms: denies symptoms Modifying Factors: improves with medication (Tylenol 4) Prior symptoms/Treatment: Similar symptoms previous, Recenly Seen, Treated by Doctor Allergies: Coded Allergies: Penicillins (Verified Allergy, Unknown, UNK, 10/31/18) aspirin (Verified Allergy, Unknown, 10/31/18) Home Meds Reported Medications Escitalopram Oxalate (LEXAPRO) 10 Mg Tablet, 1 TAB PO DAILY, #90 TAB 3 Refills 06/25/14 Albuterol Sulfate (VENTOLIN HFA) 18 Gm Hfa.aer.ad, 18 GM IH Q4 PRN for COUGH 11/23/13 Fluticasone/Salmeterol (ADVAIR 250-50 DISKUS) 1 Each Disk.w.dev, 1 EACH IH DAILY 11/23/13 Past Medical History Medical History: cardiac problems, other (Chronic headaches) Surgical History: no surgical history Social History Alcohol Use: none Drug Use: none Review of Systems Constitutional: no symptoms reported Eyes: no symptoms reported Ears, Nose, Mouth, Throat: no symptoms reported Respiratory: no symptoms reported Cardiovascular: no symptoms reported Gastrointestinal: no symptoms reported Genitourinary: no symptoms reported Musculoskeletal: no symptoms reported Skin: no symptoms reported Psychiatric/Neurological: headache Physical Exam General Appearance: No Apparent Distress, WD/WN Head/Eyes: eyes nml inspection, no facial swelling, no nystagmus, PERRL ENT: nml ENT inspection, pharynx nml Neck: nml inspection, Supple Cardiovascular: Normal Peripheral Pulses, Regular Rate, Rhythm, No Edema, No Gallop, No JVD, No Murmur Respiratory: chest non-tender, lungs clear, normal breath sounds, no respiratory distress, no accessory muscle use Gastrointestinal: Normal Bowel Sounds, No Organomegaly, No Pulsatile Mass, Non Tender, Soft Back: Normal Inspection, No CVA Tenderness, No Vertebral Tenderness Extremities: Normal Range of Motion, Non-Tender, Normal Inspection, No Pedal Edema, No Calf Tenderness, Normal Capillary Refill Psychiatric: Alert, Oriented x 3 Cranial Nerves: Normal Hearing, Normal Speech, PERRL Coordination/Gait: Normal Finger to Nose, Normal Gait Motor/Sensory: No Motor Deficit, No Sensory Deficit, No Pronator Drift, Negat lakeisha Babinski's Sign Skin: Warm/Dry, Normal Color Lymphatic: No Adenopathy Results/Orders Results/Orders Vital Signs Date Time Temp Pulse Resp B/P (MAP) Pulse Ox O2 Delivery O2 Flow Rate FiO2 09/22/19 23:22 98.1 95 16 09/22/19 23:22 98.1 95 16 98 09/22/19 23:22 98.1 95 16 156/96 (116) 98 Room Air Departure Time of Disposition: 23:48 Disposition: 01 HOME, SELF-CARE Impression: Primary Impression: Headache Condition: Stable Referrals: JERI WEST (PCP) PRIMARY CARE PROVIDER Additional Instructions: Follow up PCP Duration or Time Spent with Pa: 10 KENIA WHALEN MD September 22, 2019 23:49
[2019-09-23] MEDS ORDERED: TORADOL IM ONE
== END 2019-09-23 00:05 | disposition home or self-care (01) ==
LOC: ER 22:58
DX: G43.909 Migraine, unspecified, not intractable, without status migrainosus (principal); Z88.0 Allergy status to penicillin; Z88.6 Allergy status to analgesic agent; Z79.899 Other long term (current) drug therapy; Z79.51 Long term (current) use of inhaled steroids
CPT/HCPCS: 96372; 99284; J1885; J2550

== ENCOUNTER 2019-09-29 17:16 | Emergency (ER) | payer SELFPAY ==
[~2019-09-29] VITALS: Ht 188 cm; Wt 113.4 kg
[2019-09-29 17:51] VITALS: BP 132/84
[2019-09-29 17:56] VITALS: BP 132/84
[2019-09-29 18:24] LABS: BILIRUBIN,URINE NEGATIVE (NEGATIVE); UROBILINOGEN,URINE NORMAL (NEGATIVE)
[2019-09-29 18:25] LABS: APPEARANCE,URINE CLEAR (CLEAR); UA COLOR YELLOW (YELLOW)
--- NOTE | 2019-09-29 18:26 | ER.PDOC ---
General Chief Complaint: Male Stated Complaint: MALE Time seen by MD: 18:20 Source: patient Exam Limitations: no limitations History of Present Illness Initial Comments Pt states today he has painful urination x 2 days. Pt denies fever, diarrhea, ABD pain, back pain and or nausea and vomiting, pt denies STD exposure Timing/Duration: other Severity/Quality: mild Associated Symptoms: Dysuria Allergies: Coded Allergies: Penicillins (Verified Allergy, Unknown, UNK, 10/31/18) aspirin (Verified Allergy, Unknown, 10/31/18) Home Meds Reported Medications Escitalopram Oxalate (LEXAPRO) 10 Mg Tablet, 1 TAB PO DAILY, #90 TAB 3 Refills 06/25/14 Albuterol Sulfate (VENTOLIN HFA) 18 Gm Hfa.aer.ad, 18 GM IH Q4 PRN for COUGH 11/23/13 Fluticasone/Salmeterol (ADVAIR 250-50 DISKUS) 1 Each Disk.w.dev, 1 EACH IH DAILY 11/23/13 Past Medical History Medical History: cardiac problems, other Surgical History: no surgical history Social History Drug Use: none Review of Systems Constitutional: no symptoms reported EENTM: no symptoms reported Respiratory: no symptoms reported Cardiovascular: no symptoms reported Gastrointestinal: no symptoms reported Genitourinary: see HPI Musculoskeletal: no symptoms reported Skin: no symptoms reported Psychiatric/Neurological: no symptoms reported Endocrine: no symptoms reported Hematologic/Lymphatic: no symptoms reported All Other Systems: Reviewed and Negative Physical Exam General Appearance: No Apparent Distress, WD/WN EENT: eyes nml inspection, nml ENT inspection, pharynx nml Neck: nml inspection, non-tender Cardiovascular/Respiratory: Regular Rate, Rhythm, No M/R/G, Normal Peripheral Pulses, No JVD, Normal Breath Sounds, No Respiratory Distress Abdomen: Normal Bowel Sounds, Non Tender, Soft, No Organomegaly, No Pulsatile Mass Rectal: Normal Exam Back: nml inspection Extremities: Normal Range of Motion, Non-Tender, Normal Inspection, No Pedal Edema, No Calf Tenderness, Normal Capillary Refill 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 as Tested, No Motor/Sensory Deficits, Alert, Normal Mood/Affect, Oriented x 3 Skin: Normal Color, Warm/Dry Lymphatic: No Adenopathy Results/Orders Results/Orders Orders - MARY MORENO NP Urinalysis (09/29/19 18:19) Vital Signs Date Time Temp Pulse Resp B/P (MAP) Pulse Ox O2 Delivery O2 Flow Rate FiO2 09/29/19 18:45 98.2 96 18 123/87 (99) Room Air 09/29/19 17:56 98.2 96 18 09/29/19 17:56 98.2 96 18 132/84 (100) Room Air 09/29/19 17:51 98.2 96 18 Laboratory Tests Test 09/29/19 17:40 Urine Collection Type VOID Urine Color YELLOW (YELLOW) Urine Appearance CLEAR (CLEAR) Urine Bilirubin NEGATIVE MG/DL (NEGATIVE) Urine Ketones NEGATIVE (NEGATIVE) Urine Specific [place] 1.015 (1.005-1.035) Urine pH 5 (5.0-6.0) Urine Protein NEGATIVE (NEGATIVE) Urine Urobilinogen NORMAL (NEGATIVE) Urine Nitrate NEGATIVE (NEGATAIVE) Urine Leukocyte Esterase NEGATIVE (NEGATIVE) Urine Blood NEGATIVE (NEGATIVE) Urine Glucose NORMAL (NEGATIVE) Departure Time of Disposition: 19:00 Disposition: 01 HOME, SELF-CARE Impression: Primary Impression: Dysuria Condition: Stable Patient Instructions: Dysuria-Brief Referrals: JERI WEST (PCP) PRIMARY CARE PROVIDER Additional Instructions: Return if symptoms worsen. See PCP as needed Duration or Time Spent with Pa: 16 minutes Return to Work/School Can a patient return to work?: Yes Can a patient return to school: Yes MARY MORENO NP September 29, 2019 18:26
[2019-09-29 18:45] VITALS: BP 123/87
== END 2019-09-29 18:45 | disposition home or self-care (01) ==
LOC: ER 17:16
DX: R30.0 Dysuria (principal); R30.9 Painful micturition, unspecified; Z79.51 Long term (current) use of inhaled steroids; Z79.899 Other long term (current) drug therapy; Z88.0 Allergy status to penicillin; Z88.6 Allergy status to analgesic agent
CPT/HCPCS: 81002; 99283

== ENCOUNTER 2019-10-05 18:29 | Emergency (ER) | payer SELFPAY ==
[~2019-10-05] VITALS: Ht 188 cm; Wt 113.4 kg
[2019-10-05 18:41] VITALS: BP 153/102
[2019-10-05] MEDS ORDERED: MOTRIN ONE (19:00)
[2019-10-05] MEDS: MOTRIN PO STA (19:00)
--- NOTE | 2019-10-05 19:10 | NUR ---
DISCHARGE PATIENT DIDN'T WANT TO WAIT FOR DISCHARGE PAPERWORK AND FOLLOWED [facility] OUT OF ED
--- NOTE | 2019-10-05 19:11 | ER.PDOC ---
General Chief Complaint: Headache Stated Complaint: MIGRAINE Time seen by MD: 18:45 Source: patient Exam Limitations: no limitations History of Present Illness Initial Comments Pt states he has the usual migraine today, denies dizziness, denies vision problems, mild nausea x 2 days, pt asked for the ER doctor for treatment today Timing/Duration: other Severity/Quality: moderate Prior Headaches/Recent Trauma: chronic headaches Associated Symptoms: nausea/vomiting Allergies: Coded Allergies: Penicillins (Verified Allergy, Unknown, UNK, 10/31/18) aspirin (Verified Allergy, Unknown, 10/31/18) Home Meds Reported Medications Escitalopram Oxalate (LEXAPRO) 10 Mg Tablet, 1 TAB PO DAILY, #90 TAB 3 Refills 06/25/14 Albuterol Sulfate (VENTOLIN HFA) 18 Gm Hfa.aer.ad, 18 GM IH Q4 PRN for COUGH 11/23/13 Fluticasone/Salmeterol (ADVAIR 250-50 DISKUS) 1 Each Disk.w.dev, 1 EACH IH DAILY 11/23/13 Past Medical History Medical History: asthma, other Surgical History: no surgical history Social History Alcohol Use: none Drug Use: none Review of Systems Constitutional: no symptoms reported Eyes: no symptoms reported Ears, Nose, Mouth, Throat: no symptoms reported Respiratory: no symptoms reported Cardiovascular: no symptoms reported Gastrointestinal: no symptoms reported Genitourinary: no symptoms reported Musculoskeletal: no symptoms reported Skin: no symptoms reported Psychiatric/Neurological: see HPI All Other Systems: Reviewed and Negative Physical Exam General Appearance: No Apparent Distress, WD/WN Head/Eyes: eyes nml inspection, no facial swelling, no nystagmus ENT: nml ENT inspection, pharynx nml Neck: nml inspection, Supple Cardiovascular: Normal Peripheral Pulses, Regular Rate, Rhythm, No Edema, No Gallop, No JVD, No Murmur Respiratory: chest non-tender, lungs clear, normal breath sounds, no respiratory distress, no accessory muscle use Gastrointestinal: Normal Bowel Sounds, No Organomegaly, No Pulsatile Mass, Non Tender Back: Normal Inspection, No CVA Tenderness Extremities: Normal Range of Motion, Non-Tender, Normal Inspection, No Pedal Edema, No Calf Tenderness Psychiatric: Alert, Oriented x 3 Cranial Nerves: Normal Hearing, Normal Speech, PERRL Coordination/Gait: Normal Finger to Nose, Normal Gait Motor/Sensory: No Motor Deficit, No Sensory Deficit, No Pronator Drift Skin: Warm/Dry, Normal Color Lymphatic: No Adenopathy Results/Orders Results/Orders Orders - MARY MORENO NP Ibuprofen (Motrin) (10/05/19 19:01) Vital Signs Date Time Temp Pulse Resp B/P (MAP) Pulse Ox O2 Delivery O2 Flow Rate FiO2 10/05/19 18:41 97.9 84 16 96 10/05/19 18:41 97.9 84 16 153/102 (119) 96 Room Air 10/05/19 18:41 97.9 84 16 Departure Time of Disposition: 19:10 Disposition: 01 HOME, SELF-CARE Impression: Primary Impression: Migraine Condition: Stable Patient Instructions: Migraine Headache, [id number] Referrals: JERI WEST (PCP) PRIMARY CARE PROVIDER Additional Instructions: Pt left the ER after taking the Motrin 800 mg x 1 now. Left without instructions Duration or Time Spent with Pa: 16 minutes Return to Work/School Can a patient return to work?: No Can a patient return to school: No Problem Qualifiers Primary Impression: Migraine Migraine type: without aura Status migrainosus presence: with status migrainosus Intractability: intractable Qualified Codes: G43.011 - Migraine without aura, intractable, with status migrainosus MARY MORENO NP October 05, 2019 19:11
== END 2019-10-05 19:10 | disposition home or self-care (01) ==
LOC: ER 18:29
DX: G43.011 Migraine without aura, intractable, with status migrainosus (principal); J45.909 Unspecified asthma, uncomplicated; Z79.51 Long term (current) use of inhaled steroids; Z79.899 Other long term (current) drug therapy; Z88.0 Allergy status to penicillin; Z88.6 Allergy status to analgesic agent
CPT/HCPCS: 99282

== ENCOUNTER 2019-10-24 05:57 | Emergency (ER) | payer SELFPAY ==
[~2019-10-24] VITALS: Ht 188 cm; Wt 113.4 kg
[2019-10-24 06:11] VITALS: BP 150/105
--- NOTE | 2019-10-24 06:18 | ER.PDOC ---
General Chief Complaint: Requesting Medical Care Stated Complaint: CHEST DISCOMFORT Time seen by MD: 06:11 Source: patient Exam Limitations: no limitations History of Present Illness Initial Comments Patient reports left side substernal CP that radiates to back and left shoulder. He has had some SOB associated with pain but denies diaphoresis or nausea. Timing/Duration: 24 hours (Pain started yesterday in the morning and waxed/waned throughout the day; at 04:30 this morning, pain awoke patient from sleep and has persisted since) Severity/Quality: severe (8/10), dull, pressure Radiation: shoulders (left), back (upper back) Activities at Onset: sleep Prior CP/Workup: Cardiac Cath (approximately 1 year ago per the [facility]; states no blockages found and no stents placed), Other (previously dx'd with SVT) Nitro Today/Relief: No Nitro Taken Today Aspirin Today: No Aspirin Today (patient states he is allergic to ASA but does not know what kind of reaction he has) Associated Symptoms: shortness of breath Prior symptoms/Treatment: Similar symptoms previous Allergies: Coded Allergies: Penicillins (Verified Allergy, Unknown, UNK, 10/31/18) aspirin (Verified Allergy, Unknown, 10/31/18) Home Meds Reported Medications Escitalopram Oxalate (LEXAPRO) 10 Mg Tablet, 1 TAB PO DAILY, #90 TAB 3 Refills 06/25/14 Albuterol Sulfate (VENTOLIN HFA) 18 Gm Hfa.aer.ad, 18 GM IH Q4 PRN for COUGH 11/23/13 Fluticasone/Salmeterol (ADVAIR 250-50 DISKUS) 1 Each Disk.w.dev, 1 EACH IH DAILY 11/23/13 Past Medical History Medical History: asthma, other Surgical History: no surgical history, cardiac cath (approximately 1 year ago per [facility]--no blockages, no stents) Family History Significant Family History: heart disease Social History Smoking: non-smoker Drug Use: none Constitutional: no symptoms reported EENTM: no symptoms reported Respiratory: no symptoms reported Cardiovascular: chest pain Gastrointestinal: no symptoms reported Musculoskeletal: no symptoms reported Skin: no symptoms reported Physical Exam General Appearance: No Apparent Distress, WD/WN Respiratory: lungs clear, normal breath sounds, no respiratory distress, no accessory muscle use Cardiovascular: Regular Rate, Rhythm Gastrointestinal: Normal Bowel Sounds, No Pulsatile Mass, Non Tender Extremities: Non-Tender, No Pedal Edema, No Calf Tenderness Neurologic/Psychiatric: Alert, Normal Mood/Affect Skin: Normal Color, Warm/Dry Progress Progress studies pending at shift change--final disposition per Dr. Cleveland Spoke with Dr. Laurent who is patient's Treasury Agent and he asked me to transfer patient to [facility]. [facility] accepted patient to their ED but he refused to be admitted, signed and left against medical advice. He understands that leaving against medical advice may result in worsening condition, cardiac arrest and . I told him to return to ED at anytime he felt worse. He voiced understanding. EKG/XRAY/CT/US EKG: NSR, no ST T wave changes XRAY: chest (normal) Departure Time of Disposition: 08:52 Disposition: 07 AGAINST MEDICAL ADVICE Impression: Primary Impression: Chest pain Condition: Against Medical Advice Referrals: JERI WEST (PCP) PRIMARY CARE PROVIDER Duration or Time Spent with Pa: 60 min Problem Qualifiers Primary Impression: Chest pain Chest pain type: precordial pain Qualified Codes: R07.2 - Precordial pain GLADYS BLEVINS DO Oct 24, 2019 06:18 BERNABE LEY MD Oct 24, 2019 08:52
[2019-10-24 06:22] VITALS: BP 150/105
--- NOTE | 2019-10-24 06:35 | PCM.EKG ---
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 Reading MD: Johanny Blevins Measurements Intervals [place] Rate: 75 P: 6 [place]: 179 QRS: 7 QRSD: 98 T: 42 QT: 436 QTc: 487 Interpretive Statements Sinus rhythm Abnormal R-wave progression, early transition Borderline prolonged QT interval Compared to ECG 07/10/2019 20:10:00 No significant changes Electronically Signed On 10-25-2019 19:40:04 CDT by Johanny Blevins Please click the below link to view image of tracing.
--- NOTE | 2019-10-24 06:36 | DIREP ---
PROCEDURE:CHEST 1 VIEW COMPARISON:[facility], CR, XRAY CHEST SINGLE VW, 06/03/2019, 11:49 PM. INDICATIONS:chest pain FINDINGS: LUNGS/PLEURA:Lungs are clear of focal consolidation. No evidence of pleural effusion. VASCULATURE:Unremarkable pulmonary vasculature. CARDIAC:No cardiac silhouette abnormality or cardiomegaly. JUSTICE/MEDIASTINUM:No visible mass or adenopathy. BONES:No acute fracture. OTHER:No additional findings. CONCLUSION: 1. No findings present to indicate pneumonia. Dictated by: Jethro Hinds M.D. on 10/24/2019 at 06:35 AM
[2019-10-24 06:41] LABS: BASOPHIL # 0.1 10^3/uL (0.0-0.1); BASOPHIL % 1.4 % (0.0-0.2); EOSINOPHIL # 0.5 10^3/uL (0.0-0.2); EOSINOPHIL % 12.9 % (0.0-5.0); LYMPHOCYTES # 0.76 10^3/uL1 (1.0-4.8); LYMPHOCYTES % 21.3 % (24.0-44.0); MEAN CORP HGB 27.1 pg (26-34); MONOCYTES # 0.4 10^3/uL (0.3-0.8); MONOCYTES % 10.6 % (5.0-12.0); NEUTROPHIL # 1.9 10^3/uL (1.8-7.7); NEUTROPHILS % 53.5 % (41.0-85.0); PLATELET COUNT 280 10^3/uL (150-400)
[2019-10-24 07:06] LABS: ALANINE AMINOTRANSFERASE(ML) 72 U/L (12-78); ALKALINE PHOSPHATASE 74 U/L (50-136); ASPARTATE AMINO TRANSFERASE 40 U/L (0-35); CALCIUM 8.9 mg/dL (8.4-10.5); CARBON DIOXIDE 23.2 mmol/L (20.0-32); GLUCOSE 110 mg/dL (70-110)
[2019-10-24] MEDS: NITROSTAT SL PRN ×2 (07:10→07:27)
[2019-10-24 07:50] VITALS: BP 140/98
--- NOTE | 2019-10-24 08:14 | NUR ---
Dr. Cleveland on phone with Dr. Del Toro office
--- NOTE | 2019-10-24 08:33 | NUR ---
CARDIOLOGY DR LEY ON PHONE WITH DR OLVERA.
--- NOTE | 2019-10-24 08:40 | NUR ---
[facility] DR LEY ON PHONE WITH [facility] TRANSFERLINE.
--- NOTE | 2019-10-24 08:47 | NUR ---
IV removed with no complications. Tip intact. Patient ambulatory at discharge
[2019-10-24 08:48] VITALS: BP 164/113
== END 2019-10-24 08:47 | disposition left against medical advice (07) ==
LOC: ER 05:57
DX: R07.2 Precordial pain (principal); R06.02 Shortness of breath; J45.909 Unspecified asthma, uncomplicated; Z79.51 Long term (current) use of inhaled steroids; Z79.899 Other long term (current) drug therapy; Z82.49 Family history of ischemic heart disease and other diseases of the circulatory system; Z88.6 Allergy status to analgesic agent; Z88.0 Allergy status to penicillin
CPT/HCPCS: 36415; 71045; 80053; 82550; 82553; 83880; 84484; 85025; 85379; 85610; 85730; 86677; 93005; 99285

== ENCOUNTER 2019-11-12 11:15 | Emergency (ER) | payer OTHER, SELFPAY ==
[~2019-11-12] VITALS: Ht 188 cm; Wt 113.4 kg
[2019-11-12 11:29] VITALS: BP 169/98
--- NOTE | 2019-11-12 11:40 | ER.PDOC ---
General Chief Complaint: Headache Stated Complaint: MIGRANE Time seen by MD: 11:36 Source: patient Exam Limitations: no limitations History of Present Illness Initial Comments Patient c/o left side migraine headache for 3-4 days without acute visual change or fever. This is his "usual" migraine headache unrelieved with T3 and T4 at home. Severity/Quality: moderate, sharp, stabbing Prior Headaches/Recent Trauma: frequent headaches Associated Symptoms: sensitivity to light Allergies: Coded Allergies: Penicillins (Verified Allergy, Unknown, UNK, 10/31/18) aspirin (Verified Allergy, Unknown, 10/31/18) Home Meds Reported Medications Escitalopram Oxalate (LEXAPRO) 10 Mg Tablet, 1 TAB PO DAILY, #90 TAB 3 Refills 06/25/14 Albuterol Sulfate (VENTOLIN HFA) 18 Gm Hfa.aer.ad, 18 GM IH Q4 PRN for COUGH 11/23/13 Fluticasone/Salmeterol (ADVAIR 250-50 DISKUS) 1 Each Disk.w.dev, 1 EACH IH DAILY 11/23/13 Past Medical History Medical History: arrhythmia (SVT), other (chronic/recurrent migraines) Surgical History: no surgical history, cardiac cath Social History Alcohol Use: none Drug Use: none Review of Systems Constitutional: no symptoms reported Eyes: photophobia Ears, Nose, Mouth, Throat: no symptoms reported Respiratory: no symptoms reported Cardiovascular: no symptoms reported Gastrointestinal: no symptoms reported Musculoskeletal: no symptoms reported Skin: no symptoms reported Physical Exam General Appearance: No Apparent Distress, WD/WN Head/Eyes: eyes nml inspection, no facial swelling, no nystagmus, PERRL Neck: nml inspection, Supple Cardiovascular: Regular Rate, Rhythm Respiratory: lungs clear, normal breath sounds, no respiratory distress, no accessory muscle use Gastrointestinal: Normal Bowel Sounds Psychiatric: Alert, Oriented x 3 Motor/Sensory: No Motor Deficit Skin: Warm/Dry, Normal Color Results/Orders Results/Orders Orders - GLADYS BLEVINS DO Ketorolac Tromethamine (Toradol) (11/12/19 11:41) Vital Signs Date Time Temp Pulse Resp B/P (MAP) Pulse Ox O2 Delivery O2 Flow Rate FiO2 11/12/19 11:29 98.4 79 16 11/12/19 11:29 98.4 79 16 169/98 (121) 94 Room Air 11/12/19 11:29 98.4 79 16 94 Progress Progress 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 I will rx phenergan to take at home with benadryl and have instructed patient how to take these medicines combined. Departure Time of Disposition: 11:44 Disposition: 01 HOME, SELF-CARE Impression: Primary Impression: Migraine Condition: Stable Patient Instructions: Migraine Headache Referrals: JERI WEST (PCP) PRIMARY CARE PROVIDER Additional Instructions: Follow up with your doctor this week. Take the phenergan as prescribed with benadryl to avoid adverse reaction. Return to ER if you develop fever, acute visual change, intractable nausea/vomiting, or for any other emergent concerns. Duration or Time Spent with Pa: 10 min Problem Qualifiers Primary Impression: Migraine Migraine type: without aura Status migrainosus presence: without status migrainosus Intractability: not intractable Qualified Codes: G43.009 - Migraine without aura, not intractable, without status migrainosus GLADYS BLEVINS DO Nov 12, 2019 11:40
[2019-11-12] MEDS ORDERED: TORADOL IM STA (11:41)
[2019-11-12] MEDS ORDERED: TORADOL ONE ×2 (11:45→11:50)
== END 2019-11-12 12:10 | disposition home or self-care (01) ==
LOC: ER 11:15
DX: G43.009 Migraine without aura, not intractable, without status migrainosus (principal); Z79.51 Long term (current) use of inhaled steroids; Z79.899 Other long term (current) drug therapy; Z88.0 Allergy status to penicillin; Z88.6 Allergy status to analgesic agent
CPT/HCPCS: 96372; 99283; J1885 ×2

== ENCOUNTER 2019-11-14 14:12 | Emergency (ER) | payer OTHER ==
[~2019-11-14] VITALS: Ht 188 cm; Wt 113.4 kg
[2019-11-14 14:20] VITALS: BP 156/95
--- NOTE | 2019-11-14 14:24 | NUR ---
ARRIVAL PT ARRIVED TO ED WITH C/O HEADACHE ON THE TOP OF HIS HEAD THAT IS SHARP, STABBING. PT HAS HISTORY OF MIGRAINES. BEDSIDE MONITORS APPLIED. VITAL SIGNS STABLE.
[2019-11-14] MEDS ORDERED: PHENERGAN PO STA (14:35)
[2019-11-14] MEDS ORDERED: MOTRIN PO STA (14:35)
--- NOTE | 2019-11-14 14:40 | ER.PDOC ---
General Chief Complaint: Headache Stated Complaint: MIGRAINE Time seen by MD: 14:36 Source: patient Exam Limitations: no limitations History of Present Illness Initial Comments Migraine headache for past few days, patient was seen in the ED 2 days ago for same. He is a frequent flyer to the ED for Migraine. Headache is same as previous ones. Severity/Quality: moderate Prior Headaches/Recent Trauma: frequent headaches, chronic headaches Associated Symptoms: nausea/vomiting, sensitivity to light Prior symptoms/Treatment: Similar symptoms previous, Recenly Seen, Treated by Doctor Allergies: Coded Allergies: Penicillins (Verified Allergy, Unknown, UNK, 10/31/18) aspirin (Verified Allergy, Unknown, 10/31/18) Home Meds Reported Medications Escitalopram Oxalate (LEXAPRO) 10 Mg Tablet, 1 TAB PO DAILY, #90 TAB 3 Refills 06/25/14 Albuterol Sulfate (VENTOLIN HFA) 18 Gm Hfa.aer.ad, 18 GM IH Q4 PRN for COUGH 11/23/13 Fluticasone/Salmeterol (ADVAIR 250-50 DISKUS) 1 Each Disk.w.dev, 1 EACH IH DAILY 11/23/13 Past Medical History Medical History: arrhythmia, other Surgical History: no surgical history, cardiac cath Social History Alcohol Use: none Drug Use: none Review of Systems Constitutional: no symptoms reported Eyes: see HPI Respiratory: no symptoms reported Cardiovascular: no symptoms reported Gastrointestinal: see HPI Genitourinary: no symptoms reported All Other Systems: Reviewed and Negative Physical Exam General Appearance: No Apparent Distress, WD/WN Neck: nml inspection, Supple Cardiovascular: Normal Peripheral Pulses, Regular Rate, Rhythm, No Edema, No Gallop, No JVD, No Murmur Respiratory: chest non-tender, lungs clear, normal breath sounds, no respiratory distress, no accessory muscle use Gastrointestinal: Normal Bowel Sounds, No Organomegaly, No Pulsatile Mass, Non Tender, Soft Back: Normal Inspection, No CVA Tenderness, No Vertebral Tenderness Extremities: Normal Range of Motion, Non-Tender, Normal Inspection, No Pedal Edema, No Calf Tenderness, Normal Capillary Refill Psychiatric: Alert, Oriented x 3 Cranial Nerves: Normal Hearing, Normal Speech, PERRL Motor/Sensory: No Motor Deficit, No Sensory Deficit, No Pronator Drift, Negative Babinski's Sign Skin: Warm/Dry, Normal Color Lymphatic: No Adenopathy Results/Orders Results/Orders Vital Signs Date Time Temp Pulse Resp B/P (MAP) Pulse Ox O2 Delivery O2 Flow Rate FiO2 11/14/19 14:20 97.9 85 18 97 11/14/19 14:20 97.9 85 18 11/14/19 14:20 97.9 85 18 156/95 (115) 97 Room Air Departure Time of Disposition: 14:39 Disposition: 01 HOME, SELF-CARE Impression: Primary Impression: Migraine Condition: Improved Referrals: JERI WEST (PCP) PRIMARY CARE PROVIDER Additional Instructions: F/U with your PCP in 1-2 days Return to ED if worsening or concerns. Duration or Time Spent with Pa: 10 min Problem Qualifiers Primary Impression: Migraine Migraine type: unspecified Status migrainosus presence: with status migrainosus Intractability: intractable Qualified Codes: G43.911 - Migraine, unspecified, intractable, with status migrainosus BERNABE LEY MD Nov 14, 2019 14:40
[2019-11-14] MEDS ORDERED: PHENERGAN ONE (14:47)
[2019-11-14] MEDS ORDERED: MOTRIN ONE (14:47)
== END 2019-11-14 14:53 | disposition home or self-care (01) ==
LOC: ER 14:12
DX: G43.911 Migraine, unspecified, intractable, with status migrainosus (principal); Z79.51 Long term (current) use of inhaled steroids; Z79.899 Other long term (current) drug therapy; Z88.0 Allergy status to penicillin; Z88.6 Allergy status to analgesic agent
CPT/HCPCS: 99283

== ENCOUNTER 2019-11-21 10:16 | Emergency (ER) | payer OTHER, SELFPAY ==
[~2019-11-21] VITALS: Ht 177.8 cm; Wt 99.8 kg
[2019-11-21 10:18] VITALS: BP 151/108
[2019-11-21] MEDS ORDERED: TORADOL IM STA (10:27)
[2019-11-21] MEDS ORDERED: TORADOL ONE (10:29)
--- NOTE | 2019-11-21 10:35 | ER.PDOC ---
General Chief Complaint: Requesting Medical Care Stated Complaint: MIGRAINE Time seen by MD: 10:27 Source: patient Exam Limitations: no limitations History of Present Illness Initial Comments Patient c/o his "usual" migraine headache, onset Wednesday. + photophobia, + nausea; no fever or neck pain/stiffness Timing/Duration: 24 hours, constant Severity/Quality: moderate, severe Prior Headaches/Recent Trauma: no recent headache/trauma, frequent headaches, chronic headaches Associated Symptoms: nausea/vomiting, sensitivity to light, scotoma Prior symptoms/Treatment: Similar symptoms previous Allergies: Coded Allergies: Penicillins (Verified Allergy, Unknown, UNK, 10/31/18) aspirin (Verified Allergy, Unknown, 10/31/18) Home Meds Reported Medications Escitalopram Oxalate (LEXAPRO) 10 Mg Tablet, 1 TAB PO DAILY, #90 TAB 3 Refills 06/25/14 Albuterol Sulfate (VENTOLIN HFA) 18 Gm Hfa.aer.ad, 18 GM IH Q4 PRN for COUGH 11/23/13 Fluticasone/Salmeterol (ADVAIR 250-50 DISKUS) 1 Each Disk.w.dev, 1 EACH IH DAILY 11/23/13 Past Medical History Medical History: arrhythmia (svt), other (chronic migraines) Surgical History: no surgical history, cardiac cath Social History Drug Use: none Review of Systems Constitutional: no symptoms reported Eyes: photophobia Ears, Nose, Mouth, Throat: no symptoms reported Respiratory: no symptoms reported Cardiovascular: no symptoms reported Gastrointestinal: no symptoms reported Musculoskeletal: no symptoms reported Skin: no symptoms reported Psychiatric/Neurological: headache Physical Exam General Appearance: No Apparent Distress, WD/WN Head/Eyes: eyes nml inspection, no facial swelling, no nystagmus, PERRL Neck: nml inspection, Supple Cardiovascular: Regular Rate, Rhythm Respiratory: lungs clear, normal breath sounds, no respiratory distress, no accessory muscle use Gastrointestinal: Normal Bowel Sounds, Non Tender Extremities: Normal Range of Motion, Non-Tender, Normal Inspection, No Pedal Edema, No Calf Tenderness Psychiatric: Alert, Oriented x 3 Cranial Nerves: Normal Hearing, Normal Speech, PERRL Skin: Warm/Dry, Normal Color Departure Time of Disposition: 10:33 Disposition: 01 HOME, SELF-CARE Impression: Primary Impression: Migraine Condition: Improved Patient Instructions: Migraine Headache Referrals: JERI WEST (PCP) PRIMARY CARE PROVIDER Additional Instructions: Take phenergan as prescribed when needed for nausea. Be sure to take 2 OTC benadryl with the phenergan. Follow up with your PCP. Duration or Time Spent with Pa: 5 min Problem Qualifiers Primary Impression: Migraine Migraine type: with aura Status migrainosus presence: without status migrainosus Intractability: not intractable Qualified Codes: G43.109 - Migraine with aura, not intractable, without status migrainosus GLADYS BLEVINS DO Nov 21, 2019 10:35
== END 2019-11-21 10:44 | disposition home or self-care (01) ==
LOC: ER 10:16
DX: G43.109 Migraine with aura, not intractable, without status migrainosus (principal); Z79.51 Long term (current) use of inhaled steroids; Z79.899 Other long term (current) drug therapy; Z88.0 Allergy status to penicillin; Z88.6 Allergy status to analgesic agent
CPT/HCPCS: 96372; 99283; J1885

== ENCOUNTER 2019-11-23 11:34 | Emergency (ER) | payer OTHER, SELFPAY ==
[~2019-11-23] VITALS: Ht 188 cm; Wt 113.4 kg
[2019-11-23 12:12] VITALS: BP 153/59
--- NOTE | 2019-11-23 12:15 | NUR ---
ARRIVAL PT ARRIVED TO ED WITH C/O MIGRAINE FOR 2 DAYS. BEDSIDE MONITORS APPLIED. VITAL SIGNS STABLE. LIGHTS DIMMED.
[2019-11-23] MEDS ORDERED: BENADRYL IM STA (12:33)
[2019-11-23] MEDS ORDERED: HALDOL IM STA (12:33)
--- NOTE | 2019-11-23 12:33 | ER.PDOC ---
General Chief Complaint: Headache Stated Complaint: MIGRANE Time seen by MD: 12:20 Source: patient Exam Limitations: no limitations History of Present Illness Initial Comments Pt reports migraine ARTEAGA since yesterday, similar to numerous other episodes. Was seen here a couple days ago, ARTEAGA improved but returned yest. No fever, no weakness or numbness, not sgnificantly different from prior ARTEAGA's. Located on R side, has photophobia and is bothered by loud sounds. Timing/Duration: 24 hours Prior Headaches/Recent Trauma: frequent headaches, chronic headaches Modifying Factors: worse with exposure to light; improves with medication; worse with noise Prior symptoms/Treatment: Similar symptoms previous, Recenly Seen, Treated by Doctor Allergies: Coded Allergies: Penicillins (Verified Allergy, Unknown, UNK, 10/31/18) aspirin (Verified Allergy, Unknown, 10/31/18) Home Meds Reported Medications Escitalopram Oxalate (LEXAPRO) 10 Mg Tablet, 1 TAB PO DAILY, #90 TAB 3 Refills 06/25/14 Albuterol Sulfate (VENTOLIN HFA) 18 Gm Hfa.aer.ad, 18 GM IH Q4 PRN for COUGH 11/23/13 Fluticasone/Salmeterol (ADVAIR 250-50 DISKUS) 1 Each Disk.w.dev, 1 EACH IH DAILY 11/23/13 Past Medical History Medical History: arrhythmia, other Surgical History: no surgical history, cardiac cath Family History Significant Family History: no pertinent family hx Social History Alcohol Use: none Drug Use: none Review of Systems Constitutional: no symptoms reported; denies chills, denies fever, denies malaise, denies weakness Eyes: see HPI Ears, Nose, Mouth, Throat: no symptoms reported Respiratory: no symptoms reported Cardiovascular: no symptoms reported Gastrointestinal: no symptoms reported Genitourinary: no symptoms reported Musculoskeletal: no symptoms reported Skin: no symptoms reported Psychiatric/Neurological: see HPI, headache; denies numbness, denies seizure, denies tremors All Other Systems: Reviewed and Negative Physical Exam General Appearance: No Apparent Distress, Other (wearing sungalasses) Head/Eyes: no facial swelling, no nystagmus, PERRL (photophobia b/l) ENT: nml ENT inspection Respiratory: chest non-tender, lungs clear Gastrointestinal: Normal Bowel Sounds, No Organomegaly Back: Normal Inspection Psychiatric: Alert, Oriented x 3 Cranial Nerves: Normal Hearing, Normal Speech, PERRL Coordination/Gait: Normal Finger to Nose Motor/Sensory: No Motor Deficit, No Sensory Deficit, No Pronator Drift Skin: Warm/Dry Lymphatic: No Adenopathy Results/Orders Results/Orders Vital Signs Date Time Temp Pulse Resp B/P (MAP) Pulse Ox O2 Delivery O2 Flow Rate FiO2 11/23/19 12:12 98.7 118 16 153/59 (90) 97 Room Air 11/23/19 12:12 98.7 118 16 97 11/23/19 12:12 98.7 118 16 Progress Progress Pt has been seth here approx 30 times this year alone for ARTEAGA's, has had multiple CT's, workups that were all neg in the psat. Will give IM meds, d/c home Departure Time of Disposition: 12:31 Disposition: 01 HOME, SELF-CARE Impression: Primary Impression: Migraine Condition: Stable Referrals: JERI WEST (PCP) PRIMARY CARE PROVIDER Duration or Time Spent with Pa: 15 Problem Qualifiers Primary Impression: Migraine Migraine type: without aura Status migrainosus presence: without status migrainosus Intractability: not intractable Qualified Codes: G43.009 - Migraine without aura, not intractable, without status migrainosus TESSIE BRADFORD DO Nov 23, 2019 12:33
[2019-11-23] MEDS ORDERED: HALDOL ONE (12:42)
[2019-11-23] MEDS ORDERED: TORADOL ONE (12:42)
[2019-11-23] MEDS ORDERED: BENADRYL ONE (12:42)
[2019-11-23] MEDS ORDERED: TORADOL IM ONE (13:00)
== END 2019-11-23 12:55 | disposition home or self-care (01) ==
LOC: ER 11:34
DX: G43.009 Migraine without aura, not intractable, without status migrainosus (principal); Z79.899 Other long term (current) drug therapy; Z88.0 Allergy status to penicillin; Z88.6 Allergy status to analgesic agent; Z79.51 Long term (current) use of inhaled steroids
CPT/HCPCS: 96372; 99284; J1200; J1885; J1630

== ENCOUNTER 2019-11-27 05:16 | Emergency (ER) | payer OTHER ==
[~2019-11-27] VITALS: Ht 188 cm; Wt 108.9 kg
[2019-11-27 05:27] VITALS: BP 157/103
[2019-11-27] MEDS ORDERED: TORADOL IM STA (05:38)
[2019-11-27] MEDS ORDERED: ZOFRAN ODT SL STA (05:38)
[2019-11-27] MEDS ORDERED: TORADOL ONE (05:39)
[2019-11-27] MEDS ORDERED: ZOFRAN ODT ONE (05:39)
--- NOTE | 2019-11-27 05:43 | ER.PDOC ---
General Chief Complaint: Headache Stated Complaint: MIGRAINE Time seen by MD: 05:40 Source: patient Exam Limitations: no limitations History of Present Illness Initial Comments Patient c/o ongoing migraine headache for days. No fever. No Visual change. + nausea + photophobia. Headache is same as usual. 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 Timing/Duration: 1 week Severity/Quality: severe Prior Headaches/Recent Trauma: no recent headache/trauma, frequent headaches, chronic headaches Associated Symptoms: nausea/vomiting, sensitivity to light Prior symptoms/Treatment: Similar symptoms previous Allergies: Coded Allergies: Penicillins (Verified Allergy, Unknown, UNK, 10/31/18) aspirin (Verified Allergy, Unknown, 10/31/18) Home Meds Reported Medications Escitalopram Oxalate (LEXAPRO) 10 Mg Tablet, 1 TAB PO DAILY, #90 TAB 3 Refills 06/25/14 Albuterol Sulfate (VENTOLIN HFA) 18 Gm Hfa.aer.ad, 18 GM IH Q4 PRN for COUGH 11/23/13 Fluticasone/Salmeterol (ADVAIR 250-50 DISKUS) 1 Each Disk.w.dev, 1 EACH IH DAILY 11/23/13 Past Medical History Medical History: hypertension, other (chronic migraines) Surgical History: no surgical history, cardiac cath Social History Alcohol Use: rarely Drug Use: none Review of Systems Constitutional: no symptoms reported Eyes: photophobia Ears, Nose, Mouth, Throat: no symptoms reported Respiratory: no symptoms reported Cardiovascular: no symptoms reported Gastrointestinal: no symptoms reported Musculoskeletal: no symptoms reported Psychiatric/Neurological: headache Physical Exam General Appearance: No Apparent Distress, WD/WN Head/Eyes: eyes nml inspection, no facial swelling, no nystagmus, PERRL Respiratory: lungs clear, normal breath sounds, no respiratory distress, no accessory muscle use Gastrointestinal: Normal Bowel Sounds Extremities: No Pedal Edema, No Calf Tenderness Psychiatric: Alert, Oriented x 3 Cranial Nerves: Normal Hearing, Normal Speech, PERRL Results/Orders Results/Orders Orders - GLADYS BLEVINS DO Ketorolac Tromethamine (Toradol) (11/27/19 05:38) Ondansetron (Zofran Odt) (11/27/19 05:38) Vital Signs Date Time Temp Pulse Resp B/P (MAP) Pulse Ox O2 Delivery O2 Flow Rate FiO2 7/6/20 05:27 97.5 93 16 98 11/27/19 05:27 97.5 93 16 11/27/19 05:27 97.5 93 16 98 Departure Time of Disposition: 05:42 Disposition: 01 HOME, SELF-CARE Impression: Primary Impression: Migraine Condition: Stable Patient Instructions: Migraine Headache Referrals: JERI WEST (PCP) PRIMARY CARE PROVIDER Additional Instructions: Follow up with Dr. West 1-2 days. Duration or Time Spent with Pa: 5 min Problem Qualifiers Primary Impression: Migraine Migraine type: unspecified Status migrainosus presence: without status migrainosus Intractability: not intractable Qualified Codes: G43.909 - Migraine, unspecified, not intractable, without status migrainosus GLADYS BLEVINS DO Nov 27, 2019 05:43
== END 2019-11-27 05:50 | disposition home or self-care (01) ==
LOC: ER 05:16
DX: G43.909 Migraine, unspecified, not intractable, without status migrainosus (principal); I10 Essential (primary) hypertension; Z79.51 Long term (current) use of inhaled steroids; Z79.899 Other long term (current) drug therapy; Z88.0 Allergy status to penicillin; Z88.6 Allergy status to analgesic agent
CPT/HCPCS: 96372; 99283; J1885

== ENCOUNTER 2019-11-27 07:02 | Emergency (ER) | payer OTHER ==
[~2019-11-27] VITALS: Ht 188 cm; Wt 108.9 kg
[2019-11-27 07:08] VITALS: BP 151/74
--- NOTE | 2019-11-27 07:14 | NUR ---
ARRIVAL PT ARRIVED TO ED WITH C/O HEADACHE. PT WAS SEEN IN THE ER AND DISCHARGED AROUND 0600, HE WAS PREVIOUSLY GIVE TORODOL AND ZOFRAN. PT STATES " I JUST STAYED IN MY CAR UNTIL SHIFT CHANGE BECAUSE I KNEW THOSE MEDICATIONS WOULD NOT WORK". BEDSIDE MONITORS APPLIED. VITAL SIGNS STABLE. BED IN LOW LOCKED POSITION.
[2019-11-27] MEDS ORDERED: STADOL IM STA (07:49)
[2019-11-27] MEDS ORDERED: PHENERGAN IM STA (07:49)
--- NOTE | 2019-11-27 07:56 | NUR ---
RIDE PT HAS CALLED HIS BROTHER TO DRIVE HIM HOME. MEDICATIONS WILL BE HELD UNTIL HIS RIDE ARRIVED PER DR WALLIS.
--- NOTE | 2019-11-27 07:57 | ER.PDOC ---
General Chief Complaint: Headache Stated Complaint: MIGRAINE Time seen by MD: 08:00 Source: patient Exam Limitations: no limitations History of Present Illness Timing/Duration: 1 week Severity/Quality: moderate Prior Headaches/Recent Trauma: no recent headache/trauma Prior symptoms/Treatment: Similar symptoms previous Allergies: Coded Allergies: Penicillins (Verified Allergy, Unknown, UNK, 10/31/18) aspirin (Verified Allergy, Unknown, 10/31/18) Home Meds Reported Medications Escitalopram Oxalate (LEXAPRO) 10 Mg Tablet, 1 TAB PO DAILY, #90 TAB 3 Refills 06/25/14 Albuterol Sulfate (VENTOLIN HFA) 18 Gm Hfa.aer.ad, 18 GM IH Q4 PRN for COUGH 11/23/13 Fluticasone/Salmeterol (ADVAIR 250-50 DISKUS) 1 Each Disk.w.dev, 1 EACH IH DAILY 11/23/13 Past Medical History Medical History: hypertension, other Surgical History: no surgical history, cardiac cath Social History Alcohol Use: none Drug Use: none Reviewed Nursing Reviewed: Vital Signs, Abn. Noted Review of Systems All Other Systems: Reviewed and Negative Physical Exam General Appearance: No Apparent Distress, WD/WN Head/Eyes: eyes nml inspection, no facial swelling, no nystagmus, PERRL ENT: nml ENT inspection, pharynx nml Neck: nml inspection, Supple Cardiovascular: Normal Peripheral Pulses, Regular Rate, Rhythm, No Edema, No Gallop, No JVD, No Murmur Respiratory: chest non-tender, lungs clear, normal breath sounds, no respiratory distress, no accessory muscle use Gastrointestinal: Normal Bowel Sounds, No Organomegaly, No Pulsatile Mass, Non Tender, Soft Back: Normal Inspection, No CVA Tenderness, No Vertebral Tenderness Extremities: Normal Range of Motion, Non-Tender, Normal Inspection, No Pedal Edema, No Calf Tenderness, Normal Capillary Refill Psychiatric: Alert, Oriented x 3 Cranial Nerves: Normal Hearing, Normal Speech, PERRL Coordination/Gait: Normal Finger to Nose, Normal Gait Motor/Sensory: No Motor Deficit, No Sensory Deficit, No Pronator Drift, Negative Babinski's Sign Skin: Warm/Dry, Normal Color Lymphatic: No Adenopathy Results/Orders Results/Orders Orders - LUIS MIGUEL WALLIS MD Butorphanol Tartrate (Stadol) (11/27/19 07:49) Promethazine Hcl (Phenergan) (11/27/19 07:49) Vital Signs Date Time Temp Pulse Resp B/P (MAP) Pulse Ox O2 Delivery O2 Flow Rate FiO2 11/27/19 07:08 98.4 84 14 11/27/19 07:08 98.4 84 14 151/74 (99) 97 Room Air 11/27/19 07:08 98.4 84 14 97 Departure Time of Disposition: 09:00 Disposition: 01 HOME, SELF-CARE Impression: Primary Impression: Migraine Condition: Improved Referrals: JERI WEST (PCP) PRIMARY CARE PROVIDER Duration or Time Spent with Pa: 21 M LUIS MIGUEL WALLIS MD Nov 27, 2019 07:57
[2019-11-27] MEDS ORDERED: PHENERGAN ONE (08:29)
[2019-11-27] MEDS ORDERED: STADOL ONE (08:29)
== END 2019-11-27 08:39 | disposition home or self-care (01) ==
LOC: ER 07:02
DX: G43.909 Migraine, unspecified, not intractable, without status migrainosus (principal); I10 Essential (primary) hypertension; Z79.51 Long term (current) use of inhaled steroids; Z79.899 Other long term (current) drug therapy; Z88.0 Allergy status to penicillin; Z88.6 Allergy status to analgesic agent
CPT/HCPCS: 96372; 99284; J2550; J0585

== ENCOUNTER 2019-11-28 00:51 | Emergency (ER) | payer OTHER ==
[~2019-11-28] VITALS: Ht 188 cm; Wt 113.4 kg
[2019-11-28 01:00] VITALS: BP 149/108
--- NOTE | 2019-11-28 01:03 | ER.PDOC ---
General Chief Complaint: Requesting Medical Care Stated Complaint: MIGRAINE Time seen by MD: 00:56 Source: patient Exam Limitations: no limitations History of Present Illness Initial Comments Patient c/o persistent migraine headache. He was seen by me last night for same and returned at [address] Guerrero. Headache is his usual migraine. No report of fever. Timing/Duration: 1 week Severity/Quality: moderate, severe Prior Headaches/Recent Trauma: frequent headaches, chronic headaches Associated Symptoms: sensitivity to light Prior symptoms/Treatment: Similar symptoms previous, Recenly Seen Allergies: Coded Allergies: Penicillins (Verified Allergy, Unknown, UNK, 10/31/18) aspirin (Verified Allergy, Unknown, 10/31/18) Home Meds Reported Medications Escitalopram Oxalate (LEXAPRO) 10 Mg Tablet, 1 TAB PO DAILY, #90 TAB 3 Refills 06/25/14 Albuterol Sulfate (VENTOLIN HFA) 18 Gm Hfa.aer.ad, 18 GM IH Q4 PRN for COUGH 11/23/13 Fluticasone/Salmeterol (ADVAIR 250-50 DISKUS) 1 Each Disk.w.dev, 1 EACH IH DAILY 11/23/13 Past Medical History Medical History: arrhythmia (SVT), hypertension, other (chronic migraines) Surgical History: no surgical history, cardiac cath Social History Drug Use: none Review of Systems Constitutional: no symptoms reported Eyes: photophobia Ears, Nose, Mouth, Throat: no symptoms reported Respiratory: no symptoms reported Cardiovascular: no symptoms reported Gastrointestinal: no symptoms reported Musculoskeletal: no symptoms reported Skin: no symptoms reported Psychiatric/Neurological: headache Physical Exam General Appearance: No Apparent Distress, WD/WN Head/Eyes: eyes nml inspection, PERRL ENT: pharynx nml Neck: nml inspection, Supple Cardiovascular: Regular Rate, Rhythm Respiratory: lungs clear, normal breath sounds, no respiratory distress, no accessory muscle use Gastrointestinal: Normal Bowel Sounds Extremities: No Pedal Edema, No Calf Tenderness Psychiatric: Alert, Oriented x 3 Cranial Nerves: Normal Hearing, Normal Speech, PERRL Progress 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 Follow up with Dr. West this week. Duration or Time Spent with Pa: 5 min Problem Qualifiers Primary Impression: Headache Headache type: other vascular headache Qualified Codes: G44.1 - Vascular headache, not elsewhere classified GLADYS BLEVINS DO Nov 28, 2019 01:03
[2019-11-28] MEDS ORDERED: PHENERGAN IM STA (01:07)
[2019-11-28] MEDS ORDERED: TORADOL IM STA (01:07)
[2019-11-28] MEDS ORDERED: BENADRYL IM STA (01:07)
[2019-11-28] MEDS ORDERED: TORADOL ONE (01:10)
[2019-11-28] MEDS ORDERED: BENADRYL ONE (01:10)
[2019-11-28] MEDS ORDERED: PHENERGAN ONE (01:10)
== END 2019-11-28 01:37 | disposition home or self-care (01) ==
LOC: ER 00:51
DX: G44.1 Vascular headache, not elsewhere classified (principal); I10 Essential (primary) hypertension; Z79.51 Long term (current) use of inhaled steroids; Z79.899 Other long term (current) drug therapy; Z88.0 Allergy status to penicillin; Z88.6 Allergy status to analgesic agent
CPT/HCPCS: 96372; 99284; J1200; J1885; J2550

== ENCOUNTER 2019-11-29 10:38 | Emergency (ER) | payer OTHER ==
[~2019-11-29] VITALS: Ht 188 cm; Wt 113.4 kg
[2019-11-29 10:53] VITALS: BP 154/115
[2019-11-29] MEDS ORDERED: PHENERGAN IM STA (11:03)
--- NOTE | 2019-11-29 11:03 | ER.PDOC ---
General Chief Complaint: Requesting Medical Care Stated Complaint: MONIQUE Time seen by MD: 11:02 Source: patient Exam Limitations: no limitations History of Present Illness Initial Comments 39 Y/O MALE WITH HX TO ED MULTIPLE TIMES IN PAST WITH ARTEAGA, THIS ARTEAGA X 2 DAYS , SAME PAST, NOT WORSE ARTEAGA OF LIFE, NO OTHER COMPLAINTS, NO FEVER, NO COVID EXPO. Timing/Duration: 24 hours Severity/Quality: moderate Prior Headaches/Recent Trauma: frequent headaches, chronic headaches Associated Symptoms: denies symptoms Prior symptoms/Treatment: Similar symptoms previous Allergies: Coded Allergies: Penicillins (Verified Allergy, Unknown, UNK, 10/31/18) aspirin (Verified Allergy, Unknown, 10/31/18) Home Meds Reported Medications Escitalopram Oxalate (LEXAPRO) 10 Mg Tablet, 1 TAB PO DAILY, #90 TAB 3 Refills 06/25/14 Albuterol Sulfate (VENTOLIN HFA) 18 Gm Hfa.aer.ad, 18 GM IH Q4 PRN for COUGH 11/23/13 Fluticasone/Salmeterol (ADVAIR 250-50 DISKUS) 1 Each Disk.w.dev, 1 EACH IH DAILY 11/23/13 Past Medical History Medical History: arrhythmia, hypertension, other Surgical History: no surgical history, cardiac cath Family History Significant Family History: no pertinent family hx Social History Alcohol Use: none Drug Use: none Reviewed Nursing Reviewed: Vital Signs, Abn. Noted, Nursing Assessment Review of Systems Constitutional: no symptoms reported Eyes: no symptoms reported Ears, Nose, Mouth, Throat: no symptoms reported Respiratory: no symptoms reported Cardiovascular: no symptoms reported Gastrointestinal: no symptoms reported Genitourinary: no symptoms reported Musculoskeletal: no symptoms reported Skin: no symptoms reported Psychiatric/Neurological: headache Physical Exam General Appearance: No Apparent Distress, WD/WN Head/Eyes: eyes nml inspection, no facial swelling, no nystagmus, PERRL ENT: nml ENT inspection, pharynx nml Neck: nml inspection, Supple Cardiovascular: Normal Peripheral Pulses, Regular Rate, Rhythm, No Edema, No Gallop, No JVD, No Murmur Respiratory: chest non-tender, lungs clear, normal breath sounds, no respiratory distress, no accessory muscle use Extremities: Normal Range of Motion, Non-Tender, Normal Inspection, No Pedal Edema, No Calf Tenderness, Normal Capillary Refill Psychiatric: Alert, Oriented x 3 Cranial Nerves: Normal Hearing, Normal Speech, PERRL Coordination/Gait: Normal Finger to Nose, Normal Gait Motor/Sensory: No Motor Deficit, No Sensory Deficit, No Pronator Drift, Negative Babinski's Sign Skin: Warm/Dry, Normal Color Lymphatic: No Adenopathy Results/Orders Results/Orders Orders - PHILIP KOTHARI DO Ketorolac Tromethamine (Toradol) (11/29/19 11:30) Promethazine Hcl (Phenergan) (11/29/19 11:03) Ketorolac Tromethamine (Toradol) (11/29/19 11:14) Promethazine Hcl (Phenergan) (11/29/19 11:15) Vital Signs Date Time Temp Pulse Resp B/P (MAP) Pulse Ox O2 Delivery O2 Flow Rate FiO2 11/29/19 10:53 98.5 100 17 11/29/19 10:53 98.5 100 17 95 11/29/19 10:53 98.5 100 17 154/115 (128) 95 Room Air Progress Progress AT D/C BETTER, DIFF DX IN DETAIL, GATE --NL FOLLOW UP WITH YOUR DR. Departure Time of Disposition: 11:23 Disposition: 01 HOME, SELF-CARE Impression: Primary Impression: Headache Condition: Stable Patient Instructions: Epidural Blood Patching in Spinal Headache Referrals: JERI WEST (PCP) PRIMARY CARE PROVIDER Additional Instructions: TO ED NEEDED, FOLLOW UIP WITH YOUR DR, NEED RIDE HOME. Duration or Time Spent with Pa: 10 MIN PHILIP KOTHARI DO Nov 29, 2019 11:03
[2019-11-29] MEDS ORDERED: TORADOL ONE (11:14)
[2019-11-29] MEDS ORDERED: PHENERGAN ONE (11:15)
[2019-11-29] MEDS ORDERED: TORADOL IM ONE (11:30)
== END 2019-11-29 12:01 | disposition home or self-care (01) ==
LOC: ER 10:38
DX: R51 Headache (principal); I48.91 Unspecified atrial fibrillation; I10 Essential (primary) hypertension
CPT/HCPCS: 96372; 99284; J1885; J2550

== ENCOUNTER 2019-11-30 12:08 | Emergency (ER) | payer SELFPAY ==
[~2019-11-30] VITALS: Ht 188 cm; Wt 113.4 kg
[2019-11-30 12:41] VITALS: BP 147/89
--- NOTE | 2019-11-30 12:55 | ER.PDOC ---
General Chief Complaint: Headache Stated Complaint: HEADACHE Time seen by MD: 12:49 Source: patient Exam Limitations: no limitations History of Present Illness Initial Comments Patient c/o ongoing headache. He has been seen here almost daily for many days for the same concern. He denies fever or head injury. No c/o neck pain or stiffness or acute visual change. He does have photophobia. He states this is his "usual migraine headache." Severity/Quality: severe, constant Prior Headaches/Recent Trauma: frequent headaches, chronic headaches Associated Symptoms: sensitivity to light Allergies: Coded Allergies: Penicillins (Verified Allergy, Unknown, UNK, 10/31/18) aspirin (Verified Allergy, Unknown, 10/31/18) Home Meds Reported Medications Escitalopram Oxalate (LEXAPRO) 10 Mg Tablet, 1 TAB PO DAILY, #90 TAB 3 Refills 06/25/14 Albuterol Sulfate (VENTOLIN HFA) 18 Gm Hfa.aer.ad, 18 GM IH Q4 PRN for COUGH 11/23/13 Fluticasone/Salmeterol (ADVAIR 250-50 DISKUS) 1 Each Disk.w.dev, 1 EACH IH DAILY 11/23/13 Past Medical History Medical History: arrhythmia, asthma, cancer, hypertension Surgical History: no surgical history, cardiac cath Social History Alcohol Use: occassionally Drug Use: none Review of Systems Constitutional: no symptoms reported Eyes: photophobia Ears, Nose, Mouth, Throat: no symptoms reported Respiratory: no symptoms reported Cardiovascular: no symptoms reported Gastrointestinal: no symptoms reported Musculoskeletal: no symptoms reported Skin: no symptoms reported Psychiatric/Neurological: headache Physical Exam General Appearance: No Apparent Distress, WD/WN Head/Eyes: eyes nml inspection, no facial swelling, no nystagmus, PERRL Cardiovascular: Regular Rate, Rhythm Respiratory: lungs clear, normal breath sounds, no respiratory distress, no accessory muscle use Gastrointestinal: Normal Bowel Sounds Cranial Nerves: Normal Hearing, Normal Speech, PERRL Motor/Sensory: No Motor Deficit Skin: Warm/Dry, Normal Color Results/Orders Results/Orders Vital Signs Date Time Temp Pulse Resp B/P (MAP) Pulse Ox O2 Delivery O2 Flow Rate FiO2 11/30/19 12:41 98.5 81 17 96 11/30/19 12:41 98.5 81 17 11/30/19 12:41 98.5 81 17 147/89 (108) 96 Room Air Progress Progress patient states pain is temporarily relieved with medications, then comes back Departure Time of Disposition: 12:59 Disposition: 01 HOME, SELF-CARE Impression: Primary Impression: Migraine Condition: Improved Patient Instructions: Migraine Headache Referrals: JERI WEST (PCP) PRIMARY CARE PROVIDER Additional Instructions: Home to rest in a dark quiet place. Follow up with your doctor 3-5 days for reevaluation. You really need to be under the care of a neurologist. Return to ER if you develop fever with headache, or for any emergent concerns. Duration or Time Spent with Pa: 10 min Problem Qualifiers Primary Impression: Migraine Migraine type: without aura Status migrainosus presence: with status migrainosus Intractability: not intractable Qualified Codes: G43.001 - Migraine without aura, not intractable, with status migrainosus GLADYS BLEVINS DO Nov 30, 2019 12:55
[2019-11-30] MEDS ORDERED: PHENERGAN IM STA (12:58)
[2019-11-30] MEDS ORDERED: BENADRYL IM STA (12:58)
[2019-11-30] MEDS ORDERED: TORADOL IM STA (12:58)
[2019-11-30] MEDS ORDERED: BENADRYL ONE (13:22)
[2019-11-30] MEDS ORDERED: TORADOL ONE (13:22)
[2019-11-30] MEDS ORDERED: PHENERGAN ONE (13:22)
== END 2019-11-30 13:52 | disposition home or self-care (01) ==
LOC: ER 12:08
DX: G43.909 Migraine, unspecified, not intractable, without status migrainosus (principal); J45.909 Unspecified asthma, uncomplicated; I10 Essential (primary) hypertension; Z88.0 Allergy status to penicillin; Z88.6 Allergy status to analgesic agent
CPT/HCPCS: 96372; 99284; J1200; J1885; J2550

== ENCOUNTER 2019-12-09 18:51 | Emergency (ER) | payer OTHER ==
--- NOTE | 2019-12-09 19:30 | NUR ---
NOT IN WAITING ROOM WENT TO GET PATIENT, NOT IN WAITING ROOM. WILL ATTEMPT AGAIN
--- NOTE | 2019-12-09 19:45 | NUR ---
2ND ATTEMPT PATIENT STILL NOT IN WAITING ROOM. MARKING LWBS @ 0282
== END 2019-12-09 19:45 | disposition left against medical advice (07) ==
LOC: ER 18:51
DX: G43.909 Migraine, unspecified, not intractable, without status migrainosus (principal); Z53.21 Procedure and treatment not carried out due to patient leaving prior to being seen by health care provider

== ENCOUNTER 2019-12-11 19:47 | Emergency (ER) | payer OTHER ==
[~2019-12-11] VITALS: Ht 188 cm; Wt 113.4 kg
[2019-12-11 19:57] VITALS: BP 145/91
[2019-12-11] MEDS ORDERED: TYLENOL PO ONE (20:04)
[2019-12-11] MEDS ORDERED: TYLENOL PO STA (20:07)
--- NOTE | 2019-12-11 20:11 | ER.PDOC ---
General Chief Complaint: Headache Stated Complaint: HEADACHE Time seen by MD: 20:09 Source: patient Exam Limitations: no limitations History of Present Illness Initial Comments Migraine headache for past few days, patient is recurrently in the ED for same. Severity/Quality: moderate Associated Symptoms: nausea/vomiting Prior symptoms/Treatment: Similar symptoms previous, Recenly Seen Allergies: Coded Allergies: Penicillins (Verified Allergy, Unknown, UNK, 10/31/18) aspirin (Verified Allergy, Unknown, 10/31/18) Home Meds Reported Medications Escitalopram Oxalate (LEXAPRO) 10 Mg Tablet, 1 TAB PO DAILY, #90 TAB 3 Refills 06/25/14 Albuterol Sulfate (VENTOLIN HFA) 18 Gm Hfa.aer.ad, 18 GM IH Q4 PRN for COUGH 11/23/13 Fluticasone/Salmeterol (ADVAIR 250-50 DISKUS) 1 Each Disk.w.dev, 1 EACH IH DAILY 11/23/13 Past Medical History Medical History: arrhythmia, asthma, cancer, hypertension Surgical History: no surgical history, cardiac cath Social History Alcohol Use: none Drug Use: none Review of Systems Constitutional: no symptoms reported Respiratory: no symptoms reported Cardiovascular: no symptoms reported Gastrointestinal: see HPI Genitourinary: no symptoms reported All Other Systems: Reviewed and Negative Physical Exam General Appearance: No Apparent Distress, WD/WN Neck: nml inspection, Supple Cardiovascular: Normal Peripheral Pulses, Regular Rate, Rhythm, No Edema, No Gallop, No JVD, No Murmur Respiratory: chest non-tender, lungs clear, normal breath sounds, no respiratory distress, no accessory muscle use Gastrointestinal: Normal Bowel Sounds, No Organomegaly, No Pulsatile Mass, Non Tender, Soft Back: Normal Inspection, No CVA Tenderness, No Vertebral Tenderness Extremities: Normal Range of Motion, Non-Tender, Normal Inspection, No Pedal Edema, No Calf Tenderness, Normal Capillary Refill Psychiatric: Alert, Oriented x 3 Cranial Nerves: Normal Hearing, Normal Speech, PERRL Motor/Sensory: No Motor Deficit, No Sensory Deficit, No Pronator Drift, Negative Babinski's Sign Skin: Warm/Dry, Normal Color Results/Orders Results/Orders Orders - BERNABE LEY MD Acetaminophen (Tylenol) (12/11/19 20:04) Acetaminophen (Tylenol) (12/11/19 20:07) Vital Signs Date Time Temp Pulse Resp B/P (MAP) Pulse Ox O2 Delivery O2 Flow Rate FiO2 12/11/19 19:57 97.9 83 16 12/11/19 19:57 97.9 83 16 98 12/11/19 19:57 97.9 83 16 145/91 (109) 98 Room Air Departure Time of Disposition: 20:10 Disposition: 01 HOME, SELF-CARE Impression: Primary Impression: Migraine Condition: Stable Referrals: JERI WEST (PCP) PRIMARY CARE PROVIDER Additional Instructions: Phenergan F/U with your PCP in 1-2 days Return to ED if worsening or concerns Duration or Time Spent with Pa: 10 min Problem Qualifiers Primary Impression: Migraine Migraine type: unspecified Status migrainosus presence: with status migrainosus Intractability: intractable Qualified Codes: G43.911 - Migraine, unspecified, intractable, with status migrainosus BERNABE LEY MD Dec 11, 2019 20:11
== END 2019-12-11 20:20 | disposition home or self-care (01) ==
LOC: ER 19:47
DX: G43.911 Migraine, unspecified, intractable, with status migrainosus (principal); I10 Essential (primary) hypertension; J45.909 Unspecified asthma, uncomplicated; Z79.51 Long term (current) use of inhaled steroids; Z79.899 Other long term (current) drug therapy; Z88.6 Allergy status to analgesic agent; Z88.0 Allergy status to penicillin
CPT/HCPCS: 99283; A9150

== ENCOUNTER 2019-12-13 13:02 | Emergency (ER) | payer OTHER ==
[~2019-12-13] VITALS: Ht 188 cm; Wt 113.4 kg
[2019-12-13 13:25] VITALS: BP 154/94
--- NOTE | 2019-12-13 13:59 | ER.PDOC ---
General Chief Complaint: Requesting Medical Care Stated Complaint: MIGRIANE Time seen by MD: 13:51 Source: patient Exam Limitations: no limitations History of Present Illness Initial Comments Patient c/o his "usual" migraine headache x 3 days. He was seen by Dr. Cleveland already and given 2 extra strength Tylenol which did not alleviate his pain. He denies fever or visual change. No COVID19 exposure or symptoms Timing/Duration: constant (x 3 days) Severity/Quality: moderate, severe, constant Prior Headaches/Recent Trauma: no recent headache/trauma, frequent headaches, chronic headaches Associated Symptoms: denies symptoms Prior symptoms/Treatment: Similar symptoms previous, Recenly Seen (by Dr. Cleveland here) Allergies: Coded Allergies: Penicillins (Verified Allergy, Unknown, UNK, 10/31/18) aspirin (Verified Allergy, Unknown, 10/31/18) Home Meds Reported Medications Escitalopram Oxalate (LEXAPRO) 10 Mg Tablet, 1 TAB PO DAILY, #90 TAB 3 Refills 06/25/14 Albuterol Sulfate (VENTOLIN HFA) 18 Gm Hfa.aer.ad, 18 GM IH Q4 PRN for COUGH 11/23/13 Fluticasone/Salmeterol (ADVAIR 250-50 DISKUS) 1 Each Disk.w.dev, 1 EACH IH DAILY 11/23/13 Past Medical History Medical History: arrhythmia, asthma, cancer, hypertension, other (migraines) Surgical History: no surgical history, cardiac cath Social History Drug Use: none Review of Systems Constitutional: no symptoms reported Eyes: photophobia Ears, Nose, Mouth, Throat: no symptoms reported Respiratory: no symptoms reported Cardiovascular: no symptoms reported Gastrointestinal: no symptoms reported Musculoskeletal: no symptoms reported Skin: no symptoms reported Psychiatric/Neurological: see HPI, headache Physical Exam General Appearance: No Apparent Distress, WD/WN Head/Eyes: eyes nml inspection, no facial swelling, no nystagmus, PERRL Neck: nml inspection, Supple Cardiovascular: Regular Rate, Rhythm, No Murmur Respiratory: lungs clear, normal breath sounds, no respiratory distress, no accessory muscle use Gastrointestinal: Normal Bowel Sounds, Non Tender Extremities: No Pedal Edema, No Calf Tenderness Psychiatric: Alert, Oriented x 3 Cranial Nerves: Normal Hearing, Normal Speech, PERRL Motor/Sensory: No Motor Deficit Skin: Warm/Dry, Normal Color Progress Progress I explained to patient he would not be receiving anything more than Tylenol for his chronic headaches (per administration)--that he needs to be under the care of a neurologist for this. He declared this was a waste of his time and he would just leave. He took off his oxygen saturation monitor and blood pressure cuff and left without signing out. Departure Time of Disposition: 14:00 Disposition: 07 AGAINST MEDICAL ADVICE (patient refused to sign out, leaving AMA) Impression: Primary Impression: Migraine Condition: Stable Referrals: JERI WEST (PCP) PRIMARY CARE PROVIDER Duration or Time Spent with Pa: 10 min Problem Qualifiers Primary Impression: Migraine Migraine type: without aura Status migrainosus presence: with status migrainosus Intractability: intractable Qualified Codes: G43.011 - Migraine without aura, intractable, with status migrainosus GLADYS BLEVINS DO Dec 13, 2019 13:59
== END 2019-12-13 13:55 | disposition left against medical advice (07) ==
LOC: ER 13:02
DX: G43.011 Migraine without aura, intractable, with status migrainosus (principal); I10 Essential (primary) hypertension; J45.909 Unspecified asthma, uncomplicated; Z79.51 Long term (current) use of inhaled steroids; Z79.899 Other long term (current) drug therapy; Z88.6 Allergy status to analgesic agent; Z88.0 Allergy status to penicillin
CPT/HCPCS: 99281

== ENCOUNTER 2020-01-10 17:36 | Emergency (ER) | payer SELFPAY ==
[~2020-01-10] VITALS: Ht 188 cm; Wt 90.7 kg
--- NOTE | 2020-01-10 17:46 | NUR ---
ARRIVAL PT AMBULATED TO ED WITH C/O HEADACHE PAIN 10/10 WITH LOSS OF APPETITE, VISUAL CHANGES, NAUSEA, LOSS OF SLEEP AND LIGHT SENSITIVITY. STATES THAT SYMPTOMS STARTED 1 WEEK AGO.
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
[2020-01-10 17:51] VITALS: BP 153/114
--- NOTE | 2020-01-10 18:00 | NUR ---
PT ELOPED AFTER DR. FELICITY DELGADO
== END 2020-01-10 18:06 | disposition left against medical advice (07) ==
LOC: ER 17:36
DX: G43.111 Migraine with aura, intractable, with status migrainosus (principal); I10 Essential (primary) hypertension; J45.909 Unspecified asthma, uncomplicated; Z79.51 Long term (current) use of inhaled steroids; Z79.899 Other long term (current) drug therapy; Z88.6 Allergy status to analgesic agent; Z88.0 Allergy status to penicillin
CPT/HCPCS: 99281

== ENCOUNTER 2020-02-29 18:31 | Emergency (ER) ==
[~2020-02-29] VITALS: Ht 188 cm; Wt 117.0 kg
[2020-02-29 20:32] VITALS: BP 146/96
--- NOTE | 2020-02-29 20:49 | ER.PDOC ---
General Chief Complaint: General Complaint Stated Complaint: SORE TONGUE TRAVEL OUT OF US: No Time seen by MD: 20:45 Source: patient Exam Limitations: no limitations History of Present Illness Initial Comments Painful Sore on tongue for 2 weeks Severity: moderate Associated Symptoms: denies symptoms Allergies: Coded Allergies: Penicillins (Verified Allergy, Unknown, UNK, 10/31/18) aspirin (Verified Allergy, Unknown, 10/31/18) Home Meds Reported Medications Escitalopram Oxalate (LEXAPRO) 10 Mg Tablet, 1 TAB PO DAILY, #90 TAB 3 Refills 06/25/14 Albuterol Sulfate (VENTOLIN HFA) 18 Gm Hfa.aer.ad, 18 GM IH Q4 PRN for COUGH 11/23/13 Fluticasone/Salmeterol (ADVAIR 250-50 DISKUS) 1 Each Disk.w.dev, 1 EACH IH DAILY 11/23/13 Past Medical History Medical History: asthma, cardiac problems Surgical History: no surgical history Social History Alcohol Use: none Drug Use: none Review of Systems Constitutional: no symptoms reported EENTM: see HPI Respiratory: no symptoms reported Cardiovascular: no symptoms reported Gastrointestinal: no symptoms reported Genitourinary: no symptoms reported All Other Systems: Reviewed and Negative Physical Exam General Appearance: No Apparent Distress, WD/WN EENT: other (tender sore right tongue) Neck: Non-Tender, Full Range of Motion Respiratory: chest non-tender, lungs clear, normal breath sounds, no respiratory distress, no accessory muscle use CVS: reg rate & rhythm, no murmur, no gallop, pulses nml, nml capillary refill Gastrointestinal: Normal Bowel Sounds, No Organomegaly, No Pulsatile Mass, Non Tender Back: Normal Inspection, No CVA Tenderness Extremities: Normal Range of Motion 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 as Tested Skin: Normal Color Results/Orders Results/Orders Vital Signs Date Time Temp Pulse Resp B/P (MAP) Pulse Ox O2 Delivery O2 Flow Rate FiO2 02/29/20 20:32 98.1 89 16 146/96 (113) 96 Room Air 02/29/20 20:32 98.1 89 16 96 02/29/20 20:32 98.1 89 16 ER DEPART Departure Time of Disposition: 20:47 Disposition: 01 HOME, SELF-CARE Impression: Primary Impression: Canker sores oral Condition: Stable Referrals: PIA MURRELL (PCP) PRIMARY CARE PROVIDER Additional Instructions: Rinse Mouth with salt and warm water Ibuprofen F/U with your PCP in 1 week Return to ED if worsening or concerns Duration or Time Spent with Pa: 10 min BERNABE LEY MD Feb 29, 2020 20:49
== END 2020-02-29 20:55 | disposition home or self-care (01) ==
LOC: ER 18:31
DX: K12.0 Recurrent oral aphthae (principal); J45.909 Unspecified asthma, uncomplicated; Z79.51 Long term (current) use of inhaled steroids; Z88.0 Allergy status to penicillin; Z88.6 Allergy status to analgesic agent
CPT/HCPCS: 99281

== ENCOUNTER 2020-03-05 05:02 | Emergency (ER) | payer OTHER ==
[~2020-03-05] VITALS: Ht 188 cm; Wt 113.4 kg
[2020-03-05 05:07] VITALS: BP 150/127
--- NOTE | 2020-03-05 05:10 | NUR ---
ARRIVAL PT ARRIVED VIA WHEELCHAIR TO ER 2 WITH C/O CHEST PAIN THAT STARTED AT 1800 LAST NIGHT AND RADIATES TO THE LEFT ARM. PT STATES PAIN IS SOMETIMES SHARP BUT NOW FEELS LIKE PRESSURE. RATES PAIN 9 ON 0-10 SCALE.
--- NOTE | 2020-03-05 05:27 | NUR ---
YAZ LYN CALLED AT THIS TIME FOR CHEST XRAY.
--- NOTE | 2020-03-05 05:28 | PCM.EKG ---
[facility] Test Date: 2020-03-05 Test Time: 05:08:25 Pat Name: NAWAF MARTINEZ Department: Room: Gender: M Signing Agent: RT : 1980 Requested By: ABRAHAM PARHAM Order Number: [id number] Reading MD: Abraham Parham Measurements Intervals [place] Rate: 85 P: 18 MD: 154 QRS: 3 QRSD: 93 T: 65 QT: 418 QTc: 497 Interpretive Statements Sinus rhythm Abnormal R-wave progression, early transition Borderline prolonged QT interval Compared to ECG 10/24/2019 06:23:54 No significant changes Electronically Signed On 03-05-2020 5:56:48 CDT by Abraham Parham Please click the below link to view image of tracing.
[2020-03-05 05:30] LABS: EOSINOPHIL # 0.4 10^3/uL (0.0-0.2); EOSINOPHIL % 10.4 % (0.0-5.0); LYMPHOCYTES # 1.01 10^3/uL1 (1.0-4.8); LYMPHOCYTES % 24.5 % (24.0-44.0); MEAN CORP HGB 27.5 pg (26-34); MONOCYTES # 0.5 10^3/uL (0.3-0.8); MONOCYTES % 12.6 % (5.0-12.0); NEUTROPHIL # 2.1 10^3/uL (1.8-7.7); NEUTROPHILS % 51.5 % (41.0-85.0); PLATELET COUNT 285 10^3/uL (150-400); RED CELL DISTRIBUTION WIDTH 14.7 % (11.5-14.5)
[2020-03-05 05:32] VITALS: BP 146/95
--- NOTE | 2020-03-05 05:32 | NUR ---
NITRO 1 SPRAY SL GIVEN AT THIS TIME PER VERBAL ORDER FROM DR. PARHAM.
--- NOTE | 2020-03-05 05:37 | NUR ---
NITRO 2ND SPRAY NITRO SL GIVEN AT THIS TIME PER VERBAL ORDER FROM DR. PARHAM.
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
[2020-03-05] MEDS ORDERED: TORADOL ONE (05:44)
[2020-03-05] MEDS ORDERED: TORADOL IV STA (05:49)
--- NOTE | 2020-03-05 05:50 | NUR ---
TORADOL 30MG IV GIVEN AT THIS TIME PER VERBAL FROM DR. PARHAM.
--- NOTE | 2020-03-05 05:51 | NUR ---
XRAY RIKI IN PT ROOM WITH PORTABLE XRAY AT THIS TIME.
[2020-03-05 05:55] LABS: ALANINE AMINOTRANSFERASE(ML) 52 U/L (12-78); ALKALINE PHOSPHATASE 108 U/L (50-136); ASPARTATE AMINO TRANSFERASE 29 U/L (0-35); CALCIUM 8.9 mg/dL (8.4-10.5); CARBON DIOXIDE 25.1 mmol/L (20.0-32); GLUCOSE 142 mg/dL (70-110)
--- NOTE | 2020-03-05 06:01 | NUR ---
UPDATE PT SITTING UP IN BED WITH LEGS CROSSED RUBBING MIDDLE OF CHEST. PT STATES PAIN "IS STILL THERE. IT'S NOT GOING ANYWHERE." PT RATING PAIN A 9 STILL.
[2020-03-05 06:02] VITALS: BP 131/87
--- NOTE | 2020-03-05 06:04 | DIREP ---
PROCEDURE:CHEST 1 VIEW COMPARISON:[facility], CR, XRAY CHEST SINGLE VW, 10/24/2019, 06:19 AM. [facility], CR, XRAY CHEST SINGLE VW, 06/03/2019, 11:49 PM. INDICATIONS:CHEST PAIN FINDINGS: LUNGS/PLEURA:Subsegmental left basilar atelectasis. No consolidation, effusion, or pneumothorax. VASCULATURE:Normal. Unremarkable pulmonary vasculature. CARDIAC:Normal. No cardiac silhouette abnormality or cardiomegaly. MEDIASTINUM:Normal. No visible mass or adenopathy. BONES:Normal. No fracture or visible bony lesion. OTHER:Negative. CONCLUSION:Subsegmental left basilar atelectasis. No acute cardiopulmonary abnormality. Dictated by: Kavon Hayes MD. on 03/05/2020 at 06:02 AM
[2020-03-05 07:11] VITALS: BP 165/87
== END 2020-03-05 07:53 | disposition home or self-care (01) ==
LOC: ER 05:02
DX: R07.9 Chest pain, unspecified (principal); I10 Essential (primary) hypertension; J45.909 Unspecified asthma, uncomplicated; Z88.0 Allergy status to penicillin; Z88.6 Allergy status to analgesic agent
CPT/HCPCS: 36415; 71045; 80053; 82550; 82553; 84484 ×2; 85025; 85610; 85730; 93005; 96374; 99285; J1885

== ENCOUNTER 2020-03-10 09:18 | Emergency (ER) | payer OTHER ==
[~2020-03-10] VITALS: Ht 175.3 cm; Wt 104.3 kg
[2020-03-10 09:25] VITALS: BP 144/105
[2020-03-10 09:28] VITALS: BP 144/105
--- NOTE | 2020-03-10 09:30 | NUR ---
ARRIVAL PATIENT ARRIVED TO ED5 AMBULATORY, C/O OF LIP SWELLING THIS MORNING, HAS BEEN SEEN IN THE IN ED RECENTLY WITH SIMILAR SYMPTOMS, CAME TO THE ED FOR EVAL.
--- NOTE | 2020-03-10 09:56 | ER.PDOC ---
General Chief Complaint: General Complaint Stated Complaint: LIP SWELLING Time seen by MD: 09:39 Source: patient Exam Limitations: no limitations History of Present Illness Initial Comments Pt reports swelling in his lips on R side for a couple days. Was seen her 10 days ago for canker sores on tongue and cheek, took Prednisone. No fever, vomiting. Timing/Duration: gradual Context: fractured tooth (for weeks, has cavities) Prior symptoms/Treatment: No Similar symptoms previous; Recenly Seen, Treated by Doctor Allergies: Coded Allergies: Penicillins (Verified Allergy, Unknown, UNK, 10/31/18) aspirin (Verified Allergy, Unknown, 10/31/18) Home Meds Reported Medications Escitalopram Oxalate (LEXAPRO) 10 Mg Tablet, 1 TAB PO DAILY, #90 TAB 3 Refills 06/25/14 Albuterol Sulfate (VENTOLIN HFA) 18 Gm Hfa.aer.ad, 18 GM IH Q4 PRN for COUGH 11/23/13 Fluticasone/Salmeterol (ADVAIR 250-50 DISKUS) 1 Each Disk.w.dev, 1 EACH IH DAILY 11/23/13 Past Medical History Medical History: cancer, other Surgical History: cancer surgery, other Family History Significant Family History: no pertinent family hx Social History Alcohol Use: none Drug Use: none Constitutional: no symptoms reported; denies chills, denies diaphoresis, denies fever, denies malaise Eyes: no symptoms reported Ears: no symptoms reported Nose: no symptoms reported Mouth: see HPI, pain, swelling Throat: denies pain, denies swelling, denies discharge, denies neck stiffness, denies aphonia, denies muffled, denies painful swallowing Respiratory: no symptoms reported Cardiovascular: no symptoms reported Gastrointestinal: no symptoms reported Skin: no symptoms reported All Other Systems: Reviewed and Negative Physical Exam General Appearance: alert, no distress Head/Neck: head nml inspection, neck nml inspection, trachea midline Eyes: eyes nml inspection, PERRL, no nystagmus Throat: pharynx nml, voice nml Respiratory: no resp. distress, lungs clear Extremities: non-tender Skin Exam: Normal Color NEURO/PSYCH: oriented X3 Comments Pt with small, shallow ulcers of R lateral tongue and R mucosal cheek. [place] mild edema of R cheek and R side of upper and lower lips. No induration, has some discomfort to palpation over ulcers. Results/Orders Results/Orders Vital Signs Date Time Temp Pulse Resp B/P (MAP) Pulse Ox O2 Delivery O2 Flow Rate FiO2 03/10/20 09:28 98.5 105 18 03/10/20 09:25 98.5 105 18 144/105 (118) 94 Room Air 03/10/20 09:25 98.5 101 18 ER DEPART Departure Time of Disposition: 09:54 Disposition: 01 HOME, SELF-CARE Impression: Primary Impression: Canker sores oral Condition: Stable Referrals: PIA MURRELL (PCP) PRIMARY CARE PROVIDER Duration or Time Spent with Pa: 15 TESSIE BRADFORD DO Mar 10, 2020 09:56
== END 2020-03-10 10:02 | disposition home or self-care (01) ==
LOC: ER 09:18
DX: K12.0 Recurrent oral aphthae (principal); Z79.51 Long term (current) use of inhaled steroids; Z79.899 Other long term (current) drug therapy; Z88.0 Allergy status to penicillin; Z88.6 Allergy status to analgesic agent
CPT/HCPCS: 99281; 99283

== ENCOUNTER 2020-03-31 08:38 | Emergency (ER) | payer OTHER ==
[~2020-03-31] VITALS: Ht 188 cm; Wt 113.4 kg
[~2020-03-31 08:38] MED LIST changes: +SENSORCAINE-MPF 0.25% VIAL ONE
[2020-03-31 08:40] VITALS: BP 159/105
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
[2020-03-31 09:09] VITALS: BP 152/87
== END 2020-03-31 09:12 | disposition home or self-care (01) ==
LOC: ER 08:38
DX: K04.7 Periapical abscess without sinus (principal); M27.2 Inflammatory conditions of jaws; Z79.51 Long term (current) use of inhaled steroids; Z79.899 Other long term (current) drug therapy; Z88.6 Allergy status to analgesic agent; Z88.0 Allergy status to penicillin
CPT/HCPCS: 99283; J3490

== ENCOUNTER 2020-05-29 08:54 | Emergency (ER) | payer OTHER ==
[~2020-05-29] VITALS: Ht 188 cm; Wt 109.3 kg
[~2020-05-29 08:54] MED LIST changes: +PANT40TA3 PO; -SENSORCAINE-MPF 0.25% VIAL ONE
--- NOTE | 2020-05-29 09:00 | NUR ---
PT TO ROOM 7 AMBULATORY C/C HEADACHE FOR 3 DAYS AND C/P SINCE 2 AM. PT DENIES SOB NAUSEA VOMITING
[2020-05-29] MEDS ORDERED: TYLENOL PO STA (09:16)
[2020-05-29 09:18] VITALS: BP 174/105
[2020-05-29 09:29] LABS: BASOPHIL % 1.1 % (0.0-0.2); EOSINOPHIL # 0.4 10^3/uL (0.0-0.2); EOSINOPHIL % 10.3 % (0.0-5.0); LYMPHOCYTES # 0.76 10^3/uL1 (1.0-4.8); LYMPHOCYTES % 20.6 % (24.0-44.0); MEAN CORP HGB 25.4 pg (26-34); MONOCYTES # 0.3 10^3/uL (0.3-0.8); MONOCYTES % 9.2 % (5.0-12.0); NEUTROPHIL # 2.2 10^3/uL (1.8-7.7); NEUTROPHILS % 58.5 % (41.0-85.0); PLATELET COUNT 293 10^3/uL (150-400); RED CELL DISTRIBUTION WIDTH 13.3 % (11.5-14.5)
[2020-05-29] MEDS ORDERED: TYLENOL PO ONE (09:32)
--- NOTE | 2020-05-29 09:36 | PCM.EKG ---
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
--- NOTE | 2020-05-29 09:47 | DIREP ---
PROCEDURE:CHEST 1 VIEW COMPARISON:[facility], CR, XRAY CHEST SINGLE VW, 03/05/2020, 05:24 AM. INDICATIONS:chest pain FINDINGS: LUNGS/PLEURA:No significant pulmonary parenchymal abnormalities. No effusions. VASCULATURE:Normal. Unremarkable pulmonary vasculature. CARDIAC:Normal. No cardiac silhouette abnormality or cardiomegaly. MEDIASTINUM:Normal. No visible mass or adenopathy. BONES:Normal. No fracture or visible bony lesion. OTHER:Negative. CONCLUSION:No acute pulmonary process. Dictated by: Rafa Hernandez M.D. on 05/29/2020 at 09:43 AM
[2020-05-29 09:52] LABS: ALANINE AMINOTRANSFERASE(ML) 62 U/L (12-78); ALKALINE PHOSPHATASE 91 U/L (50-136); ASPARTATE AMINO TRANSFERASE 34 U/L (0-35); CARBON DIOXIDE 27.7 mmol/L (20.0-32); GLUCOSE 150 mg/dL (70-110)
--- NOTE | 2020-05-29 10:00 | NUR ---
vitals 137/94 pulse 74 [id number] temp 98.1
--- NOTE | 2020-05-29 10:18 | ER.PDOC ---
General Chief Complaint: Headache Stated Complaint: CP/ELEVATED BLOOD PRESSURE Time seen by MD: 10:11 Source: patient Exam Limitations: no limitations History of Present Illness Initial Comments Patient c/o sharp/stabbing/steady CP since about 4 o'clock this morning. Timing/Duration: 4-6 hours Severity/Quality: moderate Radiation: no radiation Activities at Onset: rest Prior CP/Workup: Cardiac Cath, Other (history of STD) Nitro Today/Relief: No Nitro Taken Today Aspirin Today: No Aspirin Today (allergy to ASA) Associated Symptoms: denies symptoms Allergies: Coded Allergies: Penicillins (Verified Allergy, Unknown, UNK, 10/31/18) aspirin (Verified Allergy, Unknown, 10/31/18) metoclopramide (Verified Allergy, Unknown, 04/22/20) prochlorperazine (Verified Allergy, Unknown, 04/22/20) Home Meds Active Scripts Pantoprazole Sodium (PROTONIX) 40 Mg Tablet.dr, 40 MG PO DAILY24 for 30 Days, #30 Prov:LETICIA QUAN DATA SUPPORT SPECIALIST 04/23/20 Reported Medications Escitalopram Oxalate (LEXAPRO) 10 Mg Tablet, 1 TAB PO DAILY, #90 TAB 3 Refills 06/25/14 Albuterol Sulfate (VENTOLIN HFA) 18 Gm Hfa.aer.ad, 18 GM IH Q4 PRN for COUGH 11/23/13 Fluticasone/Salmeterol (ADVAIR 250-50 DISKUS) 1 Each Disk.w.dev, 1 EACH IH DAILY 11/23/13 Past Medical History Medical History: cardiac problems, hypertension, other Surgical History: cancer surgery, other Family History Significant Family History: no pertinent family hx Social History Smoking: non-smoker Alcohol Use: none Drug Use: none Constitutional: denies no symptoms reported, denies see HPI, denies chills, denies diaphoresis, denies fever, denies malaise, denies weakness, denies other EENTM: denies no symptoms reported, denies see HPI, denies eye pain, denies blurred vision, denies tearing, denies double vision, denies ear pain, denies ear discharge, denies nose pain, denies nose congestion, denies throat pain, denies throat swelling, denies mouth pain, denies mouth swelling, denies other Respiratory: denies no symptoms reported, denies see HPI, denies cough, denies orthopnea, denies shortness of breath, denies SOB with exertion, denies SOB at rest, denies stridor, denies wheezing, denies other Cardiovascular: see HPI, chest pain Gastrointestinal: denies no symptoms reported, denies see HPI, denies abdomen distended, denies abdominal pain, denies blood streaked bowels, denies cons tipated, denies diarrhea, denies difficulty swallowing, denies nausea, denies poor appetite, denies poor fluid intake, denies rectal bleeding, denies vomiting, denies other Genitourinary: denies no symptoms reported, denies see HPI, denies burning, denies dysuria, denies discharge, denies frequency, denies flank pain, denies hematuria, denies incontinence, denies pain, denies urgency, denies other Musculoskeletal: denies no symptoms reported, denies see HPI, denies back pain, denies gout, denies joint pain, denies joint swelling, denies muscle pain, denies muscle stiffness, denies neck pain, denies other Skin: denies no symptoms reported, denies see HPI, denies change in color, denies change in hair/nails, denies dryness, denies lesions, denies lumps, denies rash, denies other All Other Systems: Reviewed and Negative Physical Exam General Appearance: No Apparent Distress, WD/WN HEENT: PERRL/EOMI, Normal ENT Inspection Neck: Non-Tender, Full Range of Motion, Supple Respiratory: lungs clear, normal breath sounds, no respiratory distress, no accessory muscle use Cardiovascular: Regular Rate, Rhythm, No Murmur Gastrointestinal: Normal Bowel Sounds, Non Tender Extremities: Non-Tender, Normal Inspection, No Pedal Edema Neurologic/Psychiatric: Alert, Normal Mood/Affect, Oriented x 3 Skin: Normal Color, Warm/Dry Results/Orders Results/Orders Orders - GLADYS BLEVINS DO Cbc With Auto Diff (05/29/20 09:16) Comprehensive Metabolic Panel (05/29/20 09:16) Creatine Kinase (05/29/20 09:16) Creatine Kinase Mb (05/29/20 09:16) Troponin I (05/29/20 09:16) Probnp B-Type Internal Combustion Engineer (05/29/20 09:16) PT (05/29/20 09:16) Partial Thromboplastin Time. (05/29/20 09:16) Helicobacter Pylori (05/29/20 09:16) D-Dimer (05/29/20 09:16) Xr Chest 1v (05/29/20 09:16) Ekg-Routine (05/29/20 09:16) Saline Lock (05/29/20 09:16) Acetaminophen (Tylenol) (05/29/20 09:16) Acetaminophen (Tylenol) (05/29/20 09:32) Vital Signs Date Time Temp Pulse Resp B/P (MAP) Pulse Ox O2 Delivery O2 Flow Rate FiO2 05/29/20 09:18 97.9 75 12 05/29/20 09:18 97.9 75 12 Administered Medications Medications (Trade) Dose Ordered Sig/Jennifer Route PRN Reason Start Time Stop Time Status Last Admin Dose Admin Acetaminophen (Tylenol) 1,000 mg STAT STAT PO 05/29/20 09:16 05/29/20 09:19 DC 05/29/20 09:35 1,000 MG Laboratory Tests Test 05/29/20 09:00 White Blood Count 3.7 10^3/uL (4.5-11.0) L Red Blood Count 5.47 10^6/uL (4.50-5.90) Hemoglobin 13.9 g/dL (13.9-16.3) Hematocrit 43.5 % (37.0-53.0) Mean Corpuscular Volume 79.5 fL (78-100) Mean Corpuscular Hemoglobin 25.4 pg (26-34) L Mean Corpuscular Hemoglobin Concent 32.0 g/dL (33-36.5) L Red Cell Distribution Width 13.3 % (11.5-14.5) Platelet Count 293 10^3/uL (150-400) Mean Platelet Volume 10.3 fL (7.8-11.0) Neutrophils (%) (Auto) 58.5 % (41.0-85.0) Lymphocytes (%) (Auto) 20.6 % (24.0-44.0) L Monocytes (%) (Auto) 9.2 % (5.0-12.0) Neutrophils # (Auto) 2.2 10^3/uL (1.8-7.7) Lymphocytes # (Auto) 0.76 10^3/uL1 (1.0-4.8) L Monocytes # (Auto) 0.3 10^3/uL (0.3-0.8) Absolute Immature Granulocyte (auto 0.01 10^3 u/L (0-2) Absolute Eosinophils (auto) 0.4 10^3/uL (0.0-0.2) H Immature Granulocytes % 0.30 % (0.00-0.50) Eosinophils % 10.3 % (0.0-5.0) H Basophils % 1.1 % (0.0-0.2) H Basophils # 0.0 10^3/uL (0.0-0.1) Prothrombin Time 11.0 SEC (9.3-11.3) Prothrombin Time INR (Non-Therap) 1.1 Activated Partial Thromboplast Time 24.6 SEC (24.67-30.72) D-Dimer 0.19 mg/L (0.19-0.49) Sodium Level 137 mmol/L (132-145) Potassium Level 3.8 mmol/L (3.6-5.2) Chloride Level 102.0 mmol/L (96-109) Carbon Dioxide Level 27.7 mmol/L (20.0-32) Anion Gap 11.1 Blood Urea Nitrogen 13 mg/dL (7-18) Creatinine 1.04 mg/dL (0.59-1.40) Estimated GFR () 95.2 (>/=60) Est GFR (CKD-EPI)(Non-Afr Nigerien) 78.7 (>/=60) BUN/Creatinine Ratio 12.0 Glucose Level 150 mg/dL (70-110) H Calcium Level 9.0 mg/dL (8.4-10.5) Total Bilirubin 0.6 mg/dL (0.2-1.0) Aspartate Amino Transferase (AST) 34 U/L (0-35) Alanine Aminotransferase (ALT) 62 U/L (12-78) Alkaline Phosphatase 91 U/L (50-136) Total Creatine Kinase 80 U/L (39-308) Creatine Kinase MB 0.6 ng/mL (0.5-3.6) Troponin I < 0.02 ng/mL (0.00-0.05) Pro-B-Type Natriuretic Peptide 80 pg/mL (0-125) Total Protein 7.6 g/dL (6.4-8.2) Albumin 4.3 g/dL (3.4-5.0) Globulin 3.3 Albumin/Globulin Ratio 1.303 Helicobacter pylori Screen POSITIVE (NEGATIVE) Progress Progress cardiac markers WNL; H Pylori + EKG/XRAY/CT/US EKG Comments: NSR, VR 67, no acute STT changes XRAY: chest (WNL) ER DEPART Departure Time of Disposition: 10:12 Disposition: 01 HOME, SELF-CARE Impression: Primary Impression: Non-cardiac chest pain Additional Impression: Helicobacter pylori (H. pylori) infection Condition: Stable Patient Instructions: Chest Pain (Nonspecific), [id number], Gastritis, Adult Referrals: PIA MURRELL (PCP) PRIMARY CARE PROVIDER Additional Instructions: Take antibiotics as prescribed until all gone. Return to ER if you experience any difficulty breathing or swallowing, or for any emergent concerns. Follow up with your doctor next week for reevaluation. Maintain a bland diet. Duration or Time Spent with Pa: 15 min Problem Qualifiers GLADYS BLEVINS DO May 29, 2020 10:18
== END 2020-05-29 10:05 | disposition home or self-care (01) ==
LOC: ER 08:54
DX: R07.89 Other chest pain (principal); B96.81 Helicobacter pylori [H. pylori] as the cause of diseases classified elsewhere; I10 Essential (primary) hypertension; Z79.51 Long term (current) use of inhaled steroids; Z79.899 Other long term (current) drug therapy; Z88.0 Allergy status to penicillin; Z88.6 Allergy status to analgesic agent; Z88.8 Allergy status to other drugs, medicaments and biological substances
CPT/HCPCS: 36415; 71045; 80053; 82550; 82553; 83880; 84484; 85025; 85379; 85610; 85730; 86677; 93005; 99285; A9150

== ENCOUNTER 2020-06-08 14:56 | Emergency (ER) | payer OTHER ==
[~2020-06-08] VITALS: Ht 188 cm; Wt 104.3 kg
--- NOTE | 2020-06-08 15:00 | NUR ---
pt ambulatory to room 5 c/c testicular pain pt sts pain started 4 days ago. pt had one testicle removed. no trauma sts pt
[2020-06-08 15:14] VITALS: BP 148/90
--- NOTE | 2020-06-08 15:37 | ER.PDOC ---
General Chief Complaint: Male Stated Complaint: MALE Time seen by MD: 15:33 Source: patient Exam Limitations: no limitations History of Present Illness Initial Comments patient c/o left testicular pain x 4 days; he has a history of testicular cancer with orchiectomy on Right; denies rash, drainage from penis, dysuria or other symptoms potentially associated with STD; pain was gradual in onset Timing/Duration: other (4 days) Severity/Quality: moderate Location: scrotal Sexual History: Non-contributory Prior symptoms/Treatment: Similar symptoms previous (has had epididymitis in the past) Allergies: Coded Allergies: Penicillins (Verified Allergy, Unknown, UNK, 10/31/18) aspirin (Verified Allergy, Unknown, 10/31/18) metoclopramide (Verified Allergy, Unknown, 04/22/20) prochlorperazine (Verified Allergy, Unknown, 04/22/20) Home Meds Active Scripts Pantoprazole Sodium (PROTONIX) 40 Mg Tablet.dr, 40 MG PO DAILY24 for 30 Days, #30 Prov:LETICIA QUAN SKULL SPLITTER 04/23/20 Reported Medications Escitalopram Oxalate (LEXAPRO) 10 Mg Tablet, 1 TAB PO DAILY, #90 TAB 3 Refills 06/25/14 Albuterol Sulfate (VENTOLIN HFA) 18 Gm Hfa.aer.ad, 18 GM IH Q4 PRN for COUGH 11/23/13 Fluticasone/Salmeterol (ADVAIR 250-50 DISKUS) 1 Each Disk.w.dev, 1 EACH IH DAILY 11/23/13 Past Medical History Medical History: cardiac problems, hypertension, other (testicular cancer) Surgical History: cancer surgery (orchiectomy R), other Family History Significant Family History: no pertinent family hx Social History Smoking: non-smoker Alcohol Use: none Drug Use: none Review of Systems Constitutional: denies no symptoms reported, denies see HPI, denies chills, denies diaphoresis, denies fever, denies malaise, denies weakness, denies other EENTM: denies no symptoms reported, denies see HPI, denies eye pain, denies blurred vision, denies tearing, denies double vision, denies ear pain, denies ear discharge, denies nose pain, denies nose congestion, denies throat pain, denies throat swelling, denies mouth pain, denies mouth swelling, denies other Respiratory: denies no symptoms reported, denies see HPI, denies cough, denies orthopnea, denies shortness of breath, denies stridor, denies wheezing, denies other Cardiovascular: denies no symptoms reported, denies see HPI, denies chest pain, denies edema, denies palpitations, denies syncope, denies other Gastrointestinal: denies no symptoms reported, denies see HPI, denies abdominal pain, denies constipation, denies diarrhea, denies nausea, denies vomiting, denies other Genitourinary: other (testicular pain Left x 4 days) Musculoskeletal: denies no symptoms reported, denies see HPI, denies back pain, denies gout, denies joint pain, denies joint swelling, denies muscle pain, denies muscle stiffness, denies neck pain, denies other Skin: denies no symptoms reported, denies see HPI, denies change in color, denies change in hair/nails, denies dryness, denies lesions, denies lumps, denies rash, denies other All Other Systems: Reviewed and Negative Physical Exam General Appearance: No Apparent Distress, WD/WN EENT: eyes nml inspection, nml ENT inspection Neck: nml inspection, non-tender Cardiovascular/Respiratory: Regular Rate, Rhythm, Normal Breath Sounds, No Respiratory Distress Abdomen: Normal Bowel Sounds, Non Tender, Soft Male Genitals: Testicular Tenderness (L) (diffuse; right testicle surgically absent) Extremities: Normal Range of Motion, Non-Tender Neurologic/Psychiatric: Alert, Normal Mood/Affect Skin: Normal Color, Warm/Dry Results/Orders Results/Orders Orders - GLADYS BLEVINS DO Us Scrotal (06/08/20 15:31) Hcg, Quantitative (06/08/20 15:40) Vital Signs Date Time Temp Pulse Resp B/P (MAP) Pulse Ox O2 Delivery O2 Flow Rate FiO2 06/08/20 15:14 97.8 83 20 100 Laboratory Tests Test 06/08/20 15:40 Human Chorionic Gonadotropin, Quant < 5 mIU/mL Progress Progress hcg <5 EKG/XRAY/CT/US Utrasound Comments: varicocoele, no epididymitis, no nodules ER DEPART Departure Time of Disposition: 16:24 Disposition: 01 HOME, SELF-CARE Impression: Primary Impression: Testicular pain Condition: Stable Patient Instructions: Testicular Problems and Self-Exam Referrals: PIA MURRELL (PCP) PRIMARY CARE PROVIDER Additional Instructions: Follow up with your doctor next week for reevaluation. Alternate Tylenol and Motrin per package instructions every 4 hours as needed for pain. Return to ER for any emergent concerns. Duration or Time Spent with Pa: 20 min Problem Qualifiers Primary Impression: Testicular pain Laterality: left Qualified Codes: N50.812 - Left testicular pain GLADYS BLEVINS DO Jun 08, 2020 15:37
--- NOTE | 2020-06-08 15:40 | NUR ---
US CALLED FOR TESTICULAR US
--- NOTE | 2020-06-08 16:46 | DIREP ---
PROCEDURE:US TESTICULAR COMPARISON:[facility], US, US TESTICULAR, 08/10/2018, 07:54 PM. INDICATIONS:testicular pain x4d , hx RT testicular CA with orchiectomy TECHNIQUE:The scrotum was evaluated with izquierdo scale, spectral analysis, and color duplex doppler sonography. FINDINGS: RIGHT TESTICLE: Removed LEFT TESTICLE: Measures 5.4 x 4.1 x 2.5 cm. No mass or microcalcifications. EPIDIDYMIS:The left epididymal head measures 1.4 cm. 3 mm small left epididymal cyst. OTHER:Small left varicocele. DOPPLER FLOW: Sustained diastolic flow CONCLUSION:Status post right orchiectomy. Left testicle unremarkable in appearance. Dictated by: Niels Lynn MD on 06/08/2020 at 04:42 PM
== END 2020-06-08 16:35 | disposition home or self-care (01) ==
LOC: ER 14:56
DX: N50.812 Left testicular pain (principal); I10 Essential (primary) hypertension; Z79.51 Long term (current) use of inhaled steroids; Z79.899 Other long term (current) drug therapy; Z85.47 Personal history of malignant neoplasm of testis; Z88.0 Allergy status to penicillin; Z88.6 Allergy status to analgesic agent; Z90.79 Acquired absence of other genital organ(s)
CPT/HCPCS: 36415; 76870; 84702; 99283; 99284

== ENCOUNTER 2020-08-31 05:57 | Emergency (ER) | payer OTHER ==
[~2020-08-31] VITALS: Ht 188 cm; Wt 104.3 kg
[2020-08-31 06:07] VITALS: BP 155/115
[2020-08-31] MEDS ORDERED: NITROSTAT SL STA (06:17)
--- NOTE | 2020-08-31 06:22 | PCM.EKG ---
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
[2020-08-31 06:29] LABS: BASOPHIL % 0.6 % (0.0-0.2); EOSINOPHIL # 0.7 10^3/uL (0.0-0.2); EOSINOPHIL % 20.9 % (0.0-5.0); LYMPHOCYTES # 0.66 10^3/uL1 (1.0-4.8); LYMPHOCYTES % 19.7 % (24.0-44.0); MEAN CORP HGB 24.3 pg (26-34); MONOCYTES # 0.3 10^3/uL (0.3-0.8); MONOCYTES % 10.1 % (5.0-12.0); NEUTROPHIL # 1.6 10^3/uL (1.8-7.7); NEUTROPHILS % 48.4 % (41.0-85.0); PLATELET COUNT 218 10^3/uL (150-400); RED CELL DISTRIBUTION WIDTH 15.2 % (11.5-14.5)
--- NOTE | 2020-08-31 06:34 | DIREP ---
PROCEDURE:CHEST 1 VIEW COMPARISON:[facility], CR, XRAY CHEST SINGLE VW, 05/29/2020, 09:21 AM. INDICATIONS:Acute chest pain FINDINGS: LUNGS/PLEURA:No significant pulmonary parenchymal abnormalities. No effusions. VASCULATURE:Normal. Unremarkable pulmonary vasculature. CARDIAC:Normal. No cardiac silhouette abnormality or cardiomegaly. MEDIASTINUM:Normal. No visible mass or adenopathy. BONES:No acute abnormality. OTHER:Negative. CONCLUSION:No acute cardiopulmonary abnormality. Dictated by: Harley Bray M.D. on 08/31/2020 at 06:32 AM
[2020-08-31 07:02] LABS: EOSINOPHIL 18 % (1-4); LYMPHOCYTE 27 % (25-36); MONOCYTE 4 % (3-9); SEGMENTED NEUTROPHILS 50 % (31-76)
--- NOTE | 2020-08-31 07:12 | ER.PDOC ---
General Chief Complaint: Chest Pain-Cardiac Nature Stated Complaint: CHEST PAIN Time seen by MD: 06:02 Source: patient Exam Limitations: no limitations History of Present Illness Initial Comments This 40-year-old man comes to the emergency department claiming onset of substernal chest pain through to the back and into the left shoulder that came on at rest with associated shortness of breath. However review of the old chart and discussion with another physician here who has treated the patient frequently in the past indicates that he has a history of chronic pain syndrome and frequent presentation complaining of migraine headache. Patient does admit that he had a heart cath done a couple of years ago showing clean coronary arteries. He states that he has a history of supraventricular tachycardia and indicates that he is on metoprolol, clonidine, and lisinopril. He is apparently also on a statin but claims allergy to aspirin and penicillin. Patient denies any fever or chills or pleuritic component to the chest pain. He denies any dependent edema or palpitations with this chest pain. Severity/Quality: moderate Radiation: back Prior CP/Workup: Cardiac Cath Nitro Today/Relief: 0.4 mg x 1, Complete Relief Associated Symptoms: shortness of breath Prior symptoms/Treatment: Similar symptoms previous, Recenly Seen, Treated by Andrew silver Allergies: Coded Allergies: Penicillins (Verified Allergy, Unknown, UNK, 10/31/18) aspirin (Verified Allergy, Unknown, 10/31/18) metoclopramide (Verified Allergy, Unknown, 04/22/20) prochlorperazine (Verified Allergy, Unknown, 04/22/20) Home Meds Active Scripts Pantoprazole Sodium (PROTONIX) 40 Mg Tablet., 40 MG PO DAILY24 for 30 Days, #30 Prov:LETICIA QUAN NP 04/23/20 Reported Medications Escitalopram Oxalate (LEXAPRO) 10 Mg Tablet, 1 TAB PO DAILY, #90 TAB 3 Refills 06/25/14 Albuterol Sulfate (VENTOLIN HFA) 18 Gm Hfa.aer.ad, 18 GM IH Q4 PRN for COUGH 11/23/13 Fluticasone/Salmeterol (ADVAIR 250-50 DISKUS) 1 Each Disk.w.dev, 1 EACH IH DAILY 11/23/13 Past Medical History Medical History: arrhythmia, asthma, cardiac problems, diabetes, other (Frequent migraine headaches and history of drug-seeking behavior in the emergency department) Surgical History: other (Patient had an orchiectomy apparently for testicular tumor after bilateral orchiopexy after torsion testis bilaterally. No residual cancer) Family History Significant Family History: no pertinent family hx Social History Smoking: greater than 1 pack/day Alcohol Use: occassionally Drug Use: none Constitutional: denies chills, denies diaphoresis, denies fever EENTM: no symptoms reported Respiratory: denies orthopnea; shortness of breath; denies wheezing Cardiovascular: chest pain; denies edema; lightheadedness, palpitations Gastrointestinal: denies abdominal pain, denies constipated, denies diarrhea, denies nausea, denies vomiting Genitourinary: see HPI Musculoskeletal: denies back pain, denies joint pain, denies joint swelling Skin: no symptoms reported Psychiatric/Neurological: no symptoms reported Endocrine: no symptoms reported Hematologic/Lymphatic: no symptoms reported All Other Systems: Reviewed and Negative Physical Exam General Appearance: No Apparent Distress, WD/WN HEENT: PERRL/EOMI, Normal ENT Inspection, TMs Normal, Pharynx Normal Neck: Non-Tender, Full Range of Motion, Supple, Normal Inspection Respiratory: chest non-tender, lungs clear, normal breath sounds, no respiratory distress, no accessory muscle use Cardiovascular: Normal Peripheral Pulses, Regular Rate, Rhythm, No Edema, No Gallop, No JVD, No Murmur Gastrointestinal: Normal Bowel Sounds, No Organomegaly, No Pulsatile Mass, Non Tender, Soft Extremities: Normal Range of Motion, Non-Tender, Normal Inspection, No Pedal Edema, No Calf Tenderness, Normal Capillary Refill Neurologic/Psychiatric: winder tender II-XII NML as Tested, No Motor/Sensory Deficits, Alert, Normal Mood/Affect, Oriented x 3 Skin: Normal Color, Warm/Dry Lymphatic: No Adenopathy Results/Orders Results/Orders Orders - KIRSTIE EARLY MD Cbc With Auto Diff (08/31/20 06:17) Comprehensive Metabolic Panel (08/31/20 06:17) Creatine Kinase (08/31/20 06:17) Creatine Kinase Mb (08/31/20 06:17) Troponin I (08/31/20 06:17) Probnp B-Type Health Inspector (08/31/20 06:17) D-Dimer (08/31/20 06:17) Xr Chest 1v (08/31/20 06:17) Ekg-Routine (08/31/20 06:17) Nitroglycerin (Nitrostat) (08/31/20 06:17) Vital Signs Date Time Temp Pulse Resp B/P (MAP) Pulse Ox O2 Delivery O2 Flow Rate FiO2 08/31/20 06:07 98.1 75 18 155/115 (128) 93 Room Air 08/31/20 06:07 98.1 75 18 93 08/31/20 06:07 98.1 75 18 Administered Medications Medications (Trade) Dose Ordered Sig/Jennifer Route PRN Reason Start Time Stop Time Status Last Admin Dose Admin Nitroglycerin (Nitrostat) 0.4 mg Q5MIN STAT SL 08/31/20 06:17 08/31/20 06:22 DC 08/31/20 06:30 0.4 MG Laboratory Tests Test 08/31/20 06:24 08/31/20 06:40 White Blood Count 3.4 10^3/uL (4.5-11.0) L Red Blood Count 4.82 10^6/uL (4.50-5.90) Hemoglobin 11.7 g/dL (13.9-16.3) L Hematocrit 37.2 % (37.0-53.0) Mean Corpuscular Volume 77.2 fL (78-100) L Mean Corpuscular Hemoglobin 24.3 pg (26-34) L Mean Corpuscular Hemoglobin Concent 31.5 g/dL (33-36.5) L Red Cell Distribution Width 15.2 % (11.5-14.5) H Platelet Count 218 10^3/uL (150-400) Mean Platelet Volume 10.2 fL (7.8-11.0) Neutrophils (%) (Auto) 48.4 % (41.0-85.0) Lymphocytes (%) (Auto) 19.7 % (24.0-44.0) L Monocytes (%) (Auto) 10.1 % (5.0-12.0) Neutrophils # (Auto) 1.6 10^3/uL (1.8-7.7) L Lymphocytes # (Auto) 0.66 10^3/uL1 (1.0-4.8) L Monocytes # (Auto) 0.3 10^3/uL (0.3-0.8) Absolute Immature Granulocyte (auto 0.01 10^3 u/L (0-2) Absolute Eosinophils (auto) 0.7 10^3/uL (0.0-0.2) H Immature Granulocytes % 0.30 % (0.00-0.50) Eosinophils % 20.9 % (0.0-5.0) H Basophils % 0.6 % (0.0-0.2) H Basophils # 0.0 10^3/uL (0.0-0.1) D-Dimer < 0.19 mg/L (0.19-0.49) L Sodium Level Pending Potassium Level Pending Chloride Level Pending Carbon Dioxide Level Pending Anion Gap Pending Blood Urea Nitrogen Pending Creatinine Pending Estimated GFR () Pending Est GFR (CKD-EPI)(Non-Afr Ugandan) Pending BUN/Creatinine Ratio Pending Glucose Level Pending Calcium Level Pending Total Bilirubin Pending Aspartate Amino Transferase (AST) Pending Alanine Aminotransferase (ALT) Pending Alkaline Phosphatase Pending Total Creatine Kinase Pending Creatine Kinase MB Pending Troponin I < 0.02 ng/mL (0.00-0.05) Pro-B-Type Natriuretic Peptide Pending Total Protein Pending Albumin Pending Globulin Pending Albumin/Globulin Ratio Pending Segmented Neutrophils 50 % (31-76) Lymphocytes 27 % (25-36) Monocytes 4 % (3-9) Absolute Eosinophils (Manual) 18 % (1-4) H Platelet Estimate ADEQUATE Platelet Morphology NORMAL Progress Progress At 7 AM the patient's care is being turned over to the oncoming emergency physician, Dr. Ley. Patient is currently pain-free. First set of troponin is normal. I told the patient that I will be ordering a repeat troponin and EKG in 2 hours. He told me that he is not willing to stay any longer so he signed and left AGAINST M EDICAL ADVICE. He understands that leaving AGAINST MEDICAL ADVICE may result in worsening condition, cardiac arrest and . I told him to return at anytime he feels worse. He voiced understanding. EKG/XRAY/CT/US EKG: NSR, no ST T wave changes EKG Comments: HR 76, normal P axis XRAY: chest (No active disease) ER DEPART Departure Time of Disposition: 08:10 Disposition: 07 AGAINST MEDICAL ADVICE Impression: Primary Impression: Chest pain Condition: Against Medical Advice Referrals: PIA MURRELL (PCP) PRIMARY CARE PROVIDER Duration or Time Spent with Pa: 45 min Problem Qualifiers Primary Impression: Chest pain Chest pain type: unspecified Qualified Codes: R07.9 - Chest pain, unspecified KIRSTIE EARLY MD Aug 31, 2020 07:12 BERNABE LEY MD Aug 31, 2020 08:10
[2020-08-31 07:13] LABS: ALANINE AMINOTRANSFERASE(ML) 53 U/L (12-78); ALKALINE PHOSPHATASE 77 U/L (50-136); ASPARTATE AMINO TRANSFERASE 35 U/L (0-35); CALCIUM 8.6 mg/dL (8.4-10.5); CARBON DIOXIDE 22.5 mmol/L (20.0-32); GLUCOSE 140 mg/dL (70-110)
--- NOTE | 2020-08-31 08:08 | NUR ---
AMA PT REFUSES TO STAY FOR CARDIAC ENZYME REDRAW, SIGNED OUT AMA. IV DC'D FROM LEFT FA, CATHETER INTACT.
== END 2020-08-31 08:08 | disposition left against medical advice (07) ==
LOC: ER 05:57
DX: R07.2 Precordial pain (principal); E11.9 Type 2 diabetes mellitus without complications; F17.210 Nicotine dependence, cigarettes, uncomplicated; J45.909 Unspecified asthma, uncomplicated; Z79.51 Long term (current) use of inhaled steroids; Z79.899 Other long term (current) drug therapy; Z88.0 Allergy status to penicillin; Z88.6 Allergy status to analgesic agent; Z90.79 Acquired absence of other genital organ(s)
CPT/HCPCS: 36415; 71045; 80053; 82550; 82553; 83880; 84484; 85025; 85379; 93005; 99285

== ENCOUNTER 2020-09-22 13:29 | Emergency (ER) | payer OTHER ==
[~2020-09-22] VITALS: Ht 188 cm; Wt 104.3 kg
[2020-09-22] MEDS ORDERED: ADACEL VIAL IM ONE ×2 (13:55→14:30)
[2020-09-22 13:59] VITALS: BP 161/75
[2020-09-22 14:05] VITALS: BP_SYST 161
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
== END 2020-09-22 14:45 | disposition home or self-care (01) ==
LOC: ER 13:29
DX: T22.00XA Burn of unspecified degree of shoulder and upper limb, except wrist and hand, unspecified site, initial encounter (principal); T21.02XA Burn of unspecified degree of abdominal wall, initial encounter; T23.009A Burn of unspecified degree of unspecified hand, unspecified site, initial encounter; E11.9 Type 2 diabetes mellitus without complications; I10 Essential (primary) hypertension; F17.210 Nicotine dependence, cigarettes, uncomplicated; Z79.51 Long term (current) use of inhaled steroids; Z79.899 Other long term (current) drug therapy; Z88.0 Allergy status to penicillin; Z88.6 Allergy status to analgesic agent; X08.8XXA Exposure to other specified smoke, fire and flames, initial encounter; Y93.89 Activity, other specified; Y92.89 Other specified places as the place of occurrence of the external cause; Y99.8 Other external cause status
CPT/HCPCS: 90471; 90715; 99283; 16020

== ENCOUNTER 2020-11-27 13:54 | Emergency (ER) | payer OTHER ==
[~2020-11-27 13:54] MED LIST changes: -OMEP40CA41 PO; +OMEP40CA8 PO
== END 2020-11-27 13:55 | disposition home or self-care (01) ==
LOC: ER 13:54
DX: S09.93XA Unspecified injury of face, initial encounter (principal); Z53.21 Procedure and treatment not carried out due to patient leaving prior to being seen by health care provider; X58.XXXA Exposure to other specified factors, initial encounter; Y93.89 Activity, other specified; Y92.89 Other specified places as the place of occurrence of the external cause; Y99.8 Other external cause status

== ENCOUNTER 2021-01-05 07:04 | Emergency (ER) | payer OTHER ==
[~2021-01-05] VITALS: Ht 188 cm; Wt 99.8 kg
[2021-01-05 07:14] VITALS: BP 138/89
[2021-01-05] MEDS ORDERED: PHENERGAN IM STA (07:35)
[2021-01-05] MEDS ORDERED: TYLENOL #3 PO STA (07:35)
[2021-01-05] MEDS ORDERED: PHENERGAN ONE ×2 (07:40→07:43)
[2021-01-05] MEDS ORDERED: TYLENOL #3 PO ONE (07:41)
[2021-01-05 07:48] LABS: BASOPHIL % 0.5 % (0.0-0.2); EOSINOPHIL # 0.2 10^3/uL (0.0-0.2); EOSINOPHIL % 5.9 % (0.0-5.0); LYMPHOCYTES # 0.88 10^3/uL1 (1.0-4.8); LYMPHOCYTES % 22.4 % (24.0-44.0); MEAN CORP HGB 23.8 pg (26-34); MONOCYTES # 0.4 10^3/uL (0.3-0.8); MONOCYTES % 10.5 % (5.0-12.0); NEUTROPHIL # 2.4 10^3/uL (1.8-7.7); NEUTROPHILS % 60.7 % (41.0-85.0); PLATELET COUNT 253 10^3/uL (150-400)
--- NOTE | 2021-01-05 07:51 | ER.PDOC ---
General Chief Complaint: Abdomen Pain Stated Complaint: DIARRHEA,HEADACHE,ABD PAIN Time seen by MD: 07:02 Source: patient Exam Limitations: no limitations History of Present Illness Initial Comments 40 Y M 2 days of abd pain, diarrhea, no novomiting, no CP or SOB, no fever, no leg edema, no urinary symptoms, has been off his meds for >1 mo for DM and antid epressant Timing/Duration: 24 hours Severity/Quality: moderate Radiation: no radiation Associated Symptoms: nausea/vomiting Exacerbated by: movements Relieved By: nothing Allergies: Coded Allergies: Penicillins (Verified Allergy, Unknown, UNK, 10/31/18) aspirin (Verified Allergy, Unknown, 10/31/18) metoclopramide (Verified Allergy, Unknown, 04/22/20) prochlorperazine (Verified Allergy, Unknown, 04/22/20) Home Meds Active Scripts Pantoprazole Sodium (PROTONIX) 40 Mg Tablet.dr, 40 MG PO DAILY24 for 30 Days, #30 Prov:LETICIA QUAN CLUB MANAGER 04/23/20 Reported Medications Escitalopram Oxalate (LEXAPRO) 10 Mg Tablet, 1 TAB PO DAILY, #90 TAB 3 Refills 06/25/14 Albuterol Sulfate (VENTOLIN HFA) 18 Gm Hfa.aer.ad, 18 GM IH Q4 PRN for COUGH 11/23/13 Fluticasone/Salmeterol (ADVAIR 250-50 DISKUS) 1 Each Disk.w.dev, 1 EACH IH DAILY 11/23/13 Vital Signs First Vital Signs Date Time Temp Pulse Resp B/P (MAP) Pulse Ox O2 Delivery O2 Flow Rate FiO2 01/05/21 07:14 97.8 88 18 01/05/21 07:14 138/89 (105) 97 Room Air Last Vital Signs Date Time Temp Pulse Resp B/P (MAP) Pulse Ox O2 Delivery O2 Flow Rate FiO2 01/05/21 07:14 97.8 88 18 01/05/21 07:14 138/89 (105) 97 Room Air Past Medical History Medical History: asthma, cancer, cardiac problems, diabetes, hypertension, other Surgical History: cancer surgery, other Social History Alcohol Use: none Drug Use: none All Other Systems: Reviewed and Negative Physical Exam General Appearance: No Apparent Distress HEENT: Normal ENT Inspection Neck: Normal Inspection Respiratory: normal breath sounds, no respiratory distress Cardiovascular: No Edema Gastrointestinal: Non Tender, Soft Back: Normal Inspection Results/Orders Results/Orders Orders - REBECCA HIDALGO MD Cbc With Auto Diff (01/05/21 07:35) Comprehensive Metabolic Panel (01/05/21 07:35) Lipase (01/05/21 07:35) PT (01/05/21 07:35) Urinalysis (01/05/21 07:35) Promethazine Hcl (Phenergan) (01/05/21 07:35) Acetaminophen With Codeine (Tylenol #3) (01/05/21 07:35) Promethazine Hcl (Phenergan) (01/05/21 07:40) Acetaminophen With Codeine (Tylenol #3) (01/05/21 07:41) Promethazine Hcl (Phenergan) (01/05/21 07:43) Urine Culture (01/05/21 08:20) Vital Signs Date Time Temp Pulse Resp B/P (MAP) Pulse Ox O2 Delivery O2 Flow Rate FiO2 01/05/21 07:14 97.8 88 18 01/05/21 07:14 97.8 88 18 138/89 (105) 97 Room Air 01/05/21 07:14 97.8 88 18 Administered Medications Medications (Trade) Dose Ordered Sig/Jennifer Route PRN Reason Start Time Stop Time Status Last Admin Dose Admin Acetaminophen/ Codeine Phosphate (Tylenol #3) 2 each OT STAT PO 01/05/21 07:35 01/05/21 07:38 DC 01/05/21 07:47 2 EACH Promethazine HCl (Phenergan) 25 mg STAT STAT IM 01/05/21 07:35 01/05/21 07:38 DC 01/05/21 07:46 25 MG Laboratory Tests Test 01/05/21 07:45 01/05/21 08:20 White Blood Count 3.9 10^3/uL (4.5-11.0) L Red Blood Count 5.12 10^6/uL (4.50-5.90) Hemoglobin 12.2 g/dL (13.9-16.3) L Hematocrit 40.2 % (37.0-53.0) Mean Corpuscular Volume 78.5 fL (78-100) Mean Corpuscular Hemoglobin 23.8 pg (26-34) L Mean Corpuscular Hemoglobin Concent 30.3 g/dL (33-36.5) L Red Cell Distribution Width 17.0 % (11.5-14.5) H Platelet Count 253 10^3/uL (150-400) Mean Platelet Volume 10.2 fL (7.8-11.0) Neutrophils (%) (Auto) 60.7 % (41.0-85.0) Lymphocytes (%) (Auto) 22.4 % (24.0-44.0) L Monocytes (%) (Auto) 10.5 % (5.0-12.0) Neutrophils # (Auto) 2.4 10^3/uL (1.8-7.7) Lymphocytes # (Auto) 0.88 10^3/uL1 (1.0-4.8) L Monocytes # (Auto) 0.4 10^3/uL (0.3-0.8) Absolute Immature Granulocyte (auto 0 10^3 u/L (0-2) Absolute Eosinophils (auto) 0.2 10^3/uL (0.0-0.2) Immature Granulocytes % 0.00 % (0.00-0.50) Eosinophils % 5.9 % (0.0-5.0) H Basophils % 0.5 % (0.0-0.2) H Basophils # 0.0 10^3/uL (0.0-0.1) Prothrombin Time 11.1 SEC (9.6-12.0) Prothrombin Time INR (Non-Therap) 1.0 Sodium Level 139 mmol/L (132-145) Potassium Level 3.7 mmol/L (3.6-5.2) Chloride Level 106.0 mmol/L (96-109) Carbon Dioxide Level 22.6 mmol/L (20.0-32) Anion Gap 14.1 Blood Urea Nitrogen 14 mg/dL (7-18) Creatinine 1.18 mg/dL (0.59-1.40) Estimated GFR () 81.9 (>/=60) Est GFR (CKD-EPI)(Non-Afr Prydeinig) 67.7 (>/=60) BUN/Creatinine Ratio 11.0 Glucose Level 140 mg/dL (70-110) H Calcium Level 9.2 mg/dL (8.4-10.5) Total Bilirubin 0.6 mg/dL (0.2-1.0) Aspartate Amino Transferase (AST) 33 U/L (0-35) Alanine Aminotransferase (ALT) 48 U/L (12-78) Alkaline Phosphatase 81 U/L (50-136) Total Protein 7.2 g/dL (6.4-8.2) Albumin 4.0 g/dL (3.4-5.0) Globulin 3.2 Albumin/Globulin Ratio 1.250 Lipase 97 U/L (114-286) L Urine Collection Type RANDOM Urine Color YELLOW Urine Appearance CLEAR Urine Bilirubin SMALL (NEGATIVE) H Urine Ictotest NEGATIVE (NEGATIVE) Urine Ketones TRACE (NEGATIVE) H Urine Specific [place] >=1.030 (1.005-1.030) Urine pH 5.5 (4.5-8.0) Urine Protein 30 mg/dL (NEGATIVE) H Urine Urobilinogen 0.2 E.U./dL (0.2) Urine Nitrate NEGATIVE (NEGATIVE) Urine Leukocyte Esterase NEGATIVE (NEGATIVE) Urine Glucose (Auto)(UA) NEGATIVE (NEGATIVE) Urine Blood NEGATIVE (NEGATIVE) Urine RBC 0-2 RBC/HPF (NONE SEEN) Urine WBC 2-5 WBC/HPF (0-2) Urine Squamous Epithelial Cells RARE #/HPF (FEW) Urine Calcium Oxalate Crystals MODERATE (NONE SEEN) Urine Bacteria RARE (NONE SEEN) Urine Hyaline Casts 0-1 (NONE SEEN) Urine Other MODERATE MUCUS #/HPF ER DEPART Departure Time of Disposition: 09:01 Disposition: 01 HOME / SELF CARE / HOMELESS Impression: Primary Impression: Diarrhea Condition: Improved Patient Instructions: Abdominal Pain Referrals: PIA MURRELL (PCP) PRIMARY CARE PROVIDER Duration or Time Spent with Pa: 15m Return to Work/School Can a patient return to work?: Yes REBECCA HIDALGO MD Jan 05, 2021 07:51
[2021-01-05 08:05] LABS: CALCIUM 9.2 mg/dL (8.4-10.5); CARBON DIOXIDE 22.6 mmol/L (20.0-32)
[2021-01-05 08:43] LABS: BILIRUBIN,URINE SMALL (NEGATIVE); UA COLOR YELLOW; UROBILINOGEN,URINE 0.2 E.U./dL (0.2)
--- NOTE | 2021-01-05 08:59 | NUR ---
DISCHARGE PT LEFT WITHOUT DISCHARGE ORDERS OR SIGNING PAPERS, NOTIFIED
== END 2021-01-05 08:59 | disposition home or self-care (01) ==
LOC: ER 07:04
DX: R19.7 Diarrhea, unspecified (principal); R10.9 Unspecified abdominal pain; E11.9 Type 2 diabetes mellitus without complications; I10 Essential (primary) hypertension; J45.909 Unspecified asthma, uncomplicated; Z79.51 Long term (current) use of inhaled steroids; Z79.899 Other long term (current) drug therapy; Z88.0 Allergy status to penicillin; Z88.6 Allergy status to analgesic agent
CPT/HCPCS: 36415; 80053; 81001; 83690; 85025; 85610; 87086; 96372; 99283; J2550 ×2; J3490

== ENCOUNTER 2021-01-06 12:01 | Emergency (ER) | payer OTHER ==
[~2021-01-06] VITALS: Ht 188 cm; Wt 104.3 kg
[2021-01-06 12:15] VITALS: BP 146/75
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
[2021-01-06] MEDS ORDERED: AZITHROMYCIN PO STA (12:34)
--- NOTE | 2021-01-06 12:37 | ER.PDOC ---
General Chief Complaint: Male Stated Complaint: MALE Time seen by MD: 12:36 Source: patient Exam Limitations: no limitations History of Present Illness Initial Comments Awoke this am with pain in left testicle. history of Testicular cancer with right orchectomy Timing/Duration: this morning Severity/Quality: moderate, aching Location: scrotal Associated Symptoms: Testicle pain (L) Sexual History: Non-contributory Prior symptoms/Treatment: Similar symptoms previous (Epididymitis) Allergies: Coded Allergies: Penicillins (Verified Allergy, Unknown, UNK, 10/31/18) aspirin (Verified Allergy, Unknown, 10/31/18) metoclopramide (Verified Allergy, Unknown, 04/22/20) prochlorperazine (Verified Allergy, Unknown, 04/22/20) Home Meds Active Scripts Pantoprazole Sodium (PROTONIX) 40 Mg Tablet.dr, 40 MG PO DAILY24 for 30 Days, #30 Prov:LETICIA QUAN HOME HEALTH ADMINISTRATOR 04/23/20 Reported Medications Escitalopram Oxalate (LEXAPRO) 10 Mg Tablet, 1 TAB PO DAILY, #90 TAB 3 Refills 06/25/14 Albuterol Sulfate (VENTOLIN HFA) 18 Gm Hfa.aer.ad, 18 GM IH Q4 PRN for COUGH 11/23/13 Fluticasone/Salmeterol (ADVAIR 250-50 DISKUS) 1 Each Disk.w.dev, 1 EACH IH DAILY 11/23/13 Past Medical History Medical History: cancer, cardiac problems, diabetes, hypertension, other Surgical History: cancer surgery, other Social History Alcohol Use: none Drug Use: none Reviewed Nursing Reviewed: Vital Signs, Abn. Noted, Nursing Assessment Review of Systems Constitutional: no symptoms reported EENTM: no symptoms reported Respiratory: no symptoms reported Cardiovascular: no symptoms reported Gastrointestinal: no symptoms reported Genitourinary: pain Musculoskeletal: no symptoms reported Skin: no symptoms reported Psychiatric/Neurological: no symptoms reported Endocrine: no symptoms reported Hematologic/Lymphatic: no symptoms reported All Other Systems: Reviewed and Negative Physical Exam General Appearance: No Apparent Distress, WD/WN Neck: nml inspection, non-tender Cardiovascular/Respiratory: Regular Rate, Rhythm, No M/R/G, Normal Peripheral Pulses, No JVD, Normal Breath Sounds, No Respiratory Distress Abdomen: Normal Bowel Sounds, Non Tender, Soft, No Organomegaly, No Pulsatile Mass Male Genitals: Normal Genitalia, Epididymal Tenderness, Testicular Tenderness (L) Back: nml inspection Extremities: Normal Range of Motion, Non-Tender, Normal Inspection, No Pedal Edema, No Calf Tenderness, Normal Capillary Refill 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 Tested, No Motor/Sensory Deficits, Alert, Normal Mood/Affect, Oriented x 3 Skin: Normal Color, Warm/Dry Lymphatic: No Adenopathy Results/Orders Results/Orders Orders - DALIA OSWALD DO Us Scrotal (01/06/21 12:14) Urinalysis (01/06/21 12:32) Ceftriaxone Sodium (Rocephin) (01/06/21 13:00) Azithromycin (Azithromycin) (01/06/21 12:34) Vital Signs Date Time Temp Pulse Resp B/P (MAP) Pulse Ox O2 Delivery O2 Flow Rate FiO2 01/06/21 13:17 98.3 73 18 146/75 (98) 96 Room Air 01/06/21 12:15 98.3 77 18 97 01/06/21 12:15 98.3 77 18 146/75 (98) 97 Room Air 01/06/21 12:15 98.3 77 18 Laboratory Tests Test 01/06/21 12:47 Urine Collection Type UNKNOWN Urine Color DARK YELLOW Urine Appearance CLEAR Urine Bilirubin SMALL (NEGATIVE) H Urine Ketones TRACE (NEGATIVE) H Urine Specific [place] >=1.030 (1.005-1.030) Urine pH 5.5 (4.5-8.0) Urine Protein 30 mg/dL (NEGATIVE) H Urine Urobilinogen 0.2 E.U./dL (0.2) Urine Nitrate NEGATIVE (NEGATIVE) Urine Leukocyte Esterase NEGATIVE (NEGATIVE) Urine Glucose (Auto)(UA) NEGATIVE (NEGATIVE) Urine Blood NEGATIVE (NEGATIVE) Urine RBC NONE SEEN RBC/HPF (NONE Urine WBC 0-2 WBC/HPF (0-2) Urine Squamous Epithelial Cells RARE #/HPF (FEW) Urine Calcium Oxalate Crystals RARE (NONE SEEN) Urine Bacteria NONE SEEN (NONE SEEN) EKG/XRAY/CT/US Ultrasound: normal (s/p orchectomy, Left Testis normal) ER DEPART Departure Time of Disposition: 13:33 Disposition: 01 HOME / SELF CARE / HOMELESS Impression: Primary Impression: Epididymitis Condition: Stable Patient Instructions: Epididymitis Referrals: PIA MURRELL (PCP) PRIMARY CARE PROVIDER Duration or Time Spent with Pa: 30 Return to Work/School Can a patient return to work?: No (rest at home x 48 hours) DALIA OSWALD DO Jan 06, 2021 12:37
[2021-01-06] MEDS ORDERED: ROCEPHIN IM ONE (13:00)
[2021-01-06 13:17] VITALS: BP 146/75
[2021-01-06 13:21] LABS: BILIRUBIN,URINE SMALL (NEGATIVE); UA COLOR DARK YELLOW; UROBILINOGEN,URINE 0.2 E.U./dL (0.2)
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
[2021-01-06] MEDS ORDERED: LIDOCAINE 1% VIAL ONE (13:32)
[2021-01-06] MEDS ORDERED: AZITHROMYCIN PO ONE (13:32)
[2021-01-06] MEDS ORDERED: ROCEPHIN ONE (13:32)
== END 2021-01-06 13:40 | disposition home or self-care (01) ==
LOC: ER 12:01
DX: N45.1 Epididymitis (principal); I10 Essential (primary) hypertension; E11.9 Type 2 diabetes mellitus without complications; Z79.51 Long term (current) use of inhaled steroids; Z79.899 Other long term (current) drug therapy; Z85.47 Personal history of malignant neoplasm of testis; Z88.0 Allergy status to penicillin; Z88.6 Allergy status to analgesic agent
CPT/HCPCS: 76870; 81001; 96372; 99284; J0696; J2001; Q0144

== ENCOUNTER 2021-07-23 13:22 | Emergency (ER) | payer OTHER ==
[~2021-07-23] VITALS: Ht 177.8 cm; Wt 95.3 kg
[2021-07-23 13:55] VITALS: BP 127/94
[2021-07-23 14:28] VITALS: BP 127/94
[2021-07-23] MEDS ORDERED: KENALOG-40 IM STA (15:29)
[2021-07-23] MEDS ORDERED: KENALOG-40 ONE (15:30)
--- NOTE | 2021-07-23 15:31 | ER.PDOC ---
General Chief Complaint: General Complaint Stated Complaint: ASTHMA,SOB,HEADACHE,ST,NO TASTE/SMELL Time seen by MD: 15:33 Source: patient Exam Limitations: no limitations History of Present Illness Timing/Duration: yesterday Severity: mild Associated Symptoms: runny nose, sinus pain/drainage, mild SOB Prior symptoms/Treatment: Similar symptoms previous Allergies: Coded Allergies: Penicillins (Verified Allergy, Unknown, UNK, 10/31/18) aspirin (Verified Allergy, Unknown, 10/31/18) metoclopramide (Verified Allergy, Unknown, 04/22/20) prochlorperazine (Verified Allergy, Unknown, 04/22/20) Home Meds Active Scripts Pantoprazole Sodium (PROTONIX) 40 Mg Tablet.dr, 40 MG PO DAILY24 for 30 Days, #30 Prov:LETICIA QUAN NP 04/23/20 Reported Medications Escitalopram Oxalate (LEXAPRO) 10 Mg Tablet, 1 TAB PO DAILY, #90 TAB 3 Refills 06/25/14 Albuterol Sulfate (VENTOLIN HFA) 18 Gm Hfa.aer.ad, 18 GM IH Q4 PRN for COUGH 11/23/13 Fluticasone/Salmeterol (ADVAIR 250-50 DISKUS) 1 Each Disk.w.dev, 1 EACH IH DAILY 11/23/13 All Other Systems: Reviewed and Negative Past Medical History Medical History: cardiac problems, diabetes, hypertension Surgical History: other Social History Alcohol Use: none Drug Use: none Reviewed Nursing Reviewed: Vital Signs, Abn. Noted Physical Exam General Appearance: alert, no distress Eye: eyes nml inspection, lids & conjunct. nml, PERRL, no nystagmus Ear: ear nml Nose: nose nml Throat: pharynx nml, airway nml Neck: nml inspection, supple Respiratory: no resp.distress, breath sounds nml Abdomen: non-tender, no organomegaly CVS: reg rate & rhythm, heart sounds nml Skin: color nml, no rash, warm/dry Extremities: non-tender, nml ROM, no pedal edema NEURO/PSYCH: oriented x 3, CN's nml as tested, motor nml, sensation nml, mood/affect nml Results/Orders Results/Orders Orders - LUIS MIGUEL WALLIS MD Influenza A&B (07/23/21 13:58) Strep Screen (07/23/21 13:58) Covid19 Antigen Donna Ashwini (07/23/21 13:58) Vital Signs Date Time Temp Pulse Resp B/P (MAP) Pulse Ox O2 Delivery O2 Flow Rate FiO2 07/23/21 14:28 98.9 66 20 127/94 (105) 97 Room Air 07/23/21 13:55 98.9 66 20 07/23/21 13:55 98.9 66 20 97 Laboratory Tests Test 07/23/21 14:02 Influenza Type A Antigen NEGATIVE (NEG) Influenza Type B Antigen NEGATIVE (NEG) SARS-CoV-2 Antigen (Rapid) NEGATIVE (NEGATIVE) Group A Streptococcus Screen NEGATIVE (NEGATIVE) ER DEPART Departure Time of Disposition: 15:33 Disposition: 01 HOME / SELF CARE / HOMELESS Impression: Primary Impression: Acute sinusitis Condition: Stable Referrals: PIA MURRELL (PCP) PRIMARY CARE PROVIDER Duration or Time Spent with Pa: 12M LUIS MIGUEL WALLIS MD Jul 23, 2021 15:31
[2021-07-23 15:41] VITALS: BP 121/82
== END 2021-07-23 15:41 | disposition home or self-care (01) ==
LOC: ER 13:22
DX: J01.90 Acute sinusitis, unspecified (principal); I10 Essential (primary) hypertension; E11.9 Type 2 diabetes mellitus without complications; J45.909 Unspecified asthma, uncomplicated; Z20.822 Contact with and (suspected) exposure to COVID-19; Z79.51 Long term (current) use of inhaled steroids; Z79.899 Other long term (current) drug therapy; Z88.0 Allergy status to penicillin; Z88.6 Allergy status to analgesic agent
CPT/HCPCS: 87070; 87426; 87804 ×2; 87880; 96372; 99283; J3301

== ENCOUNTER 2021-08-07 20:22 | Emergency (ER) | payer OTHER ==
[~2021-08-07] VITALS: Ht 188 cm; Wt 95.3 kg
[2021-08-07 20:33] VITALS: BP 115/61
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
[2021-08-07 20:49] LABS: MEAN CORP HGB 25.6 pg (26-34); RED CELL DISTRIBUTION WIDTH 16.5 % (11.5-14.5)
[2021-08-07] MEDS ORDERED: TORADOL IM PRN (21:00)
[2021-08-07 21:13] LABS: CARBON DIOXIDE 18.8 mmol/L (20.0-32)
[2021-08-07] MEDS ORDERED: TORADOL ONE (21:13)
[2021-08-07] MEDS ORDERED: TORADOL IM STA (21:15)
[2021-08-07 21:19] VITALS: BP 118/61
--- NOTE | 2021-08-08 09:19 | PCM.EKG ---
[facility] Test Date: 2021-08-07 Test Time: 20:28:19 Pat Name: NAWAF MARTINEZ Department: Room: Gender: M Data Communications Technician: : 1980 Requested By: LOUIE FRANCISCO Order Number: [id number] Reading MD: Measurements Intervals [place] Rate: 77 P: 32 GA: 156 QRS: 26 QRSD: 95 T: 46 QT: 401 QTc: 454 Interpretive Statements Sinus rhythm Abnormal R-wave progression, early transition Compared to ECG 08/31/2020 06:11:25 No significant changes Please click the below link to view image of tracing.
== END 2021-08-07 21:19 | disposition home or self-care (01) ==
LOC: ER 20:26
DX: R00.2 Palpitations (principal); I10 Essential (primary) hypertension; E11.9 Type 2 diabetes mellitus without complications; Z79.51 Long term (current) use of inhaled steroids; Z79.899 Other long term (current) drug therapy; Z88.0 Allergy status to penicillin; Z88.6 Allergy status to analgesic agent
CPT/HCPCS: 36415; 80053; 83880; 84484; 85027; 93005; 96372; 99284; J1885

== ENCOUNTER 2021-08-11 17:27 | Emergency (ER) | payer OTHER ==
[~2021-08-11] VITALS: Ht 177.8 cm; Wt 95.3 kg
[2021-08-11 17:37] VITALS: BP 108/75
[2021-08-11 17:41] VITALS: BP 114/71
[2021-08-11] MEDS ORDERED: LASIX IV STA (17:52)
--- NOTE | 2021-08-11 18:20 | NUR ---
CRITICAL LAB D-DIMER 0.7 FROM LAB, DR. ERAZO NOTIFIED, VERBALIZED UNDERSTANDING.
[2021-08-11] MEDS ORDERED: PEPCID PO STA (18:42)
--- NOTE | 2021-08-11 18:42 | ER.PDOC ---
General Chief Complaint: Chest Pain-Cardiac Nature Stated Complaint: CHEST PAINS Time seen by MD: 18:00 Source: patient History of Present Illness Initial Comments 41 y/o male comes here c/o chest pain, retrosternal, pressure-like He was here 2 days ago, w/u was negative He was d/c home to F/U with Cardiology but he did not go denies eating spicy meals no alcohol no drugs Never had this issue before no fever/chills Symptoms not associated with activity Pain is constant 11/30 intensity no leg swelling no recent travel Allergies: Coded Allergies: Penicillins (Verified Allergy, Unknown, UNK, 10/31/18) aspirin (Verified Allergy, Unknown, 10/31/18) metoclopramide (Verified Allergy, Unknown, 04/22/20) prochlorperazine (Verified Allergy, Unknown, 04/22/20) Home Meds Active Scripts Pantoprazole Sodium (PROTONIX) 40 Mg Tablet.dr, 40 MG PO DAILY24 for 30 Days, #30 Prov:LETICIA QUAN WEB RETAILER 04/23/20 Reported Medications Escitalopram Oxalate (LEXAPRO) 10 Mg Tablet, 1 TAB PO DAILY, #90 TAB 3 Refills 06/25/14 Albuterol Sulfate (VENTOLIN HFA) 18 Gm Hfa.aer.ad, 18 GM IH Q4 PRN for COUGH 11/23/13 Fluticasone/Salmeterol (ADVAIR 250-50 DISKUS) 1 Each Disk.w.dev, 1 EACH IH DAILY 11/23/13 Past Medical History Medical History: asthma, cardiac problems, diabetes, hypertension Surgical History: cardiac cath LMP (females 10-50): N/A Not applicalbe Family History Significant Family History: no pertinent family hx Social History Alcohol Use: none Drug Use: none Results/Orders Results/Orders Orders - HUMBERTO ERAZO MD Furosemide (Lasix) (08/11/21 17:52) Mycoplasma Pneum Ab Igm (08/11/21 18:03) D-Dimer (08/11/21 18:03) Vital Signs Date Time Temp Pulse Resp B/P (MAP) Pulse Ox O2 Delivery O2 Flow Rate FiO2 08/11/21 17:41 98.6 79 20 114/71 (85) 98 Room Air 08/11/21 17:37 98.6 79 20 98 08/11/21 17:37 98.6 79 20 Progress Progress patient with normal v/s and P/E EKG normal ddimer normal 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
[2021-08-11] MEDS ORDERED: LIDOCAINE VISCOUS MM STA (18:46)
[2021-08-11] MEDS ORDERED: LIDOCAINE VISCOUS ONE (18:56)
[2021-08-11] MEDS ORDERED: TYLENOL #3 PO ONE ×2 (18:57→19:00)
[2021-08-11] MEDS ORDERED: PEPCID ONE (18:57)
[2021-08-11] MEDS ORDERED: MYLANTA ONE (18:57)
[2021-08-11] MEDS ORDERED: MYLANTA PO ONE (19:00)
[2021-08-11] MEDS ORDERED: CARAFATE PO ONE (21:00)
--- NOTE | 2021-08-12 10:49 | PCM.EKG ---
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
== END 2021-08-11 19:15 | disposition home or self-care (01) ==
LOC: ER 17:27
DX: R07.9 Chest pain, unspecified (principal); E11.9 Type 2 diabetes mellitus without complications; I10 Essential (primary) hypertension; J45.909 Unspecified asthma, uncomplicated; Z79.51 Long term (current) use of inhaled steroids; Z79.899 Other long term (current) drug therapy; Z88.0 Allergy status to penicillin; Z88.6 Allergy status to analgesic agent; Z88.8 Allergy status to other drugs, medicaments and biological substances
CPT/HCPCS: 36415; 85379; 86677; 86738; 93005; 99284; J3490

== ENCOUNTER 2021-11-07 22:27 | Emergency (ER) | payer SELFPAY ==
[~2021-11-07] VITALS: Ht 188 cm; Wt 108.9 kg
[2021-11-07 22:45] VITALS: BP 144/93
--- NOTE | 2021-11-07 22:49 | ER.PDOC ---
General Chief Complaint: Requesting Medical Care Stated Complaint: ABD PAIN Time seen by MD: 22:38 Source: patient Exam Limitations: no limitations History of Present Illness Initial Comments This patient complains that he has had 3 diarrhea stools since noon today and then left lower quadrant abdominal pain started about 2 hours prior to coming in. He has not taken anything for his belly pain. He denies any nausea vomiting. Denies any urinary symptoms. He has no other acute complaint. Timing/Duration: 1-3 hours Severity/Quality: severe, cramping, sharpness, stabbing, throbbing Radiation: no radiation, LLQ Associated Symptoms: diarrhea Exacerbated by: walking Relieved By: remaining still Allergies: Coded Allergies: Penicillins (Verified Allergy, Unknown, UNK, 10/31/18) aspirin (Verified Allergy, Unknown, 10/31/18) metoclopramide (Verified Allergy, Unknown, 04/22/20) prochlorperazine (Verified Allergy, Unknown, 04/22/20) Home Meds Active Scripts Pantoprazole Sodium (PROTONIX) 40 Mg Tablet.dr, 40 MG PO DAILY24 for 30 Days, #30 Prov:LETICIA QUAN NP 04/23/20 Reported Medications Escitalopram Oxalate (LEXAPRO) 10 Mg Tablet, 1 TAB PO DAILY, #90 TAB 3 Refills 06/25/14 Albuterol Sulfate (VENTOLIN HFA) 18 Gm Hfa.aer.ad, 18 GM IH Q4 PRN for COUGH 11/23/13 Fluticasone/Salmeterol (ADVAIR 250-50 DISKUS) 1 Each Disk.w.dev, 1 EACH IH DAILY 11/23/13 Vital Signs First Vital Signs Date Time Temp Pulse Resp B/P (MAP) Pulse Ox O2 Delivery O2 Flow Rate FiO2 11/07/21 22:45 98.4 82 20 98 11/07/21 22:45 144/93 (110) Room Air* 0 21 Last Vital Signs Date Time Temp Pulse Resp B/P (MAP) Pulse Ox O2 Delivery O2 Flow Rate FiO2 11/07/21 22:45 98.4 82 20 144/93 (110) 98 Room Air* 0 21 Past Medical History Medical History: asthma, cardiac problems, diabetes, hypertension, other (hx of narcotic abuse) Surgical History: cardiac cath Social History Smoking: non-smoker Alcohol Use: none Drug Use: none Constitutional: denies no symptoms reported, denies see HPI, denies chills, denies diaphoresis, denies fever, denies malaise, denies weakness, denies other EENTM: denies no symptoms reported, denies see HPI, denies eye pain, denies blurred vision, denies tearing, denies double vision, denies ear pain, denies ear discharge, denies nose pain, denies nose congestion, denies throat pain, denies throat swelling, denies mouth pain, denies mouth swelling, denies other Respiratory: denies no symptoms reported, denies see HPI, denies cough, denies orthopnea, denies shortness of breath, denies SOB with exertion, denies SOB at rest, denies stridor, denies wheezing, denies other Cardiovascular: denies no symptoms reported, denies see HPI, denies chest pain, denies edema, denies irregular heart rate, denies lightheadedness, denies palpitations, denies syncope, denies other Gastrointestinal: see HPI, abdominal pain, diarrhea Genitourinary: denies no symptoms reported, denies see HPI, denies burning, denies dysuria, denies discharge, denies frequency, denies flank pain, denies hematuria, denies incontinence, denies pain, denies urgency, denies other Musculoskeletal: denies no symptoms reported, denies see HPI, denies back pain, denies gout, denies joint pain, denies joint swelling, denies muscle pain, denies muscle stiffness, denies neck pain, denies other Skin: denies no symptoms reported, denies see HPI, denies change in color, denies change in hair/nails, denies dryness, denies lesions, denies lumps, denies rash, denies other Psychiatric/Neurological: denies no symptoms reported, denies see HPI, denies anxiety, denies depressed, denies emotional problems, denies headache, denies numbness, denies paresthesia, denies pre-existing deficit, denies seizure, denies tingling, denies tremors, denies weakness, denies other Endocrine: denies no symptoms reported, denies see HPI, denies excessive sweating, denies flushing, denies intolerance to cold, denies intolerance to heat, denies increased hunger, denies increased thrist, denies increased urine, denies unexplained weight gain, denies unexplaned weight loss, denies other Hematologic/Lymphatic: denies no symptoms reported, denies see HPI, denies anemia, denies blood clots, denies easy bleeding, denies easy bruising, denies swollen glands, denies other Physical Exam General Appearance: No Apparent Distress, Obese HEENT: PERRL/EOMI, Normal ENT Inspection, TMs Normal, Pharynx Normal Neck: Non-Tender, Full Range of Motion, Supple, Normal Inspection Respiratory: chest non-tender, lungs clear, normal breath sounds, no respiratory distress, no accessory muscle use Cardiovascular: Normal Peripheral Pulses, Regular Rate, Rhythm, No Edema, No Gallop, No JVD, No Murmur Gastrointestinal: Hypoactive bowel sounds, Soft, Tenderness (LLQ pain without guarding, rebound or distension) Back: Normal Inspection, No CVA Tenderness Extremities: Normal Range of Motion, Non-Tender, Normal Inspection, No Pedal Edema, No Calf Tenderness, Normal Capillary Refill, Pelvis Stable Neurologic/Psychiatric: 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 licensed 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 II-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 NML as Tested, No Motor/Sensory Deficits, Alert, Normal Mood/Affect, Oriented x 3 Skin: Normal Color, Warm/Dry Lymphatic: No Adenopathy Results/Orders Results/Orders Orders - LUI PARHAM MD 0.9 % Sodium Chloride (Ns 1000ml) (11/07/21 22:52) Cbc With Auto Diff (11/07/21 22:52) Comprehensive Metabolic Panel (11/07/21 22:52) Amylase (11/07/21 22:52) Lipase (11/07/21 22:52) Urinalysis (11/07/21 22:52) Ct Abd/Pel With Iv Contrast (11/07/21 23:08) 0.9 % Sodium Chloride (Ns 1000ml) (11/07/21 23:13) Vital Signs Date Time Temp Pulse Resp B/P (MAP) Pulse Ox O2 Delivery O2 Flow Rate FiO2 11/07/21 22:45 98.4 82 20 144/93 (110) 98 Room Air* 0 21 11/07/21 22:45 98.4 82 20 11/07/21 22:45 98.4 82 20 98 Administered Medications Medications (Trade) Dose Ordered Sig/Jennifer Route PRN Reason Start Time Stop Time Status Last Admin Dose Admin Sodium Chloride 1,000 ml @ 500 mls/hr Q2H STAT IV 11/07/21 22:52 11/08/21 00:51 11/07/21 23:15 500 MLS/HR Laboratory Tests Test 11/07/21 22:30 11/07/21 23:05 Urine Collection Type CCMS Urine Color YELLOW Urine Appearance CLEAR Urine Bilirubin NEGATIVE (NEGATIVE) Urine Ketones TRACE (NEGATIVE) H Urine Specific [place] >=1.030 (1.005-1.030) Urine pH 5.5 (4.5-8.0) Urine Protein NEGATIVE (NEGATIVE) Urine Urobilinogen 0.2 E.U./dL (0.2) Urine Nitrate NEGATIVE (NEGATIVE) Urine Leukocyte Esterase NEGATIVE (NEGATIVE) Urine Glucose (Auto)(UA) NEGATIVE (NEGATIVE) Urine Blood NEGATIVE (NEGATIVE) White Blood Count 4.5 10^3/uL (4.5-11.0) Red Blood Count 4.93 10^6/uL (4.50-5.90) Hemoglobin 13.6 g/dL (13.9-16.3) L Hematocrit 44.4 % (37.0-53.0) Mean Corpuscular Volume 90.1 fL (78-100) Mean Corpuscular Hemoglobin 27.6 pg (26-34) Mean Corpuscular Hemoglobin Concent 30.6 g/dL (33-36.5) L Red Cell Distribution Width 14.3 % (11.5-14.5) Platelet Count 271 10^3/uL (150-400) Mean Platelet Volume 10.6 fL (7.8-11.0) Neutrophils (%) (Auto) 65.1 % (41.0-85.0) Lymphocytes (%) (Auto) 17.8 % (24.0-44.0) L Monocytes (%) (Auto) 10.2 % (5.0-12.0) Neutrophils # (Auto) 2.9 10^3/uL (1.8-7.7) Lymphocytes # (Auto) 0.80 10^3/uL1 (1.0-4.8) L Monocytes # (Auto) 0.5 10^3/uL (0.3-0.8) Absolute Immature Granulocyte (auto 0 10^3 u/L (0-2) Absolute Eosinophils (auto) 0.3 10^3/uL (0.0-0.2) H Immature Granulocytes % 0.00 % (0.00-0.50) Eosinophils % 6.2 % (0.0-5.0) H Basophils % 0.7 % (0.0-0.2) H Basophils # 0.0 10^3/uL (0.0-0.1) Sodium Level 141 mmol/L (132-145) Potassium Level 4.1 mmol/L (3.6-5.2) Chloride Level 107.0 mmol/L (96-109) Carbon Dioxide Level 23.6 mmol/L (20.0-32) Anion Gap 14.5 Blood Urea Nitrogen 14 mg/dL (7-18) Creatinine 1.17 mg/dL (0.59-1.40) Estimated GFR () 82.3 (>/=60) Est GFR (CKD-EPI)(Non-Afr Swiss) 68.0 (>/=60) BUN/Creatinine Ratio 11.0 Glucose Level 134 mg/dL (70-110) H Calcium Level 9.3 mg/dL (8.4-10.5) Total Bilirubin 0.7 mg/dL (0.2-1.0) Aspartate Amino Transferase (AST) 51 U/L (0-35) H Alanine Aminotransferase (ALT) 76 U/L (12-78) Alkaline Phosphatase 80 U/L (50-136) Total Protein 7.2 g/dL (6.4-8.2) Albumin 3.9 g/dL (3.4-5.0) Globulin 3.3 Albumin/Globulin Ratio 1.181 Amylase Level 45 U/L (25-115) Lipase 96 U/L (114-286) L Progress Progress CT of abdomen shows no acute findings. Complete metabolic panel all normal ex cept for glucose elevated at 134 AST slightly elevated at 51 and lipase low at 96 urinalysis is completely normal and CBC is also unremarkable with a white count of 4.5 H&H are 13.6 and 44.4 and platelets of 257,000. All of this would indicate a benign cause for his abdominal pain. ER DEPART Departure Time of Disposition: 00:47 Disposition: 01 HOME / SELF CARE / HOMELESS Impression: Primary Impression: Abdominal pain Additional Impressions: Diarrhea Hyperglycemia Condition: Stable Referrals: MURRELL,PIA G PA (PCP) PRIMARY CARE PROVIDER Duration or Time Spent with Pa: 15m Problem Qualifiers LUI PARHAM MD Nov 07, 2021 22:49
[2021-11-07] MEDS ORDERED: NS 1000ML 1,000 ML IV STA (22:52)
[2021-11-07] MEDS ORDERED: NS 1000ML 1,000 ML ONE (23:13)
[2021-11-07 23:14] LABS: BASOPHIL % 0.7 % (0.0-0.2); EOSINOPHIL # 0.3 10^3/uL (0.0-0.2); EOSINOPHIL % 6.2 % (0.0-5.0); LYMPHOCYTES % 17.8 % (24.0-44.0); MEAN CORP HGB 27.6 pg (26-34); MONOCYTES # 0.5 10^3/uL (0.3-0.8); MONOCYTES % 10.2 % (5.0-12.0); NEUTROPHIL # 2.9 10^3/uL (1.8-7.7); NEUTROPHILS % 65.1 % (41.0-85.0); PLATELET COUNT 271 10^3/uL (150-400); RED CELL DISTRIBUTION WIDTH 14.3 % (11.5-14.5)
[2021-11-07 23:17] LABS: BILIRUBIN,URINE NEGATIVE (NEGATIVE); UROBILINOGEN,URINE 0.2 E.U./dL (0.2)
[2021-11-07 23:30] LABS: CARBON DIOXIDE 23.6 mmol/L (20.0-32)
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
--- NOTE | 2021-11-08 01:05 | NUR ---
SALINE LOCK DC'D WITH CATH INTACT, SITE WRAPPED WITH COBAN.
== END 2021-11-08 01:07 | disposition home or self-care (01) ==
LOC: ER 22:27
DX: R10.32 Left lower quadrant pain (principal); R19.7 Diarrhea, unspecified; E11.65 Type 2 diabetes mellitus with hyperglycemia; I10 Essential (primary) hypertension; J45.909 Unspecified asthma, uncomplicated; Z88.0 Allergy status to penicillin; Z88.6 Allergy status to analgesic agent
CPT/HCPCS: 36415; 74177; 80053; 81003; 82150; 83690; 85025; 96360; 96361; 99285; J7030; Q9965

== ENCOUNTER 2021-12-31 09:41 | Inpatient (IN) | payer SELFPAY ==
[~2021-12-31] VITALS: Ht 188 cm; Wt 99.8 kg
[2021-12-31] MEDS ORDERED: VENTOLIN IH STA ×3 (10:00→10:55)
[2021-12-31] MEDS ORDERED: ATROVENT HFA IH STA (10:00)
[2021-12-31] MEDS ORDERED: MAGNESIUM SULFATE 50 ML IV STA (10:03)
[2021-12-31 10:07] LABS: BASOPHIL # 0.1 10^3/uL (0.0-0.1); BASOPHIL % 1.3 % (0.0-0.2); EOSINOPHIL # 0.8 10^3/uL (0.0-0.2); EOSINOPHIL % 22.2 % (0.0-5.0); LYMPHOCYTES # 0.52 10^3/uL1 (1.0-4.8); LYMPHOCYTES % 13.9 % (24.0-44.0); MEAN CORP HGB 27.5 pg (26-34); MONOCYTES # 0.3 10^3/uL (0.3-0.8); MONOCYTES % 7.2 % (5.0-12.0); NEUTROPHIL # 2.1 10^3/uL (1.8-7.7); NEUTROPHILS % 55.4 % (41.0-85.0); PLATELET COUNT 241 10^3/uL (150-400)
--- NOTE | 2021-12-31 10:09 | PCM.EKG ---
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
[2021-12-31] MEDS ORDERED: ATROVENT IH ONE ×2 (10:14→11:14)
[2021-12-31] MEDS ORDERED: VENTOLIN IH ONE ×4 (10:14→11:21)
[2021-12-31] MEDS ORDERED: ATROVENT IH STA (10:17)
[2021-12-31] MEDS ORDERED: SOLU-MEDROL IV STA (10:23)
--- NOTE | 2021-12-31 10:25 | DIREP ---
PROCEDURE:CHEST 1 VIEW COMPARISON:[facility], CR, XRAY CHEST SINGLE VW, 08/31/2020, 06:25 AM. INDICATIONS:SOB FINDINGS: LUNGS/PLEURA:No significant pulmonary parenchymal abnormalities. No effusions. VASCULATURE:Normal. Unremarkable pulmonary vasculature. CARDIAC:Normal. No cardiac silhouette abnormality or cardiomegaly. MEDIASTINUM:Normal. No visible mass or adenopathy. BONES:Normal. No fracture or visible bony lesion. OTHER:Negative. CONCLUSION:Normal examination. Dictated by: Thee Arzola M.D. on 12/31/2021 at 10:23 AM
[2021-12-31 10:26] LABS: CARBON DIOXIDE 24.3 mmol/L (20.0-32)
[2021-12-31] MEDS ORDERED: SOLU-MEDROL ONE (10:28)
[2021-12-31] MEDS ORDERED: TYLENOL PO STA (10:49)
[2021-12-31] MEDS ORDERED: TYLENOL PO ONE (11:13)
[2021-12-31 11:21] VITALS: BP 140/85
--- NOTE | 2021-12-31 11:30 | NUR ---
HOSPITALIST DR REYES ON THE PHONE WITH THE HOSPITALIST
--- NOTE | 2021-12-31 11:41 | ER.PDOC ---
General Chief Complaint: Dyspnea/Respdistress Stated Complaint: SOB Time seen by MD: 09:50 Source: patient Exam Limitations: no limitations History of Present Illness Initial Comments Patient is a 41-year-old male with a past medical history of asthma who presents today with half a day worth of worsening wheezing and shortness of breath. Patient states that over the past half day he has been having increasing wheezing he states he has used his rescue inhaler more times than he ever has before and he is not getting any relief. Patient states that the wheezing and shortness of breath is made worse with activity and better with rest. Patient states he has any associated symptoms of a headache he says it is all encompassing and nonradiating. Patient denies any fevers cough nausea vomiting or changes to his stool or urine. Past medical history as above Social history patient denies drugs - endorses rare etoh and dips family hx - HTN, DM Meds and allergies reviewed Timing/Duration: 4-6 hours Severity/Quality: severe Exacerbated by: movements Allergies: Coded Allergies: Penicillins (Verified Allergy, Unknown, UNK, 10/31/18) aspirin (Verified Allergy, Unknown, 10/31/18) metoclopramide (Verified Allergy, Unknown, 04/22/20) prochlorperazine (Verified Allergy, Unknown, 04/22/20) Home Meds Active Scripts Pantoprazole Sodium (PROTONIX) 40 Mg Tablet.dr, 40 MG PO DAILY24 for 30 Days, #30 Prov:LETICIA QUAN NP 04/23/20 Reported Medications Escitalopram Oxalate (LEXAPRO) 10 Mg Tablet, 1 TAB PO DAILY, #90 TAB 3 Refills 06/25/14 Albuterol Sulfate (VENTOLIN HFA) 18 Gm Hfa.aer.ad, 18 GM IH Q4 PRN for COUGH 11/23/13 Fluticasone/Salmeterol (ADVAIR 250-50 DISKUS) 1 Each Disk.w.dev, 1 EACH IH DAILY 11/23/13 Vital Signs First Vital Signs Date Time Temp Pulse Resp B/P (MAP) Pulse Ox O2 Delivery O2 Flow Rate FiO2 12/31/21 10:17 67 18 96 Room Air* 0 21 12/31/21 11:21 98.4 12/31/21 11:21 140/85 (103) Last Vital Signs Date Time Temp Pulse Resp B/P (MAP) Pulse Ox O2 Delivery O2 Flow Rate FiO2 12/31/21 11:21 98.4 75 20 140/85 (103) 97 Room Air* 0 21 Past Medical History Medical History: asthma, cardiac problems, diabetes, hypertension, other Surgical History: no surgical history Family History Significant Family History: diabetes, hypertension Social History Smoking: other (Smokeless tobacco) Alcohol Use: rarely Drug Use: none Reviewed Nursing Reviewed: Vital Signs, Abn. Noted, Nursing Assessment Constitutional: denies chills, denies diaphoresis, denies fever EENTM: denies eye pain, denies ear discharge, denies nose congestion, denies throat swelling Respiratory: denies cough; shortness of breath, wheezing Cardiovascular: denies chest pain, denies lightheadedness, denies palpitations Gastrointestinal: denies abdomen distended, denies abdominal pain, denies constipated, denies diarrhea, denies nausea, denies poor appetite, denies vomiting Genitourinary: denies burning, denies dysuria Musculoskeletal: denies back pain Skin: denies change in color, denies dryness Psychiatric/Neurological: denies emotional problems; headache Endocrine: denies increased hunger, denies increased thrist Hematologic/Lymphatic: denies easy bleeding Physical Exam General Appearance: Mild Distress HEENT: PERRL/EOMI, Normal ENT Inspection, TMs Normal, Pharynx Normal Neck: Non-Tender, Full Range of Motion, Supple, Normal Inspection Respiratory: wheezing Cardiovascular: Normal Peripheral Pulses, Regular Rate, Rhythm, No Edema, No Gallop, No JVD, No Murmur Gastrointestinal: Normal Bowel Sounds, Non Tender, Soft Extremities: Normal Range of Motion, Non-Tender, Normal Inspection, No Pedal Edema, No Calf Tenderness, Normal Capillary Refill, Pelvis Stable 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/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 as Tested, No Motor/Sensory Deficits, Alert, Normal Mood/Affect, Oriented x 3 Skin: Normal Color, Warm/Dry Lymphatic: No Adenopathy Results/Orders Results/Orders Orders - SCOOBY REYES MD Cbc With Auto Diff (12/31/21 09:51) Comprehensive Metabolic Panel (12/31/21 09:51) Ekg-Routine (12/31/21 09:51) Xr Chest 1v (12/31/21 09:51) Saline Lock (12/31/21 09:51) Troponin I High Sensitivity (12/31/21 09:51) Albuterol Sulfate (Ventolin) (12/31/21 10:00) Ipratropium [place] (Atrovent Hfa) (12/31/21 10:00) Magnesium 2 Gm/Water 50ml (Magnesium Sul (12/31/21 10:03) Albuterol Sulfate (Ventolin) (12/31/21 10:14) Ipratropium [place] (Atrovent) (12/31/21 10:14) Ipratropium [place] (Atrovent) (12/31/21 10:17) Methylprednisolone Sod Succ (Solu-Medrol (12/31/21 10:23) Albuterol Sulfate (Ventolin) (12/31/21 10:27) Methylprednisolone Sod Succ (Solu-Medrol (12/31/21 10:28) Albuterol Sulfate (Ventolin) (12/31/21 10:30) Acetaminophen (Tylenol) (12/31/21 10:49) Albuterol Sulfate (Ventolin) (12/31/21 10:55) Acetaminophen (Tylenol) (12/31/21 11:13) Albuterol Sulfate (Ventolin) (12/31/21 11:14) Ipratropium [place] (Atrovent) (12/31/21 11:14) Albuterol Sulfate (Ventolin) (12/31/21 11:21) Hospitalist Consult (12/31/21 11:28) Admit Orders (12/31/21 11:33) Vital Signs Date Time Temp Pulse Resp B/P (MAP) Pulse Ox O2 Delivery O2 Flow Rate FiO2 12/31/21 11:21 98.4 75 20 140/85 (103) 97 Room Air* 0 21 12/31/21 11:21 98.4 75 20 12/31/21 11:21 98.4 75 20 12/31/21 11:19 76 18 97 Room Air* 0 21 12/31/21 11:19 76 18 97 Room Air* 0 21 12/31/21 10:34 80 18 100 Room Air* 0 21 12/31/21 10:34 81 18 96 Room Air* 0 21 12/31/21 10:17 68 18 96 Room Air* 0 21 12/31/21 10:17 67 18 96 Room Air* 0 21 Administered Medications Medications (Trade) Dose Ordered Sig/Jennifer Route PRN Reason Start Time Stop Time Status Last Admin Dose Admin Acetaminophen (Tylenol) 1,000 mg STAT STAT PO 12/31/21 10:49 12/31/21 10:50 DC 12/31/21 11:15 1,000 MG Albuterol Sulfate (Ventolin) 5 mg OT STAT IH 12/31/21 10:00 12/31/21 10:03 DC 12/31/21 10:00 5 MG Albuterol Sulfate (Ventolin) 5 mg OT STAT IH 12/31/21 10:27 12/31/21 10:28 DC 12/31/21 10:33 2.5 MG Albuterol Sulfate (Ventolin) 5 mg OT STAT IH 12/31/21 10:55 12/31/21 10:56 DC 12/31/21 11:18 5 MG Ipratropium [place] (Atrovent) 1 mg STAT STAT IH 12/31/21 10:17 12/31/21 10:19 DC 12/31/21 11:18 0.5 MG Magnesium Sulfate 50 ml @ 50 mls/hr OT STAT IV 12/31/21 10:03 12/31/21 11:02 UNV 12/31/21 10:28 50 MLS/HR Methylprednisolone Sodium Succinate (Solu-Medrol) 120 mg STAT STAT IV 12/31/21 10:23 12/31/21 10:24 DC 12/31/21 10:32 120 MG Laboratory Tests Test 12/31/21 10:00 White Blood Count 3.7 10^3/uL (4.5-11.0) L Red Blood Count 5.23 10^6/uL (4.50-5.90) Hemoglobin 14.4 g/dL (13.9-16.3) Hematocrit 45.4 % (37.0-53.0) Mean Corpuscular Volume 86.8 fL (78-100) Mean Corpuscular Hemoglobin 27.5 pg (26-34) Mean Corpuscular Hemoglobin Concent 31.7 g/dL (33-36.5) L Red Cell Distribution Width 15.0 % (11.5-14.5) H Platelet Count 241 10^3/uL (150-400) Mean Platelet Volume 10.4 fL (7.8-11.0) Neutrophils (%) (Auto) 55.4 % (41.0-85.0) Lymphocytes (%) (Auto) 13.9 % (24.0-44.0) L Monocytes (%) (Auto) 7.2 % (5.0-12.0) Neutrophils # (Auto) 2.1 10^3/uL (1.8-7.7) Lymphocytes # (Auto) 0.52 10^3/uL1 (1.0-4.8) L Monocytes # (Auto) 0.3 10^3/uL (0.3-0.8) Absolute Immature Granulocyte (auto 0 10^3 u/L (0-2) Absolute Eosinophils (auto) 0.8 10^3/uL (0.0-0.2) H Immature Granulocytes % 0.00 % (0.00-0.50) Eosinophils % 22.2 % (0.0-5.0) H Basophils % 1.3 % (0.0-0.2) H Basophils # 0.1 10^3/uL (0.0-0.1) Sodium Level 141 mmol/L (132-145) Potassium Level 4.0 mmol/L (3.6-5.2) Chloride Level 105.0 mmol/L (96-109) Carbon Dioxide Level 24.3 mmol/L (20.0-32) Anion Gap 15.7 Blood Urea Nitrogen 13 mg/dL (7-18) Creatinine 1.03 mg/dL (0.59-1.40) Estimated GFR () 95.4 (>/=60) Est GFR (CKD-EPI)(Non-Afr Uzbek) 78.8 (>/=60) BUN/Creatinine Ratio 12.0 Glucose Level 145 mg/dL (70-110) H Calcium Level 9.5 mg/dL (8.4-10.5) Total Bilirubin 0.7 mg/dL (0.2-1.0) Aspartate Amino Transferase (AST) 24 U/L (0-35) Alanine Aminotransferase (ALT) 45 U/L (12-78) Alkaline Phosphatase 78 U/L (50-136) Troponin I High Sensitivity 5 ng/L (0-75) Total Protein 7.6 g/dL (6.4-8.2) Albumin 4.2 g/dL (3.4-5.0) Globulin 3.4 Albumin/Globulin Ratio 1.235 Progress Progress Patient here with wheezing that is very significant. Seems like an asthma exacerbation. WillTreat with albuterol ipratropium magnesium and steroids. Will obtain labs and chest x-ray to rule out superimposed infection. We will also obtain EKG just to rule out anything cardiac in nature. [id number] 3 rounds of albuterol hypertropia magnesium and steroids patient has only had mild improvement thus at 1128 discussed patient with hospitalist for admission who will accept the patient to the telemetry floor. We will send off a COVID to rule that out as well. Patient is hemodynamically stable however he is a watcher secondary to the potential for him to decompensate with his asthma. ER DEPART Departure Time of Disposition: 11:40 Disposition: 09 ADMITTED INPATIENT Impression: Primary Impression: Asthma exacerbation Condition: Stable Referrals: ERA DE OLIVEIRA (PCP) PRIMARY CARE PROVIDER Duration or Time Spent with Pa: 45 Problem Qualifiers Primary Impression: Asthma exacerbation Asthma severity: moderate Asthma persistence: persistent Qualified Codes: J45.41 - Moderate persistent asthma with (acute) exacerbation SCOOBY REYES MD Dec 31, 2021 11:41
[2021-12-31 12:23] LABS: BAND NEUTROPHILS 2 % (2-6); LYMPHOCYTE 22 % (25-36); SEGMENTED NEUTROPHILS 56 % (31-76)
[2021-12-31 12:24] LABS: EOSINOPHIL 12 % (1-4); MONOCYTE 8 % (3-9)
[2021-12-31] MEDS ORDERED: DUO 0.5-3(2.5) MG/3 ML IH PRN (12:30)
[2021-12-31] MEDS ORDERED: TYLENOL PO PRN (12:30)
--- NOTE | 2021-12-31 12:31 | PCM.HP ---
History of Present Illness Travel Hx EBOLA RISK:Travel to/contact w: No Review of Systems Constitutional: Malaise Respiratory: Shortness of breath, Wheezing Cardiovascular: Chest Pain Neurological: Other Allergies: Coded Allergies: Penicillins (Verified Allergy, Unknown, UNK, 10/31/18) aspirin (Verified Allergy, Unknown, 10/31/18) metoclopramide (Verified Allergy, Unknown, 04/22/20) prochlorperazine (Verified Allergy, Unknown, 04/22/20) Scheduled Escitalopram Oxalate (Lexapro), 1 TAB PO DAILY, (Reported) Fluticasone/Salmeterol (Advair 250-50 Diskus), 1 EACH IH DAILY, (Reported) Pantoprazole Sodium (Protonix), 40 MG PO DAILY24 Scheduled PRN Albuterol Sulfate (Ventolin Hfa), 18 GM IH Q4 PRN for COUGH, (Reported) VTE VTE Risk Total Score: 0 VTE Risk Score VTE Risk: Score 0-1 = Low Risk (Aggressive mobilization; early ambulation; no VTE prophylaxis required) Score 2: Moderate Risk (Intermittent/Pneumatic Compression Device OR Lovenox/Heparin/Coumadin) Score 3-4: High Risk (Intermittent/Pneumatic Compression Device AND Lovenox/Heparin/Coumadin) Score > or =5: Highest Risk (Intermittent/Pneumatic Compression Device AND Lovenox/Heparin/Coumadin) Antico:Hep/LMWH/Coum/Xarelto: No Mechanical device ordered: No VTE VTE Present on Admission: No Currently receiving anticoagul: No VTE Risk Total Score: 0 Antico:Hep/LMWH/Coum/Xarelto: No Mechanical device ordered: No Exam Vital Signs Vital Signs Date Time Temp Pulse Resp B/P (MAP) Pulse Ox O2 Delivery O2 Flow Rate FiO2 12/31/21 11:21 98.4 75 20 140/85 (103) 97 Room Air* 0 21 Assessment/Plan Assessment/Plan Patient History: Asthma 19 CHILD Asthma 19 CHILD Diabetes mellitus Hypertension 33 FATHER Hypertension 33 FATHER GABRIELA MEDINA MD Dec 31, 2021 12:31
[2021-12-31 12:55] VITALS: BP 140/85
[2021-12-31] MEDS ORDERED: D5W 1000ML 1,000 ML IV PRN (13:30)
[2021-12-31] MEDS ORDERED: DEXTROSE 50%-WATER SYRINGE IV PRN (13:30)
[2021-12-31] MEDS: DUO 0.5-3(2.5) MG/3 ML IH SCH ×2 (14:33→20:24)
[2021-12-31] MEDS: SOLU-MEDROL IV SCH ×2 (15:11→21:16)
[2021-12-31 16:30] VITALS: BP 141/95
[2021-12-31] MEDS: HUMALOG SQ SCH ×2 (17:36→21:11)
[2021-12-31 19:49] VITALS: BP 129/84
[2021-12-31] MEDS: MOTRIN PO PRN (19:59)
[2021-12-31] MEDS ORDERED: PHENERGAN IM ONE (23:30)
[2021-12-31] MEDS ORDERED: STADOL IV ONE (23:30)
[2021-12-31] MEDS ORDERED: NS 25ML 25 ML IV ONE (23:55)
[2021-12-31] MEDS ORDERED: NS 250ML 250 ML ONE (23:57)
[2022-01-01] MEDS ORDERED: PHENERGAN IV ONE (00:30)
[2022-01-01 00:33] VITALS: BP 126/87
[2022-01-01] MEDS: DUO 0.5-3(2.5) MG/3 ML IH SCH ×2 (03:47→08:26)
[2022-01-01 04:29] VITALS: BP 121/71
[2022-01-01] MEDS: SOLU-MEDROL IV SCH (05:28)
[2022-01-01 06:11] LABS: BASOPHIL % 0.1 % (0.0-0.2); EOSINOPHIL % 0.1 % (0.0-5.0); LYMPHOCYTES # 0.37 10^3/uL1 (1.0-4.8); LYMPHOCYTES % 5.1 % (24.0-44.0); MEAN CORP HGB 27.5 pg (26-34); MONOCYTES # 0.2 10^3/uL (0.3-0.8); MONOCYTES % 2.3 % (5.0-12.0); NEUTROPHIL # 6.7 10^3/uL (1.8-7.7); NEUTROPHILS % 92.4 % (41.0-85.0); PLATELET COUNT 248 10^3/uL (150-400); RED CELL DISTRIBUTION WIDTH 15.4 % (11.5-14.5)
[2022-01-01 06:15] LABS: CARBON DIOXIDE 23.6 mmol/L (20.0-32)
[2022-01-01 07:08] VITALS: BP 130/68
[2022-01-01] MEDS: HUMALOG SQ SCH (07:30)
[2022-01-01] MEDS ORDERED: PULMICORT IH SCH (08:00)
[2022-01-01] MEDS ORDERED: BROVANA IH SCH (08:00)
[2022-01-01] MEDS ORDERED: PHENERGAN PO STA (08:36)
[2022-01-01] MEDS: MOTRIN PO PRN (08:40)
[2022-01-01] MEDS ORDERED: PRED50TA PO (08:54)
[2022-01-01] MEDS ORDERED: CeleXA PO SCH (09:00)
[2022-01-01] MEDS ORDERED: PROTONIX PO SCH (09:00)
--- NOTE | 2022-01-01 09:03 | NUR ---
DISCHARGE PLAN - PCP Diana GOEL NOTIFIED [email or web address] AND VISITED WITH PATIENT ABOUT DISCHARGE PLANS, NEEDS AND GOALS. PATIENT CURRENTLY LIVES@HOME WITH S.O. AND REPORTS [email or web address]@HOME AND ONLY HAVING A CPAP@HOME. 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 PATIENT REPORTS THAT HE SEE'S Diana DE OLIVEIRA IN [place] FOR PCP. PATIENT REQUEST THAT CM NOT MAKE PATIENT A F/U APPT DUE TO HE HAS NO INSURANCE AND CAN NOT PAY. PATIENT AGREEABLE FOR CM TO NOTIFY DR Diana DE OLIVEIRA AND SEND PATIENT'S CLINICAL RECORDS TO THEM AFTER DISCHARGE. PATIENT GIVEN [facility] OUT AND [facility] THE [facility] IN [place] THAT PROVIDES MEDICAL ON INCOME BASE AND ABOUT [employer] AND RX SAVINGS CARDS AND GOOD RX. PATIENT DENIES ANY FURTHER DISCHARGE NEEDS. CM CONTACTED DR Diana DE OLIVEIRA'S OFFICE AND MESSAGE LEFT FOR RETURN PHONE CALL. CM RECEIVED CALL FROM [facility] AND INFORMED HER OF PATIENT'S HOSPITALIZATION AND PATIENT DID NOT WANT TO MAKE A F/U APPT DUE TO NO INSURANCE. CM WILL FAX DR DE OLIEVIRA'S OFFICE THE PATIENT'S CLINICALS AFTER DISCHARGE TO #[phone]. Addendum: 01/01/22 at 5898 by Elizabeth Jaramillo RN,Case Managemen RN CM FAXED PATIENTS CLINICALS TO DR Diana DE OLIVEIRA@[phone]. FAX CONFIRMATION CONFIRMED COMPLETE. FACE SHEET STATES PATIENT DECLINED F/U APPT DUE TO NO INSURANCE.
[2022-01-01 09:21] VITALS: BP 130/68
--- NOTE | 2022-01-01 09:22 | NUR ---
DISCHARGED PT DISCHARGED TO HOME. EDUCATION SESSION AND WRITTEN EDUCATION MATERIALS INCLUDING NEW PRESCRIPTION EDUCATION PROVIDED TO PT. DEPARTED FLOOR AMBULATORY ACCOMPANIED BY SHANNAN MAURICIO. PT DENIES PAIN NO ACUTE DISTRESS NOTED. LEFT IN PERSONAL VEHICLE.
--- NOTE | 2022-01-01 11:35 | PRM.DC ---
Discharge Summary Hospital Course 41-year-old male with history of bronchial asthma, diabetes, depression presented emergency room with shortness of breath chest tightness and wheezing for the last day. In spite of 5 bronchodilator treatments in the ED, IV magnesium, IV steroids patient continues to be symptomatic and wheezing. Denies fever chills nausea vomiting abdominal pain. Chest x-ray unremarkable. Patient is being admitted hospital for further management. Today patient is feeling better. Ambulating and walking around. Chest more clear. Patient wants to be discharged home. Prescription for prednisone for the next 5 days. Continue home bronchodilators. Medication reconciliation completed. Diet heart healthy. Activity as tolerated. Follow-up with primary care physician in 1 week. Report back to the emergency room if his symptoms rec ur. Patient will be discharged home. Patient History: Asthma 19 CHILD Asthma 19 CHILD Diabetes mellitus Hypertension 33 FATHER Hypertension 33 FATHER Exam/Vitals Vital Signs Date Time Temp Pulse Resp B/P (MAP) Pulse Ox O2 Delivery O2 Flow Rate FiO2 01/01/22 09:21 90 18 95 Room Air 01/01/22 08:57 0.00 01/01/22 08:32 21 01/01/22 07:08 98.5 130/68 (88) General: Alert, Oriented X3, No acute distress HEENT: Atraumatic, PERRLA Neck: Supple, No JVD Lungs: Other (Better bilateral air entry, decreased wheezing) Heart: Regular rate, Normal S1, Normal S2 Abdomen: Normal bowel sounds, Soft Extremities: No clubbing, No cyanosis Skin: No significant lesion Neuro: Normal speech, Normal tone Psych/Mental Status: Mental status NL, Mood NL Scheduled Escitalopram Oxalate (Lexapro), 1 TAB PO DAILY, (Reported) Fluticasone/Salmeterol (Advair 250-50 Diskus), 1 EACH IH DAILY, (Reported) Pantoprazole Sodium (Protonix), 40 MG PO DAILY24 Prednisone (Prednisone), 1 TAB PO DAILY Scheduled PRN Albuterol Sulfate (Ventolin Hfa), 18 GM IH Q4 PRN for COUGH, (Reported) Sepsis Evaluation @ Discharge 01/02/20 08:56 Plan Problems: (1) Acute asthma exacerbation Status: Resolved ICD Code: J45.901 - Unspecified asthma with (acute) exacerbation SNOMED: 525071682 (2) Depression Status: Chronic ICD Code: F32.9 - Major depressive disorder, single episode, unspecified SNOMED: 26445588 (3) Anxiety Status: Chronic ICD Code: F41.9 - Anxiety disorder, unspecified SNOMED: 66911069 Plan 41-year-old male with history of bronchial asthma, diabetes, depression presented emergency room with shortness of breath chest tightness and wheezing for the last day. In spite of 5 bronchodilator treatments in the ED, IV magnesium, IV steroids patient continues to be symptomatic and wheezing. Denies fever chills nausea vomiting abdominal pain. Chest x-ray unremarkable. Patient is being admitted hospital for further management. Today patient is feeling better. Ambulating and walking around. Chest more clear. Patient wants to be discharged home. Prescription for prednisone for the next 5 days. Continue home bronchodilators. Medication reconciliation completed. Diet heart healthy. Activity as tolerated. Follow-up with primary care physician in 1 week. Report back to the emergency room if his symptoms recur. Patient will be discharged home. GABRIELA MEDINA MD Jan 01, 2022 11:35
[2022-01-01 13:42] LABS: LYMPHOCYTE 5 % (25-36); SEGMENTED NEUTROPHILS 95 % (31-76)
== END 2022-01-01 09:23 | disposition home or self-care (01) | DRG 203 ==
LOC: ER 09:41 → MS 12:11
PROVIDERS: ADMIT Internal Medicine; ATTEND Internal Medicine
DX: J45.901 Unspecified asthma with (acute) exacerbation (principal); E11.9 Type 2 diabetes mellitus without complications; F32.A Depression, unspecified; F41.9 Anxiety disorder, unspecified; Z20.822 Contact with and (suspected) exposure to COVID-19; Z79.899 Other long term (current) drug therapy; Z83.3 Family history of diabetes mellitus; Z82.49 Family history of ischemic heart disease and other diseases of the circulatory system
CPT/HCPCS: 36415; 71045; 80048; 80053; 82948; 84484; 85025; 87426; 93005; 94640; 99285; G0378; J0595; J1815; J2550; J2930; J3475; J7050; J7605; J7613; J7627; J7644

== ENCOUNTER 2022-01-17 19:22 | Emergency (ER) | payer SELFPAY ==
[~2022-01-17] VITALS: Ht 188 cm; Wt 104.3 kg
[~2022-01-17 19:22] MED LIST changes: +PRED50TA PO
[2022-01-17 19:43] VITALS: BP 134/100
--- NOTE | 2022-01-17 19:46 | PCM.EKG ---
[facility] Test Date: 2022-01-17 Test Time: 19:37:30 Pat Name: NAWAF MARTINEZ Department: Room: Gender: M Ophthalmic Lens Inspector: CARLOTA : 1980 Requested By: REBECCA HIDALGO Order Number: [id number] Reading MD: Measurements Intervals Elizabeth Rate: 95 P: 41 GA: 162 QRS: 33 QRSD: 96 T: 35 QT: 393 QTc: 494 Interpretive Statements Sinus rhythm Borderline prolonged QT interval Compared to ECG 12/31/2021 10:00:35 No significant changes Please click the below link to view image of tracing.
[2022-01-17 20:01] LABS: BASOPHIL % 1.2 % (0.0-0.2); EOSINOPHIL # 0.3 10^3/uL (0.0-0.2); EOSINOPHIL % 8.6 % (0.0-5.0); LYMPHOCYTES # 0.53 10^3/uL1 (1.0-4.8); LYMPHOCYTES % 16.3 % (24.0-44.0); MEAN CORP HGB 27.3 pg (26-34); MONOCYTES # 0.4 10^3/uL (0.3-0.8); MONOCYTES % 11.1 % (5.0-12.0); NEUTROPHILS % 62.8 % (41.0-85.0); PLATELET COUNT 185 10^3/uL (150-400); RED CELL DISTRIBUTION WIDTH 15.8 % (11.5-14.5)
--- NOTE | 2022-01-17 20:09 | DIREP ---
PROCEDURE:CHEST 1 VIEW COMPARISON:[facility], CR, XRAY CHEST SINGLE VW, 12/31/2021, 09:52 AM. INDICATIONS:chest pain FINDINGS: LUNGS/PLEURA:No significant pulmonary parenchymal abnormalities or pleural effusion. CARDIAC:Normal cardiac silhouette and normal pulmonary vascularity. MEDIASTINUM:Normal. BONES:Normal. OTHER:No additional findings. CONCLUSION:No acute cardiopulmonary process or significant change. Dictated by: Jovana Willingham MD on 01/17/2022 at 08:07 PM
[2022-01-17 20:25] LABS: CARBON DIOXIDE 22.1 mmol/L (20.0-32)
[2022-01-17 20:54] VITALS: BP 103/60
--- NOTE | 2022-01-17 20:55 | ER.PDOC ---
General Chief Complaint: Chest Pain-Cardiac Nature Stated Complaint: CHEST PAIN Time seen by MD: 19:30 Source: patient Exam Limitations: no limitations History of Present Illness Initial Comments 41-year-old male who had a sudden onset of chest pain. Was central, sharp. No radiation. No shortness of breath. No leg pain or edema. EMS gave him fentanyl and Toradol in the way Timing/Duration: 1-3 hours Severity/Quality: moderate Radiation: no radiation Activities at Onset: none Modifying Factors: lying down Allergies: Coded Allergies: Penicillins (Verified Allergy, Unknown, UNK, 10/31/18) aspirin (Verified Allergy, Unknown, 10/31/18) metoclopramide (Verified Allergy, Unknown, 04/22/20) prochlorperazine (Verified Allergy, Unknown, 04/22/20) Home Meds Active Scripts Prednisone (PREDNISONE) 50 Mg Tablet, 1 TAB PO DAILY, #5 TAB Prov:GABRIELA MEDINA MD 01/01/22 Pantoprazole Sodium (PROTONIX) 40 Mg Tablet.dr, 40 MG PO DAILY24 for 30 Days, #30 Prov:LETICIA QUAN GREENHOUSE SPECIALIST 04/23/20 Reported Medications Escitalopram Oxalate (LEXAPRO) 10 Mg Tablet, 1 TAB PO DAILY, #90 TAB 3 Refills 06/25/14 Albuterol Sulfate (VENTOLIN HFA) 18 Gm Hfa.aer.ad, 18 GM IH Q4 PRN for COUGH 11/23/13 Fluticasone/Salmeterol (ADVAIR 250-50 DISKUS) 1 Each Disk.w.dev, 1 EACH IH DAILY 11/23/13 Past Medical History Medical History: cardiac problems, diabetes Surgical History: no surgical history Social History Alcohol Use: none Drug Use: none All Other Systems: Reviewed and Negative Physical Exam General Appearance: No Apparent Distress HEENT: Normal ENT Inspection Neck: Normal Inspection Respiratory: lungs clear, no respiratory distress Cardiovascular: Normal Peripheral Pulses, Regular Rate, Rhythm, No Edema Gastrointestinal: Non Tender, Soft Extremities: Normal Inspection, No Pedal Edema Neurologic/Psychiatric: Alert, Oriented x 3 Skin: Normal Color Lymphatic: No Adenopathy Results/Orders Results/Orders Orders - REBECCA HIDALGO MD Cbc With Auto Diff (01/17/22 19:27) Comprehensive Metabolic Panel (01/17/22 19:27) Probnp B-Type Hot Roll Laminator (01/17/22 19:27) PT (01/17/22 19:27) Xr Chest 1v (01/17/22 19:27) Ekg-Routine (01/17/22 19:27) Troponin I High Sensitivity (01/17/22 19:27) Vital Signs Date Time Temp Pulse Resp B/P (MAP) Pulse Ox O2 Delivery O2 Flow Rate FiO2 01/17/22 19:43 97.6 101 16 134/100 (111) 96 Room Air* 0 21 01/17/22 19:43 97.6 101 16 96 01/17/22 19:43 97.6 101 16 Laboratory Tests Test 01/17/22 19:49 White Blood Count 3.3 10^3/uL (4.5-11.0) L Red Blood Count 4.29 10^6/uL (4.50-5.90) L Hemoglobin 11.7 g/dL (13.9-16.3) L Hematocrit 37.8 % (37.0-53.0) Mean Corpuscular Volume 88.1 fL (78-100) Mean Corpuscular Hemoglobin 27.3 pg (26-34) Mean Corpuscular Hemoglobin Concent 31.0 g/dL (33-36.5) L Red Cell Distribution Width 15.8 % (11.5-14.5) H Platelet Count 185 10^3/uL (150-400) Mean Platelet Volume 9.9 fL (7.8-11.0) Neutrophils (%) (Auto) 62.8 % (41.0-85.0) Lymphocytes (%) (Auto) 16.3 % (24.0-44.0) L Monocytes (%) (Auto) 11.1 % (5.0-12.0) Neutrophils # (Auto) 2.0 10^3/uL (1.8-7.7) Lymphocytes # (Auto) 0.53 10^3/uL1 (1.0-4.8) L Monocytes # (Auto) 0.4 10^3/uL (0.3-0.8) Absolute Immature Granulocyte (auto 0 10^3 u/L (0-2) Absolute Eosinophils (auto) 0.3 10^3/uL (0.0-0.2) H Immature Granulocytes % 0.00 % (0.00-0.50) Eosinophils % 8.6 % (0.0-5.0) H Basophils % 1.2 % (0.0-0.2) H Basophils # 0.0 10^3/uL (0.0-0.1) Prothrombin Time 10.1 SEC (9.1-11.5) Prothrombin Time INR (Non-Therap) 1.0 Sodium Level 140 mmol/L (132-145) Potassium Level 3.9 mmol/L (3.6-5.2) Chloride Level 106.0 mmol/L (96-109) Carbon Dioxide Level 22.1 mmol/L (20.0-32) Anion Gap 15.8 Blood Urea Nitrogen 18 mg/dL (7-18) Creatinine 1.23 mg/dL (0.59-1.40) Estimated GFR () 77.7 (>/=60) Est GFR (CKD-EPI)(Non-Afr Egyptian) 64.2 (>/=60) BUN/Creatinine Ratio 14.0 Glucose Level 85 mg/dL (70-110) Calcium Level 8.5 mg/dL (8.4-10.5) Total Bilirubin 0.7 mg/dL (0.2-1.0) Aspartate Amino Transferase (AST) 21 U/L (0-35) Alanine Aminotransferase (ALT) 50 U/L (12-78) Alkaline Phosphatase 83 U/L (50-136) Troponin I High Sensitivity 9 ng/L (0-75) # Pro-B-Type Natriuretic Peptide 24 pg/mL (0-125) Total Protein 6.2 g/dL (6.4-8.2) L Albumin 3.4 g/dL (3.4-5.0) Globulin 2.8 Albumin/Globulin Ratio 1.214 Progress Progress EKG shows sinus rhythm, rate of 95, normal axis, normal QRS, normal ST segment no elevation or depression Further speaking with the patient, he does have a history of bad heartburn, Rx for Carafate, counseled to follow-up with primary ER DEPART Departure Time of Disposition: 20:55 Disposition: 01 HOME / SELF CARE / HOMELESS Impression: Primary Impression: GERD (gastroesophageal reflux disease) Condition: Improved Referrals: ERA DE OLIVEIRA (PCP) PRIMARY CARE PROVIDER Duration or Time Spent with Pa: Aleksanderm REBECCA HIDALGO MD Jan 17, 2022 20:55
--- NOTE | 2022-01-17 20:56 | NUR ---
EMS IV DC'D TIP INTACT, NO BLEEDING
== END 2022-01-17 21:03 | disposition home or self-care (01) ==
LOC: EDBD 19:22 → ER 19:22
DX: K21.9 Gastro-esophageal reflux disease without esophagitis (principal); E11.9 Type 2 diabetes mellitus without complications; Z88.0 Allergy status to penicillin; Z88.6 Allergy status to analgesic agent
CPT/HCPCS: 36415; 71045; 80053; 83880; 84484; 85025; 85610; 93005; 99285

== ENCOUNTER 2022-03-02 11:04 | Day surgery (SDC) | payer SELFPAY ==
[2022-03-02] VITALS (10 sets, daily range): BP systolic 112–142; BP diastolic 74–96
[~2022-03-02] VITALS: Ht 188 cm; Wt 99.8 kg
--- NOTE | 2022-03-02 11:09 | NUR ---
ARRIVAL PT ARRIVED AMBULATORY TO ED 7 WITH C/O SOMETHING STUCK IN HIS THROAT AFTER EATING A BREAKFAST BURRITO AN HOUR AGO. PTS AIRWAY IS PATENT. VITALS TAKEN AND DR NOTIFIED.
[2022-03-02] MEDS ORDERED: GLUCAGEN IV STA (11:30)
[2022-03-02] MEDS ORDERED: GLUCAGEN ONE (11:33)
--- NOTE | 2022-03-02 11:55 | NUR ---
MED NITRO GIVEN PER VERBAL ORDER FROM EDP DR HUTCHISON
--- NOTE | 2022-03-02 12:04 | NUR ---
REASSESS GAVE PATIENT SMALL SIPS OF WATER, PATIENT INSTANTLY SPIT UP WATER AND STARTED GAGGING. EDP AND CHARGE NURSE NOTIFIED.
--- NOTE | 2022-03-02 12:05 | NUR ---
PRADEEP HUTCHISON ON THE PHONE WITH DOCTOR FERNÁNDEZ AT THIS TIME.
[2022-03-02] MEDS ORDERED: NITROSTAT SL STA (12:16)
--- NOTE | 2022-03-02 12:27 | NUR ---
PRADEEP DOCTOR PRADEEP HERE TO SEE PATIENT.
--- NOTE | 2022-03-02 12:35 | ER.PDOC ---
General Chief Complaint: General Complaint Stated Complaint: FORIEGN MATTER IN THROAT TRAVEL OUT OF US: No Time seen by MD: 11:34 Source: patient History of Present Illness Initial Comments was eating breakfast when sausage piece got stuck in mid esophagus unable to swallow saliva since Timing/Duration: other (since just PTER) Severity: moderate Modifying Factors: improves with other (nothing) Associated Symptoms: other (had similar episode about 2yrs ago which was removed by EGD) Allergies: Coded Allergies: Penicillins (Verified Allergy, Unknown, UNK, 10/31/18) aspirin (Verified Allergy, Unknown, 10/31/18) metoclopramide (Verified Allergy, Unknown, 04/22/20) prochlorperazine (Verified Allergy, Unknown, 04/22/20) Home Meds Active Scripts Prednisone (PREDNISONE) 50 Mg Tablet, 1 TAB PO DAILY, #5 TAB Prov:AGBRIELA MEDINA MD 01/01/22 Pantoprazole Sodium (PROTONIX) 40 Mg Tablet.dr, 40 MG PO DAILY24 for 30 Days, #30 Prov:LETICIA QUAN NP 04/23/20 Reported Medications Escitalopram Oxalate (LEXAPRO) 10 Mg Tablet, 1 TAB PO DAILY, #90 TAB 3 Refills 06/25/14 Albuterol Sulfate (VENTOLIN HFA) 18 Gm Hfa.aer.ad, 18 GM IH Q4 PRN for COUGH 11/23/13 Fluticasone/Salmeterol (ADVAIR 250-50 DISKUS) 1 Each Disk.w.dev, 1 EACH IH DAILY 11/23/13 Past Medical History Medical History: asthma, cardiac problems, diabetes, hypertension Surgical History: no surgical history Social History Alcohol Use: none Drug Use: none Physical Exam General Appearance: No Apparent Distress, WD/WN, Other (sitting up, frequently wretching trying to dislodge fb in esophagus) EENT: eyes nml inspection Neck: Non-Tender Respiratory: chest non-tender, lungs clear, normal breath sounds CVS: reg rate & rhythm Gastrointestinal: Normal Bowel Sounds Back: Normal Inspection Extremities: Normal Range of Motion Neurologic/Psychiatric: sterile process coordinator II-XII NML as Tested, No Motor/Sensory Deficits Skin: Normal Color Results/Orders Results/Orders Orders - RUBÉN HUTCHISON MD Saline Lock (03/02/22 11:30) Glucagon (Glucagen) (03/02/22 11:30) Glucagon (Glucagen) (03/02/22 11:33) Nitroglycerin (Nitrostat) (03/02/22 12:16) Vital Signs Date Time Temp Pulse Resp B/P (MAP) Pulse Ox O2 Delivery O2 Flow Rate FiO2 03/02/22 11:15 99.1 65 18 03/02/22 11:15 99.1 65 18 98 03/02/22 11:15 99.1 65 18 137/89 (105) 98 Room Air* 0 21 Administered Medications Medications (Trade) Dose Ordered Sig/Jennifer Route PRN Reason Start Time Stop Time Status Last Admin Dose Admin Nitroglycerin (Nitrostat) 0.4 mg OT STAT SL 03/02/22 12:16 03/02/22 12:17 DC 03/02/22 11:55 0.4 MG Progress Progress ddx: fb Glucagon: no effect NTG: no effect Thus, called Dr. Dudley Consult/PCP Time Consult/PCP Called: 12:00 Consult/PCP: trice Reason/Comments: sees pt in the ED at 1233 ER DEPART Departure Time of Disposition: 12:55 Disposition: 02 SHORT TERM HOSPITAL Impression: Primary Impression: Food impaction of esophagus Condition: Stable Referrals: ERA DE OLIVEIRA (PCP) PRIMARY CARE PROVIDER Duration or Time Spent with Pa: 30 RUBÉN HUTCHISON MD Mar 02, 2022 12:35
[2022-03-02] MEDS ORDERED: LACTATED RINGERS 1,000 ML ONE (13:20)
[2022-03-02] MEDS ORDERED: LACTATED RINGERS 1,000 ML IV SCH (13:30)
[2022-03-02] MEDS ORDERED: METO-236 PO (13:30)
[2022-03-02] MEDS ORDERED: LISI5TAB18 PO (13:30)
[2022-03-02] MEDS ORDERED: METF500T17 PO (13:30)
--- NOTE | 2022-03-02 13:38 | HPH ---
ADMIT DATE: 03/02/2022 DICTATOR NAME: Samson Dudley DO CHIEF COMPLAINT: Foreign body in the esophagus. HISTORY OF PRESENT ILLNESS: This is a 41-year-old male seen in the Emergency Department. He has no acute respiratory distress. He has increased salivations noted. Apparently, he was eating a sausage egg burrito this morning and sometime around 10:30, felt like he got a foreign body in the mid to distal esophagus. He reports he has a previous history of similar episode that required removal of FB. He does report he has had some dysphagia in the last few months. PAST MEDICAL HISTORY: Includes diabetes, hypertension, depression. He has previous SVT. PAST SURGICAL HISTORY: Includes repair of torsed testicle x 3, orchiectomy on the right, previous EGD with removal of foreign body. ALLERGIES: INCLUDE PENICILLIN, ASPIRIN, METOCLOPRAMIDE AND PROCHLORPERAZINE. HOME MEDICATIONS: Include metoprolol, lisinopril, metformin, Lexapro. SOCIAL HISTORY: Positive for smokeless tobacco. He denies alcohol or illicit drug use. OCCUPATIONAL HISTORY: The patient works as a [employer]. 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 FAMILY HISTORY: Father living, age 67. Mother living, age 63. REVIEW OF SYSTEMS: CONSTITUTIONAL: No reported fever, chills or weakness. ENDOCRINE: He has known diabetes for approximately 2 years. Denies thyroid disease. CARDIOVASCULAR: No recent chest pain or trouble breathing. PULMONARY: No dyspnea or cough. GASTROINTESTINAL: He does report some upper abdominal pain and dysphagia, which is the reason for this evaluation. He does report some recent changes in his bowel habits. He does report symptoms consistent with early satiety. NEUROLOGIC: He has no previous history of seizures or loss of consciousness. He does have previous history of headaches. MUSCULOSKELETAL: He reports pain in his right finger from recent injury. GENITOURINARY: He denies dysuria, frequency or urgency. PHYSICAL EXAMINATION: GENERAL: This is alert and oriented x 3, appropriate male in no acute distress at time of my evaluation. VITAL SIGNS: Last temperature at 99.1, pulse 65, respiratory rate 18, blood pressure 137/89, room air O2 sat is 98%. HEENT: Normocephalic, atraumatic. [place] mucous membranes. NECK: Supple and soft. Trachea is midline. No JVD, no thyromegaly. HEART: Regular rate and rhythm. LUNGS: Clear to auscultation bilaterally. ABDOMEN: The bowel sounds are positive and soft. He has minimal tenderness in the upper abdomen. EXTREMITIES: Show positive radial pulses bilaterally, positive dorsal pedal pulses bilaterally. NEUROLOGIC: He has no focal findings. Cranial nerves 2-12 grossly intact. SKIN AND INTEGUMENT: Warm and dry. ASSESSMENT AND PLAN: * Foreign body in the esophagus. * History of diabetes. * History of hypertension. * History of supraventricular tachycardia. PLAN: * The patient was seen and examined. The chart was reviewed. * I have advised the patient regarding risks, benefits and alternatives, we will plan for EGD with removal of foreign body as soon as possible and, if able, allow the patient discharge home as an outpatient today. Jericho Chen. Samson Dudley D.O., DR: MARCELA TIAndrew: [id number] RECEIPT: [id number]
[2022-03-02] MEDS ORDERED: XYLOCAINE 2% 5ML VIAL ONE (13:51)
[2022-03-02] MEDS ORDERED: DIPRIVAN IV ONE (13:52)
--- NOTE | 2022-03-02 15:15 | OPH ---
DATE OF SURGERY: 03/02/2022 DICTATOR NAME: Samson Dudley DO PREOPERATIVE DIAGNOSIS: Foreign body in the esophagus, with intolerance of his own p.o. secretions. POSTOPERATIVE DIAGNOSIS: Foreign body in the esophagus, with intolerance of his own p.o. secretions. SURGEON: Samson Dudley DO. FORM MAKER: OR staff. ANESTHESIA: General by Donovan Mathur CRNA. PROCEDURE PERFORMED: Esophagogastroduodenoscopy. SPECIMENS: None. ESTIMATED BLOOD LOSS: Less than 1 mL. COUNTS: At the completion of the case, the counts were correct per OR staff. INDICATIONS FOR PROCEDURE: The patient is a 41-year-old male known from previous evaluation. DESCRIPTION OF PROCEDURE: Prior to procedure, informed consent was obtained. At the time of the procedure, he was taken to the operative suite and placed in supine position. With appropriate monitoring in place, a preprocedure safety checklist with timeout was completed with the assistance of the nursing service and the patient. With excellent sedation, esophagogastroduodenoscope was advanced transorally with pneumoinsufflation. The patient did have some coughing, which delayed this process; however, it was advanced distally in the esophagus. With pneumoinsufflation, the foreign material in the esophagus was passed easily into the stomach. Scope was subsequently advanced distally to the level of the small bowel. Scope was slowly withdrawn to facilitate visualization of the duodenal bulb and the pylorus. Distal stomach shows minimal gastritis. The retroflex maneuver is performed. There was material consistent with recent passage of foreign body associated in the fundus. The GE junction was slightly less visualized because of the patient's coughing and the foreign material in the stomach. Camera was reduced. Stomach was decompressed. The scope was slowly withdrawn. Distal, mid and proximal esophagus were essentially within normal limits. The vocal cords were not visualized as the patient is coughing. The patient was aggressively suctioned and the EGD scope was removed. The patient tolerated the procedure well. There were no acute complications noted. At this time, he remains under the care of Department of Anesthesia. Jericho Chen. Samson Dudley D.O., DR: AMY TID: [id number] RECEIPT: [id number]
== END 2022-03-02 15:25 | disposition home or self-care (01) ==
LOC: ER 11:04 → SDC 12:37
PROVIDERS: ATTEND Surgery
DX: T18.128A Food in esophagus causing other injury, initial encounter (principal); I10 Essential (primary) hypertension; J45.909 Unspecified asthma, uncomplicated; E11.9 Type 2 diabetes mellitus without complications; F32.A Depression, unspecified; G43.909 Migraine, unspecified, not intractable, without status migrainosus; I47.1 Supraventricular tachycardia; Z88.0 Allergy status to penicillin; Z88.8 Allergy status to other drugs, medicaments and biological substances; Z98.890 Other specified postprocedural states; Z88.6 Allergy status to analgesic agent; X58.XXXA Exposure to other specified factors, initial encounter
CPT/HCPCS: 43235; 99285; 82948; J1610; J7120; J3490; J2001

== ENCOUNTER 2022-04-22 08:56 | Emergency (ER) | payer SELFPAY ==
[~2022-04-22] VITALS: Ht 188 cm; Wt 99.8 kg
[~2022-04-22 08:56] MED LIST changes: +LISI5TAB18 PO; +METF500T17 PO; +METO-236 PO
--- NOTE | 2022-04-22 09:00 | NUR ---
ARRIVAL PT ARRIVED AMBULATORY TO ED 5 WITH C/O LEFT TESTICULAR PAIN RADIATING TO THE SUPRAPUBIC AREA FOR 3-[address] AND [address] NOTIFIED.
[2022-04-22 09:06] VITALS: BP 127/79
[2022-04-22] MEDS ORDERED: TORADOL IM STA (09:14)
[2022-04-22 09:19] LABS: BILIRUBIN,URINE NEGATIVE (NEGATIVE); UROBILINOGEN,URINE 0.2 E.U./dL (0.2)
[2022-04-22] MEDS ORDERED: TORADOL ONE (09:19)
[2022-04-22 09:34] LABS: BASOPHIL % 0.7 % (0.0-0.2); EOSINOPHIL # 0.4 10^3/uL (0.0-0.2); LYMPHOCYTES # 0.72 10^3/uL1 (1.0-4.8); LYMPHOCYTES % 24.7 % (24.0-44.0); MEAN CORP HGB 28.2 pg (26-34); MONOCYTES # 0.2 10^3/uL (0.3-0.8); MONOCYTES % 7.2 % (5.0-12.0); NEUTROPHIL # 1.6 10^3/uL (1.8-7.7); NEUTROPHILS % 53.4 % (41.0-85.0); RED CELL DISTRIBUTION WIDTH 14.1 % (11.5-14.5)
[2022-04-22] MEDS ORDERED: ROCEPHIN 1,000 MG in NS 100ML 100 ML IM STA (09:37)
--- NOTE | 2022-04-22 09:37 | ER.PDOC ---
General Chief Complaint: Male Stated Complaint: MALE Time seen by MD: 09:36 Source: patient Exam Limitations: no limitations History of Present Illness Initial Comments Left testicular pain for 4 days. No fever or chills. Severity/Quality: moderate Associated Symptoms: Testicle pain (L) Sexual History: Non-contributory Allergies: Coded Allergies: Penicillins (Verified Allergy, Unknown, UNK, 10/31/18) aspirin (Verified Allergy, Unknown, 10/31/18) metoclopramide (Verified Allergy, Unknown, 04/22/20) prochlorperazine (Verified Allergy, Unknown, 04/22/20) Home Meds Active Scripts Lisinopril (LISINOPRIL) 5 Mg Tablet, 1 TAB PO DAILY, #30 TAB 5 Refills Prov:EDA FERNÁNDEZ DO 03/02/22 Reported Medications Metoprolol Succinate (METOPROLOL SUCCINATE) 25 Mg Tab.er.24h, 1 TAB PO DAILY, #30 TAB 5 Refills 03/02/22 Metformin Hcl (METFORMIN HCL) 500 Mg Tablet, 1 TAB PO BID, #60 TAB 3 Refills 03/02/22 Escitalopram Oxalate (LEXAPRO) 10 Mg Tablet, 1 TAB PO DAILY, #90 TAB 3 Refills 06/25/14 Albuterol Sulfate (VENTOLIN HFA) 18 Gm Hfa.aer.ad, 18 GM IH Q4 PRN for COUGH 11/23/13 Past Medical History Medical History: asthma, cardiac problems, diabetes, hypertension Surgical History: no surgical history Family History Significant Family History: no pertinent family hx Social History Smoking: non-smoker Alcohol Use: occassionally Drug Use: none Review of Systems Constitutional: no symptoms reported EENTM: no symptoms reported Respiratory: no symptoms reported Cardiovascular: no symptoms reported Gastrointestinal: no symptoms reported Genitourinary: see HPI All Other Systems: Reviewed and Negative Physical Exam General Appearance: No Apparent Distress, WD/WN EENT: eyes nml inspection, nml ENT inspection, pharynx nml Neck: nml inspection, non-tender Cardiovascular/Respiratory: Regular Rate, Rhythm, No M/R/G, Normal Peripheral Pulses, No JVD, Normal Breath Sounds, No Respiratory Distress Abdomen: Normal Bowel Sounds, Non Tender, Soft, No Organomegaly, No Pulsatile Mass Male Genitals: Scrotum Tenderness (L), Testicular Tenderness (L), Circumcised, Scrotal Swelling (left) Extremities: Normal Range of Motion, Non-Tender, Normal Inspection, No Pedal Edema, No Calf Tenderness, Normal Capillary Refill Neurologic/Psychiatric: tank setter II-XII NML as Tested, No Motor/Sensory Deficits, Alert, Normal Mood/Affect, Oriented x 3 Skin: Normal Color, Warm/Dry Lymphatic: No Adenopathy Results/Orders Results/Orders Orders - BERNABE LEY MD Cbc With Auto Diff (04/22/22 09:14) Urinalysis (04/22/22 09:14) Basic Metabolic Panel (04/22/22 09:14) Us Scrotal (04/22/22 09:14) Ketorolac Tromethamine (Toradol) (04/22/22 09:14) Ketorolac Tromethamine (Toradol) (04/22/22 09:19) Ceftriaxone Sodium (Rocephin) (04/22/22 09:37) Us Duplex Abd Organ/Limited (04/22/22 ) Ceftriaxone Sodium (Rocephin) (04/22/22 10:42) Ceftriaxone Sodium (Rocephin) (04/22/22 10:46) Vital Signs Date Time Temp Pulse Resp B/P (MAP) Pulse Ox O2 Delivery O2 Flow Rate FiO2 04/22/22 10:34 97.5 62 18 109/74 (86) 99 Room Air* 0 21 04/22/22 09:06 97.5 58 18 04/22/22 09:06 97.5 58 18 127/79 (95) 99 Room Air* 0 21 04/22/22 09:06 97.5 58 18 99 Administered Medications Medications (Trade) Dose Ordered Sig/Jennifer Route PRN Reason Start Time Stop Time Status Last Admin Dose Admin Ketorolac Tromethamine (Toradol) 60 mg STAT STAT IM 04/22/22 09:14 04/22/22 09:17 DC 04/22/22 09:22 60 MG Laboratory Tests Test 04/22/22 09:14 04/22/22 09:28 Urine Collection Type UNKNOWN Urine Color YELLOW Urine Appearance CLEAR Urine Bilirubin NEGATIVE (NEGATIVE) Urine Ketones NEGATIVE (NEGATIVE) Urine Specific [place] >=1.030 (1.005-1.030) Urine pH 5.5 (4.5-8.0) Urine Protein NEGATIVE (NEGATIVE) Urine Urobilinogen 0.2 E.U./dL (0.2) Urine Nitrate NEGATIVE (NEGATIVE) Urine Leukocyte Esterase NEGATIVE (NEGATIVE) Urine Glucose (Auto)(UA) NEGATIVE (NEGATIVE) Urine Blood NEGATIVE (NEGATIVE) White Blood Count 2.9 10^3/uL (4.5-11.0) L Red Blood Count 5.43 10^6/uL (4.50-5.90) Hemoglobin 15.3 g/dL (13.9-16.3) Hematocrit 49.0 % (37.0-53.0) Mean Corpuscular Volume 90.2 fL (78-100) Mean Corpuscular Hemoglobin 28.2 pg (26-34) Mean Corpuscular Hemoglobin Concent 31.2 g/dL (33-36.5) L Red Cell Distribution Width 14.1 % (11.5-14.5) Platelet Count 201 10^3/uL (150-400) Mean Platelet Volume 10.6 fL (7.8-11.0) Neutrophils (%) (Auto) 53.4 % (41.0-85.0) Lymphocytes (%) (Auto) 24.7 % (24.0-44.0) Monocytes (%) (Auto) 7.2 % (5.0-12.0) Neutrophils # (Auto) 1.6 10^3/uL (1.8-7.7) L Lymphocytes # (Auto) 0.72 10^3/uL1 (1.0-4.8) L Monocytes # (Auto) 0.2 10^3/uL (0.3-0.8) L Absolute Immature Granulocyte (auto 0 10^3 u/L (0-2) Absolute Eosinophils (auto) 0.4 10^3/uL (0.0-0.2) H Immature Granulocytes % 0.00 % (0.00-0.50) Eosinophils % 14.0 % (0.0-5.0) H Basophils % 0.7 % (0.0-0.2) H Basophils # 0.0 10^3/uL (0.0-0.1) Sodium Level 139 mmol/L (132-145) Potassium Level 4.2 mmol/L (3.6-5.2) Chloride Level 103.0 mmol/L (96-109) Carbon Dioxide Level 25.9 mmol/L (20.0-32) Glucose Level 110 mg/dL (70-110) Blood Urea Nitrogen 13 mg/dL (7-18) Creatinine 0.80 mg/dL (0.59-1.40) Calcium Level 9.1 mg/dL (8.4-10.5) Anion Gap 14.3 Estimated GFR () 127.7 (>/=60) Est GFR (CKD-EPI)(Non-Afr [place]og[place]ese) 105.5 (>/=60) BUN/Creatinine Ratio 16.0 Progress Progress Scrotal US: Enlarged left epididymis without increased vascularity. This may represent the sequela of previous epididymitis. WBC is 2.9, rest of CBC is unremarkable. Chemistry is normal. Urinalysis negative. Patient received Toradol, Rocephin. He is feeling better. ER DEPART Departure Time of Disposition: 10:50 Disposition: 01 HOME / SELF CARE / HOMELESS Impression: Primary Impression: Acute epididymo-orchitis Condition: Improved Referrals: ERA DE OLIVEIRA (PCP) PRIMARY CARE PROVIDER Additional Instructions: Doxycycline Follow-up with your PCP in 2 to 3 days Follow-up with your urologist in 3 to 5 days Return to ED if worsening or concerns Duration or Time Spent with Pa: 30 min BERNABE LEY MD Apr 22, 2022 09:37
[2022-04-22 09:43] LABS: CARBON DIOXIDE 25.9 mmol/L (20.0-32)
--- NOTE | 2022-04-22 10:21 | DIREP ---
PROCEDURE:US TESTICULAR WITH DOPPLER COMPARISON:[facility], US, US TESTICULAR, 07/08/2018, 00:39 AM. [facility], US, US TESTICULAR, 12/30/2016, 03:43 PM. US, US TESTICULAR, 02/12/2015, 11:27 AM. US, US TESTICULAR, 08/28/2014, 12:20 PM. [facility], CT, CT ABD/PELVIS W/ CONTRAST, 11/08/2021, 00:01 AM. [facility], US, US TESTICULAR WITH DOPPLER, 01/06/2021, 12:45 PM. [facility], US, US TESTICULAR WITH DOPPLER, 06/08/2020, 03:57 PM. [facility], US, US TESTICULAR, 08/10/2018, 07:54 PM. INDICATIONS:left testicular pain TECHNIQUE:The scrotum was evaluated with izquierdo scale, spectral analysis, and color duplex doppler sonography. FINDINGS: RIGHT TESTICLE: Status post right orchiectomy. Right hemiscrotum not evaluated. LEFT TESTICLE: Measures 5.2 x 2.2 x 4.2 cm. No mass or microcalcifications. EPIDIDYMIS:The left epididymal head measures 0.9 x 1.2 cm. The visualized epididymis appears slightly enlarged but there is no increased vascularity on the provided color Doppler images. This may represent sequela of previous epididymitis. OTHER:Prominent vessels in the left hemiscrotum were measured, vessels with internal vascularity documented were not dilated however. DOPPLER FLOW: Symmetric waveforms with sustained diastolic flow. CONCLUSION: 1. Enlarged left epididymis without increased vascularity. This may represent the sequela of previous epididymitis. Dictated by: JEREMIE Physician on 04/22/2022 at 10:03 AM ac
[2022-04-22 10:34] VITALS: BP 109/74
[2022-04-22] MEDS ORDERED: ROCEPHIN IM STA (10:42)
[2022-04-22] MEDS ORDERED: ROCEPHIN ONE (10:46)
== END 2022-04-22 11:06 | disposition home or self-care (01) ==
LOC: ER 08:56
DX: N45.3 Epididymo-orchitis (principal); J45.909 Unspecified asthma, uncomplicated; E11.9 Type 2 diabetes mellitus without complications; I10 Essential (primary) hypertension; Z88.0 Allergy status to penicillin; Z88.6 Allergy status to analgesic agent; Z79.84 Long term (current) use of oral hypoglycemic drugs
CPT/HCPCS: 99284; 93976; 96372; 76870; 81003; 85025; 36415; 80048; J1885; J0696 ×2

== ENCOUNTER 2022-04-23 09:39 | Day surgery (SDC) | payer SELFPAY ==
[~2022-04-23] VITALS: Ht 188 cm; Wt 97.5 kg
[2022-04-23] VITALS (17 sets, daily range): BP systolic 120–163; BP diastolic 58–103
--- NOTE | 2022-04-23 09:59 | NUR ---
ARRIVAL PATIENT ARRIVED TO ED5 AMBULATORY, C/O POSSIBLE FOREIGN BODY IN THROAT, PATIENT STATES HE WAS EATING BURRITO AND IT FEELS LIKE IT IS STUCK IN HIS THROAT, UNABLE TO KEEP ANYTHING DOWN, VITAL SIGNS TAKEN AND DOCTOR NOTIFIED OF PATIENT'S ARRIVAL.
[2022-04-23] MEDS ORDERED: GLUCAGEN IV STA (10:00)
[2022-04-23] MEDS ORDERED: GLUCAGEN ONE (10:07)
[2022-04-23] MEDS ORDERED: TORADOL IV STA (10:33)
--- NOTE | 2022-04-23 10:35 | DIREP ---
PROCEDURE:CT CHEST W/O COMPARISON:[facility], CR, XRAY CHEST SINGLE VW, 01/17/2022, 07:45 PM. INDICATIONS:COUGH TECHNIQUE:Helical sections through the chest were performed from the lung apices through the diaphragms without IV contrast. Sagittal and coronal reconstructions are obtained from source images. FINDINGS: LUNGS:Normal. No infiltrates or visible pulmonary disease. No emphysematous changes or bronchiectasis is seen. PLEURA:Normal. No mass or effusion. CARDIAC:Normal. No enlargement, pericardial thickening, or significant calcification. MEDIASTINUM:Filling defects and/or debris are seen within the esophagus. A small sliding-type hiatal hernia is seen. JUSTICE:Normal. No mass or adenopathy. AORTA:Normal. No aneurysm. CHEST WALL:Normal. No mass or axillary adenopathy. LIMITED ABDOMEN:2 small calcified granulomas are incidentally noted in the spleen. BONES:Normal. No bony lesion or fracture. OTHER:Negative. CONCLUSION: 1. There are findings of filling defects and/or debris within the esophagus and a small sliding-type hiatal hernia. 2. No infiltrates or other parenchymal abnormalities are seen in the lungs bilaterally. Dictated by: Thee Arzola M.D. On 04/23/2022 at 10:29 AM
[2022-04-23] MEDS ORDERED: TORADOL ONE (10:40)
--- NOTE | 2022-04-23 10:43 | NUR ---
PRADEEP REYES ON THE PHONE WITH DOCTOR FERNÁNDEZ AT THIS TIME.
--- NOTE | 2022-04-23 10:51 | DIREP ---
PROCEDURE:CT SOFT TISSUE NECK W/O COMPARISON:[facility], CT, CT CHEST W/O, 04/23/2022, 10:17 AM. INDICATIONS:POSSIBLE FOREIGN BODY IN THE THROAT TECHNIQUE:CT images were created without intravenous contrast material. Sagittal and coronal reconstructions are performed. FINDINGS: NASOPHARYNX:Normal. Fossae of Rosenmuller and torus tubarius are symmetric. ORAL CAVITY:Normal. No visible mass. OROPHARYNX:Normal. Faucial and lingual tonsils are symmetric. HYPOPHARYNX:Normal. No mass or other visible lesion. LARYNX:Normal. The vocal cords are symmetric and without mass. SINUSES:Normal. Limited views show no significant fluid or mucosal thickening. NECK GLANDS:Normal. The parotid, submandibular, and thyroid glands are unremarkable. LYMPH NODES:Normal. No pathological-appearing or enlarged lymph nodes. SKULL BASE:Normal. Foramina are symmetric without bony erosion. VASCULATURE:Normal. Limited views are unremarkable. BONES:Normal. No significant osseous lesions. OTHER:Filling defects and/or debris are seen in the proximal esophagus. CONCLUSION:There are filling defects and/or debris in the proximal esophagus which may represent foreign bodies. No soft tissue mass or lymphadenopathy is seen in the neck. Dictated by: Thee Arzola M.D. on 04/23/2022 at 10:47 AM
--- NOTE | 2022-04-23 11:23 | NUR ---
PRADEEP FERNÁNDEZ HERE TO SEE PATIENT, WILL TAKE TO O.R. TO REMOVE FOREIGN BODY
--- NOTE | 2022-04-23 11:34 | ER.PDOC ---
General Chief Complaint: General Complaint Stated Complaint: GENERAL TRAVEL OUT OF US: No Time seen by MD: 10:00 Source: patient Exam Limitations: no limitations History of Present Illness Initial Comments Patient is a 41-year-old male with a past medical history of food bolus impaction who comes in with similar symptoms over the past hour. Patient states that he ate a burrito this morning for breakfast and has since felt like he had food stuck in his esophagus. Patient has associated symptoms of nausea and vomiting but says that he just vomits of liquid. Patient states that it is also causing a pain in his esophagus as well. Patient states that the sore pain nothing is making it better or worse. Allergies: Coded Allergies: Penicillins (Verified Allergy, Unknown, UNK, 10/31/18) aspirin (Verified Allergy, Unknown, 10/31/18) metoclopramide (Verified Allergy, Unknown, 04/22/20) prochlorperazine (Verified Allergy, Unknown, 04/22/20) Home Meds Active Scripts Lisinopril (LISINOPRIL) 5 Mg Tablet, 1 TAB PO DAILY, #30 TAB 5 Refills Prov:EDA DUDLEY DO 03/02/22 Reported Medications Metoprolol Succinate (METOPROLOL SUCCINATE) 25 Mg Tab.er.24h, 1 TAB PO DAILY, #30 TAB 5 Refills 03/02/22 Metformin Hcl (METFORMIN HCL) 500 Mg Tablet, 1 TAB PO BID, #60 TAB 3 Refills 03/02/22 Escitalopram Oxalate (LEXAPRO) 10 Mg Tablet, 1 TAB PO DAILY, #90 TAB 3 Refills 06/25/14 Albuterol Sulfate (VENTOLIN HFA) 18 Gm Hfa.aer.ad, 18 GM IH Q4 PRN for COUGH 11/23/13 Past Medical History Medical History: cancer, cardiac problems, diabetes, hypertension Surgical History: cancer surgery, other Family History Significant Family History: no pertinent family hx Social History Smoking: non-smoker Alcohol Use: none Drug Use: none Reviewed Nursing Reviewed: Vital Signs, Abn. Noted, Nursing Assessment Review of Systems Constitutional: denies no symptoms reported, denies see HPI, denies chills, denies diaphoresis, denies fever, denies malaise, denies weakness, denies other EENTM: other (esophagus pain - food stuck) Respiratory: denies no symptoms reported, denies see HPI, denies cough, denies orthopnea, denies shortness of breath, denies stridor, denies wheezing, denies other Cardiovascular: denies no symptoms reported, denies see HPI, denies chest pain, denies edema, denies palpitations, denies syncope, denies other Gastrointestinal: denies no symptoms reported, denies see HPI, denies abdominal pain, denies constipation, denies diarrhea; nausea, vomiting; denies other Genitourinary: denies no symptoms reported, denies see HPI, denies discharge, denies dysuria, denies frequency, denies hematuria, denies pain, denies other Musculoskeletal: denies no symptoms reported, denies see HPI, denies back pain, denies gout, denies joint pain, denies joint swelling, denies muscle pain, denies muscle stiffness, denies neck pain, denies other Skin: denies no symptoms reported, denies see HPI, denies change in color, denies change in hair/nails, denies dryness, denies lesions, denies lumps, denies rash, denies other Psychiatric/Neurological: denies no symptoms reported, denies see HPI, denies anxiety, denies depressed, denies emotional problems, denies headache, denies numbness, denies paresthesia, denies pre-existing deficit, denies seizure, denies tingling, denies tremors, denies weakness, denies other Hematologic/Lymphatic: denies no symptoms reported, denies see HPI, denies anemia, denies blood clots, denies easy bleeding, denies easy bruising, denies swollen glands, denies other Immunological/Allergic: denies no symptoms reported, denies see HPI, denies food allergy, denies grass allergy, denies mold allergy, denies pollen allergy, denies HIV/AIDS, denies transplant Physical Exam General Appearance: Anxious EENT: eyes nml inspection, nml ENT inspection Neck: Non-Tender, Full Range of Motion Respiratory: chest non-tender, lungs clear CVS: reg rate & rhythm, no murmur Gastrointestinal: Normal Bowel Sounds, Non Tender Back: Normal Inspection Extremities: Normal Range of Motion, Non-Tender Neurologic/Psychiatric: urogynecology physician II-XII NML as Tested, No Motor/Sensory Deficits, Alert, Normal Mood/Affect, Oriented x 3 Skin: Normal Color Lymphatic: No Adenopathy Results/Orders Results/Orders Orders - SCOOBY REYES MD Ct Soft Tissue Neck Wo Contrst (04/23/22 09:51) Ct Chest Wo Iv Contrast (04/23/22 09:51) Glucagon (Glucagen) (04/23/22 10:00) Glucagon (Glucagen) (04/23/22 10:07) Ketorolac Tromethamine (Toradol) (04/23/22 10:33) Vital Signs Date Time Temp Pulse Resp B/P (MAP) Pulse Ox O2 Delivery O2 Flow Rate FiO2 04/23/22 11:17 98.3 70 18 149/59 (89) 98 Room Air* 0 21 04/23/22 09:39 98.3 70 18 04/23/22 09:39 98.3 70 18 98 04/23/22 09:39 98.3 70 18 163/103 (123) 98 Room Air* 0 21 Administered Medications Medications (Trade) Dose Ordered Sig/Jennifer Route PRN Reason Start Time Stop Time Status Last Admin Dose Admin Ketorolac Tromethamine (Toradol) 15 mg OT STAT IV 04/23/22 10:33 04/23/22 10:34 UNV 04/23/22 10:41 15 MG Progress Progress Patient here with possible food bolus we will give him an effervescent soda as well as glucagon and order CT scans we will also provide pain control if he needs that as well. At 1042 reassessment patient doing better called Dr. Dudley to do a scope to remove the food bolus was found on CT scan he stated that he would call the OR and get back with me. At 1123 Dr. Dudley came down and evaluated the patient and will take him to the OR suite and discharged from there. Patient hemodynamically stable at this time. ER DEPART Departure Time of Disposition: 11:36 Disposition: 30 STILL A PATIENT (Will be DC by Dr. Dudley - to the OR (Day Surgery)) Impression: Primary Impression: Food impaction of esophagus Condition: Improved Referrals: ERA DE OLIVEIRA (PCP) PRIMARY CARE PROVIDER Duration or Time Spent with Pa: 60 Problem Qualifiers Primary Impression: Food impaction of esophagus Encounter type: initial encounter Qualified Codes: T18.128A - Food in esophagus causing other injury, initial encounter SCOOBY REYES MD Apr 23, 2022 11:34
[2022-04-23] MEDS ORDERED: LACTATED RINGERS 1,000 ML ONE (12:04)
[2022-04-23] MEDS ORDERED: REGLAN ONE (12:24)
[2022-04-23] MEDS ORDERED: PEPCID IV ONE (12:25)
[2022-04-23] MEDS ORDERED: VERSED ONE (12:25)
[2022-04-23] MEDS ORDERED: KETALAR ONE (12:28)
[2022-04-23] MEDS ORDERED: DIPRIVAN 100 ML IV ONE (12:28)
[2022-04-23] MEDS ORDERED: DUO 0.5-3(2.5) MG/3 ML IH ONE (12:30)
[2022-04-23] MEDS ORDERED: DUO 0.5-3(2.5) MG/3 ML IH STA (12:37)
[2022-04-23] MEDS ORDERED: PEPCID IV STA (12:38)
[2022-04-23] MEDS ORDERED: ZOFRAN ONE (12:57)
[2022-04-23] MEDS ORDERED: XOPENEX IH ONE (13:18)
--- NOTE | 2022-04-23 13:56 | OPH ---
DATE OF SURGERY: 04/23/2022 DICTATOR NAME: Samson Dudley DO PREOPERATIVE DIAGNOSIS: Foreign body in the esophagus. POSTOPERATIVE DIAGNOSES: * Foreign body in the esophagus. * Gastroduodenitis. SURGEON: Samson Dudley DO PARTY PLAN DEMONSTRATOR: OR staff. ANESTHESIA: General by Claudio Bui CRNA. PROCEDURES PERFORMED: Esophagogastroduodenoscopy with biopsy, removal of foreign body from the esophagus. SPECIMENS: Gastric mucosa to path. ESTIMATED BLOOD LOSS: 7 mL. COUNTS: At the completion of the case, the counts were correct as per OR staff. DESCRIPTION OF PROCEDURE: The patient is a 41-year-old male, known from previous evaluation. Prior to procedure, informed consent was obtained. At the time of procedure, he was taken to the operative suite and placed in supine position with appropriate monitoring in place. He was repositioned in left lateral recumbent position. A preprocedure safety checklist with timeout was completed with the assistance of nursing service. With excellent sedation, the esophagogastroduodenoscope was advanced transorally with pneumoinsufflation distally. In the distal esophagus, there was an atypical amalgamation of partially digested food. The smaller particles were irrigated and suctioned. A few portions were removed with suction. The scope was readvanced to the distal portion of the obstruction and it is manipulated using the biopsy forceps until the pieces could be advanced to the body of the stomach. Once the foreign material was advanced to the body of the stomach, scope was advanced further distally to the level of the duodenum. Once the duodenum was adequately visualized, camera was slowly withdrawn to facilitate visualization of duodenal bulb and distal stomach, which shows gastritis and duodenitis. The gastric mucosa was biopsied. With good hemostasis noted, the retroflex maneuver was performed, the fundus and cardia were essentially within normal limits. Camera was reduced, stomach was decompressed, scope was slowly withdrawn. Any further foreign material identified in the esophagus, was gently manipulated with scope and advanced to the body of the stomach. Once all easily removed foreign materials were removed, the stomach was decompressed again. Scope was slowly withdrawn. Distal, mid and proximal esophagus show no significant pathology. The patient does not have an obvious stricture at this time. The vocal cords were minimally visualized. The camera was removed. Procedure discontinued. The patient tolerated these procedures well. There were no acute complications noted. DODr. Samson Chen D.O. DR: YURY/TIFFANIE TID: [id number] RECEIPT: [id number]
--- NOTE | 2022-04-23 23:08 | CNH ---
DATE OF CONSULTATION: 04/23/2022 DICTATOR NAME: Samson Dudley DO CHIEF COMPLAINT: Foreign body in the esophagus. HISTORY OF PRESENT ILLNESS: This is a 41-year-old male who is known to me from a previous evaluation and treatment of foreign body in esophagus. He is seen in the Emergency Department today regarding foreign body in the esophagus. He was eating a breakfast burrito this morning, felt like it was stuck in his mid to distal esophagus. He has had previous foreign body removal. He was evaluated in the Emergency Department, had a CAT scan that showed foreign body and filling defect. The patient has intolerance of his own secretions at this point. He has not vomited, but he is retching to clear his secretions. He does report he tried to vomit at home without success to clear the foreign body. PAST MEDICAL HISTORY: Includes diabetes, hypertension, depression, previous SVT. PAST SURGICAL HISTORY: Includes repair of a torsed testicle x3, orchiectomy on the right, previous EGDs for foreign bodies. ALLERGIES: INCLUDE PENICILLIN, ASPIRIN, METOCLOPRAMIDE AND PROCHLORPERAZINE. OUTPATIENT MEDICATIONS: Include Lexapro, metformin, lisinopril, metoprolol. SOCIAL HISTORY: Positive for tobacco. He denies alcohol or illicit drug use. 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 He has had significant occupational exposures. FAMILY HISTORY: Mother and father both living. REVIEW OF SYSTEMS: CONSTITUTIONAL: No fever, chills or weakness. ENDOCRINE: He has known diabetes. No thyroid disease known. CARDIOVASCULAR: No chest pain, trouble breathing. PULMONARY: No dyspnea or cough. GASTROINTESTINAL: He does have previous history of dysphagia and foreign body in the esophagus. NEUROLOGIC: No previous seizures or blackouts. MUSCULOSKELETAL: He apparently has some chronic symptoms. GENITOURINARY: No dysuria, frequency or urgency. PHYSICAL EXAMINATION: GENERAL: This is an alert, oriented, appropriate 41-year-old male, in no acute distress at the time of my assessment. VITAL SIGNS: Today, temperature 98.3, pulse 70, respiratory rate of 18, blood pressure 149/59, on repeat the mean was 89; room air O2 sat 98%. HEENT: Normocephalic, atraumatic. Desloge mucous membranes. NECK: Supple, soft. Trachea is midline. He has no JVD, no thyromegaly. HEART: Has a regular rate and rhythm. LUNGS: Have occasional wheezes posteriorly bilaterally. ABDOMEN: The bowel sounds are positive. He has tenderness in the abdomen. EXTREMITIES: Show positive radial pulses bilaterally. Positive pedal pulses. NEUROLOGIC: No focal findings. Cranial nerves II-XII grossly intact. SKIN: Warm and dry. LABORATORY DATA: No labs. There is a filling defect identified in the esophagus on a CT of the chest and neck consistent with foreign body and a sliding type hiatal hernia. SURGICAL ASSESSMENTS: * Foreign body in the esophagus. * History of tobacco use. * Hiatal hernia. PLAN: * The patient was seen, examined and chart reviewed. * We will plan for EGD and removal of foreign bodies as soon as able. Jericho Chen. Samson Dudley D.O., DR: REI/CEASAR TID: [id number] RECEIPT: [id number]
== END 2022-04-23 15:02 | disposition home or self-care (01) ==
LOC: ER 09:39 → SDC 11:30
PROVIDERS: ATTEND Surgery
DX: T18.128A Food in esophagus causing other injury, initial encounter (principal); K29.50 Unspecified chronic gastritis without bleeding; K29.90 Gastroduodenitis, unspecified, without bleeding; K21.9 Gastro-esophageal reflux disease without esophagitis; J45.909 Unspecified asthma, uncomplicated; F41.9 Anxiety disorder, unspecified; I10 Essential (primary) hypertension; F32.A Depression, unspecified; E11.9 Type 2 diabetes mellitus without complications; Z98.890 Other specified postprocedural states; Z79.899 Other long term (current) drug therapy; Z88.0 Allergy status to penicillin; Z88.8 Allergy status to other drugs, medicaments and biological substances; Z72.89 Other problems related to lifestyle; Z88.6 Allergy status to analgesic agent; Z90.79 Acquired absence of other genital organ(s); X58.XXXA Exposure to other specified factors, initial encounter
CPT/HCPCS: 43239; 99285; 43247; 71250; 70490; 82948; 88305; J1610; J7120; J2405; J2250; J1885; J2765; J3490